=== PATIENT | female | born 1960 | race Caucasian/White ===

== ENCOUNTER → 2018-01-12 09:54 | Outpatient (CLI) | payer OTHER, SELFPAY | DX: Z23 Encounter for immunization (principal) | CPT/HCPCS: 90471; 90686 ==

== ENCOUNTER 2018-05-21 07:30 | Outpatient (RCR) | payer OTHER, SELFPAY ==
--- NOTE | 2017-08-27 17:09 | PT.OIE ---
Current Diagnoses Pain in left shoulder (08/27/17) Strain of unspecified muscle, fascia and tendon at shoulder and upper arm level, left arm, initial encounter (08/27/17) Past Surgical History Status post LASIK surgery Status post colonoscopy Status post tubal ligation Provider Visit Care Team Role Provider Type Kirt Feliz MD Family Provider Physician Primary Care Provider Specialty: Family Practice Address: [address] [place] [address] [address], [place], [address] Email: [email or web address] Pawel Shannon MD Attending Provider Non-Staff Specialty: Orthopedic Surgery Address: [address] [place] [address] [address], [address] Email: Physical Therapy Initial Evaluation PT-OP-A Visit Information Start: 08/27/17 08:09 Freq: Status: Active Protocol: Document 08/27/17 16:56 [facility] (Rec: 08/27/17 17:07 [facility] [id number]) Out-Patient Physical Therapy Visit Information Visit Information Visit Type Initial Evaluation Visit Start Time 14:30 Visit Stop Time 15:15 Total Visit Minutes 45 Visit Number 1 Number of COMMERCIAL CENSUS TAKER Visits 0 PT-OP-B Current Condition Start: 08/27/17 08:09 Freq: Status: Active Protocol: Document 08/27/17 16:56 [facility] (Rec: 08/27/17 17:07 [facility] [id number]) Current Condition History of Current Condition Current Complaints L shoulder pain History of Current Condition Pt had insideous onset of L shoulder pain in Apr and has done PT, chiro, massage & injections with relief only with injections, but started to go downhill 2 months after 3rd injection so was scheduled for RAJENDRA which was done 08/26/17. Pt has chronic neck & back pain. Pt reports allergic reaction to one of her pain meds so is getting new prescription tonight. Prior Treatments and Tests Has done PT, chiro & massage in past & had 2 neck injections & 3 shoulder injections & recent RAJENDRA Treatment Goals Patient/Caregiver Goals Dec pain & return to activity Prior Functional Status Baseline Function- ADL's Independent Current Functional Impairments (Reported) Functional Limitations- ADL's Difficulty with UE tasks d/t pain PT-OP-C Subjective Start: 08/27/17 08:09 Freq: Status: Active Protocol: Document 08/27/17 16:56 [facility] (Rec: 08/27/17 17:07 [facility] [id number]) Patient Questionnaires Quick Dash- Upper Extremity Quick Dash UE Score 59.1 Quick Dash UE Impairment 40 to 59% Impaired (Score 40- 59) OP-PT Pain Assessment Location Left Shoulder Intensity 2 Scale Used Numeric (1 - 10) Pain Duration currently taking narcotics Home Pain Medication Use Pain Medications Used Yes Pain Behaviors Pain Behaviors Facial Grimacing Guarding Wincing PT-OP-J Posture/Palpation/Skin Start: 08/27/17 08:09 Freq: Status: Active Protocol: Document 08/27/17 14:31 [facility] (Rec: 08/27/17 15:24 [facility] [id number]) Posture Evaluation Comments Posture Comments moderate fwd head & shoulders Palpation Assessment Location One Palpation Location L shoulder Palpation Findings Soft Tissue Tightness Tenderness Palpation Details UT, Pec, LS, scalenes PT-OP-K Range of Motion Start: 08/27/17 08:09 Freq: Status: Active Protocol: Document 08/27/17 14:31 [facility] (Rec: 08/27/17 15:24 [facility] [id number]) Cervical Spine Range of Motion Cervical Spine Active Degrees Testing Position Sitting Flexion 30 Extension 30 Rotation Left 50 Rotation Right 26 Lateral Flexion Left 18 Lateral Flexion Right 25 Comments nauseas w/flex & dizzy with ext Shoulder Goniometric Range of Motion Shoulder Measured in Degrees Right Active Shoulder ROM WFL Yes Left Active Testing Position Sitting Flexion 132 Extension 54 Abduction 86 Internal Rotation Behind Back (text) base of sacrum Left Passive Flexion 132 Abduction 105 External Rotation at 90 degrees 52 Abduction Internal Rotation 31 PT-OP-Q Treatments Start: 08/27/17 08:09 Freq: Status: Active Protocol: Document 08/27/17 14:31 [facility] (Rec: 08/27/17 15:24 [facility] [id number]) Therapeutic Exercises Supine Exercises 5 Supine Exercise Name tbar IR behind back Side left Reps/Minutes 10 4 Supine Exercise Name AAROM abd tbar Side left 3 Supine Exercise Name AAROM tbar Habd/add Side left Reps/Minutes 15 2 Supine Exercise Name AAROM tbar 90/90 ER Side left Reps/Minutes 10 1 Supine Exercise Name AAROM tbar flex Side left Reps/Minutes 10 Manual Therapy Treatment Soft Tissue Mobilization 1 Body Location UT Mobilization Type Rolling Intensity/Depth Moderate Body Position Supine Manual Techniques 1 Type PROM flex, abd, ER, IR Body Location L shoulder Body Position Supine PT-OP-T Assessment and Plan Start: 08/27/17 08:09 Freq: Status: Active Protocol: Document 08/27/17 16:50 [facility] (Rec: 08/27/17 16:56 [facility] [id number]) Physical Therapy Assessment Rehab Potential Rehabilitation Potential Good Evaluation Complexity Number of Personal Factors/Comorbidities 3 or More Number of Body Systems Impaired 4 or More Clinical Presentation at Evaluation Evolving Impairments Impairments Activity Tolerance Functional Activities Pain Posture ROM Soft Tissue Mobility Strength Goals Four Impairment pain Jail Goal (LTG) Pt will rate L shoulder pain as no greater than 2/10 without narcotics. LTG Duration 2 months Three Impairment DASH quick Jail Goal (LTG) 20 quick DASH LTG Duration 2 months Two Impairment strength Jail Goal (LTG) 5/5 UE strength (B) to allow return to rec activities LTG Duration 2 months One Impairment ROM Short Term Goal (STG) Full PROM STG Duration 4 weeks Communications Analyst Goal (LTG) Full AROM to allow ability to normal activity LTG Duration 2 months Physical Therapy Plan Frequency and Duration Frequency of Treatment 5x/Week Duration of Treatment 2 months Plan of Care Start Date 08/27/17 Plan of Care End Date 10/27/17 Therapeutic Interventions Therapeutic Interventions Aquatic Therapy Home Exercise Program Joint Mobilizations Manual Therapy Patient/Caregiver Education Self-Care/Home Management Soft Tissue Mobilization Therapeutic Exercises Modalities Cold Pack/Ice Massage Electric Stimulation Ultrasound Next Visit Focus/Plan Next Visit Plan pulleys & joint mobs Provider Signature Date
--- NOTE | 2017-08-27 17:09 | PT.OPPOC ---
Current Diagnoses Pain in left shoulder (08/27/17) Strain of unspecified muscle, fascia and tendon at shoulder and upper arm level, left arm, initial encounter (08/27/17) Provider Visit Care Team Role Provider Type Kirt Feliz MD Family Provider Physician Primary Care Provider Specialty: Family Practice Address: [address] [place] [address] [address], [address] Email: [email or web address] Pawel Shannon MD Attending Provider Non-Staff Specialty: Orthopedic Surgery Address: [address] [place] [address] [address], [place], [address] Email: Plan Of Care PT-OP-T Assessment and Plan Start: 08/27/17 08:09 Freq: Status: Active Protocol: Document 08/27/17 16:50 [facility] (Rec: 08/27/17 16:56 [facility] [id number]) Physical Therapy Assessment Rehab Potential Rehabilitation Potential Good Evaluation Complexity Number of Personal Factors/Comorbidities 3 or More Number of Body Systems Impaired 4 or More Clinical Presentation at Evaluation Evolving Impairments Impairments Activity Tolerance Functional Activities Pain Posture ROM Soft Tissue Mobility Strength Goals Four Impairment pain Dermatologist Goal (LTG) Pt will rate L shoulder pain as no greater than 2/10 without narcotics. LTG Duration 2 months Three Impairment DASH quick [facility] Goal (LTG) 20 quick DASH LTG Duration 2 months Two Impairment strength Dermatologist Goal (LTG) 5/5 UE strength (B) to allow return to rec activities LTG Duration 2 months One Impairment ROM Short Term Goal (STG) Full PROM STG Duration 4 weeks [facility] Goal (LTG) Full AROM to allow ability to normal activity LTG Duration 2 months Physical Therapy Plan Frequency and Duration Frequency of Treatment 5x/Week Duration of Treatment 2 months Plan of Care Start Date 08/27/17 Plan of Care End Date 10/27/17 Therapeutic Interventions Therapeutic Interventions Aquatic Therapy Home Exercise Program Joint Mobilizations Manual Therapy Patient/Caregiver Education Self-Care/Home Management Soft Tissue Mobilization Therapeutic Exercises Modalities Cold Pack/Ice Massage Electric Stimulation Ultrasound Next Visit Focus/Plan Next Visit Plan pulleys & joint mobs Plan of Care Dates Plan of Care Start Date 08/27/17 Plan of Care End Date 10/27/17 Please Sign and Return: I have reviewed this Plan of Care and certify that the skilled therapy services above are required to meet the patient???s needs. Physician Signature Date Printed Name and Credentials
--- NOTE | 2017-08-28 13:46 | PT.OTN ---
Current Diagnoses Pain in left shoulder (08/28/17) Strain of unspecified muscle, fascia and tendon at shoulder and upper arm level, left arm, initial encounter (08/28/17) Physical Therapy Treatment Note PT-OP-A Visit Information Start: 08/27/17 08:09 Freq: Status: Active Protocol: Document 08/28/17 13:05 [facility] (Rec: 08/28/17 13:46 [facility] [id number]) Out-Patient Physical Therapy Visit Information Visit Information Visit Type Treatment Note Visit Start Time 13:00 Visit Stop Time 13:45 Total Visit Minutes 45 Visit Number 2 Number of ENTRY LEVEL DRAFTER Visits 0 PT-OP-B Current Condition Start: 08/27/17 08:09 Freq: Status: Active Protocol: Document 08/27/17 16:56 [facility] (Rec: 08/27/17 17:07 [facility] [id number]) Current Condition History of Current Condition Current Complaints L shoulder pain History of Current Condition Pt had insideous onset of L shoulder pain in Apr and has done PT, chiro, massage & injections with relief only with injections, but started to go downhill 2 months after 3rd injection so was scheduled for RAJENDRA which was done 08/26/17. Pt has chronic neck & back pain. Pt reports allergic reaction to one of her pain meds so is getting new prescription tonight. Prior Treatments and Tests Has done PT, chiro & massage in past & had 2 neck injections & 3 shoulder injections & recent RAJENDRA Treatment Goals Patient/Caregiver Goals Dec pain & return to activity Prior Functional Status Baseline Function- ADL's Independent Current Functional Impairments (Reported) Functional Limitations- ADL's Difficulty with UE tasks d/t pain PT-OP-C Subjective Start: 08/27/17 08:09 Freq: Status: Active Protocol: Document 08/28/17 13:05 [facility] (Rec: 08/28/17 13:46 [facility] [id number]) OP-PT Subjective Patient Comments Patient Comments Reports no pain meds since 830 PM. PT-OP-J Posture/Palpation/Skin Start: 08/27/17 08:09 Freq: Status: Active Protocol: Document 08/27/17 14:31 [facility] (Rec: 08/27/17 15:24 [facility] [id number]) Posture Evaluation Comments Posture Comments moderate fwd head & shoulders Palpation Assessment Location One Palpation Location L shoulder Palpation Findings Soft Tissue Tightness Tenderness Palpation Details UT, Pec, LS, scalenes PT-OP-K Range of Motion Start: 08/27/17 08:09 Freq: Status: Active Protocol: Document 08/27/17 14:31 [facility] (Rec: 08/27/17 15:24 [facility] [id number]) Cervical Spine Range of Motion Cervical Spine Active Degrees Testing Position Sitting Flexion 30 Extension 30 Rotation Left 50 Rotation Right 26 Lateral Flexion Left 18 Lateral Flexion Right 25 Comments nauseas w/flex & dizzy with ext Shoulder Goniometric Range of Motion Shoulder Measured in Degrees Right Active Shoulder ROM WFL Yes Left Active Testing Position Sitting Flexion 132 Extension 54 Abduction 86 Internal Rotation Behind Back (text) base of sacrum Left Passive Flexion 132 Abduction 105 External Rotation at 90 degrees 52 Abduction Internal Rotation 31 PT-OP-Q Treatments Start: 08/27/17 08:09 Freq: Status: Active Protocol: Document 08/28/17 13:05 [facility] (Rec: 08/28/17 13:46 [facility] [id number]) Therapeutic Exercises Supine Exercises 4 Supine Exercise Name AAROM abd tbar Side left Reps/Minutes 10 3 Supine Exercise Name AAROM tbar Habd/add Side left Reps/Minutes 15 2 Supine Exercise Name AAROM tbar 90/90 ER Side left Reps/Minutes 10 1 Supine Exercise Name AAROM tbar flex Side left Reps/Minutes 10 Sitting Exercises 1 Sitting Exercise Name pully flex abd Side left Reps/Minutes 10 Standing Exercises 2 Standing Exercise Name IR behind back Reps/Minutes 10 1 Standing Exercise Name tbar ext Equipment Used tbar Reps/Minutes 10 Manual Therapy Treatment Soft Tissue Mobilization 2 Body Location teres major Mobilization Type Rolling Body Position Supine 1 Body Location UT Mobilization Type Rolling Intensity/Depth Moderate Body Position Supine Joint Mobilizations 1 Joint GH Direction inf & distraction Grade III Body Position Standing Manual Techniques 1 Type PROM flex, abd, ER, IR Body Location L shoulder Body Position Supine PT-OP-T Assessment and Plan Start: 08/27/17 08:09 Freq: Status: Active Protocol: Document 08/28/17 13:05 [facility] (Rec: 08/28/17 13:46 [facility] [id number]) Physical Therapy Assessment Assessment Summary Assessment Cont improvement with range. Pt able to do tbar exercises with min cuieng. Physical Therapy Plan Frequency and Duration Frequency of Treatment 5x/Week Duration of Treatment 2 months Plan of Care Start Date 08/27/17 Plan of Care End Date 10/27/17 Next Visit Focus/Plan Next Visit Plan stretches for work
--- NOTE | 2017-08-31 09:47 | PT.OTN ---
Current Diagnoses Pain in left shoulder (08/31/17) Strain of unspecified muscle, fascia and tendon at shoulder and upper arm level, left arm, initial encounter (08/31/17) Physical Therapy Treatment Note PT-OP-A Visit Information Start: 08/27/17 08:09 Freq: Status: Active Protocol: Document 08/31/17 09:03 [facility] (Rec: 08/31/17 09:47 [facility] [id number]) Out-Patient Physical Therapy Visit Information Visit Information Visit Type Treatment Note Visit Start Time 09:00 Visit Stop Time 09:45 Total Visit Minutes 45 Visit Number 3 PT-OP-B Current Condition Start: 08/27/17 08:09 Freq: Status: Active Protocol: Document 08/27/17 16:56 [facility] (Rec: 08/27/17 17:07 [facility] [id number]) Current Condition History of Current Condition Current Complaints L shoulder pain History of Current Condition Pt had insideous onset of L shoulder pain in Apr and has done PT, chiro, massage & injections with relief only with injections, but started to go downhill 2 months after 3rd injection so was scheduled for RAJENDRA which was done 08/26/17. Pt has chronic neck & back pain. Pt reports allergic reaction to one of her pain meds so is getting new prescription tonight. Prior Treatments and Tests Has done PT, chiro & massage in past & had 2 neck injections & 3 shoulder injections & recent RAJENDRA Treatment Goals Patient/Caregiver Goals Dec pain & return to activity Prior Functional Status Baseline Function- ADL's Independent Current Functional Impairments (Reported) Functional Limitations- ADL's Difficulty with UE tasks d/t pain PT-OP-C Subjective Start: 08/27/17 08:09 Freq: Status: Active Protocol: Document 08/31/17 09:03 [facility] (Rec: 08/31/17 09:47 [facility] [id number]) OP-PT Subjective Patient Comments Patient Comments Pt reports she has gone down to 1/2 pain pill every 6 hours . PT-OP-J Posture/Palpation/Skin Start: 08/27/17 08:09 Freq: Status: Active Protocol: Document 08/27/17 14:31 [facility] (Rec: 08/27/17 15:24 [facility] [id number]) Posture Evaluation Comments Posture Comments moderate fwd head & shoulders Palpation Assessment Location One Palpation Location L shoulder Palpation Findings Soft Tissue Tightness Tenderness Palpation Details UT, Pec, LS, scalenes PT-OP-K Range of Motion Start: 08/27/17 08:09 Freq: Status: Active Protocol: Document 08/27/17 14:31 [facility] (Rec: 08/27/17 15:24 [facility] [id number]) Cervical Spine Range of Motion Cervical Spine Active Degrees Testing Position Sitting Flexion 30 Extension 30 Rotation Left 50 Rotation Right 26 Lateral Flexion Left 18 Lateral Flexion Right 25 Comments nauseas w/flex & dizzy with ext Shoulder Goniometric Range of Motion Shoulder Measured in Degrees Right Active Shoulder ROM WFL Yes Left Active Testing Position Sitting Flexion 132 Extension 54 Abduction 86 Internal Rotation Behind Back (text) base of sacrum Left Passive Flexion 132 Abduction 105 External Rotation at 90 degrees 52 Abduction Internal Rotation 31 PT-OP-Q Treatments Start: 08/27/17 08:09 Freq: Status: Active Protocol: Document 08/31/17 09:03 [facility] (Rec: 08/31/17 09:47 [facility] [id number]) Therapeutic Exercises Sitting Exercises 1 Sitting Exercise Name pully flex abd Side left Reps/Minutes 15 Standing Exercises 6 Standing Exercise Name pendulms 5 Standing Exercise Name flex doorway stretch Reps/Minutes 30 sec holds 4 Standing Exercise Name doorway ext stretch Reps/Minutes 30 sec 3 Standing Exercise Name pec corner stretch Reps/Minutes 30 sec hold Manual Therapy Treatment Soft Tissue Mobilization 2 Body Location teres major & infraspinatus Mobilization Type Rolling Body Position Sidelying 1 Body Location UT Mobilization Type Rolling Intensity/Depth Moderate Body Position Supine Joint Mobilizations 1 Joint GH Direction inf & distraction & post Grade III Body Position Supine Manual Techniques 1 Type PROM flex, abd, ER, IR Body Location L shoulder Body Position Supine PT-OP-T Assessment and Plan Start: 08/27/17 08:09 Freq: Status: Active Protocol: Document 08/31/17 09:03 [facility] (Rec: 08/31/17 09:47 [facility] [id number]) Physical Therapy Assessment Goals Four Impairment pain [facility] Goal (LTG) Pt will rate L shoulder pain as no greater than 2/10 without narcotics. LTG Duration 2 months Three Impairment DASH quick [facility] Goal (LTG) 20 quick DASH LTG Duration 2 months Two Impairment strength [facility] Goal (LTG) 5/5 UE strength (B) to allow return to rec activities LTG Duration 2 months One Impairment ROM Short Term Goal (STG) Full PROM STG Duration 4 weeks [facility] Goal (LTG) Full AROM to allow ability to normal activity LTG Duration 2 months Assessment Summary Assessment Pt is improving with UT mobility & overall PROM. Pt encouraged to use LUE for AROM . Physical Therapy Plan Frequency and Duration Frequency of Treatment 5x/Week Duration of Treatment 2 months Plan of Care Start Date 08/27/17 Plan of Care End Date 10/27/17 Next Visit Focus/Plan Next Visit Plan cont to advance ROM
--- NOTE | 2017-09-01 08:59 | PT.OTN ---
Current Diagnoses Pain in left shoulder (09/01/17) Strain of unspecified muscle, fascia and tendon at shoulder and upper arm level, left arm, initial encounter (09/01/17) Physical Therapy Treatment Note PT-OP-A Visit Information Start: 08/27/17 08:09 Freq: Status: Active Protocol: Document 09/01/17 08:15 [facility] (Rec: 09/01/17 08:59 [facility] [id number]) Out-Patient Physical Therapy Visit Information Visit Information Visit Type Treatment Note Visit Start Time 09:00 Visit Stop Time 09:45 Total Visit Minutes 45 Visit Number 3 PT-OP-B Current Condition Start: 08/27/17 08:09 Freq: Status: Active Protocol: Document 08/27/17 16:56 [facility] (Rec: 08/27/17 17:07 [facility] [id number]) Current Condition History of Current Condition Current Complaints L shoulder pain History of Current Condition Pt had insideous onset of L shoulder pain in Apr and has done PT, chiro, massage & injections with relief only with injections, but started to go downhill 2 months after 3rd injection so was scheduled for RAJENDRA which was done 08/26/17. Pt has chronic neck & back pain. Pt reports allergic reaction to one of her pain meds so is getting new prescription tonight. Prior Treatments and Tests Has done PT, chiro & massage in past & had 2 neck injections & 3 shoulder injections & recent RAJENDRA Treatment Goals Patient/Caregiver Goals Dec pain & return to activity Prior Functional Status Baseline Function- ADL's Independent Current Functional Impairments (Reported) Functional Limitations- ADL's Difficulty with UE tasks d/t pain PT-OP-C Subjective Start: 08/27/17 08:09 Freq: Status: Active Protocol: Document 09/01/17 08:15 [facility] (Rec: 09/01/17 08:59 [facility] [id number]) OP-PT Subjective Patient Comments Patient Comments Pt thought she was going to have to drive today so did not take her pain meds yet. PT-OP-J Posture/Palpation/Skin Start: 08/27/17 08:09 Freq: Status: Active Protocol: Document 08/27/17 14:31 [facility] (Rec: 08/27/17 15:24 [facility] [id number]) Posture Evaluation Comments Posture Comments moderate fwd head & shoulders Palpation Assessment Location One Palpation Location L shoulder Palpation Findings Soft Tissue Tightness Tenderness Palpation Details UT, Pec, LS, scalenes PT-OP-K Range of Motion Start: 08/27/17 08:09 Freq: Status: Active Protocol: Document 08/27/17 14:31 [facility] (Rec: 08/27/17 15:24 [facility] [id number]) Cervical Spine Range of Motion Cervical Spine Active Degrees Testing Position Sitting Flexion 30 Extension 30 Rotation Left 50 Rotation Right 26 Lateral Flexion Left 18 Lateral Flexion Right 25 Comments nauseas w/flex & dizzy with ext Shoulder Goniometric Range of Motion Shoulder Measured in Degrees Right Active Shoulder ROM WFL Yes Left Active Testing Position Sitting Flexion 132 Extension 54 Abduction 86 Internal Rotation Behind Back (text) base of sacrum Left Passive Flexion 132 Abduction 105 External Rotation at 90 degrees 52 Abduction Internal Rotation 31 PT-OP-Q Treatments Start: 08/27/17 08:09 Freq: Status: Active Protocol: Document 09/01/17 08:15 [facility] (Rec: 09/01/17 08:59 [facility] [id number]) Therapeutic Exercises Supine Exercises 6 Supine Exercise Name foam roll:Habd, flex, abd, ER Reps/Minutes x10 Sitting Exercises 1 Sitting Exercise Name pully flex abd Side left Reps/Minutes 15 Standing Exercises 5 Standing Exercise Name flex doorway stretch Reps/Minutes 30 sec holds 4 Standing Exercise Name doorway ext stretch Reps/Minutes 30 sec 3 Standing Exercise Name pec corner stretch Reps/Minutes 30 sec hold Manual Therapy Treatment Soft Tissue Mobilization 2 Body Location teres major & infraspinatus Mobilization Type Rolling Body Position Sidelying 1 Body Location UT Mobilization Type Rolling Intensity/Depth Moderate Body Position Supine Joint Mobilizations 1 Joint GH Direction inf & distraction & post Grade III Body Position Supine Manual Techniques 1 Type PROM flex, abd, ER, IR Body Location L shoulder Body Position Supine PT-OP-T Assessment and Plan Start: 08/27/17 08:09 Freq: Status: Active Protocol: Document 09/01/17 08:15 [facility] (Rec: 09/01/17 08:59 [facility] [id number]) Physical Therapy Assessment Assessment Summary Assessment Pt doing well with ROM exercises and was able to tolerate AROM on foam roll. Physical Therapy Plan Next Visit Focus/Plan Next Visit Plan cont to advance ROM & PN thurs
--- NOTE | 2017-09-02 09:45 | PT.OTN ---
Current Diagnoses Pain in left shoulder (09/02/17) Strain of unspecified muscle, fascia and tendon at shoulder and upper arm level, left arm, initial encounter (09/02/17) Physical Therapy Treatment Note PT-OP-A Visit Information Start: 08/27/17 08:09 Freq: Status: Active Protocol: Document 09/02/17 08:59 [facility] (Rec: 09/02/17 09:45 [facility] [id number]) Out-Patient Physical Therapy Visit Information Visit Information Visit Type Treatment Note Visit Start Time 09:05 Visit Stop Time 09:45 Total Visit Minutes 40 Visit Number 5 Number of POINTER HELPER Visits 0 PT-OP-B Current Condition Start: 08/27/17 08:09 Freq: Status: Active Protocol: Document 08/27/17 16:56 [facility] (Rec: 08/27/17 17:07 [facility] [id number]) Current Condition History of Current Condition Current Complaints L shoulder pain History of Current Condition Pt had insideous onset of L shoulder pain in Apr and has done PT, chiro, massage & injections with relief only with injections, but started to go downhill 2 months after 3rd injection so was scheduled for RAJENDRA which was done 08/26/17. Pt has chronic neck & back pain. Pt reports allergic reaction to one of her pain meds so is getting new prescription tonight. Prior Treatments and Tests Has done PT, chiro & massage in past & had 2 neck injections & 3 shoulder injections & recent RAJENDRA Treatment Goals Patient/Caregiver Goals Dec pain & return to activity Prior Functional Status Baseline Function- ADL's Independent Current Functional Impairments (Reported) Functional Limitations- ADL's Difficulty with UE tasks d/t pain PT-OP-C Subjective Start: 08/27/17 08:09 Freq: Status: Active Protocol: Document 09/02/17 08:59 [facility] (Rec: 09/02/17 09:45 [facility] [id number]) OP-PT Subjective Patient Comments Patient Comments Did her stretches already this AM. PT-OP-J Posture/Palpation/Skin Start: 08/27/17 08:09 Freq: Status: Active Protocol: Document 08/27/17 14:31 [facility] (Rec: 08/27/17 15:24 [facility] [id number]) Posture Evaluation Comments Posture Comments moderate fwd head & shoulders Palpation Assessment Location One Palpation Location L shoulder Palpation Findings Soft Tissue Tightness Tenderness Palpation Details UT, Pec, LS, scalenes PT-OP-K Range of Motion Start: 08/27/17 08:09 Freq: Status: Active Protocol: Document 08/27/17 14:31 [facility] (Rec: 08/27/17 15:24 [facility] [id number]) Cervical Spine Range of Motion Cervical Spine Active Degrees Testing Position Sitting Flexion 30 Extension 30 Rotation Left 50 Rotation Right 26 Lateral Flexion Left 18 Lateral Flexion Right 25 Comments nauseas w/flex & dizzy with ext Shoulder Goniometric Range of Motion Shoulder Measured in Degrees Right Active Shoulder ROM WFL Yes Left Active Testing Position Sitting Flexion 132 Extension 54 Abduction 86 Internal Rotation Behind Back (text) base of sacrum Left Passive Flexion 132 Abduction 105 External Rotation at 90 degrees 52 Abduction Internal Rotation 31 PT-OP-Q Treatments Start: 08/27/17 08:09 Freq: Status: Active Protocol: Document 09/02/17 08:59 [facility] (Rec: 09/02/17 09:45 [facility] [id number]) Therapeutic Exercises Supine Exercises 6 Supine Exercise Name foam roll:Habd, flex, abd, ER Reps/Minutes x10 Sitting Exercises 1 Sitting Exercise Name pully flex abd Side left Reps/Minutes 15 Manual Therapy Treatment Soft Tissue Mobilization 2 Body Location teres major & infraspinatus Mobilization Type Rolling Body Position Sidelying 1 Body Location UT Mobilization Type Rolling Intensity/Depth Moderate Body Position Supine Joint Mobilizations 1 Joint GH Direction inf & distraction & post Grade III Body Position Supine Manual Techniques 1 Type PROM flex, abd, ER, IR Body Location L shoulder Body Position Supine PT-OP-T Assessment and Plan Start: 08/27/17 08:09 Freq: Status: Active Protocol: Document 09/02/17 08:59 [facility] (Rec: 09/02/17 09:45 [facility] [id number]) Physical Therapy Assessment Assessment Summary Assessment Pt is doing very well with overhead flex exercises, but cont to have difficulty with overhead w/Abd and remaining in plane. Physical Therapy Plan Frequency and Duration Frequency of Treatment 5x/Week Duration of Treatment 2 months Plan of Care Start Date 08/27/17 Plan of Care End Date 10/27/17 Next Visit Focus/Plan Next Visit Plan cont to advance ROM & PN thurs
--- NOTE | 2017-09-03 09:43 | PT.OTN ---
Current Diagnoses Pain in left shoulder (09/03/17) Strain of unspecified muscle, fascia and tendon at shoulder and upper arm level, left arm, initial encounter (09/03/17) Physical Therapy Treatment Note PT-OP-A Visit Information Start: 08/27/17 08:09 Freq: Status: Active Protocol: Document 09/03/17 09:01 [facility] (Rec: 09/03/17 09:43 [facility] [id number]) Out-Patient Physical Therapy Visit Information Visit Information Visit Type Treatment Note Visit Start Time 09:00 Visit Stop Time 09:45 Total Visit Minutes 45 Visit Number 6 PT-OP-B Current Condition Start: 08/27/17 08:09 Freq: Status: Active Protocol: Document 08/27/17 16:56 [facility] (Rec: 08/27/17 17:07 [facility] [id number]) Current Condition History of Current Condition Current Complaints L shoulder pain History of Current Condition Pt had insideous onset of L shoulder pain in Apr and has done PT, chiro, massage & injections with relief only with injections, but started to go downhill 2 months after 3rd injection so was scheduled for RAJENDRA which was done 08/26/17. Pt has chronic neck & back pain. Pt reports allergic reaction to one of her pain meds so is getting new prescription tonight. Prior Treatments and Tests Has done PT, chiro & massage in past & had 2 neck injections & 3 shoulder injections & recent RAJENDRA Treatment Goals Patient/Caregiver Goals Dec pain & return to activity Prior Functional Status Baseline Function- ADL's Independent Current Functional Impairments (Reported) Functional Limitations- ADL's Difficulty with UE tasks d/t pain PT-OP-C Subjective Start: 08/27/17 08:09 Freq: Status: Active Protocol: Document 09/03/17 09:01 [facility] (Rec: 09/03/17 09:43 [facility] [id number]) OP-PT Subjective Patient Comments Patient Comments Pt reports soreness but she has not taken any pain meds since . PT-OP-J Posture/Palpation/Skin Start: 08/27/17 08:09 Freq: Status: Active Protocol: Document 08/27/17 14:31 [facility] (Rec: 08/27/17 15:24 [facility] [id number]) Posture Evaluation Comments Posture Comments moderate fwd head & shoulders Palpation Assessment Location One Palpation Location L shoulder Palpation Findings Soft Tissue Tightness Tenderness Palpation Details UT, Pec, LS, scalenes PT-OP-K Range of Motion Start: 08/27/17 08:09 Freq: Status: Active Protocol: Document 09/03/17 09:01 [facility] (Rec: 09/03/17 09:43 [facility] [id number]) Shoulder Goniometric Range of Motion Shoulder Measured in Degrees Left Active Flexion 149 Extension 49 Abduction 120 External Rotation at 90 degrees 75 Abduction Internal Rotation 44 Internal Rotation Behind Back (text) L2 Left Passive Flexion 155 Abduction 120 External Rotation at 90 degrees 70 Abduction Internal Rotation 59 PT-OP-Q Treatments Start: 08/27/17 08:09 Freq: Status: Active Protocol: Document 09/03/17 09:01 [facility] (Rec: 09/03/17 09:43 [facility] [id number]) Therapeutic Exercises Supine Exercises 6 Supine Exercise Name foam roll:Habd, flex, abd, ER Reps/Minutes x10 Sitting Exercises 1 Sitting Exercise Name pully flex abd Side left Reps/Minutes 15 Manual Therapy Treatment Soft Tissue Mobilization 3 Body Location pec Mobilization Type Rolling Intensity/Depth Moderate Body Position Supine 1 Body Location UT, LS Mobilization Type Rolling Intensity/Depth Moderate Body Position Supine Joint Mobilizations 1 Joint GH Direction inf & distraction & post Grade III Body Position Supine Manual Techniques 1 Type PROM flex, abd, ER, IR Body Location L shoulder Body Position Supine PT-OP-T Assessment and Plan Start: 08/27/17 08:09 Freq: Status: Active Protocol: Document 09/03/17 09:01 [facility] (Rec: 09/03/17 09:43 [facility] [id number]) Physical Therapy Assessment Assessment Summary Assessment Pt has been compliant with sessions & HEP 3-4 x/day at home. Pt is making good progress with her AROM & PROM at this time. Physical Therapy Plan Frequency and Duration Frequency of Treatment 5x/Week Plan of Care Start Date 08/27/17 Plan of Care End Date 10/27/17 Therapeutic Interventions Therapeutic Interventions Aquatic Therapy Home Exercise Program Joint Mobilizations Manual Therapy Taping Therapeutic Activities Therapeutic Exercises Next Visit Focus/Plan Next Visit Plan cont to advance ROM
--- NOTE | 2017-09-04 11:34 | PT.OTN ---
Current Diagnoses Pain in left shoulder (09/04/17) Strain of unspecified muscle, fascia and tendon at shoulder and upper arm level, left arm, initial encounter (09/04/17) Physical Therapy Treatment Note PT-OP-A Visit Information Start: 08/27/17 08:09 Freq: Status: Active Protocol: Document 09/04/17 10:36 [facility] (Rec: 09/04/17 11:34 [facility] [id number]) Out-Patient Physical Therapy Visit Information Visit Information Visit Type Treatment Note Visit Start Time 10:30 Visit Stop Time 11:15 Total Visit Minutes 45 Visit Number 7 Number of CONCRETE BUILDING ASSEMBLER Visits 0 PT-OP-B Current Condition Start: 08/27/17 08:09 Freq: Status: Active Protocol: Document 08/27/17 16:56 [facility] (Rec: 08/27/17 17:07 [facility] [id number]) Current Condition History of Current Condition Current Complaints L shoulder pain History of Current Condition Pt had insideous onset of L shoulder pain in Apr and has done PT, chiro, massage & injections with relief only with injections, but started to go downhill 2 months after 3rd injection so was scheduled for RAJENDRA which was done 08/26/17. Pt has chronic neck & back pain. Pt reports allergic reaction to one of her pain meds so is getting new prescription tonight. Prior Treatments and Tests Has done PT, chiro & massage in past & had 2 neck injections & 3 shoulder injections & recent RAJENDRA Treatment Goals Patient/Caregiver Goals Dec pain & return to activity Prior Functional Status Baseline Function- ADL's Independent Current Functional Impairments (Reported) Functional Limitations- ADL's Difficulty with UE tasks d/t pain PT-OP-C Subjective Start: 08/27/17 08:09 Freq: Status: Active Protocol: Document 09/04/17 10:36 [facility] (Rec: 09/04/17 11:34 [facility] [id number]) OP-PT Subjective Patient Comments Patient Comments MD gomezt went well. She is approved to work 4 hours. PT-OP-J Posture/Palpation/Skin Start: 08/27/17 08:09 Freq: Status: Active Protocol: Document 08/27/17 14:31 [facility] (Rec: 08/27/17 15:24 [facility] [id number]) Posture Evaluation Comments Posture Comments moderate fwd head & shoulders Palpation Assessment Location One Palpation Location L shoulder Palpation Findings Soft Tissue Tightness Tenderness Palpation Details UT, Pec, LS, scalenes PT-OP-K Range of Motion Start: 08/27/17 08:09 Freq: Status: Active Protocol: Document 09/03/17 09:01 [facility] (Rec: 09/03/17 09:43 [facility] [id number]) Shoulder Goniometric Range of Motion Shoulder Measured in Degrees Left Active Flexion 149 Extension 49 Abduction 120 External Rotation at 90 degrees 75 Abduction Internal Rotation 44 Internal Rotation Behind Back (text) L2 Left Passive Flexion 155 Abduction 120 External Rotation at 90 degrees 70 Abduction Internal Rotation 59 PT-OP-Q Treatments Start: 08/27/17 08:09 Freq: Status: Active Protocol: Document 09/04/17 10:36 [facility] (Rec: 09/04/17 11:34 [facility] [id number]) Therapeutic Exercises Sitting Exercises 1 Sitting Exercise Name pully flex abd & IR Side left Reps/Minutes 15 Manual Therapy Treatment Soft Tissue Mobilization 3 Body Location pec Mobilization Type Rolling Intensity/Depth Moderate Body Position Supine 2 Body Location teres major & infraspinatus Mobilization Type Rolling Body Position Sidelying 1 Body Location UT, LS Mobilization Type Rolling Intensity/Depth Moderate Body Position Supine Joint Mobilizations 1 Joint GH Direction inf & distraction & post Grade III Body Position Supine Manual Techniques 1 Type PROM flex, abd, ER, IR Body Location L shoulder Body Position Supine PT-OP-T Assessment and Plan Start: 08/27/17 08:09 Freq: Status: Active Protocol: Document 09/04/17 10:36 [facility] (Rec: 09/04/17 11:34 [facility] [id number]) Physical Therapy Assessment Assessment Summary Assessment Pt is improving with range with cont tightness into abd & ER. Physical Therapy Plan Next Visit Focus/Plan Next Visit Plan cont to advance ROM
--- NOTE | 2017-09-07 10:34 | PT.OTN ---
Current Diagnoses Pain in left shoulder (09/07/17) Strain of unspecified muscle, fascia and tendon at shoulder and upper arm level, left arm, initial encounter (09/07/17) Physical Therapy Treatment Note PT-OP-A Visit Information Start: 08/27/17 08:09 Freq: Status: Active Protocol: Document 09/07/17 09:51 [facility] (Rec: 09/07/17 10:34 [facility] [id number]) Out-Patient Physical Therapy Visit Information Visit Information Visit Type Treatment Note Visit Start Time 09:45 Visit Stop Time 10:30 Total Visit Minutes 45 Visit Number 8 Number of DX BOARD OPERATOR Visits 0 PT-OP-B Current Condition Start: 08/27/17 08:09 Freq: Status: Active Protocol: Document 08/27/17 16:56 [facility] (Rec: 08/27/17 17:07 [facility] [id number]) Current Condition History of Current Condition Current Complaints L shoulder pain History of Current Condition Pt had insideous onset of L shoulder pain in Apr and has done PT, chiro, massage & injections with relief only with injections, but started to go downhill 2 months after 3rd injection so was scheduled for RAJENDRA which was done 08/26/17. Pt has chronic neck & back pain. Pt reports allergic reaction to one of her pain meds so is getting new prescription tonight. Prior Treatments and Tests Has done PT, chiro & massage in past & had 2 neck injections & 3 shoulder injections & recent RAJENDRA Treatment Goals Patient/Caregiver Goals Dec pain & return to activity Prior Functional Status Baseline Function- ADL's Independent Current Functional Impairments (Reported) Functional Limitations- ADL's Difficulty with UE tasks d/t pain PT-OP-C Subjective Start: 08/27/17 08:09 Freq: Status: Active Protocol: Document 09/07/17 09:51 [facility] (Rec: 09/07/17 10:34 [facility] [id number]) OP-PT Subjective Patient Comments Patient Comments Pt reports stretdching is going well and it helps to do it frequently PT-OP-J Posture/Palpation/Skin Start: 08/27/17 08:09 Freq: Status: Active Protocol: Document 08/27/17 14:31 [facility] (Rec: 08/27/17 15:24 [facility] [id number]) Posture Evaluation Comments Posture Comments moderate fwd head & shoulders Palpation Assessment Location One Palpation Location L shoulder Palpation Findings Soft Tissue Tightness Tenderness Palpation Details UT, Pec, LS, scalenes PT-OP-K Range of Motion Start: 08/27/17 08:09 Freq: Status: Active Protocol: Document 09/03/17 09:01 [facility] (Rec: 09/03/17 09:43 [facility] [id number]) Shoulder Goniometric Range of Motion Shoulder Measured in Degrees Left Active Flexion 149 Extension 49 Abduction 120 External Rotation at 90 degrees 75 Abduction Internal Rotation 44 Internal Rotation Behind Back (text) L2 Left Passive Flexion 155 Abduction 120 External Rotation at 90 degrees 70 Abduction Internal Rotation 59 PT-OP-Q Treatments Start: 08/27/17 08:09 Freq: Status: Active Protocol: Document 09/07/17 09:51 [facility] (Rec: 09/07/17 10:34 [facility] [id number]) Therapeutic Exercises Supine Exercises 6 Supine Exercise Name foam roll:Habd, flex, abd, ER Reps/Minutes x10 Sitting Exercises 1 Sitting Exercise Name pully flex abd & IR Side left Reps/Minutes 15 Manual Therapy Treatment Soft Tissue Mobilization 3 Body Location pec Mobilization Type Rolling Intensity/Depth Moderate Body Position Supine 2 Body Location teres major & infraspinatus Mobilization Type Rolling Body Position Sidelying 1 Body Location UT, LS Mobilization Type Rolling Intensity/Depth Moderate Body Position Supine Joint Mobilizations 2 Joint Thoracic Direction L UPA Grade III Body Position Prone 1 Joint GH Direction inf & distraction & post Grade III Body Position Supine Manual Techniques 1 Type PROM flex, abd, ER, IR Body Location L shoulder Body Position Supine PT-OP-T Assessment and Plan Start: 08/27/17 08:09 Freq: Status: Active Protocol: Document 09/07/17 09:51 [facility] (Rec: 09/07/17 10:34 [facility] [id number]) Physical Therapy Assessment Assessment Summary Assessment Pt is improving well with abd & flex ROM, but is limited in ER & IR today. Improved range with stretching and tspine mobility Physical Therapy Plan Frequency and Duration Frequency of Treatment 5x/Week Plan of Care Start Date 08/27/17 Plan of Care End Date 10/27/17 Next Visit Focus/Plan Next Visit Plan cont to advance ROM Please Sign and Return: I have reviewed this Plan of Care and certify that the skilled therapy services above are required to meet the patient???s needs. Physician Signature Date Printed Name and Credentials Clinical Instructor Signature Printed Name and Credentials
--- NOTE | 2017-09-08 11:15 | PT.OTN ---
Current Diagnoses Pain in left shoulder (09/08/17) Strain of unspecified muscle, fascia and tendon at shoulder and upper arm level, left arm, initial encounter (09/08/17) Physical Therapy Treatment Note PT-OP-A Visit Information Start: 08/27/17 08:09 Freq: Status: Active Protocol: Document 09/08/17 10:33 [facility] (Rec: 09/08/17 11:15 [facility] [id number]) Out-Patient Physical Therapy Visit Information Visit Information Visit Type Treatment Note Visit Start Time 10:30 Visit Stop Time 11:15 Total Visit Minutes 45 Visit Number 9 Number of CARTOONIST SPECIAL EFFECTS Visits 0 PT-OP-B Current Condition Start: 08/27/17 08:09 Freq: Status: Active Protocol: Document 08/27/17 16:56 [facility] (Rec: 08/27/17 17:07 [facility] [id number]) Current Condition History of Current Condition Current Complaints L shoulder pain History of Current Condition Pt had insideous onset of L shoulder pain in Apr and has done PT, chiro, massage & injections with relief only with injections, but started to go downhill 2 months after 3rd injection so was scheduled for RAJENDRA which was done 08/26/17. Pt has chronic neck & back pain. Pt reports allergic reaction to one of her pain meds so is getting new prescription tonight. Prior Treatments and Tests Has done PT, chiro & massage in past & had 2 neck injections & 3 shoulder injections & recent RAJENDRA Treatment Goals Patient/Caregiver Goals Dec pain & return to activity Prior Functional Status Baseline Function- ADL's Independent Current Functional Impairments (Reported) Functional Limitations- ADL's Difficulty with UE tasks d/t pain PT-OP-C Subjective Start: 08/27/17 08:09 Freq: Status: Active Protocol: Document 09/08/17 10:33 [facility] (Rec: 09/08/17 11:15 [facility] [id number]) OP-PT Subjective Patient Comments Patient Comments Reports she has been working for 2 hours and is feeling tight. PT-OP-J Posture/Palpation/Skin Start: 08/27/17 08:09 Freq: Status: Active Protocol: Document 08/27/17 14:31 [facility] (Rec: 08/27/17 15:24 [facility] [id number]) Posture Evaluation Comments Posture Comments moderate fwd head & shoulders Palpation Assessment Location One Palpation Location L shoulder Palpation Findings Soft Tissue Tightness Tenderness Palpation Details UT, Pec, LS, scalenes PT-OP-K Range of Motion Start: 08/27/17 08:09 Freq: Status: Active Protocol: Document 09/03/17 09:01 [facility] (Rec: 09/03/17 09:43 [facility] [id number]) Shoulder Goniometric Range of Motion Shoulder Measured in Degrees Left Active Flexion 149 Extension 49 Abduction 120 External Rotation at 90 degrees 75 Abduction Internal Rotation 44 Internal Rotation Behind Back (text) L2 Left Passive Flexion 155 Abduction 120 External Rotation at 90 degrees 70 Abduction Internal Rotation 59 PT-OP-Q Treatments Start: 08/27/17 08:09 Freq: Status: Active Protocol: Document 09/08/17 10:33 [facility] (Rec: 09/08/17 11:15 [facility] [id number]) Therapeutic Exercises Supine Exercises 6 Supine Exercise Name foam roll:Habd, flex, abd, ER Reps/Minutes x10 Sitting Exercises 1 Sitting Exercise Name pully flex abd & IR Side left Reps/Minutes 15 Standing Exercises 8 Standing Exercise Name towel IR stretch 7 Standing Exercise Name 90/90 ER Equipment Used tbar Reps/Minutes 15 Manual Therapy Treatment Soft Tissue Mobilization 2 Body Location teres major & infraspinatus Mobilization Type Rolling Body Position Sidelying 1 Body Location UT, LS Mobilization Type Rolling Intensity/Depth Moderate Body Position Supine Joint Mobilizations 3 Joint AC Direction caudal Grade III Body Position Sitting Comments FM 2 Joint Thoracic Direction L UPA Grade III Body Position Prone 1 Joint GH Direction inf & distraction & post Grade III Body Position Supine Manual Techniques 1 Type PROM flex, abd, ER, IR Body Location L shoulder Body Position Supine PT-OP-T Assessment and Plan Start: 08/27/17 08:09 Freq: Status: Active Protocol: Document 09/08/17 10:33 [facility] (Rec: 09/08/17 11:15 [facility] [id number]) Physical Therapy Plan Frequency and Duration Frequency of Treatment 5x/Week Plan of Care Start Date 08/27/17 Plan of Care End Date 10/27/17 Please Sign and Return: I have reviewed this Plan of Care and certify that the skilled therapy services above are required to meet the patient???s needs. Physician Signature Date Printed Name and Credentials Clinical Instructor Signature Printed Name and Credentials
--- NOTE | 2017-09-09 09:02 | PT.OTN ---
Current Diagnoses Pain in left shoulder (09/09/17) Strain of unspecified muscle, fascia and tendon at shoulder and upper arm level, left arm, initial encounter (09/09/17) Physical Therapy Treatment Note PT-OP-A Visit Information Start: 08/27/17 08:09 Freq: Status: Active Protocol: Document 09/09/17 08:21 [facility] (Rec: 09/09/17 09:02 [facility] [id number]) Out-Patient Physical Therapy Visit Information Visit Information Visit Type Treatment Note Visit Start Time 08:15 Visit Stop Time 09:00 Total Visit Minutes 45 Visit Number 10 Number of RETIREMENT PLAN COUNSELOR Visits 0 PT-OP-B Current Condition Start: 08/27/17 08:09 Freq: Status: Active Protocol: Document 08/27/17 16:56 [facility] (Rec: 08/27/17 17:07 [facility] [id number]) Current Condition History of Current Condition Current Complaints L shoulder pain History of Current Condition Pt had insideous onset of L shoulder pain in Apr and has done PT, chiro, massage & injections with relief only with injections, but started to go downhill 2 months after 3rd injection so was scheduled for RAJENDRA which was done 08/26/17. Pt has chronic neck & back pain. Pt reports allergic reaction to one of her pain meds so is getting new prescription tonight. Prior Treatments and Tests Has done PT, chiro & massage in past & had 2 neck injections & 3 shoulder injections & recent RAJENDRA Treatment Goals Patient/Caregiver Goals Dec pain & return to activity Prior Functional Status Baseline Function- ADL's Independent Current Functional Impairments (Reported) Functional Limitations- ADL's Difficulty with UE tasks d/t pain PT-OP-C Subjective Start: 08/27/17 08:09 Freq: Status: Active Protocol: Document 09/09/17 08:21 [facility] (Rec: 09/09/17 09:02 [facility] [id number]) OP-PT Subjective Patient Comments Patient Comments Woke up on her shoulder and is sore in UT region & down shoulder. PT-OP-J Posture/Palpation/Skin Start: 08/27/17 08:09 Freq: Status: Active Protocol: Document 08/27/17 14:31 [facility] (Rec: 08/27/17 15:24 [facility] [id number]) Posture Evaluation Comments Posture Comments moderate fwd head & shoulders Palpation Assessment Location One Palpation Location L shoulder Palpation Findings Soft Tissue Tightness Tenderness Palpation Details UT, Pec, LS, scalenes PT-OP-K Range of Motion Start: 08/27/17 08:09 Freq: Status: Active Protocol: Document 09/03/17 09:01 [facility] (Rec: 09/03/17 09:43 [facility] [id number]) Shoulder Goniometric Range of Motion Shoulder Measured in Degrees Left Active Flexion 149 Extension 49 Abduction 120 External Rotation at 90 degrees 75 Abduction Internal Rotation 44 Internal Rotation Behind Back (text) L2 Left Passive Flexion 155 Abduction 120 External Rotation at 90 degrees 70 Abduction Internal Rotation 59 PT-OP-Q Treatments Start: 08/27/17 08:09 Freq: Status: Active Protocol: Document 09/09/17 08:21 [facility] (Rec: 09/09/17 09:02 [facility] [id number]) Therapeutic Exercises Supine Exercises 6 Supine Exercise Name foam roll:Habd, flex, abd, ER Reps/Minutes x10 Sitting Exercises 1 Sitting Exercise Name pully flex abd & IR Side left Reps/Minutes 15 Standing Exercises 9 Standing Exercise Name wall posture 90/90 ER Reps/Minutes 10 Manual Therapy Treatment Soft Tissue Mobilization 3 Body Location pec Mobilization Type Rolling Intensity/Depth Moderate Body Position Supine 2 Body Location teres major & infraspinatus Mobilization Type Rolling Body Position Sidelying 1 Body Location UT, LS& scalenes Mobilization Type Rolling Intensity/Depth Moderate Body Position Supine Joint Mobilizations 4 Joint 1st rib Direction caudal FM 1 Joint GH Direction inf & distraction & post Grade III Body Position Supine Manual Techniques 1 Type PROM flex, abd, ER, IR Body Location L shoulder Body Position Supine PT-OP-T Assessment and Plan Start: 08/27/17 08:09 Freq: Status: Active Protocol: Document 09/09/17 08:21 [facility] (Rec: 09/09/17 09:02 [facility] [id number]) Physical Therapy Assessment Assessment Summary Assessment Cont limits with ER , but improves with STM. Physical Therapy Plan Frequency and Duration Frequency of Treatment 5x/Week Plan of Care Start Date 08/27/17 Plan of Care End Date 10/27/17 Next Visit Focus/Plan Next Visit Plan cont to advance ROM Please Sign and Return: I have reviewed this Plan of Care and certify that the skilled therapy services above are required to meet the patient???s needs. Physician Signature Date Printed Name and Credentials Clinical Instructor Signature Printed Name and Credentials
--- NOTE | 2017-09-10 09:06 | PT.OTN ---
Current Diagnoses Pain in left shoulder (09/10/17) Strain of unspecified muscle, fascia and tendon at shoulder and upper arm level, left arm, initial encounter (09/10/17) Physical Therapy Treatment Note PT-OP-A Visit Information Start: 08/27/17 08:09 Freq: Status: Active Protocol: Document 09/10/17 08:10 [facility] (Rec: 09/10/17 09:06 [facility] [id number]) Out-Patient Physical Therapy Visit Information Visit Information Visit Type Treatment Note Visit Start Time 08:15 Visit Stop Time 09:00 Total Visit Minutes 45 Visit Number 11 Number of SOCIAL WORK PROGRAM COORDINATOR Visits 0 PT-OP-B Current Condition Start: 08/27/17 08:09 Freq: Status: Active Protocol: Document 08/27/17 16:56 [facility] (Rec: 08/27/17 17:07 [facility] [id number]) Current Condition History of Current Condition Current Complaints L shoulder pain History of Current Condition Pt had insideous onset of L shoulder pain in Apr and has done PT, chiro, massage & injections with relief only with injections, but started to go downhill 2 months after 3rd injection so was scheduled for RAJENDRA which was done 08/26/17. Pt has chronic neck & back pain. Pt reports allergic reaction to one of her pain meds so is getting new prescription tonight. Prior Treatments and Tests Has done PT, chiro & massage in past & had 2 neck injections & 3 shoulder injections & recent RAJENDRA Treatment Goals Patient/Caregiver Goals Dec pain & return to activity Prior Functional Status Baseline Function- ADL's Independent Current Functional Impairments (Reported) Functional Limitations- ADL's Difficulty with UE tasks d/t pain PT-OP-C Subjective Start: 08/27/17 08:09 Freq: Status: Active Protocol: Document 09/10/17 08:10 [facility] (Rec: 09/10/17 09:06 [facility] [id number]) OP-PT Subjective Patient Comments Patient Comments Pt reports she was more sore today. PT-OP-J Posture/Palpation/Skin Start: 08/27/17 08:09 Freq: Status: Active Protocol: Document 08/27/17 14:31 [facility] (Rec: 08/27/17 15:24 [facility] [id number]) Posture Evaluation Comments Posture Comments moderate fwd head & shoulders Palpation Assessment Location One Palpation Location L shoulder Palpation Findings Soft Tissue Tightness Tenderness Palpation Details UT, Pec, LS, scalenes PT-OP-K Range of Motion Start: 08/27/17 08:09 Freq: Status: Active Protocol: Document 09/03/17 09:01 [facility] (Rec: 09/03/17 09:43 [facility] [id number]) Shoulder Goniometric Range of Motion Shoulder Measured in Degrees Left Active Flexion 149 Extension 49 Abduction 120 External Rotation at 90 degrees 75 Abduction Internal Rotation 44 Internal Rotation Behind Back (text) L2 Left Passive Flexion 155 Abduction 120 External Rotation at 90 degrees 70 Abduction Internal Rotation 59 PT-OP-Q Treatments Start: 08/27/17 08:09 Freq: Status: Active Protocol: Document 09/10/17 08:10 [facility] (Rec: 09/10/17 09:06 [facility] [id number]) Therapeutic Exercises Supine Exercises 6 Supine Exercise Name foam roll:Habd, flex, abd, ER Reps/Minutes x10 Sitting Exercises 1 Sitting Exercise Name pully flex abd & IR Side left Reps/Minutes 15 Standing Exercises 9 Standing Exercise Name wall posture 90/90 ER Reps/Minutes 10 Manual Therapy Treatment Soft Tissue Mobilization 4 Body Location SCM Mobilization Type Sustained Pressure Joint Mobilizations 5 Joint sternum & SC Direction caudal Grade III Comments FM w/ breathing & bar D2 flex pattern 2 Joint Thoracic Direction L UPA Grade III Body Position Prone Comments General with deep breathing L UPA T4-7; UPA FM seated L T1-- 3; Transverse FM R T1-3 PT-OP-T Assessment and Plan Start: 08/27/17 08:09 Freq: Status: Active Protocol: Document 09/10/17 08:10 [facility] (Rec: 09/10/17 09:06 [facility] [id number]) Physical Therapy Assessment Assessment Summary Assessment Pt initially had feeling of pressure in throat with 90/90 ER at wall. With thoracic, rib & SC mobs, pt had dec sensation of choking. Improved ER ROM after thoracic mobs. Physical Therapy Plan Frequency and Duration Frequency of Treatment 5x/Week Plan of Care Start Date 08/27/17 Plan of Care End Date 10/27/17 Next Visit Focus/Plan Next Visit Plan cont to advance ROM Please Sign and Return: I have reviewed this Plan of Care and certify that the skilled therapy services above are required to meet the patient???s needs. Physician Signature Date Printed Name and Credentials Clinical Instructor Signature Printed Name and Credentials
--- NOTE | 2017-09-11 09:48 | PT.OTN ---
Current Diagnoses Pain in left shoulder (09/11/17) Strain of unspecified muscle, fascia and tendon at shoulder and upper arm level, left arm, initial encounter (09/11/17) Physical Therapy Treatment Note PT-OP-A Visit Information Start: 08/27/17 08:09 Freq: Status: Active Protocol: Document 09/11/17 09:02 [facility] (Rec: 09/11/17 09:48 [facility] [id number]) Out-Patient Physical Therapy Visit Information Visit Information Visit Type Treatment Note Visit Start Time 09:00 Visit Stop Time 09:45 Total Visit Minutes 45 Visit Number 12 Number of MILK DRYING MACHINE OPERATOR Visits 0 PT-OP-B Current Condition Start: 08/27/17 08:09 Freq: Status: Active Protocol: Document 08/27/17 16:56 [facility] (Rec: 08/27/17 17:07 [facility] [id number]) Current Condition History of Current Condition Current Complaints L shoulder pain History of Current Condition Pt had insideous onset of L shoulder pain in Apr and has done PT, chiro, massage & injections with relief only with injections, but started to go downhill 2 months after 3rd injection so was scheduled for RAJENDRA which was done 08/26/17. Pt has chronic neck & back pain. Pt reports allergic reaction to one of her pain meds so is getting new prescription tonight. Prior Treatments and Tests Has done PT, chiro & massage in past & had 2 neck injections & 3 shoulder injections & recent RAJENDRA Treatment Goals Patient/Caregiver Goals Dec pain & return to activity Prior Functional Status Baseline Function- ADL's Independent Current Functional Impairments (Reported) Functional Limitations- ADL's Difficulty with UE tasks d/t pain PT-OP-C Subjective Start: 08/27/17 08:09 Freq: Status: Active Protocol: Document 09/11/17 09:02 [facility] (Rec: 09/11/17 09:48 [facility] [id number]) OP-PT Subjective Patient Comments Patient Comments Pt reports a lot of soreness last night. PT-OP-J Posture/Palpation/Skin Start: 08/27/17 08:09 Freq: Status: Active Protocol: Document 08/27/17 14:31 [facility] (Rec: 08/27/17 15:24 [facility] [id number]) Posture Evaluation Comments Posture Comments moderate fwd head & shoulders Palpation Assessment Location One Palpation Location L shoulder Palpation Findings Soft Tissue Tightness Tenderness Palpation Details UT, Pec, LS, scalenes PT-OP-K Range of Motion Start: 08/27/17 08:09 Freq: Status: Active Protocol: Document 09/03/17 09:01 [facility] (Rec: 09/03/17 09:43 [facility] [id number]) Shoulder Goniometric Range of Motion Shoulder Measured in Degrees Left Active Flexion 149 Extension 49 Abduction 120 External Rotation at 90 degrees 75 Abduction Internal Rotation 44 Internal Rotation Behind Back (text) L2 Left Passive Flexion 155 Abduction 120 External Rotation at 90 degrees 70 Abduction Internal Rotation 59 PT-OP-Q Treatments Start: 08/27/17 08:09 Freq: Status: Active Protocol: Document 09/11/17 09:02 [facility] (Rec: 09/11/17 09:48 [facility] [id number]) Therapeutic Exercises Supine Exercises 6 Supine Exercise Name foam roll:Habd, flex, abd, ER Reps/Minutes x10 Sitting Exercises 1 Sitting Exercise Name pully flex abd & IR Side left Reps/Minutes 15 Standing Exercises 7 Standing Exercise Name 90/90 ER Equipment Used tbar Reps/Minutes 15 Manual Therapy Treatment Soft Tissue Mobilization 4 Body Location SCM Mobilization Type Sustained Pressure 1 Body Location UT, LS& scalenes Mobilization Type Rolling Intensity/Depth Moderate Body Position Supine Joint Mobilizations 3 Joint AC Direction caudal Grade III Body Position Sitting Comments FM 1 Joint GH Direction inf & distraction & post Grade III Body Position Supine Manual Techniques 1 Type PROM flex, abd, ER, IR Body Location L shoulder Body Position Supine PT-OP-T Assessment and Plan Start: 08/27/17 08:09 Freq: Status: Active Protocol: Document 09/11/17 09:02 [facility] (Rec: 09/11/17 09:48 [facility] [id number]) Physical Therapy Assessment Assessment Summary Assessment PROM is close to full range at this time. Cont feeling of pressure at throat with motions that improves with manual work. Physical Therapy Plan Frequency and Duration Frequency of Treatment 5x/Week Plan of Care Start Date 08/27/17 Plan of Care End Date 10/27/17 Next Visit Focus/Plan Next Visit Plan cont to advance ROM Please Sign and Return: I have reviewed this Plan of Care and certify that the skilled therapy services above are required to meet the patient???s needs. Physician Signature Date Printed Name and Credentials Clinical Instructor Signature Printed Name and Credentials
--- NOTE | 2017-09-15 09:11 | PT.OTN ---
Current Diagnoses Pain in left shoulder (09/15/17) Strain of unspecified muscle, fascia and tendon at shoulder and upper arm level, left arm, initial encounter (09/15/17) Physical Therapy Treatment Note PT-OP-A Visit Information Start: 08/27/17 08:09 Freq: Status: Active Protocol: Document 09/15/17 08:21 [facility] (Rec: 09/15/17 08:22 [facility] [id number]) Out-Patient Physical Therapy Visit Information Visit Information Visit Type Treatment Note Visit Start Time 08:15 Visit Stop Time 09:00 Visit Number 13 Number of DITCH INSPECTOR Visits 0 PT-OP-B Current Condition Start: 08/27/17 08:09 Freq: Status: Active Protocol: Document 08/27/17 16:56 [facility] (Rec: 08/27/17 17:07 [facility] [id number]) Current Condition History of Current Condition Current Complaints L shoulder pain History of Current Condition Pt had insideous onset of L shoulder pain in Apr and has done PT, chiro, massage & injections with relief only with injections, but started to go downhill 2 months after 3rd injection so was scheduled for RAJENDRA which was done 08/26/17. Pt has chronic neck & back pain. Pt reports allergic reaction to one of her pain meds so is getting new prescription tonight. Prior Treatments and Tests Has done PT, chiro & massage in past & had 2 neck injections & 3 shoulder injections & recent RAJENDRA Treatment Goals Patient/Caregiver Goals Dec pain & return to activity Prior Functional Status Baseline Function- ADL's Independent Current Functional Impairments (Reported) Functional Limitations- ADL's Difficulty with UE tasks d/t pain PT-OP-C Subjective Start: 08/27/17 08:09 Freq: Status: Active Protocol: Document 09/15/17 08:15 [facility] (Rec: 09/15/17 09:02 AMB [id number]) OP-PT Subjective Patient Comments Patient Comments Pt states she had a good weekend. She is doing her HEP 4x/day. PT-OP-J Posture/Palpation/Skin Start: 08/27/17 08:09 Freq: Status: Active Protocol: Document 08/27/17 14:31 [facility] (Rec: 08/27/17 15:24 [facility] [id number]) Posture Evaluation Comments Posture Comments moderate fwd head & shoulders Palpation Assessment Location One Palpation Location L shoulder Palpation Findings Soft Tissue Tightness Tenderness Palpation Details UT, Pec, LS, scalenes PT-OP-K Range of Motion Start: 08/27/17 08:09 Freq: Status: Active Protocol: Document 09/03/17 09:01 [facility] (Rec: 09/03/17 09:43 [facility] [id number]) Shoulder Goniometric Range of Motion Shoulder Measured in Degrees Left Active Flexion 149 Extension 49 Abduction 120 External Rotation at 90 degrees 75 Abduction Internal Rotation 44 Internal Rotation Behind Back (text) L2 Left Passive Flexion 155 Abduction 120 External Rotation at 90 degrees 70 Abduction Internal Rotation 59 PT-OP-Q Treatments Start: 08/27/17 08:09 Freq: Status: Active Protocol: Document 09/15/17 08:15 [facility] (Rec: 09/15/17 09:02 AMB [id number]) Therapeutic Exercises Sitting Exercises 1 Sitting Exercise Name lissette flex abd & IR Side left Reps/Minutes 15 Manual Therapy Treatment Soft Tissue Mobilization 4 Body Location SCM Mobilization Type Sustained Pressure 1 Body Location UT, LS& scalenes Mobilization Type Rolling Intensity/Depth Moderate Body Position Supine Joint Mobilizations 4 Joint 1st rib Direction caudal FM 1 Joint GH Direction inf & distraction & post Grade III Body Position Supine PT-OP-T Assessment and Plan Start: 08/27/17 08:09 Freq: Status: Active Protocol: Document 09/15/17 08:15 [facility] (Rec: 09/15/17 09:07 [facility] [id number]) Physical Therapy Assessment Assessment Summary Assessment Pressure at throat is better, but can still feel it at end range abduction, better with 1st rib/ SCM work. Physical Therapy Plan Frequency and Duration Frequency of Treatment 5x/Week Plan of Care Start Date 08/27/17 Plan of Care End Date 10/27/17 Next Visit Focus/Plan Next Visit Plan Advance ROM, progress myofascial tx Please Sign and Return: I have reviewed this Plan of Care and certify that the skilled therapy services above are required to meet the patient???s needs. Physician Signature Date Printed Name and Credentials Clinical Instructor Signature Printed Name and Credentials
--- NOTE | 2017-09-16 09:57 | PT.OTN ---
Current Diagnoses Pain in left shoulder (09/16/17) Strain of unspecified muscle, fascia and tendon at shoulder and upper arm level, left arm, initial encounter (09/16/17) Physical Therapy Treatment Note PT-OP-A Visit Information Start: 08/27/17 08:09 Freq: Status: Active Protocol: Document 09/16/17 09:08 [facility] (Rec: 09/16/17 09:57 [facility] [id number]) Out-Patient Physical Therapy Visit Information Visit Information Visit Type Treatment Note Visit Start Time 09:00 Visit Stop Time 09:45 Visit Number 14 Number of DIGITAL CAMPAIGN MANAGER Visits 0 PT-OP-B Current Condition Start: 08/27/17 08:09 Freq: Status: Active Protocol: Document 08/27/17 16:56 [facility] (Rec: 08/27/17 17:07 [facility] [id number]) Current Condition History of Current Condition Current Complaints L shoulder pain History of Current Condition Pt had insideous onset of L shoulder pain in Apr and has done PT, chiro, massage & injections with relief only with injections, but started to go downhill 2 months after 3rd injection so was scheduled for RAJENDRA which was done 08/26/17. Pt has chronic neck & back pain. Pt reports allergic reaction to one of her pain meds so is getting new prescription tonight. Prior Treatments and Tests Has done PT, chiro & massage in past & had 2 neck injections & 3 shoulder injections & recent RAJENDRA Treatment Goals Patient/Caregiver Goals Dec pain & return to activity Prior Functional Status Baseline Function- ADL's Independent Current Functional Impairments (Reported) Functional Limitations- ADL's Difficulty with UE tasks d/t pain PT-OP-C Subjective Start: 08/27/17 08:09 Freq: Status: Active Protocol: Document 09/16/17 09:08 [facility] (Rec: 09/16/17 09:57 [facility] [id number]) OP-PT Subjective Patient Comments Patient Comments Reports she did not sleep well last night & woke up at 2 AM PT-OP-J Posture/Palpation/Skin Start: 08/27/17 08:09 Freq: Status: Active Protocol: Document 08/27/17 14:31 [facility] (Rec: 08/27/17 15:24 [facility] [id number]) Posture Evaluation Comments Posture Comments moderate fwd head & shoulders Palpation Assessment Location One Palpation Location L shoulder Palpation Findings Soft Tissue Tightness Tenderness Palpation Details UT, Pec, LS, scalenes PT-OP-K Range of Motion Start: 08/27/17 08:09 Freq: Status: Active Protocol: Document 09/03/17 09:01 [facility] (Rec: 09/03/17 09:43 [facility] [id number]) Shoulder Goniometric Range of Motion Shoulder Measured in Degrees Left Active Flexion 149 Extension 49 Abduction 120 External Rotation at 90 degrees 75 Abduction Internal Rotation 44 Internal Rotation Behind Back (text) L2 Left Passive Flexion 155 Abduction 120 External Rotation at 90 degrees 70 Abduction Internal Rotation 59 PT-OP-Q Treatments Start: 08/27/17 08:09 Freq: Status: Active Protocol: Document 09/16/17 09:08 [facility] (Rec: 09/16/17 09:57 [facility] [id number]) Therapeutic Exercises Supine Exercises 6 Supine Exercise Name foam roll:Habd, flex, abd, ER Reps/Minutes x10 Sitting Exercises 1 Sitting Exercise Name lissette flex abd & IR Side left Reps/Minutes 15 Other Exercises 5 Other Exercise Name Standing torso & UE stretch 4 Other Exercise Name thread the needle 3 Other Exercise Name roll & reach Reps/Minutes 10 2 Other Exercise Name cat/camel Reps/Minutes 20 1 Other Exercise Name irvin pose & to side Manual Therapy Treatment Joint Mobilizations 2 Joint Thoracic Direction L UPA Grade III Body Position Prone Comments General with deep breathing L UPA T4-7; UPA FM seated L T1-- 3; Transverse FM R T1-3 1 Joint GH Direction inf & distraction & post Grade III Body Position Supine Manual Techniques 1 Type PROM flex, abd, ER, IR Body Location L shoulder Body Position Supine PT-OP-T Assessment and Plan Start: 08/27/17 08:09 Freq: Status: Active Protocol: Document 09/16/17 09:08 [facility] (Rec: 09/16/17 09:57 [facility] [id number]) Physical Therapy Assessment Assessment Summary Assessment Pt is improving with ROM and improves with UE mobility. Physical Therapy Plan Frequency and Duration Frequency of Treatment 5x/Week Plan of Care Start Date 08/27/17 Plan of Care End Date 10/27/17 Next Visit Focus/Plan Next Visit Plan Advance ROM, progress myofascial tx Please Sign and Return: I have reviewed this Plan of Care and certify that the skilled therapy services above are required to meet the patient???s needs. Physician Signature Date Printed Name and Credentials Clinical Instructor Signature Printed Name and Credentials
--- NOTE | 2017-09-17 10:43 | PT.OTN ---
Current Diagnoses Pain in left shoulder (09/17/17) Strain of unspecified muscle, fascia and tendon at shoulder and upper arm level, left arm, initial encounter (09/17/17) Physical Therapy Treatment Note PT-OP-A Visit Information Start: 08/27/17 08:09 Freq: Status: Active Protocol: Document 09/17/17 09:51 [facility] (Rec: 09/17/17 10:43 [facility] [id number]) Out-Patient Physical Therapy Visit Information Visit Information Visit Type Treatment Note Visit Start Time 09:45 Visit Stop Time 10:30 Total Visit Minutes 45 Visit Number 15 Number of LOCATION DIRECTOR Visits 0 PT-OP-B Current Condition Start: 08/27/17 08:09 Freq: Status: Active Protocol: Document 08/27/17 16:56 [facility] (Rec: 08/27/17 17:07 [facility] [id number]) Current Condition History of Current Condition Current Complaints L shoulder pain History of Current Condition Pt had insideous onset of L shoulder pain in Apr and has done PT, chiro, massage & injections with relief only with injections, but started to go downhill 2 months after 3rd injection so was scheduled for RAJENDRA which was done 08/26/17. Pt has chronic neck & back pain. Pt reports allergic reaction to one of her pain meds so is getting new prescription tonight. Prior Treatments and Tests Has done PT, chiro & massage in past & had 2 neck injections & 3 shoulder injections & recent RAJENDRA Treatment Goals Patient/Caregiver Goals Dec pain & return to activity Prior Functional Status Baseline Function- ADL's Independent Current Functional Impairments (Reported) Functional Limitations- ADL's Difficulty with UE tasks d/t pain PT-OP-C Subjective Start: 08/27/17 08:09 Freq: Status: Active Protocol: Document 09/17/17 09:51 [facility] (Rec: 09/17/17 10:43 [facility] [id number]) OP-PT Subjective Patient Comments Patient Comments Today is a better day as she slept better. PT-OP-J Posture/Palpation/Skin Start: 08/27/17 08:09 Freq: Status: Active Protocol: Document 08/27/17 14:31 [facility] (Rec: 08/27/17 15:24 [facility] [id number]) Posture Evaluation Comments Posture Comments moderate fwd head & shoulders Palpation Assessment Location One Palpation Location L shoulder Palpation Findings Soft Tissue Tightness Tenderness Palpation Details UT, Pec, LS, scalenes PT-OP-K Range of Motion Start: 08/27/17 08:09 Freq: Status: Active Protocol: Document 09/03/17 09:01 [facility] (Rec: 09/03/17 09:43 [facility] [id number]) Shoulder Goniometric Range of Motion Shoulder Measured in Degrees Left Active Flexion 149 Extension 49 Abduction 120 External Rotation at 90 degrees 75 Abduction Internal Rotation 44 Internal Rotation Behind Back (text) L2 Left Passive Flexion 155 Abduction 120 External Rotation at 90 degrees 70 Abduction Internal Rotation 59 PT-OP-Q Treatments Start: 08/27/17 08:09 Freq: Status: Active Protocol: Document 09/17/17 09:51 [facility] (Rec: 09/17/17 10:43 [facility] [id number]) Therapeutic Exercises Supine Exercises 6 Supine Exercise Name foam roll:Habd, flex, abd, ER Reps/Minutes x10 Prone Exercises 3 Prone Exercise Name 90/90 ER over tball Reps/Minutes 10 2 Prone Exercise Name scaption over tball Reps/Minutes 10 1 Prone Exercise Name Habd over Tball Reps/Minutes 10 Manual Therapy Treatment Soft Tissue Mobilization 3 Body Location Infraspinatus, serratus, teres Mobilization Type Rolling Intensity/Depth Moderate Body Position Sidelying Joint Mobilizations 5 Joint rib cage L Direction caudal Comments FM w/deep breathing and abd c/ r & pt self mob in supine with deep breathing 3 Joint AC Direction caudal Grade III Body Position Supine Comments FM 2 Joint Thoracic Direction L UPA Grade III Body Position Prone Comments General with deep breathing L UPA T4-7; UPA FM PT-OP-T Assessment and Plan Start: 08/27/17 08:09 Freq: Status: Active Protocol: Document 09/17/17 09:51 [facility] (Rec: 09/17/17 10:43 [facility] [id number]) Physical Therapy Assessment Assessment Summary Assessment Pt did well prone exercises w. difficulty with ER exercise. Improving ER with thoracic mobility Physical Therapy Plan Frequency and Duration Frequency of Treatment 5x/Week Plan of Care Start Date 08/27/17 Plan of Care End Date 10/27/17 Next Visit Focus/Plan Next Note Type Treatment Note Next Visit Plan Cont to work on soft tissue mobility of L shoulder & ribcage region Please Sign and Return: I have reviewed this Plan of Care and certify that the skilled therapy services above are required to meet the patient???s needs. Physician Signature Date Printed Name and Credentials Clinical Instructor Signature Printed Name and Credentials
--- NOTE | 2017-09-18 09:29 | PT.OTN ---
Current Diagnoses Pain in left shoulder (09/18/17) Strain of unspecified muscle, fascia and tendon at shoulder and upper arm level, left arm, initial encounter (09/18/17) Physical Therapy Treatment Note PT-OP-A Visit Information Start: 08/27/17 08:09 Freq: Status: Active Protocol: Document 09/18/17 07:30 [facility] (Rec: 09/18/17 07:30 [facility] [id number]) Out-Patient Physical Therapy Visit Information Visit Information Visit Type Treatment Note Visit Start Time 07:30 Visit Stop Time 08:15 Total Visit Minutes 45 Visit Number 16 Number of RETAIL WARE[employer] SUPERVISOR Visits 0 PT-OP-B Current Condition Start: 08/27/17 08:09 Freq: Status: Active Protocol: Document 08/27/17 16:56 [facility] (Rec: 08/27/17 17:07 [facility] [id number]) Current Condition History of Current Condition Current Complaints L shoulder pain History of Current Condition Pt had insideous onset of L shoulder pain in Apr and has done PT, chiro, massage & injections with relief only with injections, but started to go downhill 2 months after 3rd injection so was scheduled for RAJENDRA which was done 08/26/17. Pt has chronic neck & back pain. Pt reports allergic reaction to one of her pain meds so is getting new prescription tonight. Prior Treatments and Tests Has done PT, chiro & massage in past & had 2 neck injections & 3 shoulder injections & recent RAJENDRA Treatment Goals Patient/Caregiver Goals Dec pain & return to activity Prior Functional Status Baseline Function- ADL's Independent Current Functional Impairments (Reported) Functional Limitations- ADL's Difficulty with UE tasks d/t pain PT-OP-C Subjective Start: 08/27/17 08:09 Freq: Status: Active Protocol: Document 09/18/17 07:30 [facility] (Rec: 09/18/17 09:28 [facility] [id number]) OP-PT Subjective Patient Comments Patient Comments Pt states she is sore from exercises yesterday, but overall is doing well. PT-OP-J Posture/Palpation/Skin Start: 08/27/17 08:09 Freq: Status: Active Protocol: Document 08/27/17 14:31 [facility] (Rec: 08/27/17 15:24 [facility] [id number]) Posture Evaluation Comments Posture Comments moderate fwd head & shoulders Palpation Assessment Location One Palpation Location L shoulder Palpation Findings Soft Tissue Tightness Tenderness Palpation Details UT, Pec, LS, scalenes PT-OP-K Range of Motion Start: 08/27/17 08:09 Freq: Status: Active Protocol: Document 09/03/17 09:01 [facility] (Rec: 09/03/17 09:43 [facility] [id number]) Shoulder Goniometric Range of Motion Shoulder Measured in Degrees Left Active Flexion 149 Extension 49 Abduction 120 External Rotation at 90 degrees 75 Abduction Internal Rotation 44 Internal Rotation Behind Back (text) L2 Left Passive Flexion 155 Abduction 120 External Rotation at 90 degrees 70 Abduction Internal Rotation 59 PT-OP-Q Treatments Start: 08/27/17 08:09 Freq: Status: Active Protocol: Document 09/18/17 07:30 [facility] (Rec: 09/18/17 09:28 AMB [email or web address]) Therapeutic Exercises Prone Exercises 2 Prone Exercise Name scaption over tball Reps/Minutes 10 1 Prone Exercise Name Habd over Tball Reps/Minutes 10 Sitting Exercises 1 Sitting Exercise Name lissette flex abd & IR Side left Reps/Minutes 15 Standing Exercises 10 Standing Exercise Name shoulder flexion Reps/Minutes 10 Comments rolling foam roll up wall Manual Therapy Treatment Soft Tissue Mobilization 1 Body Location UT, LS& scalenes Mobilization Type Rolling Intensity/Depth Moderate Body Position Supine Joint Mobilizations 3 Joint AC Direction caudal Grade III Body Position Supine Comments FM 1 Joint GH Direction inf & distraction & post Grade III Body Position Supine Manual Techniques 1 Type PROM flex, abd, ER, IR Body Location L shoulder Body Position Supine PT-OP-R Modalities Start: 08/27/17 08:09 Freq: Status: Active Protocol: Document 09/18/17 07:30 [facility] (Rec: 09/18/17 09:28 AMB [email or web address]) Hot Pack/Cold Pack Treatment cryocuff Location L shoulder Patient Position Hooklying Treatment Duration (minutes) 10 Patient Tolerance Good PT-OP-T Assessment and Plan Start: 08/27/17 08:09 Freq: Status: Active Protocol: Document 09/18/17 07:30 [facility] (Rec: 09/18/17 09:28 AMB [email or web address]) Physical Therapy Assessment Assessment Summary Assessment Pt tolerated exercises well, needed cues not to substitute with UT. Physical Therapy Plan Frequency and Duration Frequency of Treatment 5x/Week Plan of Care Start Date 08/27/17 Plan of Care End Date 10/27/17 Next Visit Focus/Plan Next Note Type Treatment Note Next Visit Plan Progress rib mobility, scapular stabilization Please Sign and Return: I have reviewed this Plan of Care and certify that the skilled therapy services above are required to meet the patient?s needs. Physician Signature Date Printed Name and Credentials Clinical Instructor Signature Printed Name and Credentials
--- NOTE | 2017-09-23 09:49 | PT.OTN ---
Current Diagnoses Pain in left shoulder (09/23/17) Strain of unspecified muscle, fascia and tendon at shoulder and upper arm level, left arm, initial encounter (09/23/17) Physical Therapy Treatment Note PT-OP-A Visit Information Start: 08/27/17 08:09 Freq: Status: Active Protocol: Document 09/23/17 08:02 [facility] (Rec: 09/23/17 09:48 [facility] [id number]) Out-Patient Physical Therapy Visit Information Visit Information Visit Type Treatment Note Visit Start Time 08:15 Visit Stop Time 09:00 Total Visit Minutes 45 Visit Number 17 Number of [employer] EQUIPMENT Visits 0 PT-OP-B Current Condition Start: 08/27/17 08:09 Freq: Status: Active Protocol: Document 08/27/17 16:56 [facility] (Rec: 08/27/17 17:07 [facility] [id number]) Current Condition History of Current Condition Current Complaints L shoulder pain History of Current Condition Pt had insideous onset of L shoulder pain in Apr and has done PT, chiro, massage & injections with relief only with injections, but started to go downhill 2 months after 3rd injection so was scheduled for RAJENDRA which was done 08/26/17. Pt has chronic neck & back pain. Pt reports allergic reaction to one of her pain meds so is getting new prescription tonight. Prior Treatments and Tests Has done PT, chiro & massage in past & had 2 neck injections & 3 shoulder injections & recent RAJENDRA Treatment Goals Patient/Caregiver Goals Dec pain & return to activity Prior Functional Status Baseline Function- ADL's Independent Current Functional Impairments (Reported) Functional Limitations- ADL's Difficulty with UE tasks d/t pain PT-OP-C Subjective Start: 08/27/17 08:09 Freq: Status: Active Protocol: Document 09/23/17 08:02 [facility] (Rec: 09/23/17 09:48 [facility] [id number]) OP-PT Subjective Patient Comments Patient Comments Reports she had only done a few stretches this AM. PT-OP-J Posture/Palpation/Skin Start: 08/27/17 08:09 Freq: Status: Active Protocol: Document 08/27/17 14:31 [facility] (Rec: 08/27/17 15:24 [facility] [id number]) Posture Evaluation Comments Posture Comments moderate fwd head & shoulders Palpation Assessment Location One Palpation Location L shoulder Palpation Findings Soft Tissue Tightness Tenderness Palpation Details UT, Pec, LS, scalenes PT-OP-K Range of Motion Start: 08/27/17 08:09 Freq: Status: Active Protocol: Document 09/03/17 09:01 [facility] (Rec: 09/03/17 09:43 [facility] [id number]) Shoulder Goniometric Range of Motion Shoulder Measured in Degrees Left Active Flexion 149 Extension 49 Abduction 120 External Rotation at 90 degrees 75 Abduction Internal Rotation 44 Internal Rotation Behind Back (text) L2 Left Passive Flexion 155 Abduction 120 External Rotation at 90 degrees 70 Abduction Internal Rotation 59 PT-OP-Q Treatments Start: 08/27/17 08:09 Freq: Status: Active Protocol: Document 09/23/17 08:02 [facility] (Rec: 09/23/17 09:48 [facility] [id number]) Therapeutic Exercises Prone Exercises 3 Prone Exercise Name 90/90 ER over tball Reps/Minutes 10 2 Prone Exercise Name scaption over tball Reps/Minutes 15 1 Prone Exercise Name Habd over Tball Reps/Minutes 15 Sidelying Exercises 2 Sidelying Exercise Name ER Reps/Minutes 15 1 Sidelying Exercise Name abd Reps/Minutes 15 Sitting Exercises 1 Sitting Exercise Name lissette flex abd & IR Side left Reps/Minutes 15 Manual Therapy Treatment Soft Tissue Mobilization 5 Body Location deltoid Mobilization Type Rolling 1 Body Location UT, LS& scalenes Mobilization Type Rolling Intensity/Depth Moderate Body Position Supine Joint Mobilizations 5 Joint rib cage L Direction caudal Comments FM w/deep breathing and abd c/ r & pt self mob in supine with deep breathing 3 Joint AC Direction caudal Grade III Body Position Supine Comments FM 1 Joint GH Direction ant & distraction Grade III Body Position Supine Manual Techniques 1 Type PROM flex, abd, ER, IR Body Location L shoulder Body Position Supine PT-OP-R Modalities Start: 08/27/17 08:09 Freq: Status: Active Protocol: Document 09/23/17 08:02 [facility] (Rec: 09/23/17 09:48 [facility] [id number]) Hot Pack/Cold Pack Treatment cryocuff Location L shoulder Patient Position Hooklying Treatment Duration (minutes) 10 Patient Tolerance Good PT-OP-T Assessment and Plan Start: 08/27/17 08:09 Freq: Status: Active Protocol: Document 09/23/17 08:02 [facility] (Rec: 09/23/17 09:48 [facility] [id number]) Physical Therapy Assessment Assessment Summary Assessment Pt is improving with her PROM and is limited only in end range rotations. Physical Therapy Plan Frequency and Duration Frequency of Treatment 2x/Week Plan of Care Start Date 08/27/17 Plan of Care End Date 10/27/17 Next Visit Focus/Plan Next Note Type Treatment Note Next Visit Plan Progress rib mobility, scapular stabilization Please Sign and Return: I have reviewed this Plan of Care and certify that the skilled therapy services above are required to meet the patient?s needs. Physician Signature Date Printed Name and Credentials Clinical Instructor Signature Printed Name and Credentials
--- NOTE | 2017-09-25 14:38 | PT.OTN ---
Current Diagnoses Pain in left shoulder (09/25/17) Strain of unspecified muscle, fascia and tendon at shoulder and upper arm level, left arm, initial encounter (09/25/17) Physical Therapy Treatment Note PT-OP-A Visit Information Start: 08/27/17 08:09 Freq: Status: Active Protocol: Document 09/25/17 10:36 [facility] (Rec: 09/25/17 14:38 [facility] [id number]) Out-Patient Physical Therapy Visit Information Visit Information Visit Type Treatment Note Visit Start Time 10:30 Visit Stop Time 11:15 Total Visit Minutes 45 Visit Number 18 Number of PROJECT INTERNSHIP Visits 0 PT-OP-B Current Condition Start: 08/27/17 08:09 Freq: Status: Active Protocol: Document 08/27/17 16:56 [facility] (Rec: 08/27/17 17:07 [facility] [id number]) Current Condition History of Current Condition Current Complaints L shoulder pain History of Current Condition Pt had insideous onset of L shoulder pain in Apr and has done PT, chiro, massage & injections with relief only with injections, but started to go downhill 2 months after 3rd injection so was scheduled for RAJENDRA which was done 08/26/17. Pt has chronic neck & back pain. Pt reports allergic reaction to one of her pain meds so is getting new prescription tonight. Prior Treatments and Tests Has done PT, chiro & massage in past & had 2 neck injections & 3 shoulder injections & recent RAJENDRA Treatment Goals Patient/Caregiver Goals Dec pain & return to activity Prior Functional Status Baseline Function- ADL's Independent Current Functional Impairments (Reported) Functional Limitations- ADL's Difficulty with UE tasks d/t pain PT-OP-C Subjective Start: 08/27/17 08:09 Freq: Status: Active Protocol: Document 09/25/17 10:36 [facility] (Rec: 09/25/17 14:38 [facility] [id number]) OP-PT Subjective Patient Comments Patient Comments Notes still pain 90/90 ER PT-OP-J Posture/Palpation/Skin Start: 08/27/17 08:09 Freq: Status: Active Protocol: Document 08/27/17 14:31 [facility] (Rec: 08/27/17 15:24 [facility] [id number]) Posture Evaluation Comments Posture Comments moderate fwd head & shoulders Palpation Assessment Location One Palpation Location L shoulder Palpation Findings Soft Tissue Tightness Tenderness Palpation Details UT, Pec, LS, scalenes PT-OP-K Range of Motion Start: 08/27/17 08:09 Freq: Status: Active Protocol: Document 09/03/17 09:01 [facility] (Rec: 09/03/17 09:43 [facility] [id number]) Shoulder Goniometric Range of Motion Shoulder Measured in Degrees Left Active Flexion 149 Extension 49 Abduction 120 External Rotation at 90 degrees 75 Abduction Internal Rotation 44 Internal Rotation Behind Back (text) L2 Left Passive Flexion 155 Abduction 120 External Rotation at 90 degrees 70 Abduction Internal Rotation 59 PT-OP-Q Treatments Start: 08/27/17 08:09 Freq: Status: Active Protocol: Document 09/25/17 10:36 [facility] (Rec: 09/25/17 14:38 [facility] [id number]) Therapeutic Exercises Standing Exercises 12 Standing Exercise Name B ER Comments stopped d/t pain 11 Standing Exercise Name ext Resistance L1 Reps/Minutes 10 7 Standing Exercise Name wall roll up posture Manual Therapy Treatment Soft Tissue Mobilization 5 Body Location deltoid Mobilization Type Rolling 2 Body Location Pec Mobilization Type Rolling Intensity/Depth Moderate 1 Body Location UT, LS& scalenes Mobilization Type Rolling Intensity/Depth Moderate Body Position Supine Joint Mobilizations 1 Joint GH Direction ant & distraction Grade III Body Position Supine Manual Techniques 1 Type PROM flex, abd, ER, IR Body Location L shoulder Body Position Supine PT-OP-R Modalities Start: 08/27/17 08:09 Freq: Status: Active Protocol: Document 09/23/17 08:02 [facility] (Rec: 09/23/17 09:48 [facility] [id number]) Hot Pack/Cold Pack Treatment cryocuff Location L shoulder Patient Position Hooklying Treatment Duration (minutes) 10 Patient Tolerance Good PT-OP-T Assessment and Plan Start: 08/27/17 08:09 Freq: Status: Active Protocol: Document 09/25/17 10:36 [facility] (Rec: 09/25/17 14:38 [facility] [id number]) Physical Therapy Assessment Assessment Summary Assessment Pt had improved ER with improved scapular positioning in supine. Physical Therapy Plan Frequency and Duration Frequency of Treatment 2x/Week Plan of Care Start Date 08/27/17 Plan of Care End Date 10/27/17 Next Visit Focus/Plan Next Note Type Treatment Note Next Visit Plan Progress rib mobility, scapular stabilization Please Sign and Return: I have reviewed this Plan of Care and certify that the skilled therapy services above are required to meet the patient?s needs. Physician Signature Date Printed Name and Credentials Clinical Instructor Signature Printed Name and Credentials
--- NOTE | 2017-09-28 09:00 | PT.OTN ---
Current Diagnoses Pain in left shoulder (09/28/17) Strain of unspecified muscle, fascia and tendon at shoulder and upper arm level, left arm, initial encounter (09/28/17) Physical Therapy Treatment Note PT-OP-A Visit Information Start: 08/27/17 08:09 Freq: Status: Active Protocol: Document 09/28/17 08:16 [facility] (Rec: 09/28/17 09:00 [facility] [id number]) Out-Patient Physical Therapy Visit Information Visit Information Visit Type Treatment Note Visit Start Time 08:15 Visit Stop Time 09:05 Total Visit Minutes 50 Visit Number 19 Number of MANAGER LSW Visits 0 PT-OP-B Current Condition Start: 08/27/17 08:09 Freq: Status: Active Protocol: Document 08/27/17 16:56 [facility] (Rec: 08/27/17 17:07 [facility] [id number]) Current Condition History of Current Condition Current Complaints L shoulder pain History of Current Condition Pt had insideous onset of L shoulder pain in Apr and has done PT, chiro, massage & injections with relief only with injections, but started to go downhill 2 months after 3rd injection so was scheduled for RAJENDRA which was done 08/26/17. Pt has chronic neck & back pain. Pt reports allergic reaction to one of her pain meds so is getting new prescription tonight. Prior Treatments and Tests Has done PT, chiro & massage in past & had 2 neck injections & 3 shoulder injections & recent RAJENDRA Treatment Goals Patient/Caregiver Goals Dec pain & return to activity Prior Functional Status Baseline Function- ADL's Independent Current Functional Impairments (Reported) Functional Limitations- ADL's Difficulty with UE tasks d/t pain PT-OP-C Subjective Start: 08/27/17 08:09 Freq: Status: Active Protocol: Document 09/28/17 08:16 [facility] (Rec: 09/28/17 09:00 [facility] [id number]) OP-PT Subjective Patient Comments Patient Comments Was a little sore last week and thinks it may be due to holding baby. PT-OP-J Posture/Palpation/Skin Start: 08/27/17 08:09 Freq: Status: Active Protocol: Document 08/27/17 14:31 [facility] (Rec: 08/27/17 15:24 [facility] [id number]) Posture Evaluation Comments Posture Comments moderate fwd head & shoulders Palpation Assessment Location One Palpation Location L shoulder Palpation Findings Soft Tissue Tightness Tenderness Palpation Details UT, Pec, LS, scalenes PT-OP-K Range of Motion Start: 08/27/17 08:09 Freq: Status: Active Protocol: Document 09/03/17 09:01 [facility] (Rec: 09/03/17 09:43 [facility] [id number]) Shoulder Goniometric Range of Motion Shoulder Measured in Degrees Left Active Flexion 149 Extension 49 Abduction 120 External Rotation at 90 degrees 75 Abduction Internal Rotation 44 Internal Rotation Behind Back (text) L2 Left Passive Flexion 155 Abduction 120 External Rotation at 90 degrees 70 Abduction Internal Rotation 59 PT-OP-Q Treatments Start: 08/27/17 08:09 Freq: Status: Active Protocol: Document 09/28/17 08:16 [facility] (Rec: 09/28/17 09:00 [facility] [id number]) Therapeutic Exercises Standing Exercises 13 Standing Exercise Name IR Equipment Used Lvl 1 Reps/Minutes 10 11 Standing Exercise Name ext Resistance L1 Reps/Minutes 10 Manual Therapy Treatment Soft Tissue Mobilization 2 Body Location Pec Mobilization Type Rolling Intensity/Depth Moderate 1 Body Location UT, LS& scalenes Mobilization Type Rolling Intensity/Depth Moderate Body Position Supine Joint Mobilizations 5 Joint rib cage L Direction caudal Comments FM w/deep breathing and abd c/ r & pt self mob in supine with deep breathing 2 Joint Thoracic Direction L UPA & transverse FM Grade III Body Position Prone Comments transverse &UPA FM T1-3 1 Joint GH Direction ant & distraction Grade III Body Position Supine Manual Techniques 1 Type PROM flex, abd, ER, IR Body Location L shoulder Body Position Supine PT-OP-R Modalities Start: 08/27/17 08:09 Freq: Status: Active Protocol: Document 09/28/17 08:16 [facility] (Rec: 09/28/17 09:00 [facility] [id number]) Hot Pack/Cold Pack Treatment cryocuff Location L shoulder Patient Position Hooklying Treatment Duration (minutes) 10 Patient Tolerance Good PT-OP-T Assessment and Plan Start: 08/27/17 08:09 Freq: Status: Active Protocol: Document 09/28/17 08:16 [facility] (Rec: 09/28/17 09:00 [facility] [id number]) Physical Therapy Assessment Assessment Summary Assessment Dec feeling of choking in supine with mobs. Pt is improving with ROM, but cont to have pain at end range. Physical Therapy Plan Frequency and Duration Frequency of Treatment 2x/Week Plan of Care Start Date 08/27/17 Plan of Care End Date 10/27/17 Next Visit Focus/Plan Next Note Type Progress Note Next Visit Plan Progress rib mobility, scapular stabilization Please Sign and Return: I have reviewed this Plan of Care and certify that the skilled therapy services above are required to meet the patient?s needs. Physician Signature Date Printed Name and Credentials Clinical Instructor Signature Printed Name and Credentials
--- NOTE | 2017-09-30 09:01 | PT.OTN ---
Current Diagnoses Pain in left shoulder (09/30/17) Strain of unspecified muscle, fascia and tendon at shoulder and upper arm level, left arm, initial encounter (09/30/17) Physical Therapy Treatment Note PT-OP-A Visit Information Start: 08/27/17 08:09 Freq: Status: Active Protocol: Document 09/30/17 08:20 [facility] (Rec: 09/30/17 09:01 [facility] [id number]) Out-Patient Physical Therapy Visit Information Visit Information Visit Type Progress Note Visit Start Time 08:15 Visit Stop Time 09:05 Total Visit Minutes 50 Visit Number 20 Number of SENSITIZER Visits 0 PT-OP-B Current Condition Start: 08/27/17 08:09 Freq: Status: Active Protocol: Document 08/27/17 16:56 [facility] (Rec: 08/27/17 17:07 [facility] [id number]) Current Condition History of Current Condition Current Complaints L shoulder pain History of Current Condition Pt had insideous onset of L shoulder pain in Apr and has done PT, chiro, massage & injections with relief only with injections, but started to go downhill 2 months after 3rd injection so was scheduled for RAJENDRA which was done 08/26/17. Pt has chronic neck & back pain. Pt reports allergic reaction to one of her pain meds so is getting new prescription tonight. Prior Treatments and Tests Has done PT, chiro & massage in past & had 2 neck injections & 3 shoulder injections & recent RAJENDRA Treatment Goals Patient/Caregiver Goals Dec pain & return to activity Prior Functional Status Baseline Function- ADL's Independent Current Functional Impairments (Reported) Functional Limitations- ADL's Difficulty with UE tasks d/t pain PT-OP-C Subjective Start: 08/27/17 08:09 Freq: Status: Active Protocol: Document 09/30/17 08:20 [facility] (Rec: 09/30/17 09:01 [facility] [id number]) OP-PT Subjective Patient Comments Patient Comments Tape was very helpful PT-OP-J Posture/Palpation/Skin Start: 08/27/17 08:09 Freq: Status: Active Protocol: Document 08/27/17 14:31 [facility] (Rec: 08/27/17 15:24 [facility] [id number]) Posture Evaluation Comments Posture Comments moderate fwd head & shoulders Palpation Assessment Location One Palpation Location L shoulder Palpation Findings Soft Tissue Tightness Tenderness Palpation Details UT, Pec, LS, scalenes PT-OP-K Range of Motion Start: 08/27/17 08:09 Freq: Status: Active Protocol: Document 09/30/17 08:20 [facility] (Rec: 09/30/17 09:01 [facility] [id number]) Shoulder Goniometric Range of Motion Shoulder Measured in Degrees Left Active Flexion 161 Extension 50 Abduction 165 External Rotation at 90 degrees 80 Abduction Internal Rotation 19 Internal Rotation Behind Back (text) T11 Left Passive Flexion 170 Abduction 136 External Rotation at 90 degrees 84 Abduction Internal Rotation 50 PT-OP-Q Treatments Start: 08/27/17 08:09 Freq: Status: Active Protocol: Document 09/30/17 08:20 [facility] (Rec: 09/30/17 09:01 [facility] [id number]) Therapeutic Exercises Standing Exercises 13 Standing Exercise Name IR Equipment Used Lvl 1 Reps/Minutes 10 12 Standing Exercise Name ER Resistance lvl 1 Reps/Minutes 10 11 Standing Exercise Name ext Resistance L1 Reps/Minutes 10 Manual Therapy Treatment Soft Tissue Mobilization 5 Body Location deltoid Mobilization Type Rolling 2 Body Location Pec Mobilization Type Rolling Intensity/Depth Moderate 1 Body Location UT, LS& scalenes Mobilization Type Rolling Intensity/Depth Moderate Body Position Supine Joint Mobilizations 3 Joint AC Direction caudal Grade III Body Position Supine Comments FM 1 Joint GH Direction ant & distraction Grade III Body Position Supine Manual Techniques 1 Type PROM flex, abd, ER, IR Body Location L shoulder Body Position Supine PT-OP-R Modalities Start: 08/27/17 08:09 Freq: Status: Active Protocol: Document 09/28/17 08:16 [facility] (Rec: 09/28/17 09:00 [facility] [id number]) Hot Pack/Cold Pack Treatment cryocuff Location L shoulder Patient Position Hooklying Treatment Duration (minutes) 10 Patient Tolerance Good PT-OP-T Assessment and Plan Start: 08/27/17 08:09 Freq: Status: Active Protocol: Document 09/30/17 08:20 [facility] (Rec: 09/30/17 09:01 [facility] [id number]) Physical Therapy Assessment Assessment Summary Assessment Pt is improving with ROM, but d/t today being a sore day, she was very limited in abd & IR today as compared to last session. IR improved to 65 deg passively after manual. Pt has clunking with transtion between ER to IR in 90/90 position. Physical Therapy Plan Frequency and Duration Frequency of Treatment 2x/Week Plan of Care Start Date 08/27/17 Plan of Care End Date 10/27/17 Next Visit Focus/Plan Next Note Type Treatment Note Next Visit Plan Progress rib mobility, scapular stabilization Please Sign and Return: I have reviewed this Plan of Care and certify that the skilled therapy services above are required to meet the patient?s needs. Physician Signature Date Printed Name and Credentials Clinical Instructor Signature Printed Name and Credentials
--- NOTE | 2017-09-30 09:01 | PT.OPPN ---
Current Diagnoses Pain in left shoulder (09/30/17) Strain of unspecified muscle, fascia and tendon at shoulder and upper arm level, left arm, initial encounter (09/30/17) Physical Therapy Progress Note PT-OP-A Visit Information Start: 08/27/17 08:09 Freq: Status: Active Protocol: Document 09/30/17 08:20 [facility] (Rec: 09/30/17 09:01 [facility] [id number]) Out-Patient Physical Therapy Visit Information Visit Information Visit Type Progress Note Visit Start Time 08:15 Visit Stop Time 09:05 Total Visit Minutes 50 Visit Number 20 Number of COMPUTER SCIENCES PROFESSOR Visits 0 PT-OP-B Current Condition Start: 08/27/17 08:09 Freq: Status: Active Protocol: Document 08/27/17 16:56 [facility] (Rec: 08/27/17 17:07 [facility] [id number]) Current Condition History of Current Condition Current Complaints L shoulder pain History of Current Condition Pt had insideous onset of L shoulder pain in Apr and has done PT, chiro, massage & injections with relief only with injections, but started to go downhill 2 months after 3rd injection so was scheduled for RAJENDRA which was done 08/26/17. Pt has chronic neck & back pain. Pt reports allergic reaction to one of her pain meds so is getting new prescription tonight. Prior Treatments and Tests Has done PT, chiro & massage in past & had 2 neck injections & 3 shoulder injections & recent RAJENDRA Treatment Goals Patient/Caregiver Goals Dec pain & return to activity Prior Functional Status Baseline Function- ADL's Independent Current Functional Impairments (Reported) Functional Limitations- ADL's Difficulty with UE tasks d/t pain PT-OP-C Subjective Start: 08/27/17 08:09 Freq: Status: Active Protocol: Document 09/30/17 08:20 [facility] (Rec: 09/30/17 09:01 [facility] [id number]) OP-PT Subjective Patient Comments Patient Comments Tape was very helpful PT-OP-J Posture/Palpation/Skin Start: 08/27/17 08:09 Freq: Status: Active Protocol: Document 08/27/17 14:31 [facility] (Rec: 08/27/17 15:24 [facility] [id number]) Posture Evaluation Comments Posture Comments moderate fwd head & shoulders Palpation Assessment Location One Palpation Location L shoulder Palpation Findings Soft Tissue Tightness Tenderness Palpation Details UT, Pec, LS, scalenes PT-OP-K Range of Motion Start: 08/27/17 08:09 Freq: Status: Active Protocol: Document 09/30/17 08:20 [facility] (Rec: 09/30/17 09:01 [facility] [id number]) Shoulder Goniometric Range of Motion Shoulder Measured in Degrees Left Active Flexion 161 Extension 50 Abduction 165 External Rotation at 90 degrees 80 Abduction Internal Rotation 19 Internal Rotation Behind Back (text) T11 Left Passive Flexion 170 Abduction 136 External Rotation at 90 degrees 84 Abduction Internal Rotation 50 PT-OP-T Assessment and Plan Start: 08/27/17 08:09 Freq: Status: Active Protocol: Document 09/30/17 08:20 [facility] (Rec: 09/30/17 09:01 [facility] [id number]) Physical Therapy Assessment Assessment Summary Assessment Pt is improving with ROM, but d/t today being a sore day, she was very limited in abd & IR today as compared to last session. IR improved to 65 deg passively after manual. Pt has clunking with transtion between ER to IR in 90/90 position. Physical Therapy Plan Frequency and Duration Frequency of Treatment 2x/Week Plan of Care Start Date 08/27/17 Plan of Care End Date 10/27/17 Next Visit Focus/Plan Next Note Type Treatment Note Next Visit Plan Progress rib mobility, scapular stabilization
--- NOTE | 2017-10-05 08:21 | PT.OTN ---
Current Diagnoses Pain in left shoulder (10/05/17) Strain of unspecified muscle, fascia and tendon at shoulder and upper arm level, left arm, initial encounter (10/05/17) Physical Therapy Treatment Note PT-OP-A Visit Information Start: 08/27/17 08:09 Freq: Status: Active Protocol: Document 10/05/17 07:29 [facility] (Rec: 10/05/17 08:17 [facility] [id number]) Out-Patient Physical Therapy Visit Information Visit Information Visit Type Treatment Note Visit Start Time 07:30 Visit Stop Time 08:15 Total Visit Minutes 45 Visit Number 21 PT-OP-B Current Condition Start: 08/27/17 08:09 Freq: Status: Active Protocol: Document 08/27/17 16:56 [facility] (Rec: 08/27/17 17:07 [facility] [id number]) Current Condition History of Current Condition Current Complaints L shoulder pain History of Current Condition Pt had insideous onset of L shoulder pain in Apr and has done PT, chiro, massage & injections with relief only with injections, but started to go downhill 2 months after 3rd injection so was scheduled for RAJENDRA which was done 08/26/17. Pt has chronic neck & back pain. Pt reports allergic reaction to one of her pain meds so is getting new prescription tonight. Prior Treatments and Tests Has done PT, chiro & massage in past & had 2 neck injections & 3 shoulder injections & recent RAJENDRA Treatment Goals Patient/Caregiver Goals Dec pain & return to activity Prior Functional Status Baseline Function- ADL's Independent Current Functional Impairments (Reported) Functional Limitations- ADL's Difficulty with UE tasks d/t pain PT-OP-C Subjective Start: 08/27/17 08:09 Freq: Status: Active Protocol: Document 10/05/17 07:29 [facility] (Rec: 10/05/17 08:21 [facility] [id number]) OP-PT Subjective Patient Comments Patient Comments Pt reports seeing L & I MD and he is pleased with plan to do 2x/ week and slowly progress strengthening. Patient Reported Progress Improving PT-OP-J Posture/Palpation/Skin Start: 08/27/17 08:09 Freq: Status: Active Protocol: Document 08/27/17 14:31 [facility] (Rec: 08/27/17 15:24 [facility] [id number]) Posture Evaluation Comments Posture Comments moderate fwd head & shoulders Palpation Assessment Location One Palpation Location L shoulder Palpation Findings Soft Tissue Tightness Tenderness Palpation Details UT, Pec, LS, scalenes PT-OP-K Range of Motion Start: 08/27/17 08:09 Freq: Status: Active Protocol: Document 09/30/17 08:20 [facility] (Rec: 09/30/17 09:01 [facility] [id number]) Shoulder Goniometric Range of Motion Shoulder Measured in Degrees Left Active Flexion 161 Extension 50 Abduction 165 External Rotation at 90 degrees 80 Abduction Internal Rotation 19 Internal Rotation Behind Back (text) T11 Left Passive Flexion 170 Abduction 136 External Rotation at 90 degrees 84 Abduction Internal Rotation 50 PT-OP-Q Treatments Start: 08/27/17 08:09 Freq: Status: Active Protocol: Document 10/05/17 07:29 [facility] (Rec: 10/05/17 08:17 [facility] [id number]) Therapeutic Exercises Supine Exercises 7 Supine Exercise Name abdominal series flex & diagonal Sitting Exercises 1 Sitting Exercise Name lissette flex abd & IR Side left Reps/Minutes 15 Standing Exercises 13 Standing Exercise Name IR Equipment Used Lvl 1 Reps/Minutes 10 12 Standing Exercise Name ER Resistance lvl 1 Reps/Minutes 10 11 Standing Exercise Name ext Resistance L1 Reps/Minutes 10 Manual Therapy Treatment Soft Tissue Mobilization 5 Body Location deltoid Mobilization Type Rolling 2 Body Location Pec Mobilization Type Rolling Intensity/Depth Moderate 1 Body Location UT, LS& scalenes Mobilization Type Rolling Intensity/Depth Moderate Body Position Supine Joint Mobilizations 1 Joint GH Direction ant & distraction Grade III Body Position Supine Manual Techniques 1 Type PROM flex, abd, ER, IR Body Location L shoulder Body Position Supine PT-OP-R Modalities Start: 08/27/17 08:09 Freq: Status: Active Protocol: Document 09/28/17 08:16 [facility] (Rec: 09/28/17 09:00 [facility] [id number]) Hot Pack/Cold Pack Treatment cryocuff Location L shoulder Patient Position Hooklying Treatment Duration (minutes) 10 Patient Tolerance Good PT-OP-T Assessment and Plan Start: 08/27/17 08:09 Freq: Status: Active Protocol: Document 10/05/17 07:29 [facility] (Rec: 10/05/17 08:17 [facility] [id number]) Physical Therapy Assessment Assessment Summary Assessment Pt has less pain with end range positions today during PROM. Pt is tight and limited into IR. Imrpoved strength but requires cueing with ER & ext . Physical Therapy Plan Frequency and Duration Frequency of Treatment 2x/Week Plan of Care Start Date 08/27/17 Plan of Care End Date 10/27/17 Next Visit Focus/Plan Next Note Type Treatment Note Next Visit Plan Progress rib mobility, scapular stabilization & gradually progress strength Please Sign and Return: I have reviewed this Plan of Care and certify that the skilled therapy services above are required to meet the patient?s needs. Physician Signature Date Printed Name and Credentials Clinical Instructor Signature Printed Name and Credentials
--- NOTE | 2017-10-07 08:58 | PT.OTN ---
Current Diagnoses Pain in left shoulder (10/07/17) Strain of unspecified muscle, fascia and tendon at shoulder and upper arm level, left arm, initial encounter (10/07/17) Physical Therapy Treatment Note PT-OP-A Visit Information Start: 08/27/17 08:09 Freq: Status: Active Protocol: Document 10/07/17 07:25 [facility] (Rec: 10/07/17 08:58 [facility] [id number]) Out-Patient Physical Therapy Visit Information Visit Information Visit Type Treatment Note Visit Start Time 07:37 Visit Stop Time 08:15 Total Visit Minutes 28 Visit Number 22 PT-OP-B Current Condition Start: 08/27/17 08:09 Freq: Status: Active Protocol: Document 08/27/17 16:56 [facility] (Rec: 08/27/17 17:07 [facility] [id number]) Current Condition History of Current Condition Current Complaints L shoulder pain History of Current Condition Pt had insideous onset of L shoulder pain in Apr and has done PT, chiro, massage & injections with relief only with injections, but started to go downhill 2 months after 3rd injection so was scheduled for RAJENDRA which was done 08/26/17. Pt has chronic neck & back pain. Pt reports allergic reaction to one of her pain meds so is getting new prescription tonight. Prior Treatments and Tests Has done PT, chiro & massage in past & had 2 neck injections & 3 shoulder injections & recent RAJENDRA Treatment Goals Patient/Caregiver Goals Dec pain & return to activity Prior Functional Status Baseline Function- ADL's Independent Current Functional Impairments (Reported) Functional Limitations- ADL's Difficulty with UE tasks d/t pain PT-OP-C Subjective Start: 08/27/17 08:09 Freq: Status: Active Protocol: Document 10/07/17 07:25 [facility] (Rec: 10/07/17 08:58 [facility] [id number]) OP-PT Subjective Patient Comments Patient Comments Reports has some flare ups when uses UEs too much. PT-OP-J Posture/Palpation/Skin Start: 08/27/17 08:09 Freq: Status: Active Protocol: Document 08/27/17 14:31 [facility] (Rec: 08/27/17 15:24 [facility] [id number]) Posture Evaluation Comments Posture Comments moderate fwd head & shoulders Palpation Assessment Location One Palpation Location L shoulder Palpation Findings Soft Tissue Tightness Tenderness Palpation Details UT, Pec, LS, scalenes PT-OP-K Range of Motion Start: 08/27/17 08:09 Freq: Status: Active Protocol: Document 09/30/17 08:20 [facility] (Rec: 09/30/17 09:01 [facility] [id number]) Shoulder Goniometric Range of Motion Shoulder Measured in Degrees Left Active Flexion 161 Extension 50 Abduction 165 External Rotation at 90 degrees 80 Abduction Internal Rotation 19 Internal Rotation Behind Back (text) T11 Left Passive Flexion 170 Abduction 136 External Rotation at 90 degrees 84 Abduction Internal Rotation 50 PT-OP-Q Treatments Start: 08/27/17 08:09 Freq: Status: Active Protocol: Document 10/07/17 07:25 [facility] (Rec: 10/07/17 08:58 [facility] [id number]) Therapeutic Exercises Prone Exercises 3 Prone Exercise Name HAbd Resistance 1# Reps/Minutes 12 2 Prone Exercise Name scaption Resistance 1# Comments overtball 1 Prone Exercise Name 90/90 ER Resistance 1# Comments 10 Sitting Exercises 1 Sitting Exercise Name lissette flex abd & IR Side left Reps/Minutes 15 Standing Exercises 13 Standing Exercise Name IR Equipment Used Lvl 1 Reps/Minutes 10 12 Standing Exercise Name ER Resistance lvl 1 Reps/Minutes 15 11 Standing Exercise Name ext Resistance L1 Reps/Minutes 15 Manual Therapy Treatment Soft Tissue Mobilization 5 Body Location deltoid Mobilization Type Rolling 2 Body Location Pec Mobilization Type Rolling Intensity/Depth Moderate 1 Body Location UT, LS& scalenes Mobilization Type Rolling Intensity/Depth Moderate Body Position Supine Joint Mobilizations 4 Joint SC Direction inf FM 3 Joint AC Direction caudal Grade III Body Position Supine Comments FM 1 Joint GH Direction ant & distraction Grade III Body Position Supine Manual Techniques 1 Type PROM flex, abd, ER, IR Body Location L shoulder Body Position Supine PT-OP-R Modalities Start: 08/27/17 08:09 Freq: Status: Active Protocol: Document 09/28/17 08:16 [facility] (Rec: 09/28/17 09:00 [facility] [id number]) Hot Pack/Cold Pack Treatment cryocuff Location L shoulder Patient Position Hooklying Treatment Duration (minutes) 10 Patient Tolerance Good PT-OP-T Assessment and Plan Start: 08/27/17 08:09 Freq: Status: Active Protocol: Document 10/07/17 07:25 [facility] (Rec: 10/07/17 08:58 [facility] [id number]) Physical Therapy Assessment Assessment Summary Assessment Improved IR today with minor limits into end range ER. Able to tolerate inc to resistance in prone. Physical Therapy Plan Frequency and Duration Frequency of Treatment 2x/Week Plan of Care Start Date 08/27/17 Plan of Care End Date 10/27/17 Next Visit Focus/Plan Next Note Type Treatment Note Next Visit Plan gradually progress strength & work on IR ROM
--- NOTE | 2017-10-12 09:50 | PT.OTN ---
Current Diagnoses Pain in left shoulder (10/12/17) Strain of unspecified muscle, fascia and tendon at shoulder and upper arm level, left arm, initial encounter (10/12/17) Physical Therapy Treatment Note PT-OP-A Visit Information Start: 08/27/17 08:09 Freq: Status: Active Protocol: Document 10/12/17 07:34 [facility] (Rec: 10/12/17 09:49 [facility] [id number]) Out-Patient Physical Therapy Visit Information Visit Information Visit Type Treatment Note Visit Start Time 07:30 Visit Stop Time 08:15 Total Visit Minutes 45 Visit Number 23 PT-OP-B Current Condition Start: 08/27/17 08:09 Freq: Status: Active Protocol: Document 08/27/17 16:56 [facility] (Rec: 08/27/17 17:07 [facility] [id number]) Current Condition History of Current Condition Current Complaints L shoulder pain History of Current Condition Pt had insideous onset of L shoulder pain in Apr and has done PT, chiro, massage & injections with relief only with injections, but started to go downhill 2 months after 3rd injection so was scheduled for RAJENDRA which was done 08/26/17. Pt has chronic neck & back pain. Pt reports allergic reaction to one of her pain meds so is getting new prescription tonight. Prior Treatments and Tests Has done PT, chiro & massage in past & had 2 neck injections & 3 shoulder injections & recent RAJENDRA Treatment Goals Patient/Caregiver Goals Dec pain & return to activity Prior Functional Status Baseline Function- ADL's Independent Current Functional Impairments (Reported) Functional Limitations- ADL's Difficulty with UE tasks d/t pain PT-OP-C Subjective Start: 08/27/17 08:09 Freq: Status: Active Protocol: Document 10/12/17 07:34 [facility] (Rec: 10/12/17 09:49 [facility] [id number]) OP-PT Subjective Patient Comments Patient Comments Pt reports she overdid this weekend d/t going to the gym then doing a lot of yard work. PT-OP-J Posture/Palpation/Skin Start: 08/27/17 08:09 Freq: Status: Active Protocol: Document 08/27/17 14:31 [facility] (Rec: 08/27/17 15:24 [facility] [id number]) Posture Evaluation Comments Posture Comments moderate fwd head & shoulders Palpation Assessment Location One Palpation Location L shoulder Palpation Findings Soft Tissue Tightness Tenderness Palpation Details UT, Pec, LS, scalenes PT-OP-K Range of Motion Start: 08/27/17 08:09 Freq: Status: Active Protocol: Document 09/30/17 08:20 [facility] (Rec: 09/30/17 09:01 [facility] [id number]) Shoulder Goniometric Range of Motion Shoulder Measured in Degrees Left Active Flexion 161 Extension 50 Abduction 165 External Rotation at 90 degrees 80 Abduction Internal Rotation 19 Internal Rotation Behind Back (text) T11 Left Passive Flexion 170 Abduction 136 External Rotation at 90 degrees 84 Abduction Internal Rotation 50 PT-OP-Q Treatments Start: 08/27/17 08:09 Freq: Status: Active Protocol: Document 10/12/17 07:34 [facility] (Rec: 10/12/17 09:49 [facility] [id number]) Therapeutic Exercises Standing Exercises 14 Standing Exercise Name Hab along bar Equipment Used yellow tband Reps/Minutes 10ft 13 Standing Exercise Name IR Equipment Used Lvl 1 Reps/Minutes 20 12 Standing Exercise Name ER Resistance lvl 1 Reps/Minutes 20 11 Standing Exercise Name ext Resistance L1 Reps/Minutes 20 Manual Therapy Treatment Soft Tissue Mobilization 5 Body Location deltoid Mobilization Type Rolling 4 Body Location teres minor/major Mobilization Type Sustained Pressure Intensity/Depth Moderate 2 Body Location Pec Mobilization Type Rolling Intensity/Depth Moderate 1 Body Location UT, LS& scalenes Mobilization Type Rolling Intensity/Depth Moderate Body Position Supine Joint Mobilizations 1 Joint GH Direction ant & distraction, inf Grade III Body Position Supine Manual Techniques 1 Type PROM flex, abd, ER, IR Body Location L shoulder Body Position Supine PT-OP-R Modalities Start: 08/27/17 08:09 Freq: Status: Active Protocol: Document 09/28/17 08:16 [facility] (Rec: 09/28/17 09:00 [facility] [id number]) Hot Pack/Cold Pack Treatment cryocuff Location L shoulder Patient Position Hooklying Treatment Duration (minutes) 10 Patient Tolerance Good PT-OP-T Assessment and Plan Start: 08/27/17 08:09 Freq: Status: Active Protocol: Document 10/12/17 07:34 [facility] (Rec: 10/12/17 09:49 [facility] [id number]) Physical Therapy Assessment Assessment Summary Assessment Pt is improving with ROM and had some minor limits to end range flex & abd. Improved soft tissue mobility today. Physical Therapy Plan Frequency and Duration Frequency of Treatment 2x/Week Plan of Care Start Date 08/27/17 Plan of Care End Date 10/27/17 Next Visit Focus/Plan Next Note Type Treatment Note Next Visit Plan gradually progress strength & work on end range abd & flex
--- NOTE | 2017-10-14 14:33 | PT.OTN ---
Current Diagnoses Pain in left shoulder (10/14/17) Strain of unspecified muscle, fascia and tendon at shoulder and upper arm level, left arm, initial encounter (10/14/17) Physical Therapy Treatment Note PT-OP-A Visit Information Start: 08/27/17 08:09 Freq: Status: Active Protocol: Document 10/14/17 10:34 [facility] (Rec: 10/14/17 14:33 [facility] [id number]) Out-Patient Physical Therapy Visit Information Visit Information Visit Type Treatment Note Visit Start Time 07:30 Visit Stop Time 08:15 Total Visit Minutes 45 Visit Number 24 PT-OP-B Current Condition Start: 08/27/17 08:09 Freq: Status: Active Protocol: Document 08/27/17 16:56 [facility] (Rec: 08/27/17 17:07 [facility] [id number]) Current Condition History of Current Condition Current Complaints L shoulder pain History of Current Condition Pt had insideous onset of L shoulder pain in Apr and has done PT, chiro, massage & injections with relief only with injections, but started to go downhill 2 months after 3rd injection so was scheduled for RAJENDRA which was done 08/26/17. Pt has chronic neck & back pain. Pt reports allergic reaction to one of her pain meds so is getting new prescription tonight. Prior Treatments and Tests Has done PT, chiro & massage in past & had 2 neck injections & 3 shoulder injections & recent RAJENDRA Treatment Goals Patient/Caregiver Goals Dec pain & return to activity Prior Functional Status Baseline Function- ADL's Independent Current Functional Impairments (Reported) Functional Limitations- ADL's Difficulty with UE tasks d/t pain PT-OP-C Subjective Start: 08/27/17 08:09 Freq: Status: Active Protocol: Document 10/14/17 10:34 [facility] (Rec: 10/14/17 14:33 [facility] [id number]) OP-PT Subjective Patient Comments Patient Comments Reports yesterday was a bad day. Reports she had to move a box of medical records that was above her head PT-OP-J Posture/Palpation/Skin Start: 08/27/17 08:09 Freq: Status: Active Protocol: Document 08/27/17 14:31 [facility] (Rec: 08/27/17 15:24 [facility] [id number]) Posture Evaluation Comments Posture Comments moderate fwd head & shoulders Palpation Assessment Location One Palpation Location L shoulder Palpation Findings Soft Tissue Tightness Tenderness Palpation Details UT, Pec, LS, scalenes PT-OP-K Range of Motion Start: 08/27/17 08:09 Freq: Status: Active Protocol: Document 09/30/17 08:20 [facility] (Rec: 09/30/17 09:01 [facility] [id number]) Shoulder Goniometric Range of Motion Shoulder Measured in Degrees Left Active Flexion 161 Extension 50 Abduction 165 External Rotation at 90 degrees 80 Abduction Internal Rotation 19 Internal Rotation Behind Back (text) T11 Left Passive Flexion 170 Abduction 136 External Rotation at 90 degrees 84 Abduction Internal Rotation 50 PT-OP-Q Treatments Start: 08/27/17 08:09 Freq: Status: Active Protocol: Document 10/14/17 10:34 [facility] (Rec: 10/14/17 14:33 [facility] [id number]) Therapeutic Exercises Standing Exercises 16 Standing Exercise Name arm swing with scap focus Reps/Minutes 10 15 Standing Exercise Name biceps curl Side bilateral Resistance 3# Reps/Minutes 15 11 Standing Exercise Name ext Resistance L1 Reps/Minutes 30 Comments alt Manual Therapy Treatment Soft Tissue Mobilization 5 Body Location deltoid Mobilization Type Rolling 4 Body Location teres minor/major Mobilization Type Sustained Pressure Intensity/Depth Moderate 2 Body Location Pec Mobilization Type Rolling Intensity/Depth Moderate 1 Body Location UT, LS& scalenes Mobilization Type Rolling Intensity/Depth Moderate Body Position Supine Joint Mobilizations 3 Joint AC Direction ventral Grade III Body Position Supine Comments FM 1 Joint GH Direction ant & distraction, inf Grade III Body Position Supine PT-OP-R Modalities Start: 08/27/17 08:09 Freq: Status: Active Protocol: Document 09/28/17 08:16 [facility] (Rec: 09/28/17 09:00 [facility] [id number]) Hot Pack/Cold Pack Treatment cryocuff Location L shoulder Patient Position Hooklying Treatment Duration (minutes) 10 Patient Tolerance Good PT-OP-T Assessment and Plan Start: 08/27/17 08:09 Freq: Status: Active Protocol: Document 10/14/17 10:34 [facility] (Rec: 10/14/17 14:33 [facility] [id number]) Physical Therapy Assessment Assessment Summary Assessment Pt is improving with with range but does have difficulty with mantaining neutral scapular position in standing. Physical Therapy Plan Frequency and Duration Frequency of Treatment 2x/Week Plan of Care Start Date 08/27/17 Plan of Care End Date 10/27/17 Next Visit Focus/Plan Next Note Type Treatment Note Next Visit Plan gradually progress strength & work on end range abd & flex
--- NOTE | 2017-10-19 16:30 | PT.OTN ---
Current Diagnoses Pain in left shoulder (10/19/17) Strain of unspecified muscle, fascia and tendon at shoulder and upper arm level, left arm, initial encounter (10/19/17) Physical Therapy Treatment Note PT-OP-A Visit Information Start: 08/27/17 08:09 Freq: Status: Active Protocol: Document 10/19/17 08:15 [facility] (Rec: 10/19/17 16:30 [facility] [id number]) Out-Patient Physical Therapy Visit Information Visit Information Visit Type Treatment Note Visit Start Time 07:30 Visit Stop Time 08:15 Total Visit Minutes 45 Visit Number 25 PT-OP-B Current Condition Start: 08/27/17 08:09 Freq: Status: Active Protocol: Document 08/27/17 16:56 [facility] (Rec: 08/27/17 17:07 [facility] [id number]) Current Condition History of Current Condition Current Complaints L shoulder pain History of Current Condition Pt had insideous onset of L shoulder pain in Apr and has done PT, chiro, massage & injections with relief only with injections, but started to go downhill 2 months after 3rd injection so was scheduled for RAJENDRA which was done 08/26/17. Pt has chronic neck & back pain. Pt reports allergic reaction to one of her pain meds so is getting new prescription tonight. Prior Treatments and Tests Has done PT, chiro & massage in past & had 2 neck injections & 3 shoulder injections & recent RAJENDRA Treatment Goals Patient/Caregiver Goals Dec pain & return to activity Prior Functional Status Baseline Function- ADL's Independent Current Functional Impairments (Reported) Functional Limitations- ADL's Difficulty with UE tasks d/t pain PT-OP-C Subjective Start: 08/27/17 08:09 Freq: Status: Active Protocol: Document 10/19/17 08:15 [facility] (Rec: 10/19/17 16:30 [facility] [id number]) OP-PT Subjective Patient Comments Patient Comments Reports she played some golf this weekend and was sore after. She had difficulty lifting the clubs up. Reports she had not stretched yet htis AM. cont home stretches PT-OP-J Posture/Palpation/Skin Start: 08/27/17 08:09 Freq: Status: Active Protocol: Document 08/27/17 14:31 [facility] (Rec: 08/27/17 15:24 [facility] [id number]) Posture Evaluation Comments Posture Comments moderate fwd head & shoulders Palpation Assessment Location One Palpation Location L shoulder Palpation Findings Soft Tissue Tightness Tenderness Palpation Details UT, Pec, LS, scalenes PT-OP-K Range of Motion Start: 08/27/17 08:09 Freq: Status: Active Protocol: Document 09/30/17 08:20 [facility] (Rec: 09/30/17 09:01 [facility] [id number]) Shoulder Goniometric Range of Motion Shoulder Measured in Degrees Left Active Flexion 161 Extension 50 Abduction 165 External Rotation at 90 degrees 80 Abduction Internal Rotation 19 Internal Rotation Behind Back (text) T11 Left Passive Flexion 170 Abduction 136 External Rotation at 90 degrees 84 Abduction Internal Rotation 50 PT-OP-Q Treatments Start: 08/27/17 08:09 Freq: Status: Active Protocol: Document 10/19/17 08:15 [facility] (Rec: 10/19/17 16:30 [facility] [id number]) Therapeutic Exercises Sitting Exercises 1 Sitting Exercise Name lissette flex abd & IR Side left Reps/Minutes 15 Standing Exercises 16 Standing Exercise Name arm swing with scap focus Reps/Minutes 15 15 Standing Exercise Name biceps curl Side bilateral Resistance 4# Reps/Minutes 15 13 Standing Exercise Name IR Equipment Used Lvl 1 Reps/Minutes 20 12 Standing Exercise Name ER Resistance lvl 1 Reps/Minutes 20 11 Standing Exercise Name ext Resistance L1 Reps/Minutes 30 Comments alt Manual Therapy Treatment Soft Tissue Mobilization 5 Body Location L brachium Mobilization Type Myofascial Release Comments FM with circumfrential & FM with overhead lift 4 Body Location teres minor/major Mobilization Type Sustained Pressure Intensity/Depth Moderate Joint Mobilizations 1 Joint GH Direction distraction Grade III Body Position Supine Manual Techniques 1 Type PROM flex, abd, ER, IR Body Location L shoulder Body Position Supine PT-OP-R Modalities Start: 08/27/17 08:09 Freq: Status: Active Protocol: Document 09/28/17 08:16 [facility] (Rec: 09/28/17 09:00 [facility] [id number]) Hot Pack/Cold Pack Treatment cryocuff Location L shoulder Patient Position Hooklying Treatment Duration (minutes) 10 Patient Tolerance Good PT-OP-T Assessment and Plan Start: 08/27/17 08:09 Freq: Status: Active Protocol: Document 10/19/17 08:15 [facility] (Rec: 10/19/17 16:30 [facility] [id number]) Physical Therapy Assessment Assessment Summary Assessment Pt had improved form with UE tband exercises today with min cueing stillr equired. Physical Therapy Plan Next Visit Focus/Plan Next Note Type Treatment Note Next Visit Plan plunger on lats, cont w/MFR around L shoulder
--- NOTE | 2017-10-23 09:28 | PT.OTN ---
Current Diagnoses Pain in left shoulder (10/23/17) Strain of unspecified muscle, fascia and tendon at shoulder and upper arm level, left arm, initial encounter (10/23/17) Physical Therapy Treatment Note PT-OP-A Visit Information Start: 08/27/17 08:09 Freq: Status: Active Protocol: Document 10/23/17 07:26 [facility] (Rec: 10/23/17 09:27 [facility] [id number]) Out-Patient Physical Therapy Visit Information Visit Information Visit Type Treatment Note Visit Start Time 07:30 Visit Stop Time 08:15 Total Visit Minutes 45 Visit Number 26 PT-OP-B Current Condition Start: 08/27/17 08:09 Freq: Status: Active Protocol: Document 08/27/17 16:56 [facility] (Rec: 08/27/17 17:07 [facility] [id number]) Current Condition History of Current Condition Current Complaints L shoulder pain History of Current Condition Pt had insideous onset of L shoulder pain in Apr and has done PT, chiro, massage & injections with relief only with injections, but started to go downhill 2 months after 3rd injection so was scheduled for RAJENDRA which was done 08/26/17. Pt has chronic neck & back pain. Pt reports allergic reaction to one of her pain meds so is getting new prescription tonight. Prior Treatments and Tests Has done PT, chiro & massage in past & had 2 neck injections & 3 shoulder injections & recent RAJENDRA Treatment Goals Patient/Caregiver Goals Dec pain & return to activity Prior Functional Status Baseline Function- ADL's Independent Current Functional Impairments (Reported) Functional Limitations- ADL's Difficulty with UE tasks d/t pain PT-OP-C Subjective Start: 08/27/17 08:09 Freq: Status: Active Protocol: Document 10/23/17 07:26 [facility] (Rec: 10/23/17 09:27 [facility] [id number]) OP-PT Subjective Patient Comments Patient Comments Reports PARRY today. Patient Questionnaires Quick Dash- Upper Extremity Quick Dash UE Score 40.9 Quick Dash UE Impairment 40 to 59% Impaired (Score 40- 59) PT-OP-J Posture/Palpation/Skin Start: 08/27/17 08:09 Freq: Status: Active Protocol: Document 08/27/17 14:31 [facility] (Rec: 08/27/17 15:24 [facility] [id number]) Posture Evaluation Comments Posture Comments moderate fwd head & shoulders Palpation Assessment Location One Palpation Location L shoulder Palpation Findings Soft Tissue Tightness Tenderness Palpation Details UT, Pec, LS, scalenes PT-OP-K Range of Motion Start: 08/27/17 08:09 Freq: Status: Active Protocol: Document 10/23/17 07:26 [facility] (Rec: 10/23/17 09:27 [facility] [id number]) Shoulder Goniometric Range of Motion Shoulder Measured in Degrees Left Active Flexion 159 Extension 50 Abduction 123 External Rotation at 90 degrees 79 Abduction Internal Rotation 12 Internal Rotation Behind Back (text) T10 Left Passive Flexion 172 Abduction 135 External Rotation at 90 degrees 88 Abduction Internal Rotation 69 PT-OP-M Strength Start: 08/27/17 08:09 Freq: Status: Active Protocol: Document 10/23/17 07:26 [facility] (Rec: 10/23/17 09:27 [facility] [id number]) Shoulder Strength Shoulder Manual Muscle Testing Right Flexion 5 Normal Extension 5 Normal Abduction (C5) 5 Normal Adduction 5 Normal External Rotation 5 Normal Internal Rotation 5 Normal Horizontal Abduction 5 Normal Horizontal Adduction 5 Normal Left Flexion 4 Good Extension 4 Good Abduction (C5) 4 Good Adduction 4+ Good+ External Rotation 4- Good- Internal Rotation 4+ Good+ Horizontal Abduction 4- Good- Horizontal Adduction 4+ Good+ PT-OP-Q Treatments Start: 08/27/17 08:09 Freq: Status: Active Protocol: Document 10/23/17 07:26 [facility] (Rec: 10/23/17 09:27 [facility] [id number]) Therapeutic Exercises Prone Exercises 4 Prone Exercise Name rowing Equipment Used 3# Reps/Minutes 20 Sitting Exercises 1 Sitting Exercise Name lissette flex abd & IR Side left Reps/Minutes 15 Manual Therapy Treatment Soft Tissue Mobilization 4 Body Location teres minor/major/lat Mobilization Type Myofascial Release Intensity/Depth Moderate Comments Plunger with abd s/l 3 Body Location ant clavicle/sternal region Mobilization Type Myofascial Release PT-OP-R Modalities Start: 08/27/17 08:09 Freq: Status: Active Protocol: Document 09/28/17 08:16 [facility] (Rec: 09/28/17 09:00 [facility] [id number]) Hot Pack/Cold Pack Treatment cryocuff Location L shoulder Patient Position Hooklying Treatment Duration (minutes) 10 Patient Tolerance Good PT-OP-T Assessment and Plan Start: 08/27/17 08:09 Freq: Status: Active Protocol: Document 10/23/17 07:26 [facility] (Rec: 10/23/17 09:27 [facility] [id number]) Physical Therapy Assessment Goals Four Impairment pain Dean Of [employer] Goal (LTG) Pt will rate L shoulder pain as no greater than 2/10 without narcotics. LTG Duration 12/24/17-improving worst 4/10 Three Impairment DASH quick Nursing Home Goal (LTG) 20 quick DASH LTG Duration 12/24/17 Two Impairment strength Dean [employer] Goal (LTG) 5/5 UE strength (B) to allow return to rec activities LTG Duration 12/24/17- excellent progress One Impairment ROM Short Term Goal (STG) Full PROM STG Duration 11/22/17-improving Nursing Home Goal (LTG) Full AROM to allow ability to normal activity LTG Duration 12/23/17-improving Progress Towards Goals Progress Towards Goals Slow Progress - Other Progress Comments Pt is progressing slowly d/t chronicity of issue and other factors affecting her recovery of her shoulder. Assessment Summary Assessment Pt had improved ROM to passive abd to 180 and IR to 72 after MFR with plunger. Physical Therapy Plan Frequency and Duration Frequency of Treatment 2x/Week Plan of Care Start Date 10/23/17 Plan of Care End Date 12/24/17 Therapeutic Interventions Therapeutic Interventions Home Exercise Program Joint Mobilizations Manual Therapy Neuromuscular Re-education Soft Tissue Mobilization Taping Therapeutic Exercises Modalities Cold Pack/Ice Massage Electric Stimulation Hot Packs Ultrasound Next Visit Focus/Plan Next Note Type Treatment Note Next Visit Plan cont MFR around L shoulder FM
--- NOTE | 2017-10-23 09:28 | PT.OPPOC ---
Current Diagnoses Pain in left shoulder (10/23/17) Strain of unspecified muscle, fascia and tendon at shoulder and upper arm level, left arm, initial encounter (10/23/17) Provider Visit Care Team Role Provider Type Kirt Feliz MD Family Provider Physician Primary Care Provider Specialty: Family Practice Address: [address] [place] [address], [phone] Email: Pawel Shannon MD Attending Provider Non-Staff Specialty: Orthopedic Surgery Address: [address] [place] [address], [id number] Email: Plan Of Care PT-OP-T Assessment and Plan Start: 08/27/17 08:09 Freq: Status: Active Protocol: Document 10/23/17 07:26 [facility] (Rec: 10/23/17 09:27 [facility] [id number]) Physical Therapy Assessment Goals Four Impairment pain Pediatric Dental Hygienist Goal (LTG) Pt will rate L shoulder pain as no greater than 2/10 without narcotics. LTG Duration 12/24/17-improving worst 4/10 Three Impairment DASH quick Pediatric Dental Hygienist Goal (LTG) 20 quick DASH LTG Duration 12/24/17 Two Impairment strength Care Home Goal (LTG) 5/5 UE strength (B) to allow return to rec activities LTG Duration 12/24/17- excellent progress One Impairment ROM Short Term Goal (STG) Full PROM STG Duration 11/22/17-improving Pediatric Dental Hygienist Goal (LTG) Full AROM to allow ability to normal activity LTG Duration 12/23/17-improving Progress Towards Goals Progress Towards Goals Slow Progress - Other Progress Comments Pt is progressing slowly d/t chronicity of issue and other factors affecting her recovery of her shoulder. Assessment Summary Assessment Pt had improved ROM to passive abd to 180 and IR to 72 after MFR with plunger. Physical Therapy Plan Frequency and Duration Frequency of Treatment 2x/Week Plan of Care Start Date 10/23/17 Plan of Care End Date 12/24/17 Therapeutic Interventions Therapeutic Interventions Home Exercise Program Joint Mobilizations Manual Therapy Neuromuscular Re-education Soft Tissue Mobilization Taping Therapeutic Exercises Modalities Cold Pack/Ice Massage Electric Stimulation Hot Packs Ultrasound Next Visit Focus/Plan Next Note Type Treatment Note Next Visit Plan cont MFR around L shoulder FM Plan of Care Dates Plan of Care Start Date 10/23/17 Plan of Care End Date 12/24/17 Please Sign and Return: I have reviewed this Plan of Care and certify that the skilled therapy services above are required to meet the patient?s needs. Physician Signature Date Printed Name and Credentials Clinical Instructor Signature Printed Name and Credentials
--- NOTE | 2017-10-28 14:10 | PT.OTN ---
Current Diagnoses Pain in left shoulder (10/28/17) Strain of unspecified muscle, fascia and tendon at shoulder and upper arm level, left arm, initial encounter (10/28/17) Physical Therapy Treatment Note PT-OP-A Visit Information Start: 08/27/17 08:09 Freq: Status: Active Protocol: Document 10/28/17 14:01 [facility] OF [facility] (Rec: 10/28/17 14:10 [facility] [id number]) Out-Patient Physical Therapy Visit Information Visit Information Visit Type Treatment Note Visit Start Time 12:15 Visit Stop Time 01:00 Total Visit Minutes 45 Visit Number 27 PT-OP-B Current Condition Start: 08/27/17 08:09 Freq: Status: Active Protocol: Document 08/27/17 16:56 [facility] (Rec: 08/27/17 17:07 [facility] [id number]) Current Condition History of Current Condition Current Complaints L shoulder pain History of Current Condition Pt had insideous onset of L shoulder pain in Apr and has done PT, chiro, massage & injections with relief only with injections, but started to go downhill 2 months after 3rd injection so was scheduled for RAJENDRA which was done 08/26/17. Pt has chronic neck & back pain. Pt reports allergic reaction to one of her pain meds so is getting new prescription tonight. Prior Treatments and Tests Has done PT, chiro & massage in past & had 2 neck injections & 3 shoulder injections & recent RAJENDRA Treatment Goals Patient/Caregiver Goals Dec pain & return to activity Prior Functional Status Baseline Function- ADL's Independent Current Functional Impairments (Reported) Functional Limitations- ADL's Difficulty with UE tasks d/t pain PT-OP-C Subjective Start: 08/27/17 08:09 Freq: Status: Active Protocol: Document 10/28/17 14:01 [facility] (Rec: 10/28/17 14:10 [facility] [id number]) OP-PT Subjective Patient Comments Patient Comments Reports overall symptoms continue to improve Patient Reported Progress Improving PT-OP-J Posture/Palpation/Skin Start: 08/27/17 08:09 Freq: Status: Active Protocol: Document 08/27/17 14:31 [facility] (Rec: 08/27/17 15:24 [facility] [id number]) Posture Evaluation Comments Posture Comments moderate fwd head & shoulders Palpation Assessment Location One Palpation Location L shoulder Palpation Findings Soft Tissue Tightness Tenderness Palpation Details UT, Pec, LS, scalenes PT-OP-K Range of Motion Start: 08/27/17 08:09 Freq: Status: Active Protocol: Document 10/23/17 07:26 [facility] (Rec: 10/23/17 09:27 [facility] [id number]) Shoulder Goniometric Range of Motion Shoulder Measured in Degrees Left Active Flexion 159 Extension 50 Abduction 123 External Rotation at 90 degrees 79 Abduction Internal Rotation 12 Internal Rotation Behind Back (text) T10 Left Passive Flexion 172 Abduction 135 External Rotation at 90 degrees 88 Abduction Internal Rotation 69 PT-OP-M Strength Start: 08/27/17 08:09 Freq: Status: Active Protocol: Document 10/23/17 07:26 [facility] (Rec: 10/23/17 09:27 [facility] [id number]) Shoulder Strength Shoulder Manual Muscle Testing Right Flexion 5 Normal Extension 5 Normal Abduction (C5) 5 Normal Adduction 5 Normal External Rotation 5 Normal Internal Rotation 5 Normal Horizontal Abduction 5 Normal Horizontal Adduction 5 Normal Left Flexion 4 Good Extension 4 Good Abduction (C5) 4 Good Adduction 4+ Good+ External Rotation 4- Good- Internal Rotation 4+ Good+ Horizontal Abduction 4- Good- Horizontal Adduction 4+ Good+ PT-OP-Q Treatments Start: 08/27/17 08:09 Freq: Status: Active Protocol: Document 10/28/17 14:01 [facility] (Rec: 10/28/17 14:10 [facility] [id number]) Therapeutic Exercises Sitting Exercises 1 Sitting Exercise Name lissette flex abd & IR Side left Reps/Minutes 15 Standing Exercises 12 Standing Exercise Name ER Resistance lvl 1 Reps/Minutes 20 11 Standing Exercise Name ext Resistance L1 Reps/Minutes 30 Comments alt 10 Standing Exercise Name rows Equipment Used lev 1 Reps/Minutes 3 x 10 Manual Therapy Treatment Soft Tissue Mobilization 5 Body Location L brachium Mobilization Type Myofascial Release Comments FM with circumfrential & FM with overhead lift 3 Body Location ant clavicle/sternal region Mobilization Type Myofascial Release 2 Body Location Pec Mobilization Type Rolling Intensity/Depth Moderate Joint Mobilizations 5 Joint post cap glides 2 Joint sidelying scapular mobilizations Comments with stretch for scapula downward rotation and depression 1 Joint GH Direction distraction Grade III Body Position Supine PT-OP-R Modalities Start: 08/27/17 08:09 Freq: Status: Active Protocol: Document 09/28/17 08:16 [facility] (Rec: 09/28/17 09:00 [facility] [id number]) Hot Pack/Cold Pack Treatment cryocuff Location L shoulder Patient Position Hooklying Treatment Duration (minutes) 10 Patient Tolerance Good PT-OP-T Assessment and Plan Start: 08/27/17 08:09 Freq: Status: Active Protocol: Document 10/28/17 14:01 ON LICENSE OF [facility] (Rec: 10/28/17 14:10 ON LICENSE OF [facility] [id number]) Physical Therapy Assessment Assessment Summary Assessment it appears the patient is progressing well. She had low pain levels today and tolerated treatment well Physical Therapy Plan Frequency and Duration Frequency of Treatment 2x/Week Plan of Care Start Date 10/23/17 Plan of Care End Date 12/24/17 Therapeutic Interventions Therapeutic Interventions Home Exercise Program Joint Mobilizations Manual Therapy Neuromuscular Re-education Soft Tissue Mobilization Taping Therapeutic Exercises Modalities Cold Pack/Ice Massage Electric Stimulation Hot Packs Ultrasound Next Visit Focus/Plan Next Note Type Treatment Note Next Visit Plan cont MFR around L shoulder FM
--- NOTE | 2017-11-04 09:48 | PT.OTN ---
Current Diagnoses Pain in left shoulder (11/04/17) Strain of unspecified muscle, fascia and tendon at shoulder and upper arm level, left arm, initial encounter (11/04/17) Physical Therapy Treatment Note PT-OP-A Visit Information Start: 08/27/17 08:09 Freq: Status: Active Protocol: Document 11/04/17 08:15 [facility] (Rec: 11/04/17 09:04 [facility] [id number]) Out-Patient Physical Therapy Visit Information Visit Information Visit Type Treatment Note Visit Start Time 08:15 Visit Stop Time 09:00 Total Visit Minutes 45 Visit Number 28 PT-OP-B Current Condition Start: 08/27/17 08:09 Freq: Status: Active Protocol: Document 08/27/17 16:56 [facility] (Rec: 08/27/17 17:07 [facility] [id number]) Current Condition History of Current Condition Current Complaints L shoulder pain History of Current Condition Pt had insideous onset of L shoulder pain in Apr and has done PT, chiro, massage & injections with relief only with injections, but started to go downhill 2 months after 3rd injection so was scheduled for RAJENDRA which was done 08/26/17. Pt has chronic neck & back pain. Pt reports allergic reaction to one of her pain meds so is getting new prescription tonight. Prior Treatments and Tests Has done PT, chiro & massage in past & had 2 neck injections & 3 shoulder injections & recent RAJENDRA Treatment Goals Patient/Caregiver Goals Dec pain & return to activity Prior Functional Status Baseline Function- ADL's Independent Current Functional Impairments (Reported) Functional Limitations- ADL's Difficulty with UE tasks d/t pain PT-OP-C Subjective Start: 08/27/17 08:09 Freq: Status: Active Protocol: Document 11/04/17 08:15 [facility] (Rec: 11/04/17 09:04 [facility] [id number]) OP-PT Subjective Patient Comments Patient Comments Pt reports feeling pain in post shoulder and into ant brachium. Reports she has not been taking her gabapentin d/t feeling sleeping. PT-OP-J Posture/Palpation/Skin Start: 08/27/17 08:09 Freq: Status: Active Protocol: Document 08/27/17 14:31 [facility] (Rec: 08/27/17 15:24 [facility] [id number]) Posture Evaluation Comments Posture Comments moderate fwd head & shoulders Palpation Assessment Location One Palpation Location L shoulder Palpation Findings Soft Tissue Tightness Tenderness Palpation Details UT, Pec, LS, scalenes PT-OP-K Range of Motion Start: 08/27/17 08:09 Freq: Status: Active Protocol: Document 10/23/17 07:26 [facility] (Rec: 10/23/17 09:27 [facility] [id number]) Shoulder Goniometric Range of Motion Shoulder Measured in Degrees Left Active Flexion 159 Extension 50 Abduction 123 External Rotation at 90 degrees 79 Abduction Internal Rotation 12 Internal Rotation Behind Back (text) T10 Left Passive Flexion 172 Abduction 135 External Rotation at 90 degrees 88 Abduction Internal Rotation 69 PT-OP-M Strength Start: 08/27/17 08:09 Freq: Status: Active Protocol: Document 10/23/17 07:26 [facility] (Rec: 10/23/17 09:27 [facility] [id number]) Shoulder Strength Shoulder Manual Muscle Testing Right Flexion 5 Normal Extension 5 Normal Abduction (C5) 5 Normal Adduction 5 Normal External Rotation 5 Normal Internal Rotation 5 Normal Horizontal Abduction 5 Normal Horizontal Adduction 5 Normal Left Flexion 4 Good Extension 4 Good Abduction (C5) 4 Good Adduction 4+ Good+ External Rotation 4- Good- Internal Rotation 4+ Good+ Horizontal Abduction 4- Good- Horizontal Adduction 4+ Good+ PT-OP-Q Treatments Start: 08/27/17 08:09 Freq: Status: Active Protocol: Document 11/04/17 08:15 [facility] (Rec: 11/04/17 09:04 [facility] [id number]) Therapeutic Exercises Supine Exercises 7 Supine Exercise Name axial elongation Prone Exercises 3 Prone Exercise Name scaption Comments tried over ball but painful & improper mechanics so done over plinth 2 Prone Exercise Name 90/90 ER 1 Prone Exercise Name Habd over edge of plinth Comments tried over ball but painful & improper mechanics so done over plinth Sitting Exercises 1 Sitting Exercise Name lissette flex abd & IR Side left Reps/Minutes 15 Standing Exercises 15 Standing Exercise Name biceps curl Side bilateral Resistance 3# Reps/Minutes 15 Manual Therapy Treatment Soft Tissue Mobilization 5 Body Location L brachium Mobilization Type Myofascial Release Comments FM with circumfrential & FM with overhead lift 3 Body Location ant clavicle/sternal region Mobilization Type Myofascial Release 1 Body Location UT, LS& scalenes, SOR Mobilization Type Rolling Intensity/Depth Moderate Body Position Supine Joint Mobilizations 5 Joint post cap glides 4 Joint 1st rib FM caudal PT-OP-R Modalities Start: 08/27/17 08:09 Freq: Status: Active Protocol: Document 09/28/17 08:16 [facility] (Rec: 09/28/17 09:00 [facility] [id number]) Hot Pack/Cold Pack Treatment cryocuff Location L shoulder Patient Position Hooklying Treatment Duration (minutes) 10 Patient Tolerance Good PT-OP-T Assessment and Plan Start: 08/27/17 08:09 Freq: Status: Active Protocol: Document 11/04/17 08:15 [facility] (Rec: 11/04/17 09:04 [facility] [id number]) Physical Therapy Assessment Goals Four Impairment pain Press Tender Smoke Signal Goal (LTG) Pt will rate L shoulder pain as no greater than 2/10 without narcotics. LTG Duration 12/24/17-improving worst 4/10 Three Impairment DASH quick Shelter Goal (LTG) 20 quick DASH LTG Duration 12/24/17 Two Impairment strength Shelter Goal (LTG) 5/5 UE strength (B) to allow return to rec activities LTG Duration 12/24/17- excellent progress One Impairment ROM Short Term Goal (STG) Full PROM STG Duration 11/22/17-improving Press Tender Smoke Signal Goal (LTG) Full AROM to allow ability to normal activity LTG Duration 12/23/17-improving Assessment Summary Assessment Pt improved IR with facial release. She is unable to stabilize her neck well and overuses scalenes and UT creating elevation of her acromion & creating shoulder impingement with activities. Physical Therapy Plan Frequency and Duration Frequency of Treatment 2x/Week Plan of Care Start Date 10/23/17 Plan of Care End Date 12/24/17 Next Visit Focus/Plan Next Note Type Treatment Note Next Visit Plan Cont to work on soft tissue and joint mobility of shoulder complex
--- NOTE | 2017-11-06 08:23 | PT.OTN ---
Current Diagnoses Pain in left shoulder (11/06/17) Strain of unspecified muscle, fascia and tendon at shoulder and upper arm level, left arm, initial encounter (11/06/17) Physical Therapy Treatment Note PT-OP-A Visit Information Start: 08/27/17 08:09 Freq: Status: Active Protocol: Document 11/06/17 07:26 [facility] (Rec: 11/06/17 08:22 [facility] [id number]) Out-Patient Physical Therapy Visit Information Visit Information Visit Type Treatment Note Visit Start Time 07:30 Visit Stop Time 08:15 Total Visit Minutes 45 Visit Number 29 Number of BRANCH EXAMINER Visits 0 PT-OP-B Current Condition Start: 08/27/17 08:09 Freq: Status: Active Protocol: Document 08/27/17 16:56 [facility] (Rec: 08/27/17 17:07 [facility] [id number]) Current Condition History of Current Condition Current Complaints L shoulder pain History of Current Condition Pt had insideous onset of L shoulder pain in Apr and has done PT, chiro, massage & injections with relief only with injections, but started to go downhill 2 months after 3rd injection so was scheduled for RAJENDRA which was done 08/26/17. Pt has chronic neck & back pain. Pt reports allergic reaction to one of her pain meds so is getting new prescription tonight. Prior Treatments and Tests Has done PT, chiro & massage in past & had 2 neck injections & 3 shoulder injections & recent RAJENDRA Treatment Goals Patient/Caregiver Goals Dec pain & return to activity Prior Functional Status Baseline Function- ADL's Independent Current Functional Impairments (Reported) Functional Limitations- ADL's Difficulty with UE tasks d/t pain PT-OP-C Subjective Start: 08/27/17 08:09 Freq: Status: Active Protocol: Document 11/06/17 07:26 [facility] (Rec: 11/06/17 08:22 [facility] [id number]) OP-PT Subjective Patient Comments Patient Comments Reports PARRY have been bad recently. Asked for handout for recent HEP PT-OP-J Posture/Palpation/Skin Start: 08/27/17 08:09 Freq: Status: Active Protocol: Document 08/27/17 14:31 [facility] (Rec: 08/27/17 15:24 [facility] [id number]) Posture Evaluation Comments Posture Comments moderate fwd head & shoulders Palpation Assessment Location One Palpation Location L shoulder Palpation Findings Soft Tissue Tightness Tenderness Palpation Details UT, Pec, LS, scalenes PT-OP-K Range of Motion Start: 08/27/17 08:09 Freq: Status: Active Protocol: Document 10/23/17 07:26 [facility] (Rec: 10/23/17 09:27 [facility] [id number]) Shoulder Goniometric Range of Motion Shoulder Measured in Degrees Left Active Flexion 159 Extension 50 Abduction 123 External Rotation at 90 degrees 79 Abduction Internal Rotation 12 Internal Rotation Behind Back (text) T10 Left Passive Flexion 172 Abduction 135 External Rotation at 90 degrees 88 Abduction Internal Rotation 69 PT-OP-M Strength Start: 08/27/17 08:09 Freq: Status: Active Protocol: Document 10/23/17 07:26 [facility] (Rec: 10/23/17 09:27 [facility] [id number]) Shoulder Strength Shoulder Manual Muscle Testing Right Flexion 5 Normal Extension 5 Normal Abduction (C5) 5 Normal Adduction 5 Normal External Rotation 5 Normal Internal Rotation 5 Normal Horizontal Abduction 5 Normal Horizontal Adduction 5 Normal Left Flexion 4 Good Extension 4 Good Abduction (C5) 4 Good Adduction 4+ Good+ External Rotation 4- Good- Internal Rotation 4+ Good+ Horizontal Abduction 4- Good- Horizontal Adduction 4+ Good+ PT-OP-Q Treatments Start: 08/27/17 08:09 Freq: Status: Active Protocol: Document 11/06/17 07:26 [facility] (Rec: 11/06/17 08:22 [facility] [id number]) Therapeutic Exercises Prone Exercises 3 Prone Exercise Name scaption 2 Prone Exercise Name 90/90 ER 1 Prone Exercise Name Habd over edge of plint Sitting Exercises 1 Sitting Exercise Name lissette flex abd & IR Side left Reps/Minutes 15 Other Exercises 5 Other Exercise Name plank Reps/Minutes 2x20 sec hold 4 Other Exercise Name quadruped hip ext Comments focus on shoulder stability in quadruped Manual Therapy Treatment Soft Tissue Mobilization 5 Body Location L brachium Mobilization Type Myofascial Release Comments FM with circumfrential & FM with overhead lift & IR 3 Body Location ant clavicle/sternal region Mobilization Type Myofascial Release 2 Body Location Pec Mobilization Type Myofascial Release Rolling Intensity/Depth Moderate 1 Body Location UT, LS& scalenes, SOR Mobilization Type Rolling Intensity/Depth Moderate Body Position Supine Joint Mobilizations 5 Joint post cap glides PT-OP-R Modalities Start: 08/27/17 08:09 Freq: Status: Active Protocol: Document 09/28/17 08:16 [facility] (Rec: 09/28/17 09:00 [facility] [id number]) Hot Pack/Cold Pack Treatment cryocuff Location L shoulder Patient Position Hooklying Treatment Duration (minutes) 10 Patient Tolerance Good PT-OP-T Assessment and Plan Start: 08/27/17 08:09 Freq: Status: Active Protocol: Document 11/06/17 07:26 [facility] (Rec: 11/06/17 08:22 [facility] [id number]) Physical Therapy Assessment Goals Four Impairment pain Longterm Goal (LTG) Pt will rate L shoulder pain as no greater than 2/10 without narcotics. LTG Duration 12/24/17-improving worst 4/10 Three Impairment DASH quick Longterm Goal (LTG) 20 quick DASH LTG Duration 12/24/17 Two Impairment strength Longterm Goal (LTG) 5/5 UE strength (B) to allow return to rec activities LTG Duration 12/24/17- excellent progress One Impairment ROM Short Term Goal (STG) Full PROM STG Duration 11/22/17-improving Recycling Technician Goal (LTG) Full AROM to allow ability to normal activity LTG Duration 12/23/17-improving Assessment Summary Assessment Pt able to tolerate short duration in quadruped & in plank position. Requires cueing for neutral spine & scapular protraction. Pt improving with IR with soft tissue mobility. Physical Therapy Plan Frequency and Duration Frequency of Treatment 2x/Week Plan of Care Start Date 10/23/17 Plan of Care End Date 12/24/17 Therapeutic Interventions Therapeutic Interventions Home Exercise Program Joint Mobilizations Manual Therapy Neuromuscular Re-education Soft Tissue Mobilization Taping Therapeutic Exercises Modalities Cold Pack/Ice Massage Electric Stimulation Hot Packs Ultrasound Next Visit Focus/Plan Next Note Type Treatment Note Next Visit Plan Cont to work on soft tissue and joint mobility of shoulder complex & overall scapular stability
--- NOTE | 2017-11-13 09:00 | PT.OTN ---
Current Diagnoses Pain in left shoulder (11/13/17) Strain of unspecified muscle, fascia and tendon at shoulder and upper arm level, left arm, initial encounter (11/13/17) Physical Therapy Treatment Note PT-OP-A Visit Information Start: 08/27/17 08:09 Freq: Status: Active Protocol: Document 11/13/17 08:18 [facility] (Rec: 11/13/17 08:59 [facility] [id number]) Out-Patient Physical Therapy Visit Information Visit Information Visit Type Treatment Note Visit Start Time 08:15 Visit Stop Time 09:00 Total Visit Minutes 45 Visit Number 30 PT-OP-B Current Condition Start: 08/27/17 08:09 Freq: Status: Active Protocol: Document 08/27/17 16:56 [facility] (Rec: 08/27/17 17:07 [facility] [id number]) Current Condition History of Current Condition Current Complaints L shoulder pain History of Current Condition Pt had insideous onset of L shoulder pain in Apr and has done PT, chiro, massage & injections with relief only with injections, but started to go downhill 2 months after 3rd injection so was scheduled for RAJENDRA which was done 08/26/17. Pt has chronic neck & back pain. Pt reports allergic reaction to one of her pain meds so is getting new prescription tonight. Prior Treatments and Tests Has done PT, chiro & massage in past & had 2 neck injections & 3 shoulder injections & recent RAJENDRA Treatment Goals Patient/Caregiver Goals Dec pain & return to activity Prior Functional Status Baseline Function- ADL's Independent Current Functional Impairments (Reported) Functional Limitations- ADL's Difficulty with UE tasks d/t pain PT-OP-C Subjective Start: 08/27/17 08:09 Freq: Status: Active Protocol: Document 11/13/17 08:18 [facility] (Rec: 11/13/17 08:59 [facility] [id number]) OP-PT Subjective Patient Comments Patient Comments Pt reports she has only been able to exercises once s/t very shapr pain in lower L ribs. PT-OP-J Posture/Palpation/Skin Start: 08/27/17 08:09 Freq: Status: Active Protocol: Document 08/27/17 14:31 [facility] (Rec: 08/27/17 15:24 [facility] [id number]) Posture Evaluation Comments Posture Comments moderate fwd head & shoulders Palpation Assessment Location One Palpation Location L shoulder Palpation Findings Soft Tissue Tightness Tenderness Palpation Details UT, Pec, LS, scalenes PT-OP-K Range of Motion Start: 08/27/17 08:09 Freq: Status: Active Protocol: Document 10/23/17 07:26 [facility] (Rec: 10/23/17 09:27 [facility] [id number]) Shoulder Goniometric Range of Motion Shoulder Measured in Degrees Left Active Flexion 159 Extension 50 Abduction 123 External Rotation at 90 degrees 79 Abduction Internal Rotation 12 Internal Rotation Behind Back (text) T10 Left Passive Flexion 172 Abduction 135 External Rotation at 90 degrees 88 Abduction Internal Rotation 69 PT-OP-M Strength Start: 08/27/17 08:09 Freq: Status: Active Protocol: Document 10/23/17 07:26 [facility] (Rec: 10/23/17 09:27 [facility] [id number]) Shoulder Strength Shoulder Manual Muscle Testing Right Flexion 5 Normal Extension 5 Normal Abduction (C5) 5 Normal Adduction 5 Normal External Rotation 5 Normal Internal Rotation 5 Normal Horizontal Abduction 5 Normal Horizontal Adduction 5 Normal Left Flexion 4 Good Extension 4 Good Abduction (C5) 4 Good Adduction 4+ Good+ External Rotation 4- Good- Internal Rotation 4+ Good+ Horizontal Abduction 4- Good- Horizontal Adduction 4+ Good+ PT-OP-Q Treatments Start: 08/27/17 08:09 Freq: Status: Active Protocol: Document 11/13/17 08:18 [facility] (Rec: 11/13/17 08:59 [facility] [id number]) Therapeutic Exercises Sitting Exercises 1 Sitting Exercise Name lissette flex abd & IR Side left Reps/Minutes 15 Manual Therapy Treatment Soft Tissue Mobilization 5 Body Location L brachium Mobilization Type Myofascial Release Comments FM with circumfrential & FM with ER & IR 4 Body Location teres minor/major/lat Mobilization Type Myofascial Release Intensity/Depth Moderate Comments Plunger with abd s/l 3 Body Location ant clavicle/sternal region Mobilization Type Myofascial Release 2 Body Location Pec Mobilization Type Myofascial Release Rolling Intensity/Depth Moderate 1 Body Location UT, LS& scalenes, SOR Mobilization Type Rolling Intensity/Depth Moderate Body Position Supine Joint Mobilizations 3 Joint AC Direction ventral 2 Joint sidelying scapular mobilizations Comments with stretch for scapula downward rotation and depression 1 Joint GH Direction distraction, inf & post Grade III Body Position Supine PT-OP-R Modalities Start: 08/27/17 08:09 Freq: Status: Active Protocol: Document 09/28/17 08:16 [facility] (Rec: 09/28/17 09:00 [facility] [id number]) Hot Pack/Cold Pack Treatment cryocuff Location L shoulder Patient Position Hooklying Treatment Duration (minutes) 10 Patient Tolerance Good PT-OP-T Assessment and Plan Start: 08/27/17 08:09 Freq: Status: Active Protocol: Document 11/13/17 08:18 [facility] (Rec: 11/13/17 08:59 [facility] [id number]) Physical Therapy Assessment Goals Four Impairment pain [facility] Goal (LTG) Pt will rate L shoulder pain as no greater than 2/10 without narcotics. LTG Duration 12/24/17-improving worst 4/10 Three Impairment DASH quick [employer] Hel[employer] Goal (LTG) 20 quick DASH LTG Duration 12/24/17 Two Impairment strength [facility] Goal (LTG) 5/5 UE strength (B) to allow return to rec activities LTG Duration 12/24/17- excellent progress One Impairment ROM Short Term Goal (STG) Full PROM STG Duration 11/22/17-improving [facility] Goal (LTG) Full AROM to allow ability to normal activity LTG Duration 12/23/17-improving Assessment Summary Assessment Pt did get shift post with mobilizations, which created some soreness after but inc ER & IR. Pt improving with overall ROM with pain still at end ranges. Physical Therapy Plan Frequency and Duration Frequency of Treatment 2x/Week Plan of Care Start Date 10/23/17 Plan of Care End Date 12/24/17 Next Visit Focus/Plan Next Note Type Treatment Note Next Visit Plan Cont to work on soft tissue and joint mobility of shoulder complex & overall scapular stability
--- NOTE | 2017-11-25 10:00 | PT.OTN ---
Current Diagnoses Pain in left shoulder (11/25/17) Strain of unspecified muscle, fascia and tendon at shoulder and upper arm level, left arm, initial encounter (11/25/17) Physical Therapy Treatment Note PT-OP-A Visit Information Start: 08/27/17 08:09 Freq: Status: Active Protocol: Document 11/25/17 09:02 [facility] (Rec: 11/25/17 10:00 [facility] [id number]) Out-Patient Physical Therapy Visit Information Visit Information Visit Type Treatment Note Visit Start Time 09:00 Visit Stop Time 09:45 Visit Number 31 Number of DIRECTOR CHILD ABUSE THERAPY Visits 0 PT-OP-B Current Condition Start: 08/27/17 08:09 Freq: Status: Active Protocol: Document 08/27/17 16:56 [facility] (Rec: 08/27/17 17:07 [facility] [id number]) Current Condition History of Current Condition Current Complaints L shoulder pain History of Current Condition Pt had insideous onset of L shoulder pain in Apr and has done PT, chiro, massage & injections with relief only with injections, but started to go downhill 2 months after 3rd injection so was scheduled for RAJENDRA which was done 08/26/17. Pt has chronic neck & back pain. Pt reports allergic reaction to one of her pain meds so is getting new prescription tonight. Prior Treatments and Tests Has done PT, chiro & massage in past & had 2 neck injections & 3 shoulder injections & recent RAJENDRA Treatment Goals Patient/Caregiver Goals Dec pain & return to activity Prior Functional Status Baseline Function- ADL's Independent Current Functional Impairments (Reported) Functional Limitations- ADL's Difficulty with UE tasks d/t pain PT-OP-C Subjective Start: 08/27/17 08:09 Freq: Status: Active Protocol: Document 11/25/17 09:02 [facility] (Rec: 11/25/17 10:00 [facility] [id number]) OP-PT Subjective Patient Comments Patient Comments Shoulder has been feeling good until last few days when stress was a little inc. PT-OP-J Posture/Palpation/Skin Start: 08/27/17 08:09 Freq: Status: Active Protocol: Document 08/27/17 14:31 [facility] (Rec: 08/27/17 15:24 [facility] [id number]) Posture Evaluation Comments Posture Comments moderate fwd head & shoulders Palpation Assessment Location One Palpation Location L shoulder Palpation Findings Soft Tissue Tightness Tenderness Palpation Details UT, Pec, LS, scalenes PT-OP-K Range of Motion Start: 08/27/17 08:09 Freq: Status: Active Protocol: Document 10/23/17 07:26 [facility] (Rec: 10/23/17 09:27 [facility] [id number]) Shoulder Goniometric Range of Motion Shoulder Measured in Degrees Left Active Flexion 159 Extension 50 Abduction 123 External Rotation at 90 degrees 79 Abduction Internal Rotation 12 Internal Rotation Behind Back (text) T10 Left Passive Flexion 172 Abduction 135 External Rotation at 90 degrees 88 Abduction Internal Rotation 69 PT-OP-M Strength Start: 08/27/17 08:09 Freq: Status: Active Protocol: Document 10/23/17 07:26 [facility] (Rec: 10/23/17 09:27 [facility] [id number]) Shoulder Strength Shoulder Manual Muscle Testing Right Flexion 5 Normal Extension 5 Normal Abduction (C5) 5 Normal Adduction 5 Normal External Rotation 5 Normal Internal Rotation 5 Normal Horizontal Abduction 5 Normal Horizontal Adduction 5 Normal Left Flexion 4 Good Extension 4 Good Abduction (C5) 4 Good Adduction 4+ Good+ External Rotation 4- Good- Internal Rotation 4+ Good+ Horizontal Abduction 4- Good- Horizontal Adduction 4+ Good+ PT-OP-Q Treatments Start: 08/27/17 08:09 Freq: Status: Active Protocol: Document 11/25/17 09:02 [facility] (Rec: 11/25/17 10:00 [facility] [id number]) Therapeutic Exercises Sitting Exercises 1 Sitting Exercise Name lissette flex abd & IR Side left Reps/Minutes 15 Manual Therapy Treatment Soft Tissue Mobilization 5 Body Location L brachium Mobilization Type Myofascial Release Comments FM with circumfrential & FM with ER & IR 3 Body Location ant clavicle/sternal region Mobilization Type Myofascial Release 2 Body Location Pec Mobilization Type Myofascial Release Rolling Intensity/Depth Moderate 1 Body Location UT, LS& scalenes, SOR Mobilization Type Rolling Intensity/Depth Moderate Body Position Supine Joint Mobilizations 4 Joint 1st rib FM caudal 1 Joint GH Direction distraction, inf & post Grade IV Body Position Supine PT-OP-R Modalities Start: 08/27/17 08:09 Freq: Status: Active Protocol: Document 09/28/17 08:16 [facility] (Rec: 09/28/17 09:00 [facility] [id number]) Hot Pack/Cold Pack Treatment cryocuff Location L shoulder Patient Position Hooklying Treatment Duration (minutes) 10 Patient Tolerance Good PT-OP-T Assessment and Plan Start: 08/27/17 08:09 Freq: Status: Active Protocol: Document 11/25/17 09:02 [facility] (Rec: 11/25/17 10:00 [facility] [id number]) Physical Therapy Assessment Goals Four Impairment pain Ceo And Founder Goal (LTG) Pt will rate L shoulder pain as no greater than 2/10 without narcotics. LTG Duration 12/24/17-improving worst 4/10 Three Impairment DASH quick [employer] Founder Goal (LTG) 20 quick DASH LTG Duration 12/24/17 Two Impairment strength Nursing Home Goal (LTG) 5/5 UE strength (B) to allow return to rec activities LTG Duration 12/24/17- excellent progress One Impairment ROM Short Term Goal (STG) Full PROM STG Duration 11/22/17-improving Nursing Home Goal (LTG) Full AROM to allow ability to normal activity LTG Duration 12/23/17-improving Assessment Summary Assessment Pt had improved IR & abd with dec pain after mobilizations of soft tissue & joints. Pt is improving overall with function of shoulder, but cont to be limited d/t neck pain creating pain with radiation into shoulder. Physical Therapy Plan Frequency and Duration Frequency of Treatment 2x/Week Plan of Care Start Date 10/23/17 Plan of Care End Date 12/24/17 Next Visit Focus/Plan Next Note Type Treatment Note Next Visit Plan End range joint mobs into PNF patterns
--- NOTE | 2017-11-27 09:56 | PT.OTN ---
Current Diagnoses Pain in left shoulder (11/27/17) Strain of unspecified muscle, fascia and tendon at shoulder and upper arm level, left arm, initial encounter (11/27/17) Physical Therapy Treatment Note PT-OP-A Visit Information Start: 08/27/17 08:09 Freq: Status: Active Protocol: Document 11/27/17 07:31 [facility] (Rec: 11/27/17 09:55 [facility] [id number]) Out-Patient Physical Therapy Visit Information Visit Information Visit Type Treatment Note Visit Start Time 07:30 Visit Stop Time 08:15 Visit Number 32 Number of APPLIANCE PARTS COUNTER CLERK Visits 0 PT-OP-B Current Condition Start: 08/27/17 08:09 Freq: Status: Active Protocol: Document 08/27/17 16:56 [facility] (Rec: 08/27/17 17:07 [facility] [id number]) Current Condition History of Current Condition Current Complaints L shoulder pain History of Current Condition Pt had insideous onset of L shoulder pain in Apr and has done PT, chiro, massage & injections with relief only with injections, but started to go downhill 2 months after 3rd injection so was scheduled for RAJENDRA which was done 08/26/17. Pt has chronic neck & back pain. Pt reports allergic reaction to one of her pain meds so is getting new prescription tonight. Prior Treatments and Tests Has done PT, chiro & massage in past & had 2 neck injections & 3 shoulder injections & recent RAJENDRA Treatment Goals Patient/Caregiver Goals Dec pain & return to activity Prior Functional Status Baseline Function- ADL's Independent Current Functional Impairments (Reported) Functional Limitations- ADL's Difficulty with UE tasks d/t pain PT-OP-C Subjective Start: 08/27/17 08:09 Freq: Status: Active Protocol: Document 11/27/17 07:31 [facility] (Rec: 11/27/17 09:55 [facility] [id number]) OP-PT Subjective Patient Comments Patient Comments Reports she had her ergo eval and they agreed a sit to stand desk would be beneficial for her. PT-OP-J Posture/Palpation/Skin Start: 08/27/17 08:09 Freq: Status: Active Protocol: Document 08/27/17 14:31 [facility] (Rec: 08/27/17 15:24 [facility] [id number]) Posture Evaluation Comments Posture Comments moderate fwd head & shoulders Palpation Assessment Location One Palpation Location L shoulder Palpation Findings Soft Tissue Tightness Tenderness Palpation Details UT, Pec, LS, scalenes PT-OP-K Range of Motion Start: 08/27/17 08:09 Freq: Status: Active Protocol: Document 10/23/17 07:26 [facility] (Rec: 10/23/17 09:27 [facility] [id number]) Shoulder Goniometric Range of Motion Shoulder Measured in Degrees Left Active Flexion 159 Extension 50 Abduction 123 External Rotation at 90 degrees 79 Abduction Internal Rotation 12 Internal Rotation Behind Back (text) T10 Left Passive Flexion 172 Abduction 135 External Rotation at 90 degrees 88 Abduction Internal Rotation 69 PT-OP-M Strength Start: 08/27/17 08:09 Freq: Status: Active Protocol: Document 10/23/17 07:26 [facility] (Rec: 10/23/17 09:27 [facility] [id number]) Shoulder Strength Shoulder Manual Muscle Testing Right Flexion 5 Normal Extension 5 Normal Abduction (C5) 5 Normal Adduction 5 Normal External Rotation 5 Normal Internal Rotation 5 Normal Horizontal Abduction 5 Normal Horizontal Adduction 5 Normal Left Flexion 4 Good Extension 4 Good Abduction (C5) 4 Good Adduction 4+ Good+ External Rotation 4- Good- Internal Rotation 4+ Good+ Horizontal Abduction 4- Good- Horizontal Adduction 4+ Good+ PT-OP-Q Treatments Start: 08/27/17 08:09 Freq: Status: Active Protocol: Document 11/27/17 07:31 [facility] (Rec: 11/27/17 09:55 [facility] [id number]) Therapeutic Exercises Supine Exercises 8 Supine Exercise Name axial elongation Prone Exercises 3 Prone Exercise Name scaption Reps/Minutes 15 Comments quadruped 2 Prone Exercise Name 90/90 ER Reps/Minutes 15 Comments quadruped 1 Prone Exercise Name Habd over edge of plinth Comments switched to quadruped Sitting Exercises 1 Sitting Exercise Name lissette flex abd & IR Side left Reps/Minutes 15 Manual Therapy Treatment Soft Tissue Mobilization 5 Body Location L brachium Mobilization Type Myofascial Release Comments FM with circumfrential & FM with ER & IR 3 Body Location ant clavicle/sternal region Mobilization Type Myofascial Release 2 Body Location Pec Mobilization Type Myofascial Release Rolling Intensity/Depth Moderate 1 Body Location UT, LS& scalenes, SOR Mobilization Type Rolling Intensity/Depth Moderate Body Position Supine Joint Mobilizations 4 Joint 1st rib FM caudal 3 Joint AC Direction ventral Comments at end range w/PNF 1 Joint GH Direction distraction, inf Grade IV Body Position Supine Comments at end range PT-OP-R Modalities Start: 08/27/17 08:09 Freq: Status: Active Protocol: Document 09/28/17 08:16 [facility] (Rec: 09/28/17 09:00 [facility] [id number]) Hot Pack/Cold Pack Treatment cryocuff Location L shoulder Patient Position Hooklying Treatment Duration (minutes) 10 Patient Tolerance Good PT-OP-T Assessment and Plan Start: 08/27/17 08:09 Freq: Status: Active Protocol: Document 11/27/17 07:31 [facility] (Rec: 11/27/17 09:55 [facility] [id number]) Physical Therapy Assessment Goals Four Impairment pain Doctor Chiropractic Goal (LTG) Pt will rate L shoulder pain as no greater than 2/10 without narcotics. LTG Duration 12/24/17-improving worst 4/10 Three Impairment DASH quick Usp Goal (LTG) 20 quick DASH LTG Duration 12/24/17 Two Impairment strength Usp Goal (LTG) 5/5 UE strength (B) to allow return to rec activities LTG Duration 12/24/17- excellent progress One Impairment ROM Short Term Goal (STG) Full PROM STG Duration achieved Usp Goal (LTG) Full AROM to allow ability to normal activity LTG Duration 12/23/17-improving Assessment Summary Assessment Pt had inc ease through D2 flex pattern after mobilization. Requires cueing for Habd & scaption. Physical Therapy Plan Frequency and Duration Frequency of Treatment 2x/Week Plan of Care Start Date 10/23/17 Plan of Care End Date 12/24/17 Next Visit Focus/Plan Next Note Type Treatment Note Next Visit Plan End range joint mobs into PNF patterns
--- NOTE | 2017-11-30 08:22 | PT.OTN ---
Current Diagnoses Pain in left shoulder (11/30/17) Strain of unspecified muscle, fascia and tendon at shoulder and upper arm level, left arm, initial encounter (11/30/17) Physical Therapy Treatment Note PT-OP-A Visit Information Start: 08/27/17 08:09 Freq: Status: Active Protocol: Document 11/30/17 07:33 [facility] (Rec: 11/30/17 08:22 [facility] [id number]) Out-Patient Physical Therapy Visit Information Visit Information Visit Type Treatment Note Visit Start Time 07:30 Visit Stop Time 08:15 Total Visit Minutes 45 Visit Number 33 Number of NITROGLYCERIN NEUTRALIZER Visits 0 PT-OP-B Current Condition Start: 08/27/17 08:09 Freq: Status: Active Protocol: Document 08/27/17 16:56 [facility] (Rec: 08/27/17 17:07 [facility] [id number]) Current Condition History of Current Condition Current Complaints L shoulder pain History of Current Condition Pt had insideous onset of L shoulder pain in Apr and has done PT, chiro, massage & injections with relief only with injections, but started to go downhill 2 months after 3rd injection so was scheduled for RAJENDRA which was done 08/26/17. Pt has chronic neck & back pain. Pt reports allergic reaction to one of her pain meds so is getting new prescription tonight. Prior Treatments and Tests Has done PT, chiro & massage in past & had 2 neck injections & 3 shoulder injections & recent RAJENDRA Treatment Goals Patient/Caregiver Goals Dec pain & return to activity Prior Functional Status Baseline Function- ADL's Independent Current Functional Impairments (Reported) Functional Limitations- ADL's Difficulty with UE tasks d/t pain PT-OP-C Subjective Start: 08/27/17 08:09 Freq: Status: Active Protocol: Document 11/30/17 07:33 [facility] (Rec: 11/30/17 08:22 [facility] [id number]) OP-PT Subjective Patient Comments Patient Comments Pt reports Sat AM when she got up, she woke up with pain in R rib region that has gotten worse as her cold has gotten worse. Notes today it is sore to raise UEs d/t pain PT-OP-J Posture/Palpation/Skin Start: 08/27/17 08:09 Freq: Status: Active Protocol: Document 08/27/17 14:31 [facility] (Rec: 08/27/17 15:24 [facility] [id number]) Posture Evaluation Comments Posture Comments moderate fwd head & shoulders Palpation Assessment Location One Palpation Location L shoulder Palpation Findings Soft Tissue Tightness Tenderness Palpation Details UT, Pec, LS, scalenes PT-OP-K Range of Motion Start: 08/27/17 08:09 Freq: Status: Active Protocol: Document 10/23/17 07:26 [facility] (Rec: 10/23/17 09:27 [facility] [id number]) Shoulder Goniometric Range of Motion Shoulder Measured in Degrees Left Active Flexion 159 Extension 50 Abduction 123 External Rotation at 90 degrees 79 Abduction Internal Rotation 12 Internal Rotation Behind Back (text) T10 Left Passive Flexion 172 Abduction 135 External Rotation at 90 degrees 88 Abduction Internal Rotation 69 PT-OP-M Strength Start: 08/27/17 08:09 Freq: Status: Active Protocol: Document 10/23/17 07:26 [facility] (Rec: 10/23/17 09:27 [facility] [id number]) Shoulder Strength Shoulder Manual Muscle Testing Right Flexion 5 Normal Extension 5 Normal Abduction (C5) 5 Normal Adduction 5 Normal External Rotation 5 Normal Internal Rotation 5 Normal Horizontal Abduction 5 Normal Horizontal Adduction 5 Normal Left Flexion 4 Good Extension 4 Good Abduction (C5) 4 Good Adduction 4+ Good+ External Rotation 4- Good- Internal Rotation 4+ Good+ Horizontal Abduction 4- Good- Horizontal Adduction 4+ Good+ PT-OP-Q Treatments Start: 08/27/17 08:09 Freq: Status: Active Protocol: Document 11/30/17 07:33 [facility] (Rec: 11/30/17 08:22 [facility] [id number]) Therapeutic Exercises Supine Exercises 7 Supine Exercise Name foam roll: Habd, flex, abd 6 Supine Exercise Name Diaphragmatic breathing Sitting Exercises 1 Sitting Exercise Name lissette flex abd & IR Side left Reps/Minutes 15 Other Exercises 3 Other Exercise Name roll & reach Manual Therapy Treatment Soft Tissue Mobilization 3 Body Location ant clavicle/sternal region Mobilization Type Myofascial Release 1 Body Location UT, LS& scalenes, SOR Mobilization Type Rolling Intensity/Depth Moderate Body Position Supine Manual Techniques 3 Type diaphram STM Comments w/LUE raising & LTR 2 Type PA T 8 w/Habd B 1 Type R ribs cadaul mobs PT-OP-R Modalities Start: 08/27/17 08:09 Freq: Status: Active Protocol: Document 09/28/17 08:16 [facility] (Rec: 09/28/17 09:00 [facility] [id number]) Hot Pack/Cold Pack Treatment cryocuff Location L shoulder Patient Position Hooklying Treatment Duration (minutes) 10 Patient Tolerance Good PT-OP-T Assessment and Plan Start: 08/27/17 08:09 Freq: Status: Active Protocol: Document 11/30/17 07:33 [facility] (Rec: 11/30/17 08:22 [facility] [id number]) Physical Therapy Assessment Goals Four Impairment pain Beauty Advisor Goal (LTG) Pt will rate L shoulder pain as no greater than 2/10 without narcotics. LTG Duration 12/24/17-improving worst 4/10 Three Impairment DASH quick Beauty Advisor Goal (LTG) 20 quick DASH LTG Duration 12/24/17 Two Impairment strength Beauty Advisor Goal (LTG) 5/5 UE strength (B) to allow return to rec activities LTG Duration 12/24/17- excellent progress One Impairment ROM Short Term Goal (STG) Full PROM STG Duration achieved Long-Term Goal (LTG) Full AROM to allow ability to normal activity LTG Duration 12/23/17-improving Assessment Summary Assessment Improved ability to raise arms over head after session. Pt had significant soft tissue restriction in R diaphram and created significant tension on LUE when trying to raise overhead. Physical Therapy Plan Frequency and Duration Frequency of Treatment 2x/Week Plan of Care Start Date 10/23/17 Plan of Care End Date 12/24/17 Next Visit Focus/Plan Next Note Type Treatment Note Next Visit Plan End range joint mobs into PNF patterns
--- NOTE | 2017-12-04 08:43 | PT.OTN ---
Current Diagnoses Pain in left shoulder (12/04/17) Strain of unspecified muscle, fascia and tendon at shoulder and upper arm level, left arm, initial encounter (12/04/17) Physical Therapy Treatment Note PT-OP-A Visit Information Start: 08/27/17 08:09 Freq: Status: Active Protocol: Document 12/04/17 07:35 [facility] (Rec: 12/04/17 08:43 [facility] [id number]) Out-Patient Physical Therapy Visit Information Visit Information Visit Type Treatment Note Visit Start Time 07:30 Visit Stop Time 08:15 Total Visit Minutes 45 Visit Number 34 Number of SEWING DEMONSTRATOR Visits 0 PT-OP-B Current Condition Start: 08/27/17 08:09 Freq: Status: Active Protocol: Document 08/27/17 16:56 [facility] (Rec: 08/27/17 17:07 [facility] [id number]) Current Condition History of Current Condition Current Complaints L shoulder pain History of Current Condition Pt had insideous onset of L shoulder pain in Apr and has done PT, chiro, massage & injections with relief only with injections, but started to go downhill 2 months after 3rd injection so was scheduled for RAJENDRA which was done 08/26/17. Pt has chronic neck & back pain. Pt reports allergic reaction to one of her pain meds so is getting new prescription tonight. Prior Treatments and Tests Has done PT, chiro & massage in past & had 2 neck injections & 3 shoulder injections & recent RAJENDRA Treatment Goals Patient/Caregiver Goals Dec pain & return to activity Prior Functional Status Baseline Function- ADL's Independent Current Functional Impairments (Reported) Functional Limitations- ADL's Difficulty with UE tasks d/t pain PT-OP-C Subjective Start: 08/27/17 08:09 Freq: Status: Active Protocol: Document 12/04/17 07:35 [facility] (Rec: 12/04/17 08:43 [facility] [id number]) OP-PT Subjective Patient Comments Patient Comments Pt reports she is able to raise her arms easier after last session. PT-OP-J Posture/Palpation/Skin Start: 08/27/17 08:09 Freq: Status: Active Protocol: Document 08/27/17 14:31 [facility] (Rec: 08/27/17 15:24 [facility] [id number]) Posture Evaluation Comments Posture Comments moderate fwd head & shoulders Palpation Assessment Location One Palpation Location L shoulder Palpation Findings Soft Tissue Tightness Tenderness Palpation Details UT, Pec, LS, scalenes PT-OP-K Range of Motion Start: 08/27/17 08:09 Freq: Status: Active Protocol: Document 10/23/17 07:26 [facility] (Rec: 10/23/17 09:27 [facility] [id number]) Shoulder Goniometric Range of Motion Shoulder Measured in Degrees Left Active Flexion 159 Extension 50 Abduction 123 External Rotation at 90 degrees 79 Abduction Internal Rotation 12 Internal Rotation Behind Back (text) T10 Left Passive Flexion 172 Abduction 135 External Rotation at 90 degrees 88 Abduction Internal Rotation 69 PT-OP-M Strength Start: 08/27/17 08:09 Freq: Status: Active Protocol: Document 10/23/17 07:26 [facility] (Rec: 10/23/17 09:27 [facility] [id number]) Shoulder Strength Shoulder Manual Muscle Testing Right Flexion 5 Normal Extension 5 Normal Abduction (C5) 5 Normal Adduction 5 Normal External Rotation 5 Normal Internal Rotation 5 Normal Horizontal Abduction 5 Normal Horizontal Adduction 5 Normal Left Flexion 4 Good Extension 4 Good Abduction (C5) 4 Good Adduction 4+ Good+ External Rotation 4- Good- Internal Rotation 4+ Good+ Horizontal Abduction 4- Good- Horizontal Adduction 4+ Good+ PT-OP-Q Treatments Start: 08/27/17 08:09 Freq: Status: Active Protocol: Document 12/04/17 07:35 [facility] (Rec: 12/04/17 08:43 [facility] [id number]) Therapeutic Exercises Prone Exercises 1 Prone Exercise Name Habd over edge of plinth Comments switched to quadruped Sitting Exercises 1 Sitting Exercise Name lissette flex abd & IR Side left Reps/Minutes 15 Manual Therapy Treatment Soft Tissue Mobilization 5 Body Location L brachium Mobilization Type Myofascial Release Comments FM with circumfrential & FM with ER & IR 3 Body Location ant clavicle/sternal region Mobilization Type Myofascial Release Joint Mobilizations 1 Joint GH Direction distraction, inf, post translation & glide Grade IV Body Position Supine PT-OP-R Modalities Start: 08/27/17 08:09 Freq: Status: Active Protocol: Document 09/28/17 08:16 [facility] (Rec: 09/28/17 09:00 [facility] [id number]) Hot Pack/Cold Pack Treatment cryocuff Location L shoulder Patient Position Hooklying Treatment Duration (minutes) 10 Patient Tolerance Good PT-OP-T Assessment and Plan Start: 08/27/17 08:09 Freq: Status: Active Protocol: Document 12/04/17 07:35 [facility] (Rec: 12/04/17 08:43 [facility] [id number]) Physical Therapy Assessment Goals Four Impairment pain Alf Goal (LTG) Pt will rate L shoulder pain as no greater than 2/10 without narcotics. LTG Duration 12/24/17-improving worst 4/10 Three Impairment DASH quick Alf Goal (LTG) 20 quick DASH LTG Duration 12/24/17 Two Impairment strength Alf Goal (LTG) 5/5 UE strength (B) to allow return to rec activities LTG Duration 12/24/17- excellent progress One Impairment ROM Short Term Goal (STG) Full PROM STG Duration achieved Cardiovascular Technologist Goal (LTG) Full AROM to allow ability to normal activity LTG Duration 12/23/17-improving Assessment Summary Assessment Pt cont to have significant restriction of PA mobility of shoulder especially with IR. Improves with glides. Physical Therapy Plan Frequency and Duration Frequency of Treatment 2x/Week Plan of Care Start Date 10/23/17 Plan of Care End Date 12/24/17 Next Visit Focus/Plan Next Note Type Treatment Note Next Visit Plan Cont to work on post humeral mobility
--- NOTE | 2017-12-07 08:15 | PT.OTN ---
Current Diagnoses Pain in left shoulder (12/07/17) Strain of unspecified muscle, fascia and tendon at shoulder and upper arm level, left arm, initial encounter (12/07/17) Physical Therapy Treatment Note PT-OP-A Visit Information Start: 08/27/17 08:09 Freq: Status: Active Protocol: Document 12/07/17 07:30 [facility] (Rec: 12/07/17 08:15 [facility] [id number]) Out-Patient Physical Therapy Visit Information Visit Information Visit Type Treatment Note Visit Start Time 07:30 Visit Stop Time 08:15 Total Visit Minutes 45 Visit Number 35 Number of RIP/MOULD OPERATOR Visits 0 PT-OP-B Current Condition Start: 08/27/17 08:09 Freq: Status: Active Protocol: Document 08/27/17 16:56 [facility] (Rec: 08/27/17 17:07 [facility] [id number]) Current Condition History of Current Condition Current Complaints L shoulder pain History of Current Condition Pt had insideous onset of L shoulder pain in Apr and has done PT, chiro, massage & injections with relief only with injections, but started to go downhill 2 months after 3rd injection so was scheduled for RAJENDRA which was done 08/26/17. Pt has chronic neck & back pain. Pt reports allergic reaction to one of her pain meds so is getting new prescription tonight. Prior Treatments and Tests Has done PT, chiro & massage in past & had 2 neck injections & 3 shoulder injections & recent RAJENDRA Treatment Goals Patient/Caregiver Goals Dec pain & return to activity Prior Functional Status Baseline Function- ADL's Independent Current Functional Impairments (Reported) Functional Limitations- ADL's Difficulty with UE tasks d/t pain PT-OP-C Subjective Start: 08/27/17 08:09 Freq: Status: Active Protocol: Document 12/07/17 07:30 [facility] (Rec: 12/07/17 08:15 [facility] [id number]) OP-PT Subjective Patient Comments Patient Comments Reports UT region and pec region have been sore recently . PT-OP-J Posture/Palpation/Skin Start: 08/27/17 08:09 Freq: Status: Active Protocol: Document 08/27/17 14:31 [facility] (Rec: 08/27/17 15:24 [facility] [id number]) Posture Evaluation Comments Posture Comments moderate fwd head & shoulders Palpation Assessment Location One Palpation Location L shoulder Palpation Findings Soft Tissue Tightness Tenderness Palpation Details UT, Pec, LS, scalenes PT-OP-K Range of Motion Start: 08/27/17 08:09 Freq: Status: Active Protocol: Document 10/23/17 07:26 [facility] (Rec: 10/23/17 09:27 [facility] [id number]) Shoulder Goniometric Range of Motion Shoulder Measured in Degrees Left Active Flexion 159 Extension 50 Abduction 123 External Rotation at 90 degrees 79 Abduction Internal Rotation 12 Internal Rotation Behind Back (text) T10 Left Passive Flexion 172 Abduction 135 External Rotation at 90 degrees 88 Abduction Internal Rotation 69 PT-OP-M Strength Start: 08/27/17 08:09 Freq: Status: Active Protocol: Document 10/23/17 07:26 [facility] (Rec: 10/23/17 09:27 [facility] [id number]) Shoulder Strength Shoulder Manual Muscle Testing Right Flexion 5 Normal Extension 5 Normal Abduction (C5) 5 Normal Adduction 5 Normal External Rotation 5 Normal Internal Rotation 5 Normal Horizontal Abduction 5 Normal Horizontal Adduction 5 Normal Left Flexion 4 Good Extension 4 Good Abduction (C5) 4 Good Adduction 4+ Good+ External Rotation 4- Good- Internal Rotation 4+ Good+ Horizontal Abduction 4- Good- Horizontal Adduction 4+ Good+ PT-OP-Q Treatments Start: 08/27/17 08:09 Freq: Status: Active Protocol: Document 12/07/17 07:30 [facility] (Rec: 12/07/17 08:15 [facility] [id number]) Therapeutic Exercises Sitting Exercises 1 Sitting Exercise Name lissette flex abd & IR Side left Reps/Minutes 15 Manual Therapy Treatment Soft Tissue Mobilization 5 Body Location L brachium Mobilization Type Myofascial Release Comments FM with circumfrential & FM with ER & IR 3 Body Location ant clavicle/sternal region Mobilization Type Myofascial Release 2 Body Location Pec Mobilization Type Myofascial Release Rolling Intensity/Depth Moderate 1 Body Location UT, LS& scalenes, SOR Mobilization Type Rolling Intensity/Depth Moderate Body Position Supine Joint Mobilizations 1 Joint GH Direction distraction, inf, post translation & glide Grade IV Body Position Supine PT-OP-R Modalities Start: 08/27/17 08:09 Freq: Status: Active Protocol: Document 09/28/17 08:16 [facility] (Rec: 09/28/17 09:00 [facility] [id number]) Hot Pack/Cold Pack Treatment cryocuff Location L shoulder Patient Position Hooklying Treatment Duration (minutes) 10 Patient Tolerance Good PT-OP-T Assessment and Plan Start: 08/27/17 08:09 Freq: Status: Active Protocol: Document 12/07/17 07:30 [facility] (Rec: 12/07/17 08:15 [facility] [id number]) Physical Therapy Assessment Goals Four Impairment pain Snf Goal (LTG) Pt will rate L shoulder pain as no greater than 2/10 without narcotics. LTG Duration 12/24/17-improving worst 4/10 Three Impairment DASH quick Platen Builder Up Goal (LTG) 20 quick DASH LTG Duration 12/24/17 Two Impairment strength Platen Builder Up Goal (LTG) 5/5 UE strength (B) to allow return to rec activities LTG Duration 12/24/17- excellent progress One Impairment ROM Short Term Goal (STG) Full PROM STG Duration achieved Snf Goal (LTG) Full AROM to allow ability to normal activity LTG Duration 12/23/17-improving Assessment Summary Assessment Pt cont to progress with shoulder range & strength, but cont to c/o pain at UT region with recent inc PARRY. Pt has recent back pain injuries also . Physical Therapy Plan Frequency and Duration Frequency of Treatment 2x/Week Plan of Care Start Date 10/23/17 Plan of Care End Date 12/24/17 Next Visit Focus/Plan Next Note Type Treatment Note Next Visit Plan Cont to work on post humeral mobility
--- NOTE | 2017-12-11 08:24 | PT.OTN ---
Current Diagnoses Pain in left shoulder (12/11/17) Strain of unspecified muscle, fascia and tendon at shoulder and upper arm level, left arm, initial encounter (12/11/17) Physical Therapy Treatment Note PT-OP-A Visit Information Start: 08/27/17 08:09 Freq: Status: Active Protocol: Document 12/11/17 07:31 [facility] (Rec: 12/11/17 08:24 [facility] [id number]) Out-Patient Physical Therapy Visit Information Visit Information Visit Type Treatment Note Visit Start Time 07:30 Visit Stop Time 08:15 Total Visit Minutes 45 Visit Number 36 Number of SNOW MAKER Visits 0 PT-OP-B Current Condition Start: 08/27/17 08:09 Freq: Status: Active Protocol: Document 08/27/17 16:56 [facility] (Rec: 08/27/17 17:07 [facility] [id number]) Current Condition History of Current Condition Current Complaints L shoulder pain History of Current Condition Pt had insideous onset of L shoulder pain in Apr and has done PT, chiro, massage & injections with relief only with injections, but started to go downhill 2 months after 3rd injection so was scheduled for RAJENDRA which was done 08/26/17. Pt has chronic neck & back pain. Pt reports allergic reaction to one of her pain meds so is getting new prescription tonight. Prior Treatments and Tests Has done PT, chiro & massage in past & had 2 neck injections & 3 shoulder injections & recent RAJENDRA Treatment Goals Patient/Caregiver Goals Dec pain & return to activity Prior Functional Status Baseline Function- ADL's Independent Current Functional Impairments (Reported) Functional Limitations- ADL's Difficulty with UE tasks d/t pain PT-OP-C Subjective Start: 08/27/17 08:09 Freq: Status: Active Protocol: Document 12/11/17 07:31 [facility] (Rec: 12/11/17 08:24 [facility] [id number]) OP-PT Subjective Patient Comments Patient Comments Pt reports she wants to start going to the gym, but is concerned about hurting. Reports neck is bothering her most today. PT-OP-J Posture/Palpation/Skin Start: 08/27/17 08:09 Freq: Status: Active Protocol: Document 08/27/17 14:31 [facility] (Rec: 08/27/17 15:24 [facility] [id number]) Posture Evaluation Comments Posture Comments moderate fwd head & shoulders Palpation Assessment Location One Palpation Location L shoulder Palpation Findings Soft Tissue Tightness Tenderness Palpation Details UT, Pec, LS, scalenes PT-OP-K Range of Motion Start: 08/27/17 08:09 Freq: Status: Active Protocol: Document 10/23/17 07:26 [facility] (Rec: 10/23/17 09:27 [facility] [id number]) Shoulder Goniometric Range of Motion Shoulder Measured in Degrees Left Active Flexion 159 Extension 50 Abduction 123 External Rotation at 90 degrees 79 Abduction Internal Rotation 12 Internal Rotation Behind Back (text) T10 Left Passive Flexion 172 Abduction 135 External Rotation at 90 degrees 88 Abduction Internal Rotation 69 PT-OP-M Strength Start: 08/27/17 08:09 Freq: Status: Active Protocol: Document 10/23/17 07:26 [facility] (Rec: 10/23/17 09:27 [facility] [id number]) Shoulder Strength Shoulder Manual Muscle Testing Right Flexion 5 Normal Extension 5 Normal Abduction (C5) 5 Normal Adduction 5 Normal External Rotation 5 Normal Internal Rotation 5 Normal Horizontal Abduction 5 Normal Horizontal Adduction 5 Normal Left Flexion 4 Good Extension 4 Good Abduction (C5) 4 Good Adduction 4+ Good+ External Rotation 4- Good- Internal Rotation 4+ Good+ Horizontal Abduction 4- Good- Horizontal Adduction 4+ Good+ PT-OP-Q Treatments Start: 08/27/17 08:09 Freq: Status: Active Protocol: Document 12/11/17 07:31 [facility] (Rec: 12/11/17 08:24 [facility] [id number]) Cardio Equipment Elliptical Duration (Minutes) 5 Resistance 1 Other focus on posture Gym Equipment Cable Column (Body Solid) Rows Details 15 Resistance 1 Lat Pull Down Details 15 Resistance 2 Therapeutic Exercises Standing Exercises 16 Standing Exercise Name bicep & hammer curls Reps/Minutes 10 15 Standing Exercise Name chest press Equipment Used 3# Reps/Minutes 15 14 Standing Exercise Name skull shorthand teacher Equipment Used 3# Reps/Minutes 15 Manual Therapy Treatment Soft Tissue Mobilization 5 Body Location L brachium Mobilization Type Myofascial Release Comments FM with circumfrential & FM with ER & IR 2 Body Location Pec Mobilization Type Myofascial Release Rolling Intensity/Depth Moderate 1 Body Location UT, LS& scalenes, SOR Mobilization Type Rolling Intensity/Depth Moderate Body Position Supine PT-OP-R Modalities Start: 08/27/17 08:09 Freq: Status: Active Protocol: Document 09/28/17 08:16 [facility] (Rec: 09/28/17 09:00 [facility] [id number]) Hot Pack/Cold Pack Treatment cryocuff Location L shoulder Patient Position Hooklying Treatment Duration (minutes) 10 Patient Tolerance Good PT-OP-T Assessment and Plan Start: 08/27/17 08:09 Freq: Status: Active Protocol: Document 12/11/17 07:31 [facility] (Rec: 12/11/17 08:24 [facility] [id number]) Physical Therapy Assessment Goals Four Impairment pain Halfway Goal (LTG) Pt will rate L shoulder pain as no greater than 2/10 without narcotics. LTG Duration 12/24/17-improving worst 4/10 Three Impairment DASH quick Tele Rn Goal (LTG) 20 quick DASH LTG Duration 12/24/17 Two Impairment strength Tele Rn Goal (LTG) 5/5 UE strength (B) to allow return to rec activities LTG Duration 12/24/17- excellent progress One Impairment ROM Short Term Goal (STG) Full PROM STG Duration achieved Halfway Goal (LTG) Full AROM to allow ability to normal activity LTG Duration 12/23/17-improving Assessment Summary Assessment Pt cont to be limited by pain in neck & LB with some activities. She requires cueing for full body posture and cont to have recurrent complaints of LBP & neck pain. Physical Therapy Plan Frequency and Duration Frequency of Treatment 2x/Week Plan of Care Start Date 10/23/17 Plan of Care End Date 12/24/17 Next Visit Focus/Plan Next Note Type Treatment Note Next Visit Plan Cont to work on post humeral mobility
--- NOTE | 2017-12-22 16:48 | PT.OTN ---
Current Diagnoses Pain in left shoulder (12/11/17) Strain of unspecified muscle, fascia and tendon at shoulder and upper arm level, left arm, initial encounter (12/11/17) Physical Therapy Treatment Note PT-OP-A Visit Information Start: 08/27/17 08:09 Freq: Status: Active Protocol: Document 12/22/17 14:30 [facility] (Rec: 12/22/17 16:48 [facility] [id number]) Out-Patient Physical Therapy Visit Information Visit Information Visit Type Treatment Note Visit Start Time 14:30 Visit Stop Time 15:15 Total Visit Minutes 45 Visit Number 37 Number of EDGE BURNISHER UPPERS Visits 0 PT-OP-B Current Condition Start: 08/27/17 08:09 Freq: Status: Active Protocol: Document 08/27/17 16:56 [facility] (Rec: 08/27/17 17:07 [facility] [id number]) Current Condition History of Current Condition Current Complaints L shoulder pain History of Current Condition Pt had insideous onset of L shoulder pain in Apr and has done PT, chiro, massage & injections with relief only with injections, but started to go downhill 2 months after 3rd injection so was scheduled for RAJENDRA which was done 08/26/17. Pt has chronic neck & back pain. Pt reports allergic reaction to one of her pain meds so is getting new prescription tonight. Prior Treatments and Tests Has done PT, chiro & massage in past & had 2 neck injections & 3 shoulder injections & recent RAJENDRA Treatment Goals Patient/Caregiver Goals Dec pain & return to activity Prior Functional Status Baseline Function- ADL's Independent Current Functional Impairments (Reported) Functional Limitations- ADL's Difficulty with UE tasks d/t pain PT-OP-C Subjective Start: 08/27/17 08:09 Freq: Status: Active Protocol: Document 12/22/17 14:30 [facility] (Rec: 12/22/17 16:48 [facility] [id number]) OP-PT Subjective Patient Comments Patient Comments Reports shoulder still catches when lifting to side PT-OP-J Posture/Palpation/Skin Start: 08/27/17 08:09 Freq: Status: Active Protocol: Document 08/27/17 14:31 [facility] (Rec: 08/27/17 15:24 [facility] [id number]) Posture Evaluation Comments Posture Comments moderate fwd head & shoulders Palpation Assessment Location One Palpation Location L shoulder Palpation Findings Soft Tissue Tightness Tenderness Palpation Details UT, Pec, LS, scalenes PT-OP-K Range of Motion Start: 08/27/17 08:09 Freq: Status: Active Protocol: Document 12/22/17 14:30 [facility] (Rec: 12/22/17 16:48 [facility] [id number]) Shoulder Goniometric Range of Motion Shoulder Measured in Degrees Left Active Flexion 160 Extension 50 Abduction 110 External Rotation at 90 degrees 80 Abduction Internal Rotation 30 Internal Rotation Behind Back (text) T9 PT-OP-M Strength Start: 08/27/17 08:09 Freq: Status: Active Protocol: Document 12/22/17 14:30 [facility] (Rec: 12/22/17 16:48 [facility] [id number]) Shoulder Strength Shoulder Manual Muscle Testing Right Flexion 5 Normal Extension 5 Normal Abduction (C5) 5 Normal Adduction 5 Normal External Rotation 5 Normal Internal Rotation 5 Normal Horizontal Abduction 4+ Good+ Horizontal Adduction 5 Normal Left Flexion 4+ Good+ Extension 4+ Good+ Abduction (C5) 4 Good Adduction 4+ Good+ External Rotation 4+ Good+ Internal Rotation 5 Normal Horizontal Abduction 4 Good Horizontal Adduction 4 Good PT-OP-Q Treatments Start: 08/27/17 08:09 Freq: Status: Active Protocol: Document 12/22/17 14:30 [facility] (Rec: 12/22/17 16:48 [facility] [id number]) Therapeutic Exercises Sitting Exercises 1 Sitting Exercise Name lissette flex abd & IR Side left Reps/Minutes 15 Manual Therapy Treatment Soft Tissue Mobilization 5 Body Location L brachium Mobilization Type Myofascial Release Comments FM with circumfrential & FM with ER & IR 3 Body Location ant clavicle/sternal region Mobilization Type Myofascial Release 2 Body Location Pec Mobilization Type Myofascial Release Rolling Intensity/Depth Moderate 1 Body Location UT, LS& scalenes, SOR Mobilization Type Rolling Intensity/Depth Moderate Body Position Supine Joint Mobilizations 5 Joint 1st rib Direction caudal 4 Joint T1-3 L transverse FM PT-OP-R Modalities Start: 08/27/17 08:09 Freq: Status: Active Protocol: Document 09/28/17 08:16 [facility] (Rec: 09/28/17 09:00 [facility] [id number]) Hot Pack/Cold Pack Treatment cryocuff Location L shoulder Patient Position Hooklying Treatment Duration (minutes) 10 Patient Tolerance Good PT-OP-T Assessment and Plan Start: 08/27/17 08:09 Freq: Status: Active Protocol: Document 12/22/17 14:30 [facility] (Rec: 12/22/17 16:48 [facility] [id number]) Physical Therapy Assessment Goals Four Impairment pain Duster Tender Goal (LTG) Pt will rate L shoulder pain as no greater than 2/10 without narcotics. LTG Duration 02/21/18-improving worst 4/10 Three Impairment DASH quick [facility]ci Goal (LTG) 20 quick DASH LTG Duration 02/21/18 Two Impairment strength Fci Goal (LTG) 5/5 UE strength (B) to allow return to rec activities LTG Duration 02/21/18- excellent progress One Impairment ROM Short Term Goal (STG) Full PROM STG Duration achieved Duster Tender Goal (LTG) Full AROM to allow ability to normal activity LTG Duration 02/22/18-improving Assessment Summary Assessment Pt had significant restriction of scalenes & elevation of 1st rib & shoulder girdle complex today, creating improper scapulohumeral mechanics. Improved with soft tissue release & cueing. Cont limit with abd d/t joint & fascial tightness. Physical Therapy Plan Frequency and Duration Frequency of Treatment 2x/Week Plan of Care Start Date 12/22/17 Plan of Care End Date 02/21/18 Therapeutic Interventions Therapeutic Interventions Home Exercise Program Joint Mobilizations Manual Therapy Soft Tissue Mobilization Taping Therapeutic Exercises Modalities Cold Pack/Ice Massage Electric Stimulation Hot Packs Ultrasound Next Visit Focus/Plan Next Note Type Treatment Note Next Visit Plan Cont to work on inf & post humeral mobility
--- NOTE | 2017-12-31 17:27 | PT.OTN ---
Current Diagnoses Pain in left shoulder (12/31/17) Strain of unspecified muscle, fascia and tendon at shoulder and upper arm level, left arm, initial encounter (12/31/17) Physical Therapy Treatment Note PT-OP-A Visit Information Start: 08/27/17 08:09 Freq: Status: Active Protocol: Document 12/31/17 17:23 [facility] (Rec: 12/31/17 17:26 [facility] [id number]) Out-Patient Physical Therapy Visit Information Visit Information Visit Type Treatment Note Visit Start Time 09:00 Visit Stop Time 09:45 Total Visit Minutes 45 Visit Number 38 Number of SOLID STATE TESTER Visits 0 PT-OP-B Current Condition Start: 08/27/17 08:09 Freq: Status: Active Protocol: Document 08/27/17 16:56 [facility] (Rec: 08/27/17 17:07 [facility] [id number]) Current Condition History of Current Condition Current Complaints L shoulder pain History of Current Condition Pt had insideous onset of L shoulder pain in Apr and has done PT, chiro, massage & injections with relief only with injections, but started to go downhill 2 months after 3rd injection so was scheduled for RAJENDRA which was done 08/26/17. Pt has chronic neck & back pain. Pt reports allergic reaction to one of her pain meds so is getting new prescription tonight. Prior Treatments and Tests Has done PT, chiro & massage in past & had 2 neck injections & 3 shoulder injections & recent RAJENDRA Treatment Goals Patient/Caregiver Goals Dec pain & return to activity Prior Functional Status Baseline Function- ADL's Independent Current Functional Impairments (Reported) Functional Limitations- ADL's Difficulty with UE tasks d/t pain PT-OP-C Subjective Start: 08/27/17 08:09 Freq: Status: Active Protocol: Document 12/31/17 17:23 [facility] (Rec: 12/31/17 17:26 [facility] [id number]) OP-PT Subjective Patient Comments Patient Comments Pt reports she went to chiro today and he adjusted her neck and L hip which has helped w/ her pain PT-OP-J Posture/Palpation/Skin Start: 08/27/17 08:09 Freq: Status: Active Protocol: Document 08/27/17 14:31 [facility] (Rec: 08/27/17 15:24 [facility] [id number]) Posture Evaluation Comments Posture Comments moderate fwd head & shoulders Palpation Assessment Location One Palpation Location L shoulder Palpation Findings Soft Tissue Tightness Tenderness Palpation Details UT, Pec, LS, scalenes PT-OP-K Range of Motion Start: 08/27/17 08:09 Freq: Status: Active Protocol: Document 12/22/17 14:30 [facility] (Rec: 12/22/17 16:48 [facility] [id number]) Shoulder Goniometric Range of Motion Shoulder Measured in Degrees Left Active Flexion 160 Extension 50 Abduction 110 External Rotation at 90 degrees 80 Abduction Internal Rotation 30 Internal Rotation Behind Back (text) T9 PT-OP-M Strength Start: 08/27/17 08:09 Freq: Status: Active Protocol: Document 12/22/17 14:30 [facility] (Rec: 12/22/17 16:48 [facility] [id number]) Shoulder Strength Shoulder Manual Muscle Testing Right Flexion 5 Normal Extension 5 Normal Abduction (C5) 5 Normal Adduction 5 Normal External Rotation 5 Normal Internal Rotation 5 Normal Horizontal Abduction 4+ Good+ Horizontal Adduction 5 Normal Left Flexion 4+ Good+ Extension 4+ Good+ Abduction (C5) 4 Good Adduction 4+ Good+ External Rotation 4+ Good+ Internal Rotation 5 Normal Horizontal Abduction 4 Good Horizontal Adduction 4 Good PT-OP-Q Treatments Start: 08/27/17 08:09 Freq: Status: Active Protocol: Document 12/31/17 17:23 [facility] (Rec: 12/31/17 17:26 [facility] [id number]) Therapeutic Exercises Sitting Exercises 1 Sitting Exercise Name lissette flex abd & IR Side left Reps/Minutes 15 Manual Therapy Treatment Soft Tissue Mobilization 5 Body Location L brachium Mobilization Type Myofascial Release Comments FM with circumfrential & FM with ER & IR 4 Body Location teres major Mobilization Type Sustained Pressure Intensity/Depth Moderate 3 Body Location ant clavicle/sternal region Mobilization Type Myofascial Release 2 Body Location Pec Mobilization Type Myofascial Release Rolling Intensity/Depth Moderate 1 Body Location UT, LS& scalenes, SOR Mobilization Type Rolling Intensity/Depth Moderate Body Position Supine Joint Mobilizations 5 Joint 1st rib Direction caudal PT-OP-R Modalities Start: 08/27/17 08:09 Freq: Status: Active Protocol: Document 09/28/17 08:16 [facility] (Rec: 09/28/17 09:00 [facility] [id number]) Hot Pack/Cold Pack Treatment cryocuff Location L shoulder Patient Position Hooklying Treatment Duration (minutes) 10 Patient Tolerance Good PT-OP-T Assessment and Plan Start: 08/27/17 08:09 Freq: Status: Active Protocol: Document 12/31/17 17:23 [facility] (Rec: 12/31/17 17:26 [facility] [id number]) Physical Therapy Assessment Goals Four Impairment pain [facility] Goal (LTG) Pt will rate L shoulder pain as no greater than 2/10 without narcotics. LTG Duration 02/21/18-improving worst 4/10 Three Impairment DASH quick [facility] Goal (LTG) 20 quick DASH LTG Duration 02/21/18 Two Impairment strength [facility] Goal (LTG) 5/5 UE strength (B) to allow return to rec activities LTG Duration 02/21/18- excellent progress One Impairment ROM Short Term Goal (STG) Full PROM STG Duration achieved Stitch Bonding Machine Tender Helper Goal (LTG) Full AROM to allow ability to normal activity LTG Duration 02/22/18-improving Assessment Summary Assessment Pt had improved passive abd today to full range after mobilizations. Improved soft tissue mobility after mobilization, but cont scalene tightness. Physical Therapy Plan Frequency and Duration Frequency of Treatment 2x/Week Plan of Care Start Date 12/22/17 Plan of Care End Date 02/21/18 Next Visit Focus/Plan Next Note Type Treatment Note Next Visit Plan Cont to work on inf & post humeral mobility
--- NOTE | 2018-01-05 14:31 | PT.OTN ---
Current Diagnoses Pain in left shoulder (01/05/18) Strain of unspecified muscle, fascia and tendon at shoulder and upper arm level, left arm, initial encounter (01/05/18) Physical Therapy Treatment Note PT-OP-A Visit Information Start: 08/27/17 08:09 Freq: Status: Active Protocol: Document 01/05/18 13:43 [facility] (Rec: 01/05/18 14:31 [facility] [id number]) Out-Patient Physical Therapy Visit Information Visit Information Visit Type Treatment Note Visit Start Time 13:45 Visit Stop Time 14:30 Total Visit Minutes 45 Visit Number 39 Number of DEFENSE ATTORNEY Visits 0 PT-OP-B Current Condition Start: 08/27/17 08:09 Freq: Status: Active Protocol: Document 08/27/17 16:56 [facility] (Rec: 08/27/17 17:07 [facility] [id number]) Current Condition History of Current Condition Current Complaints L shoulder pain History of Current Condition Pt had insideous onset of L shoulder pain in Apr and has done PT, chiro, massage & injections with relief only with injections, but started to go downhill 2 months after 3rd injection so was scheduled for RAJENDRA which was done 08/26/17. Pt has chronic neck & back pain. Pt reports allergic reaction to one of her pain meds so is getting new prescription tonight. Prior Treatments and Tests Has done PT, chiro & massage in past & had 2 neck injections & 3 shoulder injections & recent RAJENDRA Treatment Goals Patient/Caregiver Goals Dec pain & return to activity Prior Functional Status Baseline Function- ADL's Independent Current Functional Impairments (Reported) Functional Limitations- ADL's Difficulty with UE tasks d/t pain PT-OP-C Subjective Start: 08/27/17 08:09 Freq: Status: Active Protocol: Document 01/05/18 13:43 [facility] (Rec: 01/05/18 14:31 [facility] [id number]) OP-PT Subjective Patient Comments Patient Comments Pt reports pain hasn't been too bad. Some days worse then others. PT-OP-J Posture/Palpation/Skin Start: 08/27/17 08:09 Freq: Status: Active Protocol: Document 08/27/17 14:31 [facility] (Rec: 08/27/17 15:24 [facility] [id number]) Posture Evaluation Comments Posture Comments moderate fwd head & shoulders Palpation Assessment Location One Palpation Location L shoulder Palpation Findings Soft Tissue Tightness Tenderness Palpation Details UT, Pec, LS, scalenes PT-OP-K Range of Motion Start: 08/27/17 08:09 Freq: Status: Active Protocol: Document 12/22/17 14:30 [facility] (Rec: 12/22/17 16:48 [facility] [id number]) Shoulder Goniometric Range of Motion Shoulder Measured in Degrees Left Active Flexion 160 Extension 50 Abduction 110 External Rotation at 90 degrees 80 Abduction Internal Rotation 30 Internal Rotation Behind Back (text) T9 PT-OP-M Strength Start: 08/27/17 08:09 Freq: Status: Active Protocol: Document 12/22/17 14:30 [facility] (Rec: 12/22/17 16:48 [facility] [id number]) Shoulder Strength Shoulder Manual Muscle Testing Right Flexion 5 Normal Extension 5 Normal Abduction (C5) 5 Normal Adduction 5 Normal External Rotation 5 Normal Internal Rotation 5 Normal Horizontal Abduction 4+ Good+ Horizontal Adduction 5 Normal Left Flexion 4+ Good+ Extension 4+ Good+ Abduction (C5) 4 Good Adduction 4+ Good+ External Rotation 4+ Good+ Internal Rotation 5 Normal Horizontal Abduction 4 Good Horizontal Adduction 4 Good PT-OP-Q Treatments Start: 08/27/17 08:09 Freq: Status: Active Protocol: Document 01/05/18 13:43 [facility] (Rec: 01/05/18 14:31 [facility] [id number]) Therapeutic Exercises Supine Exercises 8 Supine Exercise Name axial elongation Sidelying Exercises 2 Sidelying Exercise Name roll & reach 1 Sidelying Exercise Name abd Equipment Used 0# then 2# Reps/Minutes 2x10 Sitting Exercises 1 Sitting Exercise Name lissette flex abd & IR Side left Reps/Minutes 15 PT-OP-R Modalities Start: 08/27/17 08:09 Freq: Status: Active Protocol: Document 09/28/17 08:16 [facility] (Rec: 09/28/17 09:00 [facility] [id number]) Hot Pack/Cold Pack Treatment cryocuff Location L shoulder Patient Position Hooklying Treatment Duration (minutes) 10 Patient Tolerance Good PT-OP-T Assessment and Plan Start: 08/27/17 08:09 Freq: Status: Active Protocol: Document 01/05/18 13:43 [facility] (Rec: 01/05/18 14:31 [facility] [id number]) Physical Therapy Assessment Goals Four Impairment pain Senior Care Goal (LTG) Pt will rate L shoulder pain as no greater than 2/10 without narcotics. LTG Duration 02/21/18-improving worst 4/10 Three Impairment DASH quick Senior Care Goal (LTG) 20 quick DASH LTG Duration 02/21/18 Two Impairment strength Truck Hopper Goal (LTG) 5/5 UE strength (B) to allow return to rec activities LTG Duration 02/21/18- excellent progress One Impairment ROM Short Term Goal (STG) Full PROM STG Duration achieved Truck Hopper Goal (LTG) Full AROM to allow ability to normal activity LTG Duration 02/22/18-improving Assessment Summary Assessment Pt presented with full passive abd and lacking about 10 deg abd actively. She improved with soft tissue mobility with treatment. Physical Therapy Plan Frequency and Duration Frequency of Treatment 2x/Week Plan of Care Start Date 12/22/17 Plan of Care End Date 02/21/18 Next Visit Focus/Plan Next Note Type Treatment Note Next Visit Plan Review recently added exercises
--- NOTE | 2018-01-13 14:12 | PT.OTN ---
Current Diagnoses Pain in left shoulder (01/13/18) Strain of unspecified muscle, fascia and tendon at shoulder and upper arm level, left arm, initial encounter (01/13/18) Physical Therapy Treatment Note PT-OP-A Visit Information Start: 08/27/17 08:09 Freq: Status: Active Protocol: Document 01/13/18 13:50 [facility] (Rec: 01/13/18 14:11 [facility] [id number]) Out-Patient Physical Therapy Visit Information Visit Information Visit Type Treatment Note Visit Start Time 13:00 Visit Stop Time 13:45 Total Visit Minutes 45 Visit Number 40 Number of QUALITY LIAISON Visits 0 PT-OP-B Current Condition Start: 08/27/17 08:09 Freq: Status: Active Protocol: Document 08/27/17 16:56 [facility] (Rec: 08/27/17 17:07 [facility] [id number]) Current Condition History of Current Condition Current Complaints L shoulder pain History of Current Condition Pt had insideous onset of L shoulder pain in Apr and has done PT, chiro, massage & injections with relief only with injections, but started to go downhill 2 months after 3rd injection so was scheduled for RAJENDRA which was done 08/26/17. Pt has chronic neck & back pain. Pt reports allergic reaction to one of her pain meds so is getting new prescription tonight. Prior Treatments and Tests Has done PT, chiro & massage in past & had 2 neck injections & 3 shoulder injections & recent RAJENDRA Treatment Goals Patient/Caregiver Goals Dec pain & return to activity Prior Functional Status Baseline Function- ADL's Independent Current Functional Impairments (Reported) Functional Limitations- ADL's Difficulty with UE tasks d/t pain PT-OP-C Subjective Start: 08/27/17 08:09 Freq: Status: Active Protocol: Document 01/13/18 13:50 [facility] (Rec: 01/13/18 14:12 [facility] [id number]) OP-PT Subjective Patient Comments Patient Comments Pt reports she feels tight today. Chiro helped iwth some pain yesterday, but still painful. PT-OP-J Posture/Palpation/Skin Start: 08/27/17 08:09 Freq: Status: Active Protocol: Document 08/27/17 14:31 [facility] (Rec: 08/27/17 15:24 [facility] [id number]) Posture Evaluation Comments Posture Comments moderate fwd head & shoulders Palpation Assessment Location One Palpation Location L shoulder Palpation Findings Soft Tissue Tightness Tenderness Palpation Details UT, Pec, LS, scalenes PT-OP-K Range of Motion Start: 08/27/17 08:09 Freq: Status: Active Protocol: Document 12/22/17 14:30 [facility] (Rec: 12/22/17 16:48 [facility] [id number]) Shoulder Goniometric Range of Motion Shoulder Measured in Degrees Left Active Flexion 160 Extension 50 Abduction 110 External Rotation at 90 degrees 80 Abduction Internal Rotation 30 Internal Rotation Behind Back (text) T9 PT-OP-M Strength Start: 08/27/17 08:09 Freq: Status: Active Protocol: Document 12/22/17 14:30 [facility] (Rec: 12/22/17 16:48 [facility] [id number]) Shoulder Strength Shoulder Manual Muscle Testing Right Flexion 5 Normal Extension 5 Normal Abduction (C5) 5 Normal Adduction 5 Normal External Rotation 5 Normal Internal Rotation 5 Normal Horizontal Abduction 4+ Good+ Horizontal Adduction 5 Normal Left Flexion 4+ Good+ Extension 4+ Good+ Abduction (C5) 4 Good Adduction 4+ Good+ External Rotation 4+ Good+ Internal Rotation 5 Normal Horizontal Abduction 4 Good Horizontal Adduction 4 Good PT-OP-Q Treatments Start: 08/27/17 08:09 Freq: Status: Active Protocol: Document 01/13/18 13:50 [facility] (Rec: 01/13/18 14:11 [facility] [email or web address]) Therapeutic Exercises Supine Exercises 8 Supine Exercise Name axial elongation Sidelying Exercises 2 Sidelying Exercise Name roll & reach 1 Sidelying Exercise Name abd Equipment Used 0# then 2# Reps/Minutes 2x10 Sitting Exercises 1 Sitting Exercise Name lissette flex abd & IR Side left Reps/Minutes 15 Manual Therapy Treatment Soft Tissue Mobilization 1 Body Location UT, LS& scalenes, SOR, cervical parapsinals Mobilization Type Rolling Intensity/Depth Moderate Body Position Supine Joint Mobilizations 2 Joint L to R thoracic T5-8 Comments FM w/rotation 1 Joint T1-3L to R FM PT-OP-R Modalities Start: 08/27/17 08:09 Freq: Status: Active Protocol: Document 09/28/17 08:16 [facility] (Rec: 09/28/17 09:00 [facility] [id number]) Hot Pack/Cold Pack Treatment cryocuff Location L shoulder Patient Position Hooklying Treatment Duration (minutes) 10 Patient Tolerance Good PT-OP-T Assessment and Plan Start: 08/27/17 08:09 Freq: Status: Active Protocol: Document 01/13/18 13:50 [facility] (Rec: 01/13/18 14:11 [facility] [id number]) Physical Therapy Assessment Goals Four Impairment pain Penitentiary Goal (LTG) Pt will rate L shoulder pain as no greater than 2/10 without narcotics. LTG Duration 02/21/18-improving worst 4/10 Three Impairment DASH quick Pickling Solution Maker Goal (LTG) 20 quick DASH LTG Duration 02/21/18 Two Impairment strength Pickling Solution Maker Goal (LTG) 5/5 UE strength (B) to allow return to rec activities LTG Duration 02/21/18- excellent progress One Impairment ROM Short Term Goal (STG) Full PROM STG Duration achieved Pickling Solution Maker Goal (LTG) Full AROM to allow ability to normal activity LTG Duration 02/22/18-improving Assessment Summary Assessment Pt had improved rotation of neck B with STM & joint mobs. pt had improved form with exercises Physical Therapy Plan Frequency and Duration Frequency of Treatment 2x/Week Plan of Care Start Date 12/22/17 Plan of Care End Date 02/21/18 Next Visit Focus/Plan Next Note Type Treatment Note Next Visit Plan cont to work on neck stability
--- NOTE | 2018-01-20 18:09 | PT.OTN ---
Current Diagnoses Pain in left shoulder (01/20/18) Strain of unspecified muscle, fascia and tendon at shoulder and upper arm level, left arm, initial encounter (01/20/18) Physical Therapy Treatment Note PT-OP-A Visit Information Start: 08/27/17 08:09 Freq: Status: Active Protocol: Document 01/20/18 15:50 [facility] (Rec: 01/20/18 18:06 [facility] [id number]) Out-Patient Physical Therapy Visit Information Visit Information Visit Type Treatment Note Visit Start Time 13:45 Visit Stop Time 14:45 Total Visit Minutes 60 Visit Number 41 PT-OP-B Current Condition Start: 08/27/17 08:09 Freq: Status: Active Protocol: Document 08/27/17 16:56 [facility] (Rec: 08/27/17 17:07 [facility] [id number]) Current Condition History of Current Condition Current Complaints L shoulder pain History of Current Condition Pt had insideous onset of L shoulder pain in Apr and has done PT, chiro, massage & injections with relief only with injections, but started to go downhill 2 months after 3rd injection so was scheduled for RAJENDRA which was done 08/26/17. Pt has chronic neck & back pain. Pt reports allergic reaction to one of her pain meds so is getting new prescription tonight. Prior Treatments and Tests Has done PT, chiro & massage in past & had 2 neck injections & 3 shoulder injections & recent RAJENDRA Treatment Goals Patient/Caregiver Goals Dec pain & return to activity Prior Functional Status Baseline Function- ADL's Independent Current Functional Impairments (Reported) Functional Limitations- ADL's Difficulty with UE tasks d/t pain PT-OP-C Subjective Start: 08/27/17 08:09 Freq: Status: Active Protocol: Document 01/20/18 15:50 [facility] (Rec: 01/20/18 18:06 [facility] [id number]) OP-PT Subjective Patient Comments Patient Comments Pt reports she realized her shoulder was sore because she had her flu shot in it last week. Reports feels much better this week. PT-OP-J Posture/Palpation/Skin Start: 08/27/17 08:09 Freq: Status: Active Protocol: Document 08/27/17 14:31 [facility] (Rec: 08/27/17 15:24 [facility] [id number]) Posture Evaluation Comments Posture Comments moderate fwd head & shoulders Palpation Assessment Location One Palpation Location L shoulder Palpation Findings Soft Tissue Tightness Tenderness Palpation Details UT, Pec, LS, scalenes PT-OP-K Range of Motion Start: 08/27/17 08:09 Freq: Status: Active Protocol: Document 12/22/17 14:30 [facility] (Rec: 12/22/17 16:48 [facility] [id number]) Shoulder Goniometric Range of Motion Shoulder Measured in Degrees Left Active Flexion 160 Extension 50 Abduction 110 External Rotation at 90 degrees 80 Abduction Internal Rotation 30 Internal Rotation Behind Back (text) T9 PT-OP-M Strength Start: 08/27/17 08:09 Freq: Status: Active Protocol: Document 12/22/17 14:30 [facility] (Rec: 12/22/17 16:48 [facility] [id number]) Shoulder Strength Shoulder Manual Muscle Testing Right Flexion 5 Normal Extension 5 Normal Abduction (C5) 5 Normal Adduction 5 Normal External Rotation 5 Normal Internal Rotation 5 Normal Horizontal Abduction 4+ Good+ Horizontal Adduction 5 Normal Left Flexion 4+ Good+ Extension 4+ Good+ Abduction (C5) 4 Good Adduction 4+ Good+ External Rotation 4+ Good+ Internal Rotation 5 Normal Horizontal Abduction 4 Good Horizontal Adduction 4 Good PT-OP-Q Treatments Start: 08/27/17 08:09 Freq: Status: Active Protocol: Document 01/20/18 15:50 [facility] (Rec: 01/20/18 18:06 [facility] [id number]) Therapeutic Exercises Supine Exercises 8 Supine Exercise Name axial elongation Sitting Exercises 1 Sitting Exercise Name lissette flex abd & IR Side left Reps/Minutes 15 Manual Therapy Treatment Soft Tissue Mobilization 4 Body Location SOR 3 Body Location ant clavicle/sternal region Mobilization Type Myofascial Release 1 Body Location UT, LS& scalenes, SOR, cervical parapsinals Mobilization Type Rolling Intensity/Depth Moderate Body Position Supine Joint Mobilizations 2 Joint thoracic T3-8 Direction PA Comments FM w/breathing PT-OP-R Modalities Start: 08/27/17 08:09 Freq: Status: Active Protocol: Document 01/20/18 15:50 [facility] (Rec: 01/20/18 18:06 [facility] [id number]) Hot Pack/Cold Pack Treatment Hot Pack Location Thoracic & R shoulder & neck Patient Position Hooklying Treatment Duration (minutes) 15 PT-OP-T Assessment and Plan Start: 08/27/17 08:09 Freq: Status: Active Protocol: Document 01/20/18 15:50 [facility] (Rec: 01/20/18 18:06 [facility] [id number]) Physical Therapy Assessment Goals Four Impairment pain Mcc Goal (LTG) Pt will rate L shoulder pain as no greater than 2/10 without narcotics. LTG Duration 02/21/18-improving worst 4/10 Three Impairment DASH quick Mcc Goal (LTG) 20 quick DASH LTG Duration 02/21/18 Two Impairment strength Mcc Goal (LTG) 5/5 UE strength (B) to allow return to rec activities LTG Duration 02/21/18- excellent progress One Impairment ROM Short Term Goal (STG) Full PROM STG Duration achieved Automobile Appraiser Goal (LTG) Full AROM to allow ability to normal activity LTG Duration 02/22/18-improving Assessment Summary Assessment Pt improved with soft tissue mobility and scapular & shoulder position with manual rx. Pt had significant restriction in B thoracic & ribcage region. Physical Therapy Plan Frequency and Duration Frequency of Treatment 2x/Week Plan of Care Start Date 12/22/17 Plan of Care End Date 02/21/18 Next Visit Focus/Plan Next Note Type Treatment Note Next Visit Plan cont to work on neck stability
--- NOTE | 2018-01-22 15:14 | PT.OTN ---
Current Diagnoses Pain in left shoulder (01/22/18) Strain of unspecified muscle, fascia and tendon at shoulder and upper arm level, left arm, initial encounter (01/22/18) Physical Therapy Treatment Note PT-OP-A Visit Information Start: 08/27/17 08:09 Freq: Status: Active Protocol: Document 01/22/18 10:56 [facility] (Rec: 01/22/18 15:14 [facility] [id number]) Out-Patient Physical Therapy Visit Information Visit Information Visit Type Treatment Note Visit Start Time 09:45 Visit Stop Time 10:55 Total Visit Minutes 70 Visit Number 42 PT-OP-B Current Condition Start: 08/27/17 08:09 Freq: Status: Active Protocol: Document 08/27/17 16:56 [facility] (Rec: 08/27/17 17:07 [facility] [id number]) Current Condition History of Current Condition Current Complaints L shoulder pain History of Current Condition Pt had insideous onset of L shoulder pain in Apr and has done PT, chiro, massage & injections with relief only with injections, but started to go downhill 2 months after 3rd injection so was scheduled for RAJENDRA which was done 08/26/17. Pt has chronic neck & back pain. Pt reports allergic reaction to one of her pain meds so is getting new prescription tonight. Prior Treatments and Tests Has done PT, chiro & massage in past & had 2 neck injections & 3 shoulder injections & recent RAJENDRA Treatment Goals Patient/Caregiver Goals Dec pain & return to activity Prior Functional Status Baseline Function- ADL's Independent Current Functional Impairments (Reported) Functional Limitations- ADL's Difficulty with UE tasks d/t pain PT-OP-C Subjective Start: 08/27/17 08:09 Freq: Status: Active Protocol: Document 01/22/18 10:56 [facility] (Rec: 01/22/18 15:14 [facility] [id number]) OP-PT Subjective Patient Comments Patient Comments Pt reports PARRY came on really fast yesterday and today. She did feel good after last session. Notes PARRY today and took ibuprofen to help. PT-OP-J Posture/Palpation/Skin Start: 08/27/17 08:09 Freq: Status: Active Protocol: Document 08/27/17 14:31 [facility] (Rec: 08/27/17 15:24 [facility] [id number]) Posture Evaluation Comments Posture Comments moderate fwd head & shoulders Palpation Assessment Location One Palpation Location L shoulder Palpation Findings Soft Tissue Tightness Tenderness Palpation Details UT, Pec, LS, scalenes PT-OP-K Range of Motion Start: 08/27/17 08:09 Freq: Status: Active Protocol: Document 12/22/17 14:30 [facility] (Rec: 12/22/17 16:48 [facility] [id number]) Shoulder Goniometric Range of Motion Shoulder Measured in Degrees Left Active Flexion 160 Extension 50 Abduction 110 External Rotation at 90 degrees 80 Abduction Internal Rotation 30 Internal Rotation Behind Back (text) T9 PT-OP-M Strength Start: 08/27/17 08:09 Freq: Status: Active Protocol: Document 12/22/17 14:30 [facility] (Rec: 12/22/17 16:48 [facility] [id number]) Shoulder Strength Shoulder Manual Muscle Testing Right Flexion 5 Normal Extension 5 Normal Abduction (C5) 5 Normal Adduction 5 Normal External Rotation 5 Normal Internal Rotation 5 Normal Horizontal Abduction 4+ Good+ Horizontal Adduction 5 Normal Left Flexion 4+ Good+ Extension 4+ Good+ Abduction (C5) 4 Good Adduction 4+ Good+ External Rotation 4+ Good+ Internal Rotation 5 Normal Horizontal Abduction 4 Good Horizontal Adduction 4 Good PT-OP-Q Treatments Start: 08/27/17 08:09 Freq: Status: Active Protocol: Document 01/22/18 10:56 [facility] (Rec: 01/22/18 15:14 [facility] [id number]) Manual Therapy Treatment Soft Tissue Mobilization 4 Body Location SOR 1 Body Location UT, LS& scalenes, SOR, cervical parapsinals Mobilization Type Rolling Intensity/Depth Moderate Body Position Supine Joint Mobilizations 5 Joint 1st rib Direction caudal 4 Joint C1 L UPA PT-OP-R Modalities Start: 08/27/17 08:09 Freq: Status: Active Protocol: Document 01/22/18 10:56 [facility] (Rec: 01/22/18 15:14 [facility] [id number]) Hot Pack/Cold Pack Treatment Hot Pack Location Thoracic & R shoulder & neck Patient Position Hooklying Treatment Duration (minutes) 15 Spinal Traction Traction Treatment Cervical Method Static Patient Position Hooklying Force Applied (Pounds) 18 Duration of Treatment (Minutes) 10 Heating Pad Applied No PT-OP-T Assessment and Plan Start: 08/27/17 08:09 Freq: Status: Active Protocol: Document 01/22/18 10:56 [facility] (Rec: 01/22/18 15:14 [facility] [id number]) Physical Therapy Assessment Goals Four Impairment pain [facility] Goal (LTG) Pt will rate L shoulder pain as no greater than 2/10 without narcotics. LTG Duration 02/21/18-improving worst 4/10 Three Impairment DASH quick Senior Budget Analyst Goal (LTG) 20 quick DASH LTG Duration 02/21/18 Two Impairment strength Senior Budget Analyst Goal (LTG) 5/5 UE strength (B) to allow return to rec activities LTG Duration 02/21/18- excellent progress One Impairment ROM Short Term Goal (STG) Full PROM STG Duration achieved Senior Budget Analyst Goal (LTG) Full AROM to allow ability to normal activity LTG Duration 02/22/18-improving Assessment Summary Assessment Pt had improved torso rotation & improved mobility of cervical mm after manual therapy. She had more significant tightness in L UT & scapular region today than Thursday, likely contributing to PARRY. Physical Therapy Plan Frequency and Duration Frequency of Treatment 2x/Week Plan of Care Start Date 12/22/17 Plan of Care End Date 02/21/18 Next Visit Focus/Plan Next Note Type Treatment Note Next Visit Plan cont to work on neck stability
--- NOTE | 2018-01-25 17:22 | PT.OTN ---
Current Diagnoses Pain in left shoulder (01/25/18) Strain of unspecified muscle, fascia and tendon at shoulder and upper arm level, left arm, initial encounter (01/25/18) Physical Therapy Treatment Note PT-OP-A Visit Information Start: 08/27/17 08:09 Freq: Status: Active Protocol: Document 01/25/18 17:17 [facility] (Rec: 01/25/18 17:22 [facility] [id number]) Out-Patient Physical Therapy Visit Information Visit Information Visit Type Treatment Note Visit Start Time 13:45 Visit Stop Time 14:55 Total Visit Minutes 70 Visit Number 43 PT-OP-B Current Condition Start: 08/27/17 08:09 Freq: Status: Active Protocol: Document 08/27/17 16:56 [facility] (Rec: 08/27/17 17:07 [facility] [id number]) Current Condition History of Current Condition Current Complaints L shoulder pain History of Current Condition Pt had insideous onset of L shoulder pain in Apr and has done PT, chiro, massage & injections with relief only with injections, but started to go downhill 2 months after 3rd injection so was scheduled for RAJENDRA which was done 08/26/17. Pt has chronic neck & back pain. Pt reports allergic reaction to one of her pain meds so is getting new prescription tonight. Prior Treatments and Tests Has done PT, chiro & massage in past & had 2 neck injections & 3 shoulder injections & recent RAJENDRA Treatment Goals Patient/Caregiver Goals Dec pain & return to activity Prior Functional Status Baseline Function- ADL's Independent Current Functional Impairments (Reported) Functional Limitations- ADL's Difficulty with UE tasks d/t pain PT-OP-C Subjective Start: 08/27/17 08:09 Freq: Status: Active Protocol: Document 01/25/18 17:17 [facility] (Rec: 01/25/18 17:22 [facility] [id number]) OP-PT Subjective Patient Comments Patient Comments Pt reports PARRY coming on fast again today when she got up from her desk to walk to therapy. PT-OP-J Posture/Palpation/Skin Start: 08/27/17 08:09 Freq: Status: Active Protocol: Document 08/27/17 14:31 [facility] (Rec: 08/27/17 15:24 [facility] [id number]) Posture Evaluation Comments Posture Comments moderate fwd head & shoulders Palpation Assessment Location One Palpation Location L shoulder Palpation Findings Soft Tissue Tightness Tenderness Palpation Details UT, Pec, LS, scalenes PT-OP-K Range of Motion Start: 08/27/17 08:09 Freq: Status: Active Protocol: Document 12/22/17 14:30 [facility] (Rec: 12/22/17 16:48 [facility] [id number]) Shoulder Goniometric Range of Motion Shoulder Measured in Degrees Left Active Flexion 160 Extension 50 Abduction 110 External Rotation at 90 degrees 80 Abduction Internal Rotation 30 Internal Rotation Behind Back (text) T9 PT-OP-M Strength Start: 08/27/17 08:09 Freq: Status: Active Protocol: Document 12/22/17 14:30 [facility] (Rec: 12/22/17 16:48 [facility] [id number]) Shoulder Strength Shoulder Manual Muscle Testing Right Flexion 5 Normal Extension 5 Normal Abduction (C5) 5 Normal Adduction 5 Normal External Rotation 5 Normal Internal Rotation 5 Normal Horizontal Abduction 4+ Good+ Horizontal Adduction 5 Normal Left Flexion 4+ Good+ Extension 4+ Good+ Abduction (C5) 4 Good Adduction 4+ Good+ External Rotation 4+ Good+ Internal Rotation 5 Normal Horizontal Abduction 4 Good Horizontal Adduction 4 Good PT-OP-Q Treatments Start: 08/27/17 08:09 Freq: Status: Active Protocol: Document 01/25/18 17:17 [facility] (Rec: 01/25/18 17:22 [facility] [email or web address]) Manual Therapy Treatment Soft Tissue Mobilization 4 Body Location SOR 3 Body Location ant clavicle/sternal region Mobilization Type Myofascial Release Comments Along 3rd rib 2 Body Location SCM Mobilization Type Rolling Sustained Pressure Joint Mobilizations 5 Joint 1st rib Direction caudal 3 Joint 3rd rib Direction caudal & distraction Comments s/l & supine FM 1 Joint T1-3 FM Direction L transverse PT-OP-R Modalities Start: 08/27/17 08:09 Freq: Status: Active Protocol: Document 01/25/18 17:17 [facility] (Rec: 01/25/18 17:22 [facility] [id number]) Hot Pack/Cold Pack Treatment Hot Pack Location cervical Patient Position Hooklying Treatment Duration (minutes) 15 Spinal Traction Traction Treatment Cervical Method Static Patient Position Hooklying Force Applied (Pounds) 15 Duration of Treatment (Minutes) 10 Heating Pad Applied No PT-OP-T Assessment and Plan Start: 08/27/17 08:09 Freq: Status: Active Protocol: Document 01/25/18 17:17 [facility] (Rec: 01/25/18 17:22 [facility] [id number]) Physical Therapy Assessment Goals Four Impairment pain [facility] Goal (LTG) Pt will rate L shoulder pain as no greater than 2/10 without narcotics. LTG Duration 02/21/18-improving worst 4/10 Three Impairment DASH quick [facility] Goal (LTG) 20 quick DASH LTG Duration 02/21/18 Two Impairment strength Food Analyst Goal (LTG) 5/5 UE strength (B) to allow return to rec activities LTG Duration 02/21/18- excellent progress One Impairment ROM Short Term Goal (STG) Full PROM STG Duration achieved [facility] Goal (LTG) Full AROM to allow ability to normal activity LTG Duration 02/22/18-improving Assessment Summary Assessment Pt reported some improvement with PARRY after manual rx. Pt had significant elevation of 3rd rib which was improved by mobilizations from ant & laterally, which allowed depression of 1st rib. Physical Therapy Plan Frequency and Duration Frequency of Treatment 2x/Week Plan of Care Start Date 12/22/17 Plan of Care End Date 02/21/18 Next Visit Focus/Plan Next Note Type Treatment Note Next Visit Plan cont to work on neck stability & work into prone prop for post depression
--- NOTE | 2018-01-27 14:54 | PT.OTN ---
Current Diagnoses Pain in left shoulder (01/27/18) Strain of unspecified muscle, fascia and tendon at shoulder and upper arm level, left arm, initial encounter (01/27/18) Physical Therapy Treatment Note PT-OP-A Visit Information Start: 08/27/17 08:09 Freq: Status: Active Protocol: Document 01/27/18 14:37 [facility] (Rec: 01/27/18 14:54 [facility] [id number]) Out-Patient Physical Therapy Visit Information Visit Information Visit Type Treatment Note Visit Start Time 13:00 Visit Stop Time 13:55 Total Visit Minutes 55 Visit Number 44 Number of PRACTICE ASSISTANT Visits 0 PT-OP-B Current Condition Start: 08/27/17 08:09 Freq: Status: Active Protocol: Document 08/27/17 16:56 [facility] (Rec: 08/27/17 17:07 [facility] [id number]) Current Condition History of Current Condition Current Complaints L shoulder pain History of Current Condition Pt had insideous onset of L shoulder pain in Apr and has done PT, chiro, massage & injections with relief only with injections, but started to go downhill 2 months after 3rd injection so was scheduled for RAJENDRA which was done 08/26/17. Pt has chronic neck & back pain. Pt reports allergic reaction to one of her pain meds so is getting new prescription tonight. Prior Treatments and Tests Has done PT, chiro & massage in past & had 2 neck injections & 3 shoulder injections & recent RAJENDRA Treatment Goals Patient/Caregiver Goals Dec pain & return to activity Prior Functional Status Baseline Function- ADL's Independent Current Functional Impairments (Reported) Functional Limitations- ADL's Difficulty with UE tasks d/t pain PT-OP-C Subjective Start: 08/27/17 08:09 Freq: Status: Active Protocol: Document 01/27/18 14:37 [facility] (Rec: 01/27/18 14:54 [facility] [id number]) OP-PT Subjective Patient Comments Patient Comments Pt reports PARRY despite taking medication today as she woke up with a PARRY. PT-OP-J Posture/Palpation/Skin Start: 08/27/17 08:09 Freq: Status: Active Protocol: Document 08/27/17 14:31 [facility] (Rec: 08/27/17 15:24 [facility] [id number]) Posture Evaluation Comments Posture Comments moderate fwd head & shoulders Palpation Assessment Location One Palpation Location L shoulder Palpation Findings Soft Tissue Tightness Tenderness Palpation Details UT, Pec, LS, scalenes PT-OP-K Range of Motion Start: 08/27/17 08:09 Freq: Status: Active Protocol: Document 12/22/17 14:30 [facility] (Rec: 12/22/17 16:48 [facility] [id number]) Shoulder Goniometric Range of Motion Shoulder Measured in Degrees Left Active Flexion 160 Extension 50 Abduction 110 External Rotation at 90 degrees 80 Abduction Internal Rotation 30 Internal Rotation Behind Back (text) T9 PT-OP-M Strength Start: 08/27/17 08:09 Freq: Status: Active Protocol: Document 12/22/17 14:30 [facility] (Rec: 12/22/17 16:48 [facility] [id number]) Shoulder Strength Shoulder Manual Muscle Testing Right Flexion 5 Normal Extension 5 Normal Abduction (C5) 5 Normal Adduction 5 Normal External Rotation 5 Normal Internal Rotation 5 Normal Horizontal Abduction 4+ Good+ Horizontal Adduction 5 Normal Left Flexion 4+ Good+ Extension 4+ Good+ Abduction (C5) 4 Good Adduction 4+ Good+ External Rotation 4+ Good+ Internal Rotation 5 Normal Horizontal Abduction 4 Good Horizontal Adduction 4 Good PT-OP-Q Treatments Start: 08/27/17 08:09 Freq: Status: Active Protocol: Document 01/27/18 14:37 [facility] (Rec: 01/27/18 14:54 [facility] [id number]) Manual Therapy Treatment Soft Tissue Mobilization 6 Body Location medial scapular muscles Body Position Sidelying Comments soft tissue release underneath and along the medial scapular boarder; w/deep breathing and CR 4 Body Location SOR Joint Mobilizations 7 Joint scapula Direction medial & downward rotation Body Position Sidelying Comments w/deep breathing, R 6 Joint shoulder Direction posterior Body Position Sidelying Comments using belts, R PT-OP-R Modalities Start: 08/27/17 08:09 Freq: Status: Active Protocol: Document 01/27/18 14:37 [facility] (Rec: 01/27/18 14:54 [facility] [id number]) Spinal Traction Traction Treatment Cervical Method Static Patient Position Hooklying Force Applied (Pounds) 18 Duration of Treatment (Minutes) 10 Heating Pad Applied No PT-OP-T Assessment and Plan Start: 08/27/17 08:09 Freq: Status: Active Protocol: Document 01/27/18 14:37 [facility] (Rec: 01/27/18 14:54 [facility] [id number]) Physical Therapy Assessment Goals Four Impairment pain Web Design Specialist Goal (LTG) Pt will rate L shoulder pain as no greater than 2/10 without narcotics. LTG Duration 02/21/18-improving worst 4/10 Three Impairment DASH quick Group Home Goal (LTG) 20 quick DASH LTG Duration 02/21/18 Two Impairment strength Web Design Specialist Goal (LTG) 5/5 UE strength (B) to allow return to rec activities LTG Duration 02/21/18- excellent progress One Impairment ROM Short Term Goal (STG) Full PROM STG Duration achieved Web Design Specialist Goal (LTG) Full AROM to allow ability to normal activity LTG Duration 02/22/18-improving Assessment Summary Assessment Pt reported that her R shoulder moved better and further into flexion without pain after the mobilizations of her shoulder and scapular regions. The scapular region soft tissues and joint mobilizations improved the ant resting position of her shoudler and allowed the pt to passively posterior glide the R GH joint. Physical Therapy Plan Frequency and Duration Frequency of Treatment 2x/Week Plan of Care Start Date 12/22/17 Plan of Care End Date 02/21/18 Next Visit Focus/Plan Next Note Type Treatment Note Next Visit Plan reassess post depression of shoulder, work on stability and address causal factors of PARRY
--- NOTE | 2018-02-01 11:22 | PT.OTN ---
Current Diagnoses Pain in left shoulder (02/01/18) Strain of unspecified muscle, fascia and tendon at shoulder and upper arm level, left arm, initial encounter (02/01/18) Physical Therapy Treatment Note PT-OP-A Visit Information Start: 08/27/17 08:09 Freq: Status: Active Protocol: Document 02/01/18 10:45 [facility] (Rec: 02/01/18 11:14 [facility] [id number]) Out-Patient Physical Therapy Visit Information Visit Information Visit Type Treatment Note Visit Start Time 08:15 Visit Stop Time 09:00 Total Visit Minutes 45 Visit Number 45 Number of [employer]ER [employer]ES Visits 0 PT-OP-B Current Condition Start: 08/27/17 08:09 Freq: Status: Active Protocol: Document 08/27/17 16:56 [facility] (Rec: 08/27/17 17:07 [facility] [id number]) Current Condition History of Current Condition Current Complaints L shoulder pain History of Current Condition Pt had insideous onset of L shoulder pain in Apr and has done PT, chiro, massage & injections with relief only with injections, but started to go downhill 2 months after 3rd injection so was scheduled for RAJENDRA which was done 08/26/17. Pt has chronic neck & back pain. Pt reports allergic reaction to one of her pain meds so is getting new prescription tonight. Prior Treatments and Tests Has done PT, chiro & massage in past & had 2 neck injections & 3 shoulder injections & recent RAJENDRA Treatment Goals Patient/Caregiver Goals Dec pain & return to activity Prior Functional Status Baseline Function- ADL's Independent Current Functional Impairments (Reported) Functional Limitations- ADL's Difficulty with UE tasks d/t pain PT-OP-C Subjective Start: 08/27/17 08:09 Freq: Status: Active Protocol: Document 02/01/18 10:45 [facility] (Rec: 02/01/18 11:14 [facility] [id number]) OP-PT Subjective Patient Comments Patient Comments Pt reports she was compliance with stretching exercises this weekend. reports she has some neck tightenss in L UT region . PT-OP-J Posture/Palpation/Skin Start: 08/27/17 08:09 Freq: Status: Active Protocol: Document 08/27/17 14:31 [facility] (Rec: 08/27/17 15:24 [facility] [id number]) Posture Evaluation Comments Posture Comments moderate fwd head & shoulders Palpation Assessment Location One Palpation Location L shoulder Palpation Findings Soft Tissue Tightness Tenderness Palpation Details UT, Pec, LS, scalenes PT-OP-K Range of Motion Start: 08/27/17 08:09 Freq: Status: Active Protocol: Document 12/22/17 14:30 [facility] (Rec: 12/22/17 16:48 [facility] [id number]) Shoulder Goniometric Range of Motion Shoulder Measured in Degrees Left Active Flexion 160 Extension 50 Abduction 110 External Rotation at 90 degrees 80 Abduction Internal Rotation 30 Internal Rotation Behind Back (text) T9 PT-OP-M Strength Start: 08/27/17 08:09 Freq: Status: Active Protocol: Document 12/22/17 14:30 [facility] (Rec: 12/22/17 16:48 [facility] [id number]) Shoulder Strength Shoulder Manual Muscle Testing Right Flexion 5 Normal Extension 5 Normal Abduction (C5) 5 Normal Adduction 5 Normal External Rotation 5 Normal Internal Rotation 5 Normal Horizontal Abduction 4+ Good+ Horizontal Adduction 5 Normal Left Flexion 4+ Good+ Extension 4+ Good+ Abduction (C5) 4 Good Adduction 4+ Good+ External Rotation 4+ Good+ Internal Rotation 5 Normal Horizontal Abduction 4 Good Horizontal Adduction 4 Good PT-OP-Q Treatments Start: 08/27/17 08:09 Freq: Status: Active Protocol: Document 02/01/18 10:45 [facility] (Rec: 02/01/18 11:14 [facility] [id number]) Manual Therapy Treatment Soft Tissue Mobilization 4 Body Location SOR 1 Body Location UT, LS& scalenes, SOR, cervical parapsinals Mobilization Type Rolling Intensity/Depth Moderate Body Position Supine Manual Techniques 3 Type ant elevation AA progressed to concentric to COI Body Location R scapula 2 Type post depression AA to concentric COI Body Location R scapula 1 Type mass flex pattern Body Location R scapula PT-OP-R Modalities Start: 08/27/17 08:09 Freq: Status: Active Protocol: Document 01/27/18 14:37 [facility] (Rec: 01/27/18 14:54 ML [id number]) Spinal Traction Traction Treatment Cervical Method Static Patient Position Hooklying Force Applied (Pounds) 18 Duration of Treatment (Minutes) 10 Heating Pad Applied No PT-OP-T Assessment and Plan Start: 08/27/17 08:09 Freq: Status: Active Protocol: Document 02/01/18 10:45 [facility] (Rec: 02/01/18 11:14 [facility] [id number]) Physical Therapy Assessment Goals Four Impairment pain Care Home Goal (LTG) Pt will rate L shoulder pain as no greater than 2/10 without narcotics. LTG Duration 02/21/18-improving worst 4/10 Three Impairment DASH quick Claims Investigator Goal (LTG) 20 quick DASH LTG Duration 02/21/18 Two Impairment strength Claims Investigator Goal (LTG) 5/5 UE strength (B) to allow return to rec activities LTG Duration 02/21/18- excellent progress One Impairment ROM Short Term Goal (STG) Full PROM STG Duration achieved Care Home Goal (LTG) Full AROM to allow ability to normal activity LTG Duration 02/22/18-improving Assessment Summary Assessment Pt had improved breathing with dec use of cervical mm. No further pain sternally in R after COI and improved depression of R shoulder region. Cont tightness in R>L cervical spinal mm. Physical Therapy Plan Frequency and Duration Frequency of Treatment 2x/Week Plan of Care Start Date 12/22/17 Plan of Care End Date 02/21/18 Next Visit Focus/Plan Next Note Type Treatment Note Next Visit Plan post depression COI, cont to work on dec cervical mm activation during breathing. Mass flexion patterns of PNF
--- NOTE | 2018-02-04 09:30 | PT.OTN ---
Current Diagnoses Pain in left shoulder (02/04/18) Strain of unspecified muscle, fascia and tendon at shoulder and upper arm level, left arm, initial encounter (02/04/18) Physical Therapy Treatment Note PT-OP-A Visit Information Start: 08/27/17 08:09 Freq: Status: Active Protocol: Document 02/04/18 08:48 [facility] (Rec: 02/04/18 09:29 [facility] [id number]) Out-Patient Physical Therapy Visit Information Visit Information Visit Type Treatment Note Visit Start Time 07:30 Visit Stop Time 08:15 Total Visit Minutes 45 Visit Number 46 Number of THERMOGRAPH OPERATOR Visits 0 PT-OP-B Current Condition Start: 08/27/17 08:09 Freq: Status: Active Protocol: Document 08/27/17 16:56 [facility] (Rec: 08/27/17 17:07 [facility] [id number]) Current Condition History of Current Condition Current Complaints L shoulder pain History of Current Condition Pt had insideous onset of L shoulder pain in Apr and has done PT, chiro, massage & injections with relief only with injections, but started to go downhill 2 months after 3rd injection so was scheduled for RAJENDRA which was done 08/26/17. Pt has chronic neck & back pain. Pt reports allergic reaction to one of her pain meds so is getting new prescription tonight. Prior Treatments and Tests Has done PT, chiro & massage in past & had 2 neck injections & 3 shoulder injections & recent RAJENDRA Treatment Goals Patient/Caregiver Goals Dec pain & return to activity Prior Functional Status Baseline Function- ADL's Independent Current Functional Impairments (Reported) Functional Limitations- ADL's Difficulty with UE tasks d/t pain PT-OP-C Subjective Start: 08/27/17 08:09 Freq: Status: Active Protocol: Document 02/04/18 08:48 [facility] (Rec: 02/04/18 09:29 [facility] [id number]) OP-PT Subjective Patient Comments Patient Comments Pt reports she has tightness in L UT region today. Reports went to chiropractor on Thursday and it took a lot of work to get her to mobilize. Reports she has a little blurred vision this AM which is normal for her when she gets PARRY and is stressed. PT-OP-J Posture/Palpation/Skin Start: 08/27/17 08:09 Freq: Status: Active Protocol: Document 08/27/17 14:31 [facility] (Rec: 08/27/17 15:24 [facility] [id number]) Posture Evaluation Comments Posture Comments moderate fwd head & shoulders Palpation Assessment Location One Palpation Location L shoulder Palpation Findings Soft Tissue Tightness Tenderness Palpation Details UT, Pec, LS, scalenes PT-OP-K Range of Motion Start: 08/27/17 08:09 Freq: Status: Active Protocol: Document 12/22/17 14:30 [facility] (Rec: 12/22/17 16:48 [facility] [id number]) Shoulder Goniometric Range of Motion Shoulder Measured in Degrees Left Active Flexion 160 Extension 50 Abduction 110 External Rotation at 90 degrees 80 Abduction Internal Rotation 30 Internal Rotation Behind Back (text) T9 PT-OP-M Strength Start: 08/27/17 08:09 Freq: Status: Active Protocol: Document 12/22/17 14:30 [facility] (Rec: 12/22/17 16:48 [facility] [id number]) Shoulder Strength Shoulder Manual Muscle Testing Right Flexion 5 Normal Extension 5 Normal Abduction (C5) 5 Normal Adduction 5 Normal External Rotation 5 Normal Internal Rotation 5 Normal Horizontal Abduction 4+ Good+ Horizontal Adduction 5 Normal Left Flexion 4+ Good+ Extension 4+ Good+ Abduction (C5) 4 Good Adduction 4+ Good+ External Rotation 4+ Good+ Internal Rotation 5 Normal Horizontal Abduction 4 Good Horizontal Adduction 4 Good PT-OP-Q Treatments Start: 08/27/17 08:09 Freq: Status: Active Protocol: Document 02/04/18 08:48 [facility] (Rec: 02/04/18 09:29 [facility] [id number]) Manual Therapy Treatment Soft Tissue Mobilization 1 Body Location UT, LS& scalenes, SOR, cervical parapsinals Mobilization Type Rolling Intensity/Depth Moderate Body Position Supine Neuro Re-Education Treatment Other Activities mass trunk flexion Details L side 1 Details ant elevation/post depression COI then reversals Comments L side Self-Care/Home Management Treatment Activities Self-Care/Home Management Activities BP 118/78 and HR 68 PT-OP-R Modalities Start: 08/27/17 08:09 Freq: Status: Active Protocol: Document 01/27/18 14:37 ML (Rec: 01/27/18 14:54 ML [id number]) Spinal Traction Traction Treatment Cervical Method Static Patient Position Hooklying Force Applied (Pounds) 18 Duration of Treatment (Minutes) 10 Heating Pad Applied No PT-OP-T Assessment and Plan Start: 08/27/17 08:09 Freq: Status: Active Protocol: Document 02/04/18 08:48 [facility] (Rec: 02/04/18 09:29 [facility] [id number]) Physical Therapy Assessment Assessment Summary Assessment Pt encouraged to monitor change in vision and report to MD if it does not improve as it typically does. Vitals are within normal limits. Cont tightness in cervical paraspinals. Pt was able to get good scapular engagement thoughout work through PNF patterns. Physical Therapy Plan Frequency and Duration Frequency of Treatment 2x/Week Plan of Care Start Date 12/22/17 Plan of Care End Date 02/21/18 Next Visit Focus/Plan Next Note Type Treatment Note Next Visit Plan quadruped for scapular stability
--- NOTE | 2018-02-16 08:31 | PT.OTN ---
Current Diagnoses Pain in left shoulder (02/16/18) Strain of unspecified muscle, fascia and tendon at shoulder and upper arm level, left arm, initial encounter (02/16/18) Physical Therapy Treatment Note PT-OP-A Visit Information Start: 08/27/17 08:09 Freq: Status: Active Protocol: Document 02/16/18 07:30 AMB (Rec: 02/16/18 08:27 AMB [email or web address]) Out-Patient Physical Therapy Visit Information Visit Information Visit Start Time 07:30 Visit Stop Time 08:20 Total Visit Minutes 55 Visit Number 47 PT-OP-B Current Condition Start: 08/27/17 08:09 Freq: Status: Active Protocol: Document 08/27/17 16:56 [facility] (Rec: 08/27/17 17:07 [facility] [id number]) Current Condition History of Current Condition Current Complaints L shoulder pain History of Current Condition Pt had insideous onset of L shoulder pain in Apr and has done PT, chiro, massage & injections with relief only with injections, but started to go downhill 2 months after 3rd injection so was scheduled for RAJENDRA which was done 08/26/17. Pt has chronic neck & back pain. Pt reports allergic reaction to one of her pain meds so is getting new prescription tonight. Prior Treatments and Tests Has done PT, chiro & massage in past & had 2 neck injections & 3 shoulder injections & recent RAJENDRA Treatment Goals Patient/Caregiver Goals Dec pain & return to activity Prior Functional Status Baseline Function- ADL's Independent Current Functional Impairments (Reported) Functional Limitations- ADL's Difficulty with UE tasks d/t pain PT-OP-C Subjective Start: 08/27/17 08:09 Freq: Status: Active Protocol: Document 02/16/18 07:30 AMB (Rec: 02/16/18 08:27 AMB [id number]) OP-PT Subjective Patient Comments Patient Comments Pt returns from vacation. Went to the chiropractor yesterday, feeling tightness in L UT and parascapular region today. PT-OP-J Posture/Palpation/Skin Start: 08/27/17 08:09 Freq: Status: Active Protocol: Document 08/27/17 14:31 [facility] (Rec: 08/27/17 15:24 [facility] [id number]) Posture Evaluation Comments Posture Comments moderate fwd head & shoulders Palpation Assessment Location One Palpation Location L shoulder Palpation Findings Soft Tissue Tightness Tenderness Palpation Details UT, Pec, LS, scalenes PT-OP-K Range of Motion Start: 08/27/17 08:09 Freq: Status: Active Protocol: Document 12/22/17 14:30 [facility] (Rec: 12/22/17 16:48 [facility] [id number]) Shoulder Goniometric Range of Motion Shoulder Measured in Degrees Left Active Flexion 160 Extension 50 Abduction 110 External Rotation at 90 degrees 80 Abduction Internal Rotation 30 Internal Rotation Behind Back (text) T9 PT-OP-M Strength Start: 08/27/17 08:09 Freq: Status: Active Protocol: Document 12/22/17 14:30 [facility] (Rec: 12/22/17 16:48 [facility] [id number]) Shoulder Strength Shoulder Manual Muscle Testing Right Flexion 5 Normal Extension 5 Normal Abduction (C5) 5 Normal Adduction 5 Normal External Rotation 5 Normal Internal Rotation 5 Normal Horizontal Abduction 4+ Good+ Horizontal Adduction 5 Normal Left Flexion 4+ Good+ Extension 4+ Good+ Abduction (C5) 4 Good Adduction 4+ Good+ External Rotation 4+ Good+ Internal Rotation 5 Normal Horizontal Abduction 4 Good Horizontal Adduction 4 Good PT-OP-Q Treatments Start: 08/27/17 08:09 Freq: Status: Active Protocol: Document 02/16/18 07:30 AMB (Rec: 02/16/18 08:27 AMB [email or web address]) Manual Therapy Treatment Soft Tissue Mobilization 6 Body Location medial scapular muscles Body Position Sidelying Comments soft tissue release underneath and along the medial scapular boarder; w/deep breathing and CR 3 Body Location ant clavicle/sternal region Mobilization Type Myofascial Release Comments Along 1st rib 1 Body Location UT, LS& scalenes, SOR, cervical parapsinals Mobilization Type Rolling Intensity/Depth Moderate Body Position Supine PT-OP-R Modalities Start: 08/27/17 08:09 Freq: Status: Active Protocol: Document 01/27/18 14:37 ML (Rec: 01/27/18 14:54 ML [id number]) Spinal Traction Traction Treatment Cervical Method Static Patient Position Hooklying Force Applied (Pounds) 18 Duration of Treatment (Minutes) 10 Heating Pad Applied No PT-OP-T Assessment and Plan Start: 08/27/17 08:09 Freq: Status: Active Protocol: Document 02/16/18 07:30 AMB (Rec: 02/16/18 08:27 AMB [id number]) Physical Therapy Assessment Assessment Summary Assessment Pt will need progress note next visit, stiffness continues, shoulder pain can radiate into deltoid but not past elbow. Physical Therapy Plan Next Visit Focus/Plan Next Note Type Progress Note Next Visit Plan quadruped for scapular stability
--- NOTE | 2018-02-18 13:50 | PT.OTN ---
Current Diagnoses Pain in left shoulder (02/18/18) Strain of unspecified muscle, fascia and tendon at shoulder and upper arm level, left arm, initial encounter (02/18/18) Physical Therapy Treatment Note PT-OP-A Visit Information Start: 08/27/17 08:09 Freq: Status: Active Protocol: Document 02/18/18 13:35 [facility] (Rec: 02/18/18 13:50 [facility] [id number]) Out-Patient Physical Therapy Visit Information Visit Information Visit Type Treatment Note Visit Start Time 11:20 Visit Stop Time 12:20 Total Visit Minutes 60 Visit Number 48 Number of STEM LEAD FORMER Visits 0 PT-OP-B Current Condition Start: 08/27/17 08:09 Freq: Status: Active Protocol: Document 08/27/17 16:56 [facility] (Rec: 08/27/17 17:07 [facility] [id number]) Current Condition History of Current Condition Current Complaints L shoulder pain History of Current Condition Pt had insideous onset of L shoulder pain in Apr and has done PT, chiro, massage & injections with relief only with injections, but started to go downhill 2 months after 3rd injection so was scheduled for RAJENDRA which was done 08/26/17. Pt has chronic neck & back pain. Pt reports allergic reaction to one of her pain meds so is getting new prescription tonight. Prior Treatments and Tests Has done PT, chiro & massage in past & had 2 neck injections & 3 shoulder injections & recent RAJENDRA Treatment Goals Patient/Caregiver Goals Dec pain & return to activity Prior Functional Status Baseline Function- ADL's Independent Current Functional Impairments (Reported) Functional Limitations- ADL's Difficulty with UE tasks d/t pain PT-OP-C Subjective Start: 08/27/17 08:09 Freq: Status: Active Protocol: Document 02/18/18 13:35 [facility] (Rec: 02/18/18 13:50 [facility] [id number]) OP-PT Subjective Patient Comments Patient Comments Pt reports tension in 1st rib region & shoulder has been achey. PARRY today. Daily HAs. Patient Questionnaires Quick Dash- Upper Extremity Quick Dash UE Score 34.09 Quick Dash UE Impairment 20 to 39% Impaired (Score 20- 39) PT-OP-J Posture/Palpation/Skin Start: 08/27/17 08:09 Freq: Status: Active Protocol: Document 08/27/17 14:31 [facility] (Rec: 08/27/17 15:24 [facility] [id number]) Posture Evaluation Comments Posture Comments moderate fwd head & shoulders Palpation Assessment Location One Palpation Location L shoulder Palpation Findings Soft Tissue Tightness Tenderness Palpation Details UT, Pec, LS, scalenes PT-OP-K Range of Motion Start: 08/27/17 08:09 Freq: Status: Active Protocol: Document 02/18/18 13:35 [facility] (Rec: 02/18/18 13:50 [facility] [id number]) Cervical Spine Range of Motion Cervical Spine Active Degrees Testing Position Sitting Flexion 23 Extension 21 Rotation Left 39 Rotation Right 32 Lateral Flexion Left 22 Lateral Flexion Right 25 Shoulder Goniometric Range of Motion Shoulder ROM Limitations Comments AROM cont to be mildly limited at end ranges PT-OP-M Strength Start: 08/27/17 08:09 Freq: Status: Active Protocol: Document 02/18/18 13:35 [facility] (Rec: 02/18/18 13:50 [facility] [id number]) Shoulder Strength Shoulder Manual Muscle Testing Right Flexion 5 Normal Extension 5 Normal Abduction (C5) 5 Normal External Rotation 5 Normal Internal Rotation 5 Normal Left Flexion 4 Good Extension 4+ Good+ Abduction (C5) 4 Good External Rotation 4 Good Internal Rotation 5 Normal PT-OP-Q Treatments Start: 08/27/17 08:09 Freq: Status: Active Protocol: Document 02/18/18 13:35 [facility] (Rec: 02/18/18 13:50 [facility] [id number]) Therapeutic Exercises Sidelying Exercises 2 Sidelying Exercise Name abd Side left Comments w/ focus on joint distraction Standing Exercises 16 Standing Exercise Name shoulder ext Side bilateral Reps/Minutes 20 Comments focus on scap position 15 Standing Exercise Name B ER Side bilateral Reps/Minutes 10 Comments focus on scap position 14 Standing Exercise Name B flex with retraction Side bilateral Reps/Minutes 10 Comments in mirror Therapeutic Activity Therapeutic Activity standing posture Name work on standing position Manual Therapy Treatment Soft Tissue Mobilization 4 Body Location SOR 3 Body Location ant clavicle/sternal region Mobilization Type Myofascial Release Comments Along 1st rib 1 Body Location UT, LS& scalenes, SOR, cervical parapsinals Mobilization Type Rolling Intensity/Depth Moderate Body Position Supine Joint Mobilizations 7 Joint 1st rib Direction caudal Comments FM w/ SB PT-OP-R Modalities Start: 08/27/17 08:09 Freq: Status: Active Protocol: Document 02/18/18 13:35 [facility] (Rec: 02/18/18 13:50 [facility] [id number]) Hot Pack/Cold Pack Treatment Hot Pack Location cervical, L shoulder & thoracolumbar Patient Position Hooklying Treatment Duration (minutes) 15 PT-OP-T Assessment and Plan Start: 08/27/17 08:09 Freq: Status: Active Protocol: Document 02/18/18 13:35 [facility] (Rec: 02/18/18 13:50 [facility] [id number]) Physical Therapy Assessment Impairments Impairments Activity Tolerance Functional Activities Pain Posture ROM Soft Tissue Mobility Strength Goals PARRY Impairment Daily PARRY 5/10 average & up to 9/10 Short Term Goal (STG) PARRY to no more than 3/10 STG Duration 03/20/18 Greenskeeper Goal (LTG) PARRY to no more than 1x/week. LTG Duration 04/20/18 Four Impairment pain Skilled Nursing Goal (LTG) Pt will rate L shoulder pain as no greater than 2/10 without narcotics. LTG Duration achieved Three Impairment DASH quick Greenskeeper Goal (LTG) 20 quick DASH LTG Duration 03/23/18-excellent Two Impairment strength Skilled Nursing Goal (LTG) 5/5 UE strength (B) to allow return to rec activities LTG Duration 04/23/18- excellent progress One Impairment ROM Short Term Goal (STG) Full PROM STG Duration achieved Greenskeeper Goal (LTG) Full AROM to allow ability to normal activity LTG Duration 04/24/18-improving Assessment Summary Assessment Pt cont to progress with her strength & ROM, but has been limited d/t neck & UT region pain creating daily PARRY. Pt is progressing with functional ability and overall shoulder pain level. Focused exercises on motions with tested weakness during MMT. Physical Therapy Plan Frequency and Duration Frequency of Treatment 1-2x/Week Plan of Care Start Date 02/18/18 Plan of Care End Date 04/20/18 Therapeutic Interventions Therapeutic Interventions Home Exercise Program Joint Mobilizations Manual Therapy Patient/Caregiver Education Soft Tissue Mobilization Taping Therapeutic Activities Therapeutic Exercises Modalities Cold Pack/Ice Massage Electric Stimulation Hot Packs Infrared Therapy Iontophoresis Traction- Mechanical Ultrasound
--- NOTE | 2018-02-18 13:50 | PT.OPPOC ---
Current Diagnoses Pain in left shoulder (02/18/18) Strain of unspecified muscle, fascia and tendon at shoulder and upper arm level, left arm, initial encounter (02/18/18) Provider Visit Care Team Role Provider Type Kirt Feliz MD Family Provider Physician Primary Care Provider Specialty: Family Practice Address: [address] [place] [address], [id number] Email: Pawel Shannon MD Attending Provider Non-Staff Specialty: Orthopedic Surgery Address: [address] [place] [address], [id number] Email: Plan Of Care PT-OP-T Assessment and Plan Start: 08/27/17 08:09 Freq: Status: Active Protocol: Document 02/18/18 13:35 [facility] (Rec: 02/18/18 13:50 [facility] [id number]) Physical Therapy Assessment Impairments Impairments Activity Tolerance Functional Activities Pain Posture ROM Soft Tissue Mobility Strength Goals PARRY Impairment Daily PARRY 5/10 average & up to 9/10 Short Term Goal (STG) PARRY to no more than 3/10 STG Duration 03/20/18 Care Home Goal (LTG) PARRY to no more than 1x/week. LTG Duration 04/20/18 Four Impairment pain Care Home Goal (LTG) Pt will rate L shoulder pain as no greater than 2/10 without narcotics. LTG Duration achieved Three Impairment DASH quick Systems Integrator Goal (LTG) 20 quick DASH LTG Duration 03/23/18-excellent Two Impairment strength Systems Integrator Goal (LTG) 5/5 UE strength (B) to allow return to rec activities LTG Duration 04/23/18- excellent progress One Impairment ROM Short Term Goal (STG) Full PROM STG Duration achieved Systems Integrator Goal (LTG) Full AROM to allow ability to normal activity LTG Duration 04/24/18-improving Assessment Summary Assessment Pt cont to progress with her strength & ROM, but has been limited d/t neck & UT region pain creating daily PARRY. Pt is progressing with functional ability and overall shoulder pain level. Focused exercises on motions with tested weakness during MMT. Physical Therapy Plan Frequency and Duration Frequency of Treatment 1-2x/Week Plan of Care Start Date 02/18/18 Plan of Care End Date 04/20/18 Therapeutic Interventions Therapeutic Interventions Home Exercise Program Joint Mobilizations Manual Therapy Patient/Caregiver Education Soft Tissue Mobilization Taping Therapeutic Activities Therapeutic Exercises Modalities Cold Pack/Ice Massage Electric Stimulation Hot Packs Infrared Therapy Iontophoresis Traction- Mechanical Ultrasound Plan of Care Dates Plan of Care Start Date 02/18/18 Plan of Care End Date 04/20/18 Please Sign and Return: I have reviewed this Plan of Care and certify that the skilled therapy services above are required to meet the patient?s needs. Physician Signature Date Printed Name and Credentials Clinical Instructor Signature Printed Name and Credentials
--- NOTE | 2018-02-23 16:24 | PT.OTN ---
Current Diagnoses Pain in left shoulder (02/23/18) Strain of unspecified muscle, fascia and tendon at shoulder and upper arm level, left arm, initial encounter (02/23/18) Physical Therapy Treatment Note PT-OP-A Visit Information Start: 08/27/17 08:09 Freq: Status: Active Protocol: Document 02/23/18 12:17 ML (Rec: 02/23/18 12:24 ML [email or web address]) Out-Patient Physical Therapy Visit Information Visit Information Visit Type Treatment Note Visit Start Time 07:45 Visit Stop Time 08:30 Total Visit Minutes 45 Visit Number 49 Number of INSURANCE RISK SURVEYOR Visits 0 PT-OP-B Current Condition Start: 08/27/17 08:09 Freq: Status: Active Protocol: Document 08/27/17 16:56 [facility] (Rec: 08/27/17 17:07 LR [email or web address]) Current Condition History of Current Condition Current Complaints L shoulder pain History of Current Condition Pt had insideous onset of L shoulder pain in Apr and has done PT, chiro, massage & injections with relief only with injections, but started to go downhill 2 months after 3rd injection so was scheduled for RAJENDRA which was done 08/26/17. Pt has chronic neck & back pain. Pt reports allergic reaction to one of her pain meds so is getting new prescription tonight. Prior Treatments and Tests Has done PT, chiro & massage in past & had 2 neck injections & 3 shoulder injections & recent RAJENDRA Treatment Goals Patient/Caregiver Goals Dec pain & return to activity Prior Functional Status Baseline Function- ADL's Independent Current Functional Impairments (Reported) Functional Limitations- ADL's Difficulty with UE tasks d/t pain PT-OP-C Subjective Start: 08/27/17 08:09 Freq: Status: Active Protocol: Document 02/23/18 12:17 ML (Rec: 02/23/18 12:24 ML [email or web address]) OP-PT Subjective Patient Comments Patient Comments Pt reports having a massage on her vacation and resting that allowed her to play 18 holes of golf. PT-OP-J Posture/Palpation/Skin Start: 08/27/17 08:09 Freq: Status: Active Protocol: Document 08/27/17 14:31 [facility] (Rec: 08/27/17 15:24 LR [id number]) Posture Evaluation Comments Posture Comments moderate fwd head & shoulders Palpation Assessment Location One Palpation Location L shoulder Palpation Findings Soft Tissue Tightness Tenderness Palpation Details UT, Pec, LS, scalenes PT-OP-K Range of Motion Start: 08/27/17 08:09 Freq: Status: Active Protocol: Document 02/18/18 13:35 [facility] (Rec: 02/18/18 13:50 [facility] [email or web address]) Cervical Spine Range of Motion Cervical Spine Active Degrees Testing Position Sitting Flexion 23 Extension 21 Rotation Left 39 Rotation Right 32 Lateral Flexion Left 22 Lateral Flexion Right 25 Shoulder Goniometric Range of Motion Shoulder ROM Limitations Comments AROM cont to be mildly limited at end ranges PT-OP-M Strength Start: 08/27/17 08:09 Freq: Status: Active Protocol: Document 02/18/18 13:35 [facility] (Rec: 02/18/18 13:50 [facility] [email or web address]) Shoulder Strength Shoulder Manual Muscle Testing Right Flexion 5 Normal Extension 5 Normal Abduction (C5) 5 Normal External Rotation 5 Normal Internal Rotation 5 Normal Left Flexion 4 Good Extension 4+ Good+ Abduction (C5) 4 Good External Rotation 4 Good Internal Rotation 5 Normal PT-OP-Q Treatments Start: 08/27/17 08:09 Freq: Status: Active Protocol: Document 02/23/18 12:17 ML (Rec: 02/23/18 12:24 ML [email or web address]) Therapeutic Exercises Standing Exercises 16 Standing Exercise Name shoulder ext Side bilateral Reps/Minutes 20 Comments focus on scap position 15 Standing Exercise Name B ER Side bilateral Reps/Minutes 10 Comments focus on scap position Manual Therapy Treatment Soft Tissue Mobilization 5 Body Location coracobrachialis Mobilization Type Rolling Sustained Pressure 2 Body Location pectoralis region Mobilization Type Rolling Sustained Pressure Comments near coracoid process 1 Body Location UT, LS& scalenes, SOR, cervical parapsinals Mobilization Type Rolling Intensity/Depth Moderate Body Position Supine Joint Mobilizations 1 Joint T3-8 Direction PA PT-OP-R Modalities Start: 08/27/17 08:09 Freq: Status: Active Protocol: Document 02/18/18 13:35 [facility] (Rec: 02/18/18 13:50 [facility] [email or web address]) Hot Pack/Cold Pack Treatment Hot Pack Location cervical, L shoulder & thoracolumbar Patient Position Hooklying Treatment Duration (minutes) 15 PT-OP-T Assessment and Plan Start: 08/27/17 08:09 Freq: Status: Active Protocol: Document 02/23/18 12:17 ML (Rec: 02/23/18 12:24 ML [email or web address]) Physical Therapy Assessment Goals PARRY Impairment Daily PARRY 5/10 average & up to 9/10 Short Term Goal (STG) PARRY to no more than 3/10 STG Duration 03/20/18 Half-Way Goal (LTG) PARRY to no more than 1x/week. LTG Duration 04/20/18 Four Impairment pain Half-Way Goal (LTG) Pt will rate L shoulder pain as no greater than 2/10 without narcotics. LTG Duration achieved Three Impairment DASH quick Business Continuity Manager Goal (LTG) 20 quick DASH LTG Duration 03/23/18-excellent Two Impairment strength Business Continuity Manager Goal (LTG) 5/5 UE strength (B) to allow return to rec activities LTG Duration 04/23/18- excellent progress One Impairment ROM Short Term Goal (STG) Full PROM STG Duration achieved Business Continuity Manager Goal (LTG) Full AROM to allow ability to normal activity LTG Duration 04/24/18-improving Assessment Summary Assessment Pt reported to PT with questions on her HEP which were reviewed. Restrictions into motion were addressed with manual treatment and had decreased by the end of treatment. Physical Therapy Plan Frequency and Duration Frequency of Treatment 1-2x/Week Plan of Care Start Date 02/18/18 Plan of Care End Date 04/20/18 Next Visit Focus/Plan Next Note Type Treatment Note Next Visit Plan soft tissue prn, exercise review prn, quadruped for scapular stability
--- NOTE | 2018-02-26 15:59 | PT.OTN ---
Current Diagnoses Pain in left shoulder (02/26/18) Strain of unspecified muscle, fascia and tendon at shoulder and upper arm level, left arm, initial encounter (02/26/18) Physical Therapy Treatment Note PT-OP-A Visit Information Start: 08/27/17 08:09 Freq: Status: Active Protocol: Document 02/26/18 15:30 ML (Rec: 02/26/18 15:44 ML [id number]) Out-Patient Physical Therapy Visit Information Visit Information Visit Type Treatment Note Visit Start Time 14:35 Visit Stop Time 15:25 Total Visit Minutes 50 Visit Number 50 Number of RODENT EXTERMINATOR Visits 0 PT-OP-B Current Condition Start: 08/27/17 08:09 Freq: Status: Active Protocol: Document 08/27/17 16:56 [facility] (Rec: 08/27/17 17:07 LR [email or web address]) Current Condition History of Current Condition Current Complaints L shoulder pain History of Current Condition Pt had insideous onset of L shoulder pain in Apr and has done PT, chiro, massage & injections with relief only with injections, but started to go downhill 2 months after 3rd injection so was scheduled for RAJENDRA which was done 08/26/17. Pt has chronic neck & back pain. Pt reports allergic reaction to one of her pain meds so is getting new prescription tonight. Prior Treatments and Tests Has done PT, chiro & massage in past & had 2 neck injections & 3 shoulder injections & recent RAJENDRA Treatment Goals Patient/Caregiver Goals Dec pain & return to activity Prior Functional Status Baseline Function- ADL's Independent Current Functional Impairments (Reported) Functional Limitations- ADL's Difficulty with UE tasks d/t pain PT-OP-C Subjective Start: 08/27/17 08:09 Freq: Status: Active Protocol: Document 02/26/18 15:30 ML (Rec: 02/26/18 15:44 ML [id number]) OP-PT Subjective Patient Comments Patient Comments Pt reports noticing that she doesn't breathe through her diaphragm throughout the day and had a question on one of her HEP exercises. PT-OP-J Posture/Palpation/Skin Start: 08/27/17 08:09 Freq: Status: Active Protocol: Document 08/27/17 14:31 [facility] (Rec: 08/27/17 15:24 LR [id number]) Posture Evaluation Comments Posture Comments moderate fwd head & shoulders Palpation Assessment Location One Palpation Location L shoulder Palpation Findings Soft Tissue Tightness Tenderness Palpation Details UT, Pec, LS, scalenes PT-OP-K Range of Motion Start: 08/27/17 08:09 Freq: Status: Active Protocol: Document 02/18/18 13:35 [facility] (Rec: 02/18/18 13:50 [facility] [email or web address]) Cervical Spine Range of Motion Cervical Spine Active Degrees Testing Position Sitting Flexion 23 Extension 21 Rotation Left 39 Rotation Right 32 Lateral Flexion Left 22 Lateral Flexion Right 25 Shoulder Goniometric Range of Motion Shoulder ROM Limitations Comments AROM cont to be mildly limited at end ranges PT-OP-M Strength Start: 08/27/17 08:09 Freq: Status: Active Protocol: Document 02/18/18 13:35 [facility] (Rec: 02/18/18 13:50 [facility] [email or web address]) Shoulder Strength Shoulder Manual Muscle Testing Right Flexion 5 Normal Extension 5 Normal Abduction (C5) 5 Normal External Rotation 5 Normal Internal Rotation 5 Normal Left Flexion 4 Good Extension 4+ Good+ Abduction (C5) 4 Good External Rotation 4 Good Internal Rotation 5 Normal PT-OP-Q Treatments Start: 08/27/17 08:09 Freq: Status: Active Protocol: Document 02/26/18 15:30 ML (Rec: 02/26/18 15:44 ML [id number]) Therapeutic Exercises Supine Exercises 9 Supine Exercise Name diaphragmatic breathing Resistance gravity or wt Comments trendelenberg position instructed at home on couch w/ feet up& trunk cushion Standing Exercises 14 Standing Exercise Name B flex with retraction Side bilateral Reps/Minutes 10 Comments in mirror; just focused on postureand retraction through exercise Manual Therapy Treatment Soft Tissue Mobilization 7 Body Location diaphragm Mobilization Type Myofascial Release Sustained Pressure Intensity/Depth Moderate Body Position Supine Comments assisted with deep breathing, L side only Neuro Re-Education Treatment Other Activities 3 Details quick release Comments sternum with deep breathing 2 Details quick stretch of diaphragm Comments deep breathing; done in supine , sitting, and standing PT-OP-R Modalities Start: 08/27/17 08:09 Freq: Status: Active Protocol: Document 02/18/18 13:35 [facility] (Rec: 02/18/18 13:50 [facility] [email or web address]) Hot Pack/Cold Pack Treatment Hot Pack Location cervical, L shoulder & thoracolumbar Patient Position Hooklying Treatment Duration (minutes) 15 PT-OP-T Assessment and Plan Start: 08/27/17 08:09 Freq: Status: Active Protocol: Document 02/26/18 15:30 ML (Rec: 02/26/18 15:44 ML [id number]) Physical Therapy Assessment Goals PARRY Impairment Daily PARRY 5/10 average & up to 9/10 Short Term Goal (STG) PARRY to no more than 3/10 STG Duration 03/20/18 Penitentiary Goal (LTG) PARRY to no more than 1x/week. LTG Duration 04/20/18 Four Impairment pain Penitentiary Goal (LTG) Pt will rate L shoulder pain as no greater than 2/10 without narcotics. LTG Duration achieved Three Impairment DASH quick Penitentiary Goal (LTG) 20 quick DASH LTG Duration 03/23/18-excellent Two Impairment strength Penitentiary Goal (LTG) 5/5 UE strength (B) to allow return to rec activities LTG Duration 04/23/18- excellent progress One Impairment ROM Short Term Goal (STG) Full PROM STG Duration achieved Slat Pickler Goal (LTG) Full AROM to allow ability to normal activity LTG Duration 04/24/18-improving Assessment Summary Assessment Pt continued to require lots of cueing for the flexion exercise with scapular retraction. Cues for appropriate posture to not engage UT, and only focusing on the retraction isolation without back extension. Pt was more tight than her last visit in her diaphragm on the L side and required more re- training to breathe through her diaphragm. The pt improved both components with manual and neuro re-ed. Physical Therapy Plan Frequency and Duration Frequency of Treatment 1-2x/Week Plan of Care Start Date 02/18/18 Plan of Care End Date 04/20/18 Next Visit Focus/Plan Next Note Type Treatment Note Next Visit Plan soft tissue prn, review needed exercises, work on breathing and use of pelvic floor through breathing, check diaphragm tightness, scap stability in quadruped
--- NOTE | 2018-03-02 17:24 | PT.OTN ---
Current Diagnoses Pain in left shoulder (03/02/18) Strain of unspecified muscle, fascia and tendon at shoulder and upper arm level, left arm, initial encounter (03/02/18) Physical Therapy Treatment Note PT-OP-A Visit Information Start: 08/27/17 08:09 Freq: Status: Active Protocol: Document 03/02/18 11:06 ML (Rec: 03/02/18 11:12 ML [id number]) Out-Patient Physical Therapy Visit Information Visit Information Visit Type Treatment Note Visit Start Time 09:47 Visit Stop Time 10:32 Total Visit Minutes 45 Visit Number 51 Number of ATTENDANT COIN OPERATED LAUNDRY Visits 0 PT-OP-B Current Condition Start: 08/27/17 08:09 Freq: Status: Active Protocol: Document 08/27/17 16:56 [facility] (Rec: 08/27/17 17:07 [facility] [email or web address]) Current Condition History of Current Condition Current Complaints L shoulder pain History of Current Condition Pt had insideous onset of L shoulder pain in Apr and has done PT, chiro, massage & injections with relief only with injections, but started to go downhill 2 months after 3rd injection so was scheduled for RAJENDRA which was done 08/26/17. Pt has chronic neck & back pain. Pt reports allergic reaction to one of her pain meds so is getting new prescription tonight. Prior Treatments and Tests Has done PT, chiro & massage in past & had 2 neck injections & 3 shoulder injections & recent RAJENDRA Treatment Goals Patient/Caregiver Goals Dec pain & return to activity Prior Functional Status Baseline Function- ADL's Independent Current Functional Impairments (Reported) Functional Limitations- ADL's Difficulty with UE tasks d/t pain PT-OP-C Subjective Start: 08/27/17 08:09 Freq: Status: Active Protocol: Document 03/02/18 11:06 ML (Rec: 03/02/18 11:12 ML [id number]) OP-PT Subjective Patient Comments Patient Comments Pt reports her HEP adjustments have been going well and that her L shoulder to her neck have been bothering her. PT-OP-J Posture/Palpation/Skin Start: 08/27/17 08:09 Freq: Status: Active Protocol: Document 08/27/17 14:31 [facility] (Rec: 08/27/17 15:24 [facility] [id number]) Posture Evaluation Comments Posture Comments moderate fwd head & shoulders Palpation Assessment Location One Palpation Location L shoulder Palpation Findings Soft Tissue Tightness Tenderness Palpation Details UT, Pec, LS, scalenes PT-OP-K Range of Motion Start: 08/27/17 08:09 Freq: Status: Active Protocol: Document 02/18/18 13:35 [facility] (Rec: 02/18/18 13:50 [facility] [email or web address]) Cervical Spine Range of Motion Cervical Spine Active Degrees Testing Position Sitting Flexion 23 Extension 21 Rotation Left 39 Rotation Right 32 Lateral Flexion Left 22 Lateral Flexion Right 25 Shoulder Goniometric Range of Motion Shoulder ROM Limitations Comments AROM cont to be mildly limited at end ranges PT-OP-M Strength Start: 08/27/17 08:09 Freq: Status: Active Protocol: Document 02/18/18 13:35 [facility] (Rec: 02/18/18 13:50 [facility] [email or web address]) Shoulder Strength Shoulder Manual Muscle Testing Right Flexion 5 Normal Extension 5 Normal Abduction (C5) 5 Normal External Rotation 5 Normal Internal Rotation 5 Normal Left Flexion 4 Good Extension 4+ Good+ Abduction (C5) 4 Good External Rotation 4 Good Internal Rotation 5 Normal PT-OP-Q Treatments Start: 08/27/17 08:09 Freq: Status: Active Protocol: Document 03/02/18 11:06 ML (Rec: 03/02/18 11:12 ML [id number]) Manual Therapy Treatment Soft Tissue Mobilization 8 Body Location ant and med deltoid Comments L only 4 Body Location SOR 1 Body Location UT, LS& scalenes, SOR, cervical parapsinals Mobilization Type Rolling Intensity/Depth Moderate Body Position Supine Comments L only Joint Mobilizations 7 Joint 1st rib Direction caudal Comments L only; FM w/ SB PT-OP-R Modalities Start: 08/27/17 08:09 Freq: Status: Active Protocol: Document 02/18/18 13:35 [facility] (Rec: 02/18/18 13:50 [facility] [email or web address]) Hot Pack/Cold Pack Treatment Hot Pack Location cervical, L shoulder & thoracolumbar Patient Position Hooklying Treatment Duration (minutes) 15 PT-OP-T Assessment and Plan Start: 08/27/17 08:09 Freq: Status: Active Protocol: Document 03/02/18 11:06 ML (Rec: 03/02/18 11:12 ML [id number]) Physical Therapy Assessment Goals PARRY Impairment Daily PARRY 5/10 average & up to 9/10 Short Term Goal (STG) PARRY to no more than 3/10 STG Duration 03/20/18 Shelter Goal (LTG) PARRY to no more than 1x/week. LTG Duration 04/20/18 Four Impairment pain Associate Manager Affiliate Marketing Goal (LTG) Pt will rate L shoulder pain as no greater than 2/10 without narcotics. LTG Duration achieved Three Impairment DASH quick Associate Manager Affiliate Marketing Goal (LTG) 20 quick DASH LTG Duration 03/23/18-excellent Two Impairment strength Shelter Goal (LTG) 5/5 UE strength (B) to allow return to rec activities LTG Duration 04/23/18- excellent progress One Impairment ROM Short Term Goal (STG) Full PROM STG Duration achieved Associate Manager Affiliate Marketing Goal (LTG) Full AROM to allow ability to normal activity LTG Duration 04/24/18-improving Assessment Summary Assessment Pt was able to perform her HEP exercise with modifications from last visit with only minor adjustments. Pt is still unable to perform appropriately with adding in a resistance band. Pt was very tight on her L side where indicated, but improved with manual therapy. Pt noted that the deltoid tightness was causing pain with change of positions at night, but improved the soft tissue tightness with soft tissue mobilizations. Physical Therapy Plan Frequency and Duration Frequency of Treatment 1-2x/Week Plan of Care Start Date 02/18/18 Plan of Care End Date 04/20/18 Next Visit Focus/Plan Next Note Type Treatment Note Next Visit Plan soft tissue prn, review needed exercises, work on breathing and use of pelvic floor through breathing, check diaphragm tightness, scap stability in quadruped
--- NOTE | 2018-03-09 08:23 | PT.OTN ---
Current Diagnoses Pain in left shoulder (03/04/18) Strain of unspecified muscle, fascia and tendon at shoulder and upper arm level, left arm, initial encounter (03/04/18) Physical Therapy Treatment Note PT-OP-A Visit Information Start: 08/27/17 08:09 Freq: Status: Active Protocol: Document 03/04/18 12:40 ML (Rec: 03/04/18 12:47 ML [email or web address]) Out-Patient Physical Therapy Visit Information Visit Information Visit Type Treatment Note Visit Start Time 08:15 Visit Stop Time 09:15 Total Visit Minutes 60 Visit Number 52 Number of SYSTEM SOFTWARE PROGRAMMER Visits 0 PT-OP-B Current Condition Start: 08/27/17 08:09 Freq: Status: Active Protocol: Document 08/27/17 16:56 [facility] (Rec: 08/27/17 17:07 [facility] [email or web address]) Current Condition History of Current Condition Current Complaints L shoulder pain History of Current Condition Pt had insideous onset of L shoulder pain in Apr and has done PT, chiro, massage & injections with relief only with injections, but started to go downhill 2 months after 3rd injection so was scheduled for RAJENDRA which was done 08/26/17. Pt has chronic neck & back pain. Pt reports allergic reaction to one of her pain meds so is getting new prescription tonight. Prior Treatments and Tests Has done PT, chiro & massage in past & had 2 neck injections & 3 shoulder injections & recent RAJENDRA Treatment Goals Patient/Caregiver Goals Dec pain & return to activity Prior Functional Status Baseline Function- ADL's Independent Current Functional Impairments (Reported) Functional Limitations- ADL's Difficulty with UE tasks d/t pain PT-OP-C Subjective Start: 08/27/17 08:09 Freq: Status: Active Protocol: Document 03/04/18 12:40 ML (Rec: 03/04/18 12:47 ML [email or web address]) OP-PT Subjective Patient Comments Patient Comments Pt reported that she went to the chiropractor yesterday and is feeling pretty well today other than some muscular tightness. PT-OP-J Posture/Palpation/Skin Start: 08/27/17 08:09 Freq: Status: Active Protocol: Document 08/27/17 14:31 [facility] (Rec: 08/27/17 15:24 LR [id number]) Posture Evaluation Comments Posture Comments moderate fwd head & shoulders Palpation Assessment Location One Palpation Location L shoulder Palpation Findings Soft Tissue Tightness Tenderness Palpation Details UT, Pec, LS, scalenes PT-OP-K Range of Motion Start: 08/27/17 08:09 Freq: Status: Active Protocol: Document 02/18/18 13:35 LR (Rec: 02/18/18 13:50 LR [email or web address]) Cervical Spine Range of Motion Cervical Spine Active Degrees Testing Position Sitting Flexion 23 Extension 21 Rotation Left 39 Rotation Right 32 Lateral Flexion Left 22 Lateral Flexion Right 25 Shoulder Goniometric Range of Motion Shoulder ROM Limitations Comments AROM cont to be mildly limited at end ranges PT-OP-M Strength Start: 08/27/17 08:09 Freq: Status: Active Protocol: Document 02/18/18 13:35 [facility] (Rec: 02/18/18 13:50 [facility] [email or web address]) Shoulder Strength Shoulder Manual Muscle Testing Right Flexion 5 Normal Extension 5 Normal Abduction (C5) 5 Normal External Rotation 5 Normal Internal Rotation 5 Normal Left Flexion 4 Good Extension 4+ Good+ Abduction (C5) 4 Good External Rotation 4 Good Internal Rotation 5 Normal PT-OP-Q Treatments Start: 08/27/17 08:09 Freq: Status: Active Protocol: Document 03/04/18 12:40 ML (Rec: 03/04/18 12:47 ML [email or web address]) Therapeutic Exercises Supine Exercises 12 Supine Exercise Name scap retraction Resistance none and band Comments tactile feedback of mat table; terminated band due to inability to perform 11 Supine Exercise Name pelvic floor contraction Comments instructed to hold for 10 seconds; with diaphragmatic breathing; HEP 10 Supine Exercise Name TrA contraction Comments w/diaphragmatic breathing; instructed to do at home Manual Therapy Treatment Soft Tissue Mobilization 1 Body Location UT, LS& scalenes, SOR, cervical parapsinals Mobilization Type Rolling Intensity/Depth Moderate Body Position Supine Comments L only PT-OP-R Modalities Start: 08/27/17 08:09 Freq: Status: Active Protocol: Document 03/04/18 12:40 ML (Rec: 03/04/18 12:47 ML [email or web address]) Hot Pack/Cold Pack Treatment Hot Pack Location cervical, L shoulder & thoracolumbar Patient Position Hooklying Treatment Duration (minutes) 15 PT-OP-T Assessment and Plan Start: 08/27/17 08:09 Freq: Status: Active Protocol: Document 03/04/18 12:40 ML (Rec: 03/04/18 12:47 ML [email or web address]) Physical Therapy Assessment Goals PARRY Impairment Daily PARRY 5/10 average & up to 9/10 Short Term Goal (STG) PARRY to no more than 3/10 STG Duration 03/20/18 Halfway Goal (LTG) PARRY to no more than 1x/week. LTG Duration 04/20/18 Four Impairment pain Halfway Goal (LTG) Pt will rate L shoulder pain as no greater than 2/10 without narcotics. LTG Duration achieved Three Impairment DASH quick Halfway Goal (LTG) 20 quick DASH LTG Duration 03/23/18-excellent Two Impairment strength Halfway Goal (LTG) 5/5 UE strength (B) to allow return to rec activities LTG Duration 04/23/18- excellent progress One Impairment ROM Short Term Goal (STG) Full PROM STG Duration achieved Halfway Goal (LTG) Full AROM to allow ability to normal activity LTG Duration 04/24/18-improving Assessment Summary Assessment Pt reported to PT more mobile than most days after going to the chiropractor, although still presented with muscle tightness. Pt still lacks ability to perform scapular retraction with any resistance , but has improved her control without a band. Pt indicates that she lack core control and ability to breath through her diaphragm which was addressed with pelvic floor and TrA activation while continuing to breathe through diaphragm. This training and exercise instructions were involved in treatment in order to improve patient's ability to improve her diaphragmatic breathing in order to dec the use of her accessory breathing muscles to dec the tension of her cervical spine. Physical Therapy Plan Frequency and Duration Frequency of Treatment 1-2x/Week Plan of Care Start Date 02/18/18 Plan of Care End Date 04/20/18 Next Visit Focus/Plan Next Note Type Treatment Note Next Visit Plan soft tissue prn, review needed exercises, review breathing and use of pelvic floor through breathing, check diaphragm tightness, scap stability in quadruped
--- NOTE | 2018-03-17 18:27 | PT.OTN ---
Current Diagnoses Pain in left shoulder (03/17/18) Strain of unspecified muscle, fascia and tendon at shoulder and upper arm level, left arm, initial encounter (03/17/18) Physical Therapy Treatment Note PT-OP-A Visit Information Start: 08/27/17 08:09 Freq: Status: Active Protocol: Document 03/17/18 18:19 ML (Rec: 03/17/18 18:25 ML [id number]) Out-Patient Physical Therapy Visit Information Visit Information Visit Type Treatment Note Visit Start Time 16:00 Visit Stop Time 16:47 Total Visit Minutes 47 Visit Number 53 Number of STRESS ANALYST Visits 0 PT-OP-B Current Condition Start: 08/27/17 08:09 Freq: Status: Active Protocol: Document 08/27/17 16:56 LR (Rec: 08/27/17 17:07 [facility] [email or web address]) Current Condition History of Current Condition Current Complaints L shoulder pain History of Current Condition Pt had insideous onset of L shoulder pain in Apr and has done PT, chiro, massage & injections with relief only with injections, but started to go downhill 2 months after 3rd injection so was scheduled for RAJENDRA which was done 08/26/17. Pt has chronic neck & back pain. Pt reports allergic reaction to one of her pain meds so is getting new prescription tonight. Prior Treatments and Tests Has done PT, chiro & massage in past & had 2 neck injections & 3 shoulder injections & recent RAJENDRA Treatment Goals Patient/Caregiver Goals Dec pain & return to activity Prior Functional Status Baseline Function- ADL's Independent Current Functional Impairments (Reported) Functional Limitations- ADL's Difficulty with UE tasks d/t pain PT-OP-C Subjective Start: 08/27/17 08:09 Freq: Status: Active Protocol: Document 03/17/18 18:19 ML (Rec: 03/17/18 18:25 ML [id number]) OP-PT Subjective Patient Comments Patient Comments Pt reports that she did not have many headaches while on vacation, except when she had a fever, but did not get to many of her exercises during her vacation either due to be being sick. She said she was able to do supine exercises. PT-OP-J Posture/Palpation/Skin Start: 08/27/17 08:09 Freq: Status: Active Protocol: Document 08/27/17 14:31 [facility] (Rec: 08/27/17 15:24 [facility] [id number]) Posture Evaluation Comments Posture Comments moderate fwd head & shoulders Palpation Assessment Location One Palpation Location L shoulder Palpation Findings Soft Tissue Tightness Tenderness Palpation Details UT, Pec, LS, scalenes PT-OP-K Range of Motion Start: 08/27/17 08:09 Freq: Status: Active Protocol: Document 02/18/18 13:35 [facility] (Rec: 02/18/18 13:50 [facility] [email or web address]) Cervical Spine Range of Motion Cervical Spine Active Degrees Testing Position Sitting Flexion 23 Extension 21 Rotation Left 39 Rotation Right 32 Lateral Flexion Left 22 Lateral Flexion Right 25 Shoulder Goniometric Range of Motion Shoulder ROM Limitations Comments AROM cont to be mildly limited at end ranges PT-OP-M Strength Start: 08/27/17 08:09 Freq: Status: Active Protocol: Document 02/18/18 13:35 [facility] (Rec: 02/18/18 13:50 [facility] [email or web address]) Shoulder Strength Shoulder Manual Muscle Testing Right Flexion 5 Normal Extension 5 Normal Abduction (C5) 5 Normal External Rotation 5 Normal Internal Rotation 5 Normal Left Flexion 4 Good Extension 4+ Good+ Abduction (C5) 4 Good External Rotation 4 Good Internal Rotation 5 Normal PT-OP-Q Treatments Start: 08/27/17 08:09 Freq: Status: Active Protocol: Document 03/17/18 18:19 ML (Rec: 03/17/18 18:25 ML [id number]) Manual Therapy Treatment Soft Tissue Mobilization 3 Body Location post deltoid Mobilization Type Myofascial Release Rolling Intensity/Depth Moderate Body Position Sitting Comments bilat 2 Body Location pectoralis region Mobilization Type Rolling Sustained Pressure Comments L only; near coracoid process 1 Body Location UT, LS& scalenes, SOR, cervical parapsinals Mobilization Type Rolling Intensity/Depth Moderate Body Position Sitting Comments bilat Joint Mobilizations 3 Joint AC Body Position Sidelying Comments with CR of UE to assist 2 Joint L shoulder Direction inf and post Body Position Supine Comments CR to assist of UE PT-OP-R Modalities Start: 08/27/17 08:09 Freq: Status: Active Protocol: Document 03/04/18 12:40 ML (Rec: 03/04/18 12:47 ML [email or web address]) Hot Pack/Cold Pack Treatment Hot Pack Location cervical, L shoulder & thoracolumbar Patient Position Hooklying Treatment Duration (minutes) 15 PT-OP-T Assessment and Plan Start: 08/27/17 08:09 Freq: Status: Active Protocol: Document 03/17/18 18:19 ML (Rec: 03/17/18 18:25 ML [id number]) Physical Therapy Assessment Goals PARRY Impairment Daily PARRY 5/10 average & up to 9/10 Short Term Goal (STG) PARRY to no more than 3/10 STG Duration 03/20/18 Correction Goal (LTG) PARRY to no more than 1x/week. LTG Duration 04/20/18 Four Impairment pain Grain Spouter Goal (LTG) Pt will rate L shoulder pain as no greater than 2/10 without narcotics. LTG Duration achieved Three Impairment DASH quick Grain Spouter Goal (LTG) 20 quick DASH LTG Duration 03/23/18-excellent Two Impairment strength Correction Goal (LTG) 5/5 UE strength (B) to allow return to rec activities LTG Duration 04/23/18- excellent progress One Impairment ROM Short Term Goal (STG) Full PROM STG Duration achieved Grain Spouter Goal (LTG) Full AROM to allow ability to normal activity LTG Duration 04/24/18-improving Assessment Summary Assessment Pt reports to PT after going to the chiropractor in which he adjsuted her back and neck. Pt had significant tightness R>L which was addressed manually. Pt's UE motion on L was also limited more than usual, which was also addressed manually. Pt's headaches dec with no work indicate a component of work stress contributing to head aches. Physical Therapy Plan Frequency and Duration Frequency of Treatment 1-2x/Week Plan of Care Start Date 02/18/18 Plan of Care End Date 04/20/18 Next Visit Focus/Plan Next Note Type Treatment Note Next Visit Plan check desk, soft tissue prn, review needed exercises, review breathing and use of pelvic floor through breathing , check diaphragm tightness, scap stability in quadruped
--- NOTE | 2018-03-19 15:55 | PT.OTN ---
Current Diagnoses Pain in left shoulder (03/19/18) Strain of unspecified muscle, fascia and tendon at shoulder and upper arm level, left arm, initial encounter (03/19/18) Physical Therapy Treatment Note PT-OP-A Visit Information Start: 08/27/17 08:09 Freq: Status: Active Protocol: Document 03/19/18 07:24 ML (Rec: 03/19/18 08:17 ML [id number]) Out-Patient Physical Therapy Visit Information Visit Information Visit Type Treatment Note Visit Start Time 07:30 Visit Stop Time 08:40 Total Visit Minutes 70 Visit Number 54 Number of B2B APPOINTMENT SETTER Visits 0 PT-OP-B Current Condition Start: 08/27/17 08:09 Freq: Status: Active Protocol: Document 08/27/17 16:56 [facility] (Rec: 08/27/17 17:07 LR [email or web address]) Current Condition History of Current Condition Current Complaints L shoulder pain History of Current Condition Pt had insideous onset of L shoulder pain in Apr and has done PT, chiro, massage & injections with relief only with injections, but started to go downhill 2 months after 3rd injection so was scheduled for RAJENDRA which was done 08/26/17. Pt has chronic neck & back pain. Pt reports allergic reaction to one of her pain meds so is getting new prescription tonight. Prior Treatments and Tests Has done PT, chiro & massage in past & had 2 neck injections & 3 shoulder injections & recent RAJENDRA Treatment Goals Patient/Caregiver Goals Dec pain & return to activity Prior Functional Status Baseline Function- ADL's Independent Current Functional Impairments (Reported) Functional Limitations- ADL's Difficulty with UE tasks d/t pain PT-OP-C Subjective Start: 08/27/17 08:09 Freq: Status: Active Protocol: Document 03/19/18 07:24 ML (Rec: 03/19/18 10:06 ML [id number]) OP-PT Subjective Patient Comments Patient Comments Pt reports that she woke with a headache today. PT-OP-J Posture/Palpation/Skin Start: 08/27/17 08:09 Freq: Status: Active Protocol: Document 08/27/17 14:31 [facility] (Rec: 08/27/17 15:24 LR [id number]) Posture Evaluation Comments Posture Comments moderate fwd head & shoulders Palpation Assessment Location One Palpation Location L shoulder Palpation Findings Soft Tissue Tightness Tenderness Palpation Details UT, Pec, LS, scalenes PT-OP-K Range of Motion Start: 08/27/17 08:09 Freq: Status: Active Protocol: Document 02/18/18 13:35 [facility] (Rec: 02/18/18 13:50 LR [email or web address]) Cervical Spine Range of Motion Cervical Spine Active Degrees Testing Position Sitting Flexion 23 Extension 21 Rotation Left 39 Rotation Right 32 Lateral Flexion Left 22 Lateral Flexion Right 25 Shoulder Goniometric Range of Motion Shoulder ROM Limitations Comments AROM cont to be mildly limited at end ranges PT-OP-M Strength Start: 08/27/17 08:09 Freq: Status: Active Protocol: Document 02/18/18 13:35 LR (Rec: 02/18/18 13:50 [facility] [email or web address]) Shoulder Strength Shoulder Manual Muscle Testing Right Flexion 5 Normal Extension 5 Normal Abduction (C5) 5 Normal External Rotation 5 Normal Internal Rotation 5 Normal Left Flexion 4 Good Extension 4+ Good+ Abduction (C5) 4 Good External Rotation 4 Good Internal Rotation 5 Normal PT-OP-Q Treatments Start: 08/27/17 08:09 Freq: Status: Active Protocol: Document 03/19/18 07:24 ML (Rec: 03/19/18 08:17 ML [id number]) Manual Therapy Treatment Soft Tissue Mobilization 5 Body Location cervical paraspinals Mobilization Type Myofascial Release Rolling Sustained Pressure Intensity/Depth Moderate Body Position Hooklying Comments assisted with chin tuck 4 Body Location SOR Joint Mobilizations 6 Joint C1 TP R Direction R->L Body Position Sidelying Comments assisted with chin tuck 5 Joint C2 TP R Direction PA Body Position Hooklying Comments assisted with chin tuck PT-OP-R Modalities Start: 08/27/17 08:09 Freq: Status: Active Protocol: Document 03/19/18 07:24 ML (Rec: 03/19/18 08:17 ML [id number]) Hot Pack/Cold Pack Treatment Hot Pack Location cervical, L shoulder & thoracolumbar Patient Position Hooklying Treatment Duration (minutes) 15 Spinal Traction Traction Treatment Cervical Method Mechanical Patient Position Hooklying Force Applied (Pounds) 18 Duration of Treatment (Minutes) 10 PT-OP-T Assessment and Plan Start: 08/27/17 08:09 Freq: Status: Active Protocol: Document 03/19/18 07:24 ML (Rec: 03/19/18 08:17 ML [id number]) Physical Therapy Assessment Goals PARRY Impairment Daily PARRY 5/10 average & up to 9/10 Short Term Goal (STG) PARRY to no more than 3/10 STG Duration 03/20/18 [facility] Goal (LTG) PARRY to no more than 1x/week. LTG Duration 04/20/18 Four Impairment pain Energy And Conservation Technician Goal (LTG) Pt will rate L shoulder pain as no greater than 2/10 without narcotics. LTG Duration achieved Three Impairment DASH quick [facility] Goal (LTG) 20 quick DASH LTG Duration 03/23/18-excellent Two Impairment strength [facility] Goal (LTG) 5/5 UE strength (B) to allow return to rec activities LTG Duration 04/23/18- excellent progress One Impairment ROM Short Term Goal (STG) Full PROM STG Duration achieved Energy And Conservation Technician Goal (LTG) Full AROM to allow ability to normal activity LTG Duration 04/24/18-improving Assessment Summary Assessment Pt's headache was addressed manually today. Pt was rotated and sheared mostly to her R through her upper cervical spine, and was rotated L through her lower cervical spine. Joint mobilizations and soft tissue release were done as tolerated by pt. Pt did improve her cervical alignment , and reported that her headache was a bit less than when she came in. Physical Therapy Plan Frequency and Duration Frequency of Treatment 1-2x/Week Plan of Care Start Date 02/18/18 Plan of Care End Date 04/20/18 Next Visit Focus/Plan Next Note Type Treatment Note Next Visit Plan soft tissue prn, review needed exercises, scap stability in quadruped
--- NOTE | 2018-03-23 11:10 | PT.OTN ---
Current Diagnoses Pain in left shoulder (03/23/18) Strain of unspecified muscle, fascia and tendon at shoulder and upper arm level, left arm, initial encounter (03/23/18) Physical Therapy Treatment Note PT-OP-A Visit Information Start: 08/27/17 08:09 Freq: Status: Active Protocol: Document 03/23/18 12:00 [facility] (Rec: 03/24/18 08:10 [facility] [id number]) Out-Patient Physical Therapy Visit Information Visit Information Visit Type Treatment Note Visit Start Time 09:50 Visit Stop Time 10:30 Total Visit Minutes 40 Visit Number 55 Number of PAWN SHOP KEEPER Visits 0 PT-OP-B Current Condition Start: 08/27/17 08:09 Freq: Status: Active Protocol: Document 08/27/17 16:56 [facility] (Rec: 08/27/17 17:07 [facility] [id number]) Current Condition History of Current Condition Current Complaints L shoulder pain History of Current Condition Pt had insideous onset of L shoulder pain in Apr and has done PT, chiro, massage & injections with relief only with injections, but started to go downhill 2 months after 3rd injection so was scheduled for RAJENDRA which was done 08/26/17. Pt has chronic neck & back pain. Pt reports allergic reaction to one of her pain meds so is getting new prescription tonight. Prior Treatments and Tests Has done PT, chiro & massage in past & had 2 neck injections & 3 shoulder injections & recent RAJENDRA Treatment Goals Patient/Caregiver Goals Dec pain & return to activity Prior Functional Status Baseline Function- ADL's Independent Current Functional Impairments (Reported) Functional Limitations- ADL's Difficulty with UE tasks d/t pain PT-OP-C Subjective Start: 08/27/17 08:09 Freq: Status: Active Protocol: Document 03/23/18 12:00 [facility] (Rec: 03/24/18 08:10 [facility] [email or web address]) OP-PT Subjective Patient Comments Patient Comments Reports she woke with a PARRY this AM and was able to relieve it with stretching. PT-OP-J Posture/Palpation/Skin Start: 08/27/17 08:09 Freq: Status: Active Protocol: Document 08/27/17 14:31 [facility] (Rec: 08/27/17 15:24 [facility] [id number]) Posture Evaluation Comments Posture Comments moderate fwd head & shoulders Palpation Assessment Location One Palpation Location L shoulder Palpation Findings Soft Tissue Tightness Tenderness Palpation Details UT, Pec, LS, scalenes PT-OP-K Range of Motion Start: 08/27/17 08:09 Freq: Status: Active Protocol: Document 02/18/18 13:35 [facility] (Rec: 02/18/18 13:50 [facility] [id number]) Cervical Spine Range of Motion Cervical Spine Active Degrees Testing Position Sitting Flexion 23 Extension 21 Rotation Left 39 Rotation Right 32 Lateral Flexion Left 22 Lateral Flexion Right 25 Shoulder Goniometric Range of Motion Shoulder ROM Limitations Comments AROM cont to be mildly limited at end ranges PT-OP-M Strength Start: 08/27/17 08:09 Freq: Status: Active Protocol: Document 02/18/18 13:35 [facility] (Rec: 02/18/18 13:50 [facility] [email or web address]) Shoulder Strength Shoulder Manual Muscle Testing Right Flexion 5 Normal Extension 5 Normal Abduction (C5) 5 Normal External Rotation 5 Normal Internal Rotation 5 Normal Left Flexion 4 Good Extension 4+ Good+ Abduction (C5) 4 Good External Rotation 4 Good Internal Rotation 5 Normal PT-OP-Q Treatments Start: 08/27/17 08:09 Freq: Status: Active Protocol: Document 03/23/18 12:00 [facility] (Rec: 03/24/18 08:10 [facility] [email or web address]) Therapeutic Exercises Standing Exercises 16 Standing Exercise Name scapular retraction progressed to Habd Equipment Used Lvl 1 band Therapeutic Activity Therapeutic Activity standing posture Comments edu on positioning for desk Manual Therapy Treatment Soft Tissue Mobilization 2 Body Location pectoralis region Mobilization Type Rolling Sustained Pressure Comments L only; near coracoid process & inf to clavicle Joint Mobilizations 1 Joint thoracic Comments general PA in sitting and prone FM T3-7; T1-3 in sitting FM YOLY PT-OP-R Modalities Start: 08/27/17 08:09 Freq: Status: Active Protocol: Document 03/19/18 07:24 [facility] (Rec: 03/19/18 08:17 ML [id number]) Hot Pack/Cold Pack Treatment Hot Pack Location cervical, L shoulder & thoracolumbar Patient Position Hooklying Treatment Duration (minutes) 15 Spinal Traction Traction Treatment Cervical Method Mechanical Patient Position Hooklying Force Applied (Pounds) 18 Duration of Treatment (Minutes) 10 PT-OP-T Assessment and Plan Start: 08/27/17 08:09 Freq: Status: Active Protocol: Document 03/23/18 12:00 [facility] (Rec: 03/24/18 08:10 [facility] [email or web address]) Physical Therapy Assessment Goals PARRY Impairment Daily PARRY 5/10 average & up to 9/10 Short Term Goal (STG) PARRY to no more than 3/10 STG Duration 03/20/18 [facility] Goal (LTG) PARRY to no more than 1x/week. LTG Duration 04/20/18 Four Impairment pain Building Trades Instructor Goal (LTG) Pt will rate L shoulder pain as no greater than 2/10 without narcotics. LTG Duration achieved Three Impairment DASH quick [facility] Goal (LTG) 20 quick DASH LTG Duration 03/23/18-excellent Two Impairment strength [facility] Goal (LTG) 5/5 UE strength (B) to allow return to rec activities LTG Duration 04/23/18- excellent progress One Impairment ROM Short Term Goal (STG) Full PROM STG Duration achieved Building Trades Instructor Goal (LTG) Full AROM to allow ability to normal activity LTG Duration 04/24/18-improving Assessment Summary Assessment Pt was unable to get into good shoulder & neck posture today d/t restrictions in thoracic girdle which improved with manual treatment. Pt then educated on standing posture. Physical Therapy Plan Frequency and Duration Frequency of Treatment 1-2x/Week Plan of Care Start Date 02/18/18 Plan of Care End Date 04/20/18 Next Visit Focus/Plan Next Note Type Treatment Note Next Visit Plan scapular & cervical quadruped stability & work on ability to maintain postural stability
--- NOTE | 2018-03-26 09:38 | PT.OTN ---
Current Diagnoses Pain in left shoulder (03/26/18) Strain of unspecified muscle, fascia and tendon at shoulder and upper arm level, left arm, initial encounter (03/26/18) Physical Therapy Treatment Note PT-OP-A Visit Information Start: 08/27/17 08:09 Freq: Status: Active Protocol: Document 03/26/18 09:32 [facility] (Rec: 03/26/18 09:38 [facility] [email or web address]) Out-Patient Physical Therapy Visit Information Visit Information Visit Type Treatment Note Visit Start Time 09:00 Visit Stop Time 09:45 Total Visit Minutes 45 Visit Number 56 Number of TRAILER RENTAL CLERK Visits 0 PT-OP-B Current Condition Start: 08/27/17 08:09 Freq: Status: Active Protocol: Document 08/27/17 16:56 [facility] (Rec: 08/27/17 17:07 [facility] [email or web address]) Current Condition History of Current Condition Current Complaints L shoulder pain History of Current Condition Pt had insideous onset of L shoulder pain in Apr and has done PT, chiro, massage & injections with relief only with injections, but started to go downhill 2 months after 3rd injection so was scheduled for RAJENDRA which was done 08/26/17. Pt has chronic neck & back pain. Pt reports allergic reaction to one of her pain meds so is getting new prescription tonight. Prior Treatments and Tests Has done PT, chiro & massage in past & had 2 neck injections & 3 shoulder injections & recent RAJENDRA Treatment Goals Patient/Caregiver Goals Dec pain & return to activity Prior Functional Status Baseline Function- ADL's Independent Current Functional Impairments (Reported) Functional Limitations- ADL's Difficulty with UE tasks d/t pain PT-OP-C Subjective Start: 08/27/17 08:09 Freq: Status: Active Protocol: Document 03/26/18 09:32 [facility] (Rec: 03/26/18 09:38 [facility] [email or web address]) OP-PT Subjective Patient Comments Patient Comments Pt reports no PARRY this AM. Reports shoulder is sore PT-OP-J Posture/Palpation/Skin Start: 08/27/17 08:09 Freq: Status: Active Protocol: Document 08/27/17 14:31 [facility] (Rec: 08/27/17 15:24 [facility] [id number]) Posture Evaluation Comments Posture Comments moderate fwd head & shoulders Palpation Assessment Location One Palpation Location L shoulder Palpation Findings Soft Tissue Tightness Tenderness Palpation Details UT, Pec, LS, scalenes PT-OP-K Range of Motion Start: 08/27/17 08:09 Freq: Status: Active Protocol: Document 02/18/18 13:35 [facility] (Rec: 02/18/18 13:50 [facility] [email or web address]) Cervical Spine Range of Motion Cervical Spine Active Degrees Testing Position Sitting Flexion 23 Extension 21 Rotation Left 39 Rotation Right 32 Lateral Flexion Left 22 Lateral Flexion Right 25 Shoulder Goniometric Range of Motion Shoulder ROM Limitations Comments AROM cont to be mildly limited at end ranges PT-OP-M Strength Start: 08/27/17 08:09 Freq: Status: Active Protocol: Document 02/18/18 13:35 [facility] (Rec: 02/18/18 13:50 [facility] [email or web address]) Shoulder Strength Shoulder Manual Muscle Testing Right Flexion 5 Normal Extension 5 Normal Abduction (C5) 5 Normal External Rotation 5 Normal Internal Rotation 5 Normal Left Flexion 4 Good Extension 4+ Good+ Abduction (C5) 4 Good External Rotation 4 Good Internal Rotation 5 Normal PT-OP-Q Treatments Start: 08/27/17 08:09 Freq: Status: Active Protocol: Document 03/26/18 09:32 [facility] (Rec: 03/26/18 09:38 [facility] [email or web address]) Therapeutic Exercises Other Exercises 5 Other Exercise Name quadruped Comments stabilizing in neutral spine position 4 Other Exercise Name quadruped with shoulder scaption alt Reps/Minutes 10 Manual Therapy Treatment Soft Tissue Mobilization 7 Body Location ant brachium Mobilization Type Myofascial Release Rolling Body Position Hooklying 3 Body Location deltoid Mobilization Type Myofascial Release Rolling Intensity/Depth Moderate Body Position Sitting Comments L Joint Mobilizations 2 Joint L shoulder Direction inf and post glide & translations; distractions Body Position Supine Comments CR to assist of UE FM PT-OP-R Modalities Start: 08/27/17 08:09 Freq: Status: Active Protocol: Document 03/19/18 07:24 [facility] (Rec: 03/19/18 08:17 ML [id number]) Hot Pack/Cold Pack Treatment Hot Pack Location cervical, L shoulder & thoracolumbar Patient Position Hooklying Treatment Duration (minutes) 15 Spinal Traction Traction Treatment Cervical Method Mechanical Patient Position Hooklying Force Applied (Pounds) 18 Duration of Treatment (Minutes) 10 PT-OP-T Assessment and Plan Start: 08/27/17 08:09 Freq: Status: Active Protocol: Document 03/26/18 09:32 [facility] (Rec: 03/26/18 09:38 [facility] [email or web address]) Physical Therapy Assessment Goals PARRY Impairment Daily PRARY 5/10 average & up to 9/10 Short Term Goal (STG) PARRY to no more than 3/10 STG Duration 03/20/18 Project Engineering Director Goal (LTG) PARRY to no more than 1x/week. LTG Duration 04/20/18 Four Impairment pain Project Engineering Director Goal (LTG) Pt will rate L shoulder pain as no greater than 2/10 without narcotics. LTG Duration achieved Three Impairment DASH quick [facility] Goal (LTG) 20 quick DASH LTG Duration 03/23/18-excellent Two Impairment strength [facility] Goal (LTG) 5/5 UE strength (B) to allow return to rec activities LTG Duration 04/23/18- excellent progress One Impairment ROM Short Term Goal (STG) Full PROM STG Duration achieved Project Engineering Director Goal (LTG) Full AROM to allow ability to normal activity LTG Duration 04/24/18-improving Assessment Summary Assessment Pt has a lot of clicking with rotational movement indicating possible labral pathology. She improves range with mobilizations, but has impaired gliding of humerus with rotational movement. Physical Therapy Plan Frequency and Duration Frequency of Treatment 1-2x/Week Plan of Care Start Date 02/18/18 Plan of Care End Date 04/20/18 Next Visit Focus/Plan Next Note Type Treatment Note Next Visit Plan labral testing d/t clicking in her shoulder
--- NOTE | 2018-04-02 15:59 | PT.OTN ---
Current Diagnoses Pain in left shoulder (04/02/18) Strain of unspecified muscle, fascia and tendon at shoulder and upper arm level, left arm, initial encounter (04/02/18) Physical Therapy Treatment Note PT-OP-A Visit Information Start: 08/27/17 08:09 Freq: Status: Active Protocol: Document 04/02/18 15:50 [facility] (Rec: 04/02/18 15:59 [facility] [email or web address]) Out-Patient Physical Therapy Visit Information Visit Information Visit Type Treatment Note Visit Start Time 08:15 Visit Stop Time 08:57 Total Visit Minutes 42 Visit Number 57 Number of HOMEMAKER COMPANION Visits 0 PT-OP-B Current Condition Start: 08/27/17 08:09 Freq: Status: Active Protocol: Document 08/27/17 16:56 [facility] (Rec: 08/27/17 17:07 [facility] [email or web address]) Current Condition History of Current Condition Current Complaints L shoulder pain History of Current Condition Pt had insideous onset of L shoulder pain in Apr and has done PT, chiro, massage & injections with relief only with injections, but started to go downhill 2 months after 3rd injection so was scheduled for RAJENDRA which was done 08/26/17. Pt has chronic neck & back pain. Pt reports allergic reaction to one of her pain meds so is getting new prescription tonight. Prior Treatments and Tests Has done PT, chiro & massage in past & had 2 neck injections & 3 shoulder injections & recent RAJENDRA Treatment Goals Patient/Caregiver Goals Dec pain & return to activity Prior Functional Status Baseline Function- ADL's Independent Current Functional Impairments (Reported) Functional Limitations- ADL's Difficulty with UE tasks d/t pain PT-OP-C Subjective Start: 08/27/17 08:09 Freq: Status: Active Protocol: Document 04/02/18 15:50 [facility] (Rec: 04/02/18 15:59 [facility] [email or web address]) OP-PT Subjective Patient Comments Patient Comments Pt reports she has a small PARRY this AM. PT-OP-J Posture/Palpation/Skin Start: 08/27/17 08:09 Freq: Status: Active Protocol: Document 08/27/17 14:31 [facility] (Rec: 08/27/17 15:24 [facility] [id number]) Posture Evaluation Comments Posture Comments moderate fwd head & shoulders Palpation Assessment Location One Palpation Location L shoulder Palpation Findings Soft Tissue Tightness Tenderness Palpation Details UT, Pec, LS, scalenes PT-OP-K Range of Motion Start: 08/27/17 08:09 Freq: Status: Active Protocol: Document 02/18/18 13:35 [facility] (Rec: 02/18/18 13:50 [facility] [email or web address]) Cervical Spine Range of Motion Cervical Spine Active Degrees Testing Position Sitting Flexion 23 Extension 21 Rotation Left 39 Rotation Right 32 Lateral Flexion Left 22 Lateral Flexion Right 25 Shoulder Goniometric Range of Motion Shoulder ROM Limitations Comments AROM cont to be mildly limited at end ranges PT-OP-M Strength Start: 08/27/17 08:09 Freq: Status: Active Protocol: Document 02/18/18 13:35 [facility] (Rec: 02/18/18 13:50 [facility] [email or web address]) Shoulder Strength Shoulder Manual Muscle Testing Right Flexion 5 Normal Extension 5 Normal Abduction (C5) 5 Normal External Rotation 5 Normal Internal Rotation 5 Normal Left Flexion 4 Good Extension 4+ Good+ Abduction (C5) 4 Good External Rotation 4 Good Internal Rotation 5 Normal PT-OP-Q Treatments Start: 08/27/17 08:09 Freq: Status: Active Protocol: Document 04/02/18 15:50 [facility] (Rec: 04/02/18 15:59 [facility] [email or web address]) Therapeutic Exercises Other Exercises 1 Other Exercise Name Anterior Slie test, O'katey, christina, bicept tension, biceps load tests perform Reps/Minutes only Christina test and Biceps load test positive and positive Speeds Comments Slap prehension, pain provocation, compression rotation & resisted sup ER Manual Therapy Treatment Soft Tissue Mobilization 5 Body Location cervical paraspinals Mobilization Type Myofascial Release Rolling Sustained Pressure Intensity/Depth Moderate Body Position Hooklying Comments assisted with chin tuck 4 Body Location SOR 1 Body Location UT, LS& scalenes, SOR, cervical parapsinals Mobilization Type Rolling Intensity/Depth Moderate Body Position Sitting Comments bilat Joint Mobilizations 7 Joint 1st rib Direction caudal 1 Joint thoracic Comments T1-3 in sitting FM LUPA & Transverse R PT-OP-R Modalities Start: 08/27/17 08:09 Freq: Status: Active Protocol: Document 03/19/18 07:24 [facility] (Rec: 03/19/18 08:17 ML [id number]) Hot Pack/Cold Pack Treatment Hot Pack Location cervical, L shoulder & thoracolumbar Patient Position Hooklying Treatment Duration (minutes) 15 Spinal Traction Traction Treatment Cervical Method Mechanical Patient Position Hooklying Force Applied (Pounds) 18 Duration of Treatment (Minutes) 10 PT-OP-T Assessment and Plan Start: 08/27/17 08:09 Freq: Status: Active Protocol: Document 04/02/18 15:50 [facility] (Rec: 04/02/18 15:59 [facility] [email or web address]) Physical Therapy Assessment Goals PARRY Impairment Daily PARRY 5/10 average & up to 9/10 Short Term Goal (STG) PARRY to no more than 3/10 STG Duration 03/20/18 Detention Goal (LTG) PARRY to no more than 1x/week. LTG Duration 04/20/18 Four Impairment pain Detention Goal (LTG) Pt will rate L shoulder pain as no greater than 2/10 without narcotics. 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 Pt had ant tightness around clavicle and 1st rib that improved with STM and thoracic mobs. 2/9 labral tests positive, but testing likely positive d/t more likely biceps tendonopathy d/t christina test and Bicep load test being the only positive tests. Physical Therapy Plan Frequency and Duration Frequency of Treatment 1-2x/Week Plan of Care Start Date 02/18/18 Plan of Care End Date 04/20/18 Next Visit Focus/Plan Next Note Type Treatment Note Next Visit Plan ROM and strength testing
--- NOTE | 2018-04-05 10:32 | PT.OTN ---
Current Diagnoses Pain in left shoulder (04/05/18) Strain of unspecified muscle, fascia and tendon at shoulder and upper arm level, left arm, initial encounter (04/05/18) Physical Therapy Treatment Note PT-OP-A Visit Information Start: 08/27/17 08:09 Freq: Status: Active Protocol: Document 04/05/18 09:47 [facility] (Rec: 04/05/18 10:32 [facility] [id number]) Out-Patient Physical Therapy Visit Information Visit Information Visit Type Treatment Note Visit Start Time 09:45 Visit Stop Time 10:40 Total Visit Minutes 55 Visit Number 58 Number of SUTURE POLISHER Visits 0 PT-OP-B Current Condition Start: 08/27/17 08:09 Freq: Status: Active Protocol: Document 08/27/17 16:56 [facility] (Rec: 08/27/17 17:07 [facility] [id number]) Current Condition History of Current Condition Current Complaints L shoulder pain History of Current Condition Pt had insideous onset of L shoulder pain in Apr and has done PT, chiro, massage & injections with relief only with injections, but started to go downhill 2 months after 3rd injection so was scheduled for RAJENDRA which was done 08/26/17. Pt has chronic neck & back pain. Pt reports allergic reaction to one of her pain meds so is getting new prescription tonight. Prior Treatments and Tests Has done PT, chiro & massage in past & had 2 neck injections & 3 shoulder injections & recent RAJENDRA Treatment Goals Patient/Caregiver Goals Dec pain & return to activity Prior Functional Status Baseline Function- ADL's Independent Current Functional Impairments (Reported) Functional Limitations- ADL's Difficulty with UE tasks d/t pain PT-OP-C Subjective Start: 08/27/17 08:09 Freq: Status: Active Protocol: Document 04/05/18 09:47 [facility] (Rec: 04/05/18 10:32 [facility] [id number]) OP-PT Subjective Patient Comments Patient Comments Pt reports L shoulder, neck & scapular region is very painful after doing aobut 15 min of sweeping. Reports she stood 1.5 hours for and had pain in R LB & feels like she is bruised between shoulder blades. PT-OP-J Posture/Palpation/Skin Start: 08/27/17 08:09 Freq: Status: Active Protocol: Document 08/27/17 14:31 [facility] (Rec: 08/27/17 15:24 [facility] [id number]) Posture Evaluation Comments Posture Comments moderate fwd head & shoulders Palpation Assessment Location One Palpation Location L shoulder Palpation Findings Soft Tissue Tightness Tenderness Palpation Details UT, Pec, LS, scalenes PT-OP-K Range of Motion Start: 08/27/17 08:09 Freq: Status: Active Protocol: Document 04/05/18 09:47 [facility] (Rec: 04/05/18 10:32 [facility] [id number]) Shoulder Goniometric Range of Motion Shoulder Measured in Degrees Left Active Testing Position Standing Flexion 137 Extension 50 Abduction 95 External Rotation at 90 degrees 75 Abduction Internal Rotation 12 Internal Rotation Behind Back (text) T12 Left Passive Testing Position Supine Flexion 164 Abduction 115 External Rotation at 90 degrees 80 Abduction Internal Rotation 65 Shoulder ROM Limitations Comments empty end feel for abd, tightness stops for all other motions PT-OP-M Strength Start: 08/27/17 08:09 Freq: Status: Active Protocol: Document 04/05/18 09:47 [facility] (Rec: 04/05/18 10:32 [facility] [id number]) Shoulder Strength Shoulder Manual Muscle Testing Right Flexion 5 Normal Extension 5 Normal Abduction (C5) 5 Normal Adduction 5 Normal External Rotation 4+ Good+ Internal Rotation 5 Normal Horizontal Abduction 5 Normal Horizontal Adduction 5 Normal Left Flexion 5 Normal Extension 4+ Good+ Abduction (C5) 3- Fair- Adduction 5 Normal External Rotation 4- Good- Internal Rotation 5 Normal Horizontal Abduction 4 Good Horizontal Adduction 4 Good Comments abduction fair d/t pt only able to go through 95 deg ROM; pain with all strength testing LUE PT-OP-Q Treatments Start: 08/27/17 08:09 Freq: Status: Active Protocol: Document 04/05/18 09:47 [facility] (Rec: 04/05/18 10:32 [facility] [id number]) Therapeutic Activity Therapeutic Activity sweeping Name sweeping Comments hip hinge, pivoting vs rotating back; scapular retraction & cervical retraction Manual Therapy Treatment Soft Tissue Mobilization 6 Body Location teres major/minor Mobilization Type Rolling 3 Body Location deltoid Mobilization Type Myofascial Release Rolling Intensity/Depth Moderate Body Position Sitting Comments L 2 Body Location pectoralis region Mobilization Type Rolling Sustained Pressure Comments L only; near coracoid process & inf to clavicle 1 Body Location UT, LS& scalenes, SOR, cervical parapsinals Mobilization Type Rolling Intensity/Depth Moderate Body Position Sitting Comments bilat Joint Mobilizations 7 Joint 1st rib mob Direction caudal FM L Body Position Supine 6 Joint GH Direction distraction & post glide FM Body Position Supine 5 Joint scapulothoracic Direction inf & med Body Position Sidelying PT-OP-R Modalities Start: 08/27/17 08:09 Freq: Status: Active Protocol: Document 04/05/18 09:47 [facility] (Rec: 04/05/18 10:32 [facility] [id number]) Hot Pack/Cold Pack Treatment Hot Pack Location cervical, L shoulder & thoracolumbar Patient Position Hooklying Treatment Duration (minutes) 15 PT-OP-T Assessment and Plan Start: 08/27/17 08:09 Freq: Status: Active Protocol: Document 04/05/18 09:47 [facility] (Rec: 04/05/18 10:32 [facility] [id number]) Physical Therapy Assessment Goals PARRY Impairment Daily PARRY 5/10 average & up to 9/10 Short Term Goal (STG) PARRY to no more than 3/10 STG Duration 03/20/18 Fulfillment Representative Goal (LTG) PARRY to no more than 1x/week. LTG Duration 04/20/18 Four Impairment pain Fulfillment Representative Goal (LTG) Pt will rate L shoulder pain as no greater than 2/10 without narcotics. LTG Duration achieved Three Impairment DASH quick Halfway Goal (LTG) 20 quick DASH LTG Duration 03/23/18-excellent- limit with functional activities Two Impairment strength Halfway Goal (LTG) 5/5 UE strength (B) to allow return to rec activities LTG Duration 04/23/18- excellent progress- good RUE; some LUE limits One Impairment ROM Short Term Goal (STG) Full PROM STG Duration achieved Halfway Goal (LTG) Full AROM to allow ability to normal activity LTG Duration 04/24/18-improving Progress Towards Goals Progress Comments Pt is overall typically progressing with UE strength & ROM, but was significantly limited today after being painful from sweeping & standing extended. She is requiring cont edu for postural position & proper mechanics with activities. Assessment Summary Assessment Pt cont to have clicking and catching sensation with transition between IR & ER, but labral testing last session did not indicate likely labral tear. Pt had overall dec abd today with empty end feel passively. Physical Therapy Plan Frequency and Duration Frequency of Treatment 1-2x/Week Plan of Care Start Date 02/18/18 Plan of Care End Date 04/20/18 Next Visit Focus/Plan Next Note Type Treatment Note Next Visit Plan work on scapular retraction & supine abd and flex strength & IR mobility
--- NOTE | 2018-04-05 15:50 | PT.OPPN ---
Current Diagnoses Pain in left shoulder (04/07/18) Strain of unspecified muscle, fascia and tendon at shoulder and upper arm level, left arm, initial encounter (04/07/18) Physical Therapy Progress Note PT-OP-A Visit Information Start: 08/27/17 08:09 Freq: Status: Active Protocol: Document 04/05/18 09:47 [facility] (Rec: 04/05/18 10:32 [facility] [id number]) Out-Patient Physical Therapy Visit Information Visit Information Visit Type Treatment Note Visit Start Time 09:45 Visit Stop Time 10:40 Total Visit Minutes 55 Visit Number 58 Number of SCREW MACHINE SET UP OPERATOR Visits 0 PT-OP-B Current Condition Start: 08/27/17 08:09 Freq: Status: Active Protocol: Document 08/27/17 16:56 [facility] (Rec: 08/27/17 17:07 [facility] [id number]) Current Condition History of Current Condition Current Complaints L shoulder pain History of Current Condition Pt had insideous onset of L shoulder pain in Apr and has done PT, chiro, massage & injections with relief only with injections, but started to go downhill 2 months after 3rd injection so was scheduled for RAJENDRA which was done 08/26/17. Pt has chronic neck & back pain. Pt reports allergic reaction to one of her pain meds so is getting new prescription tonight. Prior Treatments and Tests Has done PT, chiro & massage in past & had 2 neck injections & 3 shoulder injections & recent RAJENDRA Treatment Goals Patient/Caregiver Goals Dec pain & return to activity Prior Functional Status Baseline Function- ADL's Independent Current Functional Impairments (Reported) Functional Limitations- ADL's Difficulty with UE tasks d/t pain PT-OP-C Subjective Start: 08/27/17 08:09 Freq: Status: Active Protocol: Document 04/05/18 09:47 [facility] (Rec: 04/05/18 10:32 [facility] [id number]) OP-PT Subjective Patient Comments Patient Comments Pt reports L shoulder, neck & scapular region is very painful after doing aobut 15 min of sweeping. Reports she stood 1.5 hours for and had pain in R LB & feels like she is bruised between shoulder blades. PT-OP-J Posture/Palpation/Skin Start: 08/27/17 08:09 Freq: Status: Active Protocol: Document 08/27/17 14:31 [facility] (Rec: 08/27/17 15:24 [facility] [id number]) Posture Evaluation Comments Posture Comments moderate fwd head & shoulders Palpation Assessment Location One Palpation Location L shoulder Palpation Findings Soft Tissue Tightness Tenderness Palpation Details UT, Pec, LS, scalenes PT-OP-K Range of Motion Start: 08/27/17 08:09 Freq: Status: Active Protocol: Document 04/05/18 09:47 [facility] (Rec: 04/05/18 10:32 [facility] [id number]) Shoulder Goniometric Range of Motion Shoulder Measured in Degrees Left Active Testing Position Standing Flexion 137 Extension 50 Abduction 95 External Rotation at 90 degrees 75 Abduction Internal Rotation 12 Internal Rotation Behind Back (text) T12 Left Passive Testing Position Supine Flexion 164 Abduction 115 External Rotation at 90 degrees 80 Abduction Internal Rotation 65 Shoulder ROM Limitations Comments empty end feel for abd, tightness stops for all other motions PT-OP-M Strength Start: 08/27/17 08:09 Freq: Status: Active Protocol: Document 04/05/18 09:47 [facility] (Rec: 04/05/18 10:32 [facility] [id number]) Shoulder Strength Shoulder Manual Muscle Testing Right Flexion 5 Normal Extension 5 Normal Abduction (C5) 5 Normal Adduction 5 Normal External Rotation 4+ Good+ Internal Rotation 5 Normal Horizontal Abduction 5 Normal Horizontal Adduction 5 Normal Left Flexion 5 Normal Extension 4+ Good+ Abduction (C5) 3- Fair- Adduction 5 Normal External Rotation 4- Good- Internal Rotation 5 Normal Horizontal Abduction 4 Good Horizontal Adduction 4 Good Comments abduction fair d/t pt only able to go through 95 deg ROM; pain with all strength testing LUE PT-OP-T Assessment and Plan Start: 08/27/17 08:09 Freq: Status: Active Protocol: Document 04/05/18 09:47 [facility] (Rec: 04/05/18 10:32 [facility] [id number]) Physical Therapy Assessment Goals PARRY Impairment Daily PARRY 5/10 average & up to 9/10 Short Term Goal (STG) PARRY to no more than 3/10 STG Duration 03/20/18 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 LTG Duration 04/20/18 Four Impairment pain Detention Goal (LTG) Pt will rate L shoulder pain as no greater than 2/10 without narcotics. LTG Duration achieved Three Impairment DASH quick Detention Goal (LTG) 20 quick DASH LTG Duration 03/23/18-excellent- limit with functional activities Two Impairment strength Truck Railroad [employer] Bus Motor Mechanic Goal (LTG) 5/5 UE strength (B) to allow return to rec activities LTG Duration 04/23/18- excellent progress- good RUE; some LUE limits One Impairment ROM Short Term Goal (STG) Full PROM STG Duration achieved Detention Goal (LTG) Full AROM to allow ability to normal activity LTG Duration 04/24/18-improving Progress Towards Goals Progress Comments Pt is overall typically progressing with UE strength & ROM, but was significantly limited today after being painful from sweeping & standing extended. She is requiring cont edu for postural position & proper mechanics with activities. Assessment Summary Assessment Pt cont to have clicking and catching sensation with transition between IR & ER, but labral testing last session did not indicate likely labral tear. Pt had overall dec abd today with empty end feel passively. Pt continues to have PARRY daily that is made worse with working. Pt neck pain and PARRY is likely d/t overuse of UT and postural stability. She has difficulty maintaining relaxed UT and neutral cervical positioning, but is compliant with HEP. Physical Therapy Plan Frequency and Duration Frequency of Treatment 1-2x/Week Plan of Care Start Date 02/18/18 Plan of Care End Date 04/20/18 Next Visit Focus/Plan Next Note Type Treatment Note Next Visit Plan work on scapular retraction & supine abd and flex strength & IR mobility
--- NOTE | 2018-04-07 15:58 | PT.OTN ---
Current Diagnoses Pain in left shoulder (04/07/18) Strain of unspecified muscle, fascia and tendon at shoulder and upper arm level, left arm, initial encounter (04/07/18) Physical Therapy Treatment Note PT-OP-A Visit Information Start: 08/27/17 08:09 Freq: Status: Active Protocol: Document 04/07/18 15:53 [facility] (Rec: 04/07/18 15:58 [facility] [id number]) Out-Patient Physical Therapy Visit Information Visit Information Visit Type Treatment Note Visit Start Time 07:30 Visit Stop Time 08:10 Total Visit Minutes 40 Visit Number 59 Number of COMMUNICATIONS ASSISTANT Visits 0 PT-OP-B Current Condition Start: 08/27/17 08:09 Freq: Status: Active Protocol: Document 08/27/17 16:56 [facility] (Rec: 08/27/17 17:07 [facility] [id number]) Current Condition History of Current Condition Current Complaints L shoulder pain History of Current Condition Pt had insideous onset of L shoulder pain in Apr and has done PT, chiro, massage & injections with relief only with injections, but started to go downhill 2 months after 3rd injection so was scheduled for RAJENDRA which was done 08/26/17. Pt has chronic neck & back pain. Pt reports allergic reaction to one of her pain meds so is getting new prescription tonight. Prior Treatments and Tests Has done PT, chiro & massage in past & had 2 neck injections & 3 shoulder injections & recent RAJENDRA Treatment Goals Patient/Caregiver Goals Dec pain & return to activity Prior Functional Status Baseline Function- ADL's Independent Current Functional Impairments (Reported) Functional Limitations- ADL's Difficulty with UE tasks d/t pain PT-OP-C Subjective Start: 08/27/17 08:09 Freq: Status: Active Protocol: Document 04/07/18 15:53 [facility] (Rec: 04/07/18 15:58 [facility] [id number]) OP-PT Subjective Patient Comments Patient Comments Pt reports she feels like she has been slugged. PT-OP-J Posture/Palpation/Skin Start: 08/27/17 08:09 Freq: Status: Active Protocol: Document 08/27/17 14:31 [facility] (Rec: 08/27/17 15:24 [facility] [id number]) Posture Evaluation Comments Posture Comments moderate fwd head & shoulders Palpation Assessment Location One Palpation Location L shoulder Palpation Findings Soft Tissue Tightness Tenderness Palpation Details UT, Pec, LS, scalenes PT-OP-K Range of Motion Start: 08/27/17 08:09 Freq: Status: Active Protocol: Document 04/05/18 09:47 [facility] (Rec: 04/05/18 10:32 [facility] [id number]) Shoulder Goniometric Range of Motion Shoulder Measured in Degrees Left Active Testing Position Standing Flexion 137 Extension 50 Abduction 95 External Rotation at 90 degrees 75 Abduction Internal Rotation 12 Internal Rotation Behind Back (text) T12 Left Passive Testing Position Supine Flexion 164 Abduction 115 External Rotation at 90 degrees 80 Abduction Internal Rotation 65 Shoulder ROM Limitations Comments empty end feel for abd, tightness stops for all other motions PT-OP-M Strength Start: 08/27/17 08:09 Freq: Status: Active Protocol: Document 04/05/18 09:47 [facility] (Rec: 04/05/18 10:32 [facility] [id number]) Shoulder Strength Shoulder Manual Muscle Testing Right Flexion 5 Normal Extension 5 Normal Abduction (C5) 5 Normal Adduction 5 Normal External Rotation 4+ Good+ Internal Rotation 5 Normal Horizontal Abduction 5 Normal Horizontal Adduction 5 Normal Left Flexion 5 Normal Extension 4+ Good+ Abduction (C5) 3- Fair- Adduction 5 Normal External Rotation 4- Good- Internal Rotation 5 Normal Horizontal Abduction 4 Good Horizontal Adduction 4 Good Comments abduction fair d/t pt only able to go through 95 deg ROM; pain with all strength testing LUE PT-OP-Q Treatments Start: 08/27/17 08:09 Freq: Status: Active Protocol: Document 04/07/18 15:53 [facility] (Rec: 04/07/18 15:58 [facility] [id number]) Therapeutic Exercises Supine Exercises 12 Supine Exercise Name abd Sidelying Exercises 2 Sidelying Exercise Name abd Standing Exercises 16 Standing Exercise Name flex with focus on scapular position Manual Therapy Treatment Soft Tissue Mobilization 8 Body Location teres major & minor Mobilization Type Rolling 6 Body Location SOR 5 Body Location cervical paraspinals Mobilization Type Myofascial Release Rolling Sustained Pressure Intensity/Depth Moderate Body Position Hooklying Comments assisted with chin tuck Joint Mobilizations 6 Joint AC Direction ant clavicle & post acromion 2 Joint L shoulder Direction post glide & translation, inf glide & translation & lat gapping FM Body Position Supine Comments CR to assist of UE FM PT-OP-R Modalities Start: 08/27/17 08:09 Freq: Status: Active Protocol: Document 04/05/18 09:47 [facility] (Rec: 04/05/18 10:32 [facility] [id number]) Hot Pack/Cold Pack Treatment Hot Pack Location cervical, L shoulder & thoracolumbar Patient Position Hooklying Treatment Duration (minutes) 15 PT-OP-T Assessment and Plan Start: 08/27/17 08:09 Freq: Status: Active Protocol: Document 04/07/18 15:53 [facility] (Rec: 04/07/18 15:58 [facility] [id number]) Physical Therapy Assessment Goals PARRY Impairment Daily PARRY 5/10 average & up to 9/10 Short Term Goal (STG) PARRY to no more than 3/10 STG Duration 03/20/18 Mcfp Goal (LTG) PARRY to no more than 1x/week. LTG Duration 04/20/18 Three Impairment DASH quick Painter Interior Finish Goal (LTG) 20 quick DASH LTG Duration 03/23/18-excellent- limit with functional activities Two Impairment strength Painter Interior Finish Goal (LTG) 5/5 UE strength (B) to allow return to rec activities LTG Duration 04/23/18- excellent progress- good RUE; some LUE limits One Impairment ROM Short Term Goal (STG) Full PROM STG Duration achieved Mcfp Goal (LTG) Full AROM to allow ability to normal activity LTG Duration 04/24/18-improving Assessment Summary Assessment Pt improved from about 130 deg AROM flex to 160 deg with treatment and cueing. Improved abd from 110 to about 120deg after mobilizations. PROM abd improved from about 120 to 170deg. Pt instructed to cont to work on maintaining flexibility and strength in end ranges. Physical Therapy Plan Frequency and Duration Frequency of Treatment 1-2x/Week Plan of Care Start Date 02/18/18 Plan of Care End Date 04/20/18 Next Visit Focus/Plan Next Note Type Progress Note Next Visit Plan new POC; cont to work on abd
--- NOTE | 2018-04-15 11:27 | PT.OTN ---
Current Diagnoses Pain in left shoulder (04/15/18) Strain of unspecified muscle, fascia and tendon at shoulder and upper arm level, left arm, initial encounter (04/15/18) Physical Therapy Treatment Note PT-OP-A Visit Information Start: 08/27/17 08:09 Freq: Status: Active Protocol: Document 04/15/18 11:09 [facility] (Rec: 04/15/18 11:27 [facility] [id number]) Out-Patient Physical Therapy Visit Information Visit Information Visit Type Treatment Note Visit Start Time 08:10 Visit Stop Time 09:05 Total Visit Minutes 55 Visit Number 60 Number of REMOTE MEDICAL CODER Visits 0 PT-OP-B Current Condition Start: 08/27/17 08:09 Freq: Status: Active Protocol: Document 08/27/17 16:56 [facility] (Rec: 08/27/17 17:07 [facility] [id number]) Current Condition History of Current Condition Current Complaints L shoulder pain History of Current Condition Pt had insideous onset of L shoulder pain in Apr and has done PT, chiro, massage & injections with relief only with injections, but started to go downhill 2 months after 3rd injection so was scheduled for RAJENDRA which was done 08/26/17. Pt has chronic neck & back pain. Pt reports allergic reaction to one of her pain meds so is getting new prescription tonight. Prior Treatments and Tests Has done PT, chiro & massage in past & had 2 neck injections & 3 shoulder injections & recent RAJENDRA Treatment Goals Patient/Caregiver Goals Dec pain & return to activity Prior Functional Status Baseline Function- ADL's Independent Current Functional Impairments (Reported) Functional Limitations- ADL's Difficulty with UE tasks d/t pain PT-OP-C Subjective Start: 08/27/17 08:09 Freq: Status: Active Protocol: Document 04/15/18 11:09 [facility] (Rec: 04/15/18 11:27 [facility] [id number]) OP-PT Subjective Patient Comments Patient Comments Pt reports she had a PARRY for 4 days last week.S he was lifting books to move them yesterday and was quite sore. She went to the chiropractor and felt better after that session. PT-OP-J Posture/Palpation/Skin Start: 08/27/17 08:09 Freq: Status: Active Protocol: Document 08/27/17 14:31 [facility] (Rec: 08/27/17 15:24 [facility] [id number]) Posture Evaluation Comments Posture Comments moderate fwd head & shoulders Palpation Assessment Location One Palpation Location L shoulder Palpation Findings Soft Tissue Tightness Tenderness Palpation Details UT, Pec, LS, scalenes PT-OP-K Range of Motion Start: 08/27/17 08:09 Freq: Status: Active Protocol: Document 04/05/18 09:47 [facility] (Rec: 04/05/18 10:32 [facility] [id number]) Shoulder Goniometric Range of Motion Shoulder Measured in Degrees Left Active Testing Position Standing Flexion 137 Extension 50 Abduction 95 External Rotation at 90 degrees 75 Abduction Internal Rotation 12 Internal Rotation Behind Back (text) T12 Left Passive Testing Position Supine Flexion 164 Abduction 115 External Rotation at 90 degrees 80 Abduction Internal Rotation 65 Shoulder ROM Limitations Comments empty end feel for abd, tightness stops for all other motions PT-OP-M Strength Start: 08/27/17 08:09 Freq: Status: Active Protocol: Document 04/05/18 09:47 [facility] (Rec: 04/05/18 10:32 [facility] [id number]) Shoulder Strength Shoulder Manual Muscle Testing Right Flexion 5 Normal Extension 5 Normal Abduction (C5) 5 Normal Adduction 5 Normal External Rotation 4+ Good+ Internal Rotation 5 Normal Horizontal Abduction 5 Normal Horizontal Adduction 5 Normal Left Flexion 5 Normal Extension 4+ Good+ Abduction (C5) 3- Fair- Adduction 5 Normal External Rotation 4- Good- Internal Rotation 5 Normal Horizontal Abduction 4 Good Horizontal Adduction 4 Good Comments abduction fair d/t pt only able to go through 95 deg ROM; pain with all strength testing LUE PT-OP-Q Treatments Start: 08/27/17 08:09 Freq: Status: Active Protocol: Document 04/15/18 11:09 [facility] (Rec: 04/15/18 11:27 [facility] [id number]) Therapeutic Exercises Supine Exercises 11 Supine Exercise Name flex with focus on proper GH mechanics Prone Exercises 4 Prone Exercise Name habd Comments focus on scapular positon 3 Prone Exercise Name scaption Comments about 40% of normal range for pain free range Standing Exercises 16 Standing Exercise Name flex with focus on scapular position 15 Standing Exercise Name eccentric abd in mirror Other Exercises 5 Other Exercise Name quadruped Reps/Minutes stopped d/t neck pain Comments stabilizing in neutral spine position Manual Therapy Treatment Soft Tissue Mobilization 6 Body Location SOR 5 Body Location cervical paraspinals Mobilization Type Myofascial Release Rolling Sustained Pressure Intensity/Depth Moderate Body Position Hooklying Comments assisted with chin tuck Joint Mobilizations 7 Joint 1st rib mob Direction caudal FM L Body Position Supine 4 Joint SC B Direction caudal FM 2 Joint L shoulder Direction distraction FM Body Position Supine PT-OP-R Modalities Start: 08/27/17 08:09 Freq: Status: Active Protocol: Document 04/15/18 11:09 [facility] (Rec: 04/15/18 11:27 [facility] [id number]) Hot Pack/Cold Pack Treatment Hot Pack Location cervical, L shoulder & thoracolumbar Patient Position Hooklying Treatment Duration (minutes) 15 PT-OP-T Assessment and Plan Start: 08/27/17 08:09 Freq: Status: Active Protocol: Document 04/15/18 11:09 [facility] (Rec: 04/15/18 11:27 [facility] [id number]) Physical Therapy Assessment Impairments Impairments Activity Tolerance Functional Activities Functional Mobility Pain Posture Soft Tissue Mobility Strength Goals PARRY Impairment Daily PARRY 5/10 average & up to 9/10 Short Term Goal (STG) PARRY to no more than 3/10 STG Duration 05/16/18-some improvement Emergency Dispatcher Goal (LTG) PARRY to no more than 1x/week. 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 She has had to do lifting to rearrage set up of office with change of personel. She is still requiring cueing for GH mechanics. Assessment Summary Assessment Pt able to control eccentrically with abd through range with cueing of scapular position at top of motion. Pt required cueing with Physical Therapy Plan Frequency and Duration Frequency of Treatment 1-2x/Week Plan of Care Start Date 04/15/18 Plan of Care End Date 06/16/18 Therapeutic Interventions Therapeutic Interventions Home Exercise Program Joint Mobilizations Manual Therapy Neuromuscular Re-education Patient/Caregiver Education Self-Care/Home Management Soft Tissue Mobilization Taping Therapeutic Activities Therapeutic Exercises Modalities Cold Pack/Ice Massage Electric Stimulation Hot Packs Infrared Therapy Iontophoresis Traction- Mechanical Ultrasound Next Visit Focus/Plan Next Note Type Treatment Note Next Visit Plan work on abd strength and proper GH motion
--- NOTE | 2018-04-15 11:27 | PT.OPPOC ---
Current Diagnoses Pain in left shoulder (04/15/18) Strain of unspecified muscle, fascia and tendon at shoulder and upper arm level, left arm, initial encounter (04/15/18) Provider Visit Care Team Role Provider Type Kirt Feliz MD Family Provider Physician Primary Care Provider Specialty: Family Practice Address: [address] [place] [address], [id number] Email: Pawel Shannon MD Attending Provider Non-Staff Specialty: Orthopedic Surgery Address: [address] [place] [address], [phone] Email: Plan Of Care PT-OP-T Assessment and Plan Start: 08/27/17 08:09 Freq: Status: Active Protocol: Document 04/15/18 11:09 [facility] (Rec: 04/15/18 11:27 [facility] [id number]) Physical Therapy Assessment Impairments Impairments Activity Tolerance Functional Activities Functional Mobility Pain Posture Soft Tissue Mobility Strength Goals PARRY Impairment Daily PARRY 5/10 average & up to 9/10 Short Term Goal (STG) PARRY to no more than 3/10 STG Duration 05/16/18-some improvement Risk Control Officer Goal (LTG) PARRY to no more than 1x/week. LTG Duration 05/21/18 Three Impairment DASH quick Risk Control Officer Goal (LTG) 20 quick DASH LTG Duration 03/23/18-limited in community coordinator Two Impairment strength Risk Control Officer Goal (LTG) 5/5 UE strength (B) to allow return to rec activities LTG Duration 05/24/18- excellent progress- good RUE; some LUE limits One Impairment ROM Short Term Goal (STG) Full PROM STG Duration achieved Risk Control Officer Goal (LTG) Full AROM to allow ability to normal activity LTG Duration 05/25/18-improving Progress Towards Goals Progress Comments Pt has inc pain recently with increased stress at work. She has had to do lifting to rearrage set up of office with change of personel. She is still requiring cueing for GH mechanics. Assessment Summary Assessment Pt able to control eccentrically with abd through range with cueing of scapular position at top of motion. Pt required cueing with Physical Therapy Plan Frequency and Duration Frequency of Treatment 1-2x/Week Plan of Care Start Date 04/15/18 Plan of Care End Date 06/16/18 Therapeutic Interventions Therapeutic Interventions Home Exercise Program Joint Mobilizations Manual Therapy Neuromuscular Re-education Patient/Caregiver Education Self-Care/Home Management Soft Tissue Mobilization Taping Therapeutic Activities Therapeutic Exercises Modalities Cold Pack/Ice Massage Electric Stimulation Hot Packs Infrared Therapy Iontophoresis Traction- Mechanical Ultrasound Next Visit Focus/Plan Next Note Type Treatment Note Next Visit Plan work on abd strength and proper GH motion Plan of Care Dates Plan of Care Start Date 04/15/18 Plan of Care End Date 06/16/18 Please Sign and Return: I have reviewed this Plan of Care and certify that the skilled therapy services above are required to meet the patient?s needs. Physician Signature Date Printed Name and Credentials Clinical Instructor Signature Printed Name and Credentials
--- NOTE | 2018-04-21 08:36 | PT.OTN ---
Current Diagnoses Pain in left shoulder (04/21/18) Strain of unspecified muscle, fascia and tendon at shoulder and upper arm level, left arm, initial encounter (04/21/18) Physical Therapy Treatment Note PT-OP-A Visit Information Start: 08/27/17 08:09 Freq: Status: Active Protocol: Document 04/21/18 07:30 [facility] (Rec: 04/21/18 08:36 [facility] [id number]) Out-Patient Physical Therapy Visit Information Visit Information Visit Type Treatment Note Visit Start Time 07:30 Visit Stop Time 08:10 Total Visit Minutes 40 Visit Number 61 Number of MILL RECORDER Visits 0 PT-OP-B Current Condition Start: 08/27/17 08:09 Freq: Status: Active Protocol: Document 08/27/17 16:56 [facility] (Rec: 08/27/17 17:07 [facility] [id number]) Current Condition History of Current Condition Current Complaints L shoulder pain History of Current Condition Pt had insideous onset of L shoulder pain in Apr and has done PT, chiro, massage & injections with relief only with injections, but started to go downhill 2 months after 3rd injection so was scheduled for RAJENDRA which was done 08/26/17. Pt has chronic neck & back pain. Pt reports allergic reaction to one of her pain meds so is getting new prescription tonight. Prior Treatments and Tests Has done PT, chiro & massage in past & had 2 neck injections & 3 shoulder injections & recent RAJENDRA Treatment Goals Patient/Caregiver Goals Dec pain & return to activity Prior Functional Status Baseline Function- ADL's Independent Current Functional Impairments (Reported) Functional Limitations- ADL's Difficulty with UE tasks d/t pain PT-OP-C Subjective Start: 08/27/17 08:09 Freq: Status: Active Protocol: Document 04/21/18 07:30 [facility] (Rec: 04/21/18 08:36 [facility] [id number]) OP-PT Subjective Patient Comments Patient Comments Pt reports she was able to do some things around the house the weekend and is a little achey. She has a masssage wand that she uses between tasks and helps a lot. PT-OP-J Posture/Palpation/Skin Start: 08/27/17 08:09 Freq: Status: Active Protocol: Document 08/27/17 14:31 [facility] (Rec: 08/27/17 15:24 [facility] [id number]) Posture Evaluation Comments Posture Comments moderate fwd head & shoulders Palpation Assessment Location One Palpation Location L shoulder Palpation Findings Soft Tissue Tightness Tenderness Palpation Details UT, Pec, LS, scalenes PT-OP-K Range of Motion Start: 08/27/17 08:09 Freq: Status: Active Protocol: Document 04/05/18 09:47 [facility] (Rec: 04/05/18 10:32 [facility] [id number]) Shoulder Goniometric Range of Motion Shoulder Measured in Degrees Left Active Testing Position Standing Flexion 137 Extension 50 Abduction 95 External Rotation at 90 degrees 75 Abduction Internal Rotation 12 Internal Rotation Behind Back (text) T12 Left Passive Testing Position Supine Flexion 164 Abduction 115 External Rotation at 90 degrees 80 Abduction Internal Rotation 65 Shoulder ROM Limitations Comments empty end feel for abd, tightness stops for all other motions PT-OP-M Strength Start: 08/27/17 08:09 Freq: Status: Active Protocol: Document 04/05/18 09:47 [facility] (Rec: 04/05/18 10:32 [facility] [id number]) Shoulder Strength Shoulder Manual Muscle Testing Right Flexion 5 Normal Extension 5 Normal Abduction (C5) 5 Normal Adduction 5 Normal External Rotation 4+ Good+ Internal Rotation 5 Normal Horizontal Abduction 5 Normal Horizontal Adduction 5 Normal Left Flexion 5 Normal Extension 4+ Good+ Abduction (C5) 3- Fair- Adduction 5 Normal External Rotation 4- Good- Internal Rotation 5 Normal Horizontal Abduction 4 Good Horizontal Adduction 4 Good Comments abduction fair d/t pt only able to go through 95 deg ROM; pain with all strength testing LUE PT-OP-Q Treatments Start: 08/27/17 08:09 Freq: Status: Active Protocol: Document 04/21/18 07:30 [facility] (Rec: 04/21/18 08:36 [facility] [id number]) Therapeutic Exercises Prone Exercises 4 Prone Exercise Name habd Comments focus on scapular positon 3 Prone Exercise Name scaption Comments about 40% of normal range for pain free range Standing Exercises 16 Standing Exercise Name flex with focus on scapular position 15 Standing Exercise Name eccentric abd in mirror 14 Standing Exercise Name abd with focus on scapular motion Manual Therapy Treatment Soft Tissue Mobilization 7 Body Location Along median n path w/median n glides Mobilization Type Rolling Sustained Pressure Intensity/Depth Moderate Body Position Supine 4 Body Location triceps L Mobilization Type Rolling Intensity/Depth Moderate Body Position Supine PT-OP-R Modalities Start: 08/27/17 08:09 Freq: Status: Active Protocol: Document 04/15/18 11:09 [facility] (Rec: 04/15/18 11:27 [facility] [id number]) Hot Pack/Cold Pack Treatment Hot Pack Location cervical, L shoulder & thoracolumbar Patient Position Hooklying Treatment Duration (minutes) 15 PT-OP-T Assessment and Plan Start: 08/27/17 08:09 Freq: Status: Active Protocol: Document 04/21/18 07:30 [facility] (Rec: 04/21/18 08:15 [facility] [id number]) Physical Therapy Assessment Goals PARRY Impairment Daily PARRY 5/10 average & up to 9/10 Short Term Goal (STG) PARRY to no more than 3/10 STG Duration 05/16/18-some improvement Hide Buffer Goal (LTG) PARRY to no more than 1x/week. 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 No shoulder pain through passive abd with scapular depression after triceps STM. Pt improving with exercise form. Physical Therapy Plan Next Visit Focus/Plan Next Note Type Treatment Note Next Visit Plan Proper GH motion & cervical stability
--- NOTE | 2018-04-28 17:25 | PT.OTN ---
Current Diagnoses Pain in left shoulder (04/28/18) Strain of unspecified muscle, fascia and tendon at shoulder and upper arm level, left arm, initial encounter (04/28/18) Physical Therapy Treatment Note PT-OP-A Visit Information Start: 08/27/17 08:09 Freq: Status: Active Protocol: Document 04/28/18 17:20 [facility] (Rec: 04/28/18 17:25 [facility] [id number]) Out-Patient Physical Therapy Visit Information Visit Information Visit Type Treatment Note Visit Start Time 07:30 Visit Stop Time 08:20 Total Visit Minutes 50 Visit Number 62 Number of DICTAPHONE TECHNICIAN Visits 0 PT-OP-B Current Condition Start: 08/27/17 08:09 Freq: Status: Active Protocol: Document 08/27/17 16:56 [facility] (Rec: 08/27/17 17:07 [facility] [id number]) Current Condition History of Current Condition Current Complaints L shoulder pain History of Current Condition Pt had insideous onset of L shoulder pain in Apr and has done PT, chiro, massage & injections with relief only with injections, but started to go downhill 2 months after 3rd injection so was scheduled for RAJENDRA which was done 08/26/17. Pt has chronic neck & back pain. Pt reports allergic reaction to one of her pain meds so is getting new prescription tonight. Prior Treatments and Tests Has done PT, chiro & massage in past & had 2 neck injections & 3 shoulder injections & recent RAJENDRA Treatment Goals Patient/Caregiver Goals Dec pain & return to activity Prior Functional Status Baseline Function- ADL's Independent Current Functional Impairments (Reported) Functional Limitations- ADL's Difficulty with UE tasks d/t pain PT-OP-C Subjective Start: 08/27/17 08:09 Freq: Status: Active Protocol: Document 04/28/18 17:20 [facility] (Rec: 04/28/18 17:25 [facility] [id number]) OP-PT Subjective Patient Comments Patient Comments Pt reports PARRY are almost every day but not every day. Reports only 1 really bad one and the other she can manage with meds and stretches. PT-OP-J Posture/Palpation/Skin Start: 08/27/17 08:09 Freq: Status: Active Protocol: Document 08/27/17 14:31 [facility] (Rec: 08/27/17 15:24 [facility] [id number]) Posture Evaluation Comments Posture Comments moderate fwd head & shoulders Palpation Assessment Location One Palpation Location L shoulder Palpation Findings Soft Tissue Tightness Tenderness Palpation Details UT, Pec, LS, scalenes PT-OP-K Range of Motion Start: 08/27/17 08:09 Freq: Status: Active Protocol: Document 04/05/18 09:47 [facility] (Rec: 04/05/18 10:32 [facility] [id number]) Shoulder Goniometric Range of Motion Shoulder Measured in Degrees Left Active Testing Position Standing Flexion 137 Extension 50 Abduction 95 External Rotation at 90 degrees 75 Abduction Internal Rotation 12 Internal Rotation Behind Back (text) T12 Left Passive Testing Position Supine Flexion 164 Abduction 115 External Rotation at 90 degrees 80 Abduction Internal Rotation 65 Shoulder ROM Limitations Comments empty end feel for abd, tightness stops for all other motions PT-OP-M Strength Start: 08/27/17 08:09 Freq: Status: Active Protocol: Document 04/05/18 09:47 [facility] (Rec: 04/05/18 10:32 [facility] [id number]) Shoulder Strength Shoulder Manual Muscle Testing Right Flexion 5 Normal Extension 5 Normal Abduction (C5) 5 Normal Adduction 5 Normal External Rotation 4+ Good+ Internal Rotation 5 Normal Horizontal Abduction 5 Normal Horizontal Adduction 5 Normal Left Flexion 5 Normal Extension 4+ Good+ Abduction (C5) 3- Fair- Adduction 5 Normal External Rotation 4- Good- Internal Rotation 5 Normal Horizontal Abduction 4 Good Horizontal Adduction 4 Good Comments abduction fair d/t pt only able to go through 95 deg ROM; pain with all strength testing LUE PT-OP-Q Treatments Start: 08/27/17 08:09 Freq: Status: Active Protocol: Document 04/28/18 17:20 [facility] (Rec: 04/28/18 17:25 [facility] [id number]) Manual Therapy Treatment Soft Tissue Mobilization 6 Body Location SOR 5 Body Location cervical paraspinals Mobilization Type Myofascial Release Rolling Sustained Pressure Intensity/Depth Moderate Body Position Hooklying Comments assisted with chin tuck 3 Body Location SCM Mobilization Type Rolling Sustained Pressure Intensity/Depth Moderate Body Position Supine 2 Body Location pectoralis region Mobilization Type Rolling Sustained Pressure Comments L only; near coracoid process & inf to clavicle 1 Body Location UT, LS& scalenes, SOR, cervical parapsinals Mobilization Type Rolling Intensity/Depth Moderate Body Position Sitting Comments bilat Joint Mobilizations 7 Joint 1st rib mob Direction caudal FM L Body Position Supine 4 Joint SC B Direction caudal FM PT-OP-R Modalities Start: 08/27/17 08:09 Freq: Status: Active Protocol: Document 04/28/18 17:20 [facility] (Rec: 04/28/18 17:25 [facility] [id number]) Hot Pack/Cold Pack Treatment Hot Pack Location cervical, L shoulder & thoracolumbar Patient Position Hooklying Treatment Duration (minutes) 15 PT-OP-T Assessment and Plan Start: 08/27/17 08:09 Freq: Status: Active Protocol: Document 04/28/18 17:20 [facility] (Rec: 04/28/18 17:25 [facility] [id number]) Physical Therapy Assessment Goals PARRY Impairment Daily PARRY 5/10 average & up to 9/10 Short Term Goal (STG) PARRY to no more than 3/10 STG Duration 05/16/18-some improvement Shelter Goal (LTG) PARRY to no more than 1x/week. LTG Duration 05/21/18-decreasing Three Impairment DASH quick Shelter Goal (LTG) 20 quick DASH LTG Duration 03/23/18-limited in roller hand Two Impairment strength Shelter Goal (LTG) 5 UE strength (B) to allow return to rec activities LTG Duration 05/24/18- excellent progress- good RUE; some LUE limits One Impairment ROM Short Term Goal (STG) Full PROM STG Duration achieved Nca Certified Concierge Goal (LTG) Full AROM to allow ability to normal activity LTG Duration 05/25/18-improving- abd only limited Assessment Summary Assessment Abd cont to improve but pt still has difficulty past about 145 deg. She is very tight today in SCM and suboccipital mm. Improved with treatment. Pt was tested in seated on swivel chair and turned head each direction and reported dizziness. when body was turned under head (still neck rot without head movement ), pt did not have dizziness, indicating possible vestibular issue. Pt instructed to discuss with MD. Physical Therapy Plan Frequency and Duration Frequency of Treatment 1-2x/Week Plan of Care Start Date 04/15/18 Plan of Care End Date 06/16/18 Next Visit Focus/Plan Next Note Type Treatment Note Next Visit Plan Cont to work end range abd & cervical rotations
--- NOTE | 2018-04-30 14:01 | PT.OTN ---
Current Diagnoses Pain in left shoulder (04/30/18) Strain of unspecified muscle, fascia and tendon at shoulder and upper arm level, left arm, initial encounter (04/30/18) Physical Therapy Treatment Note PT-OP-A Visit Information Start: 08/27/17 08:09 Freq: Status: Active Protocol: Document 04/30/18 07:30 [facility] (Rec: 04/30/18 14:00 [facility] [id number]) Out-Patient Physical Therapy Visit Information Visit Information Visit Type Treatment Note Visit Start Time 07:30 Visit Stop Time 08:20 Total Visit Minutes 50 Visit Number 63 Number of MEAT PASSER Visits 0 PT-OP-B Current Condition Start: 08/27/17 08:09 Freq: Status: Active Protocol: Document 08/27/17 16:56 [facility] (Rec: 08/27/17 17:07 [facility] [id number]) Current Condition History of Current Condition Current Complaints L shoulder pain History of Current Condition Pt had insideous onset of L shoulder pain in Apr and has done PT, chiro, massage & injections with relief only with injections, but started to go downhill 2 months after 3rd injection so was scheduled for RAJENDRA which was done 08/26/17. Pt has chronic neck & back pain. Pt reports allergic reaction to one of her pain meds so is getting new prescription tonight. Prior Treatments and Tests Has done PT, chiro & massage in past & had 2 neck injections & 3 shoulder injections & recent RAJENDRA Treatment Goals Patient/Caregiver Goals Dec pain & return to activity Prior Functional Status Baseline Function- ADL's Independent Current Functional Impairments (Reported) Functional Limitations- ADL's Difficulty with UE tasks d/t pain PT-OP-C Subjective Start: 08/27/17 08:09 Freq: Status: Active Protocol: Document 04/30/18 07:30 [facility] (Rec: 04/30/18 14:00 [facility] [id number]) OP-PT Subjective Patient Comments Patient Comments Pt reports only 1 major PARRY this week. PT-OP-J Posture/Palpation/Skin Start: 08/27/17 08:09 Freq: Status: Active Protocol: Document 08/27/17 14:31 [facility] (Rec: 08/27/17 15:24 [facility] [id number]) Posture Evaluation Comments Posture Comments moderate fwd head & shoulders Palpation Assessment Location One Palpation Location L shoulder Palpation Findings Soft Tissue Tightness Tenderness Palpation Details UT, Pec, LS, scalenes PT-OP-K Range of Motion Start: 08/27/17 08:09 Freq: Status: Active Protocol: Document 04/05/18 09:47 [facility] (Rec: 04/05/18 10:32 [facility] [id number]) Shoulder Goniometric Range of Motion Shoulder Measured in Degrees Left Active Testing Position Standing Flexion 137 Extension 50 Abduction 95 External Rotation at 90 degrees 75 Abduction Internal Rotation 12 Internal Rotation Behind Back (text) T12 Left Passive Testing Position Supine Flexion 164 Abduction 115 External Rotation at 90 degrees 80 Abduction Internal Rotation 65 Shoulder ROM Limitations Comments empty end feel for abd, tightness stops for all other motions PT-OP-M Strength Start: 08/27/17 08:09 Freq: Status: Active Protocol: Document 04/05/18 09:47 [facility] (Rec: 04/05/18 10:32 [facility] [id number]) Shoulder Strength Shoulder Manual Muscle Testing Right Flexion 5 Normal Extension 5 Normal Abduction (C5) 5 Normal Adduction 5 Normal External Rotation 4+ Good+ Internal Rotation 5 Normal Horizontal Abduction 5 Normal Horizontal Adduction 5 Normal Left Flexion 5 Normal Extension 4+ Good+ Abduction (C5) 3- Fair- Adduction 5 Normal External Rotation 4- Good- Internal Rotation 5 Normal Horizontal Abduction 4 Good Horizontal Adduction 4 Good Comments abduction fair d/t pt only able to go through 95 deg ROM; pain with all strength testing LUE PT-OP-Q Treatments Start: 08/27/17 08:09 Freq: Status: Active Protocol: Document 04/30/18 07:30 [facility] (Rec: 04/30/18 14:00 [facility] [id number]) Manual Therapy Treatment Soft Tissue Mobilization 8 Body Location teres major & minor Mobilization Type Rolling 6 Body Location SOR 5 Body Location cervical paraspinals Mobilization Type Myofascial Release Rolling Sustained Pressure Intensity/Depth Moderate Body Position Hooklying Comments assisted with chin tuck 3 Body Location SCM Mobilization Type Rolling Sustained Pressure Intensity/Depth Moderate Body Position Supine 1 Body Location UT, LS& scalenes, SOR, cervical parapsinals Mobilization Type Rolling Intensity/Depth Moderate Body Position Sitting Comments bilat Joint Mobilizations 7 Joint 1st rib mob Direction caudal FM R Body Position Supine 2 Joint L shoulder Direction distraction FM Body Position Supine PT-OP-R Modalities Start: 08/27/17 08:09 Freq: Status: Active Protocol: Document 04/30/18 07:30 [facility] (Rec: 04/30/18 14:00 [facility] [id number]) Hot Pack/Cold Pack Treatment Hot Pack Location cervical, L shoulder & thoracolumbar Patient Position Hooklying Treatment Duration (minutes) 10 PT-OP-T Assessment and Plan Start: 08/27/17 08:09 Freq: Status: Active Protocol: Document 04/30/18 07:30 [facility] (Rec: 04/30/18 14:00 [facility] [id number]) Physical Therapy Assessment Goals PARRY Impairment Daily PARRY 5/10 average & up to 9/10 Short Term Goal (STG) PARRY to no more than 3/10 STG Duration 05/16/18-some improvement Prison Goal (LTG) PARRY to no more than 1x/week. LTG Duration 05/21/18-decreasing Three Impairment DASH quick Manufacturing Engineering Director Goal (LTG) 20 quick DASH LTG Duration 03/23/18-limited in infectious disease physician Two Impairment strength Manufacturing Engineering Director Goal (LTG) 5/5 UE strength (B) to allow return to rec activities LTG Duration 05/24/18- excellent progress- good RUE; some LUE limits One Impairment ROM Short Term Goal (STG) Full PROM STG Duration achieved Manufacturing Engineering Director Goal (LTG) Full AROM to allow ability to normal activity LTG Duration 05/25/18-improving- abd only limited Assessment Summary Assessment Pt cont to improve with dec of PARRY and she is reporting only 1 major PARRY this week despite working long hours. She cont to have cervical tightness that improves with massage. Physical Therapy Plan Frequency and Duration Frequency of Treatment 1-2x/Week Plan of Care Start Date 04/15/18 Plan of Care End Date 06/16/18 Next Visit Focus/Plan Next Note Type Treatment Note Next Visit Plan Cont to work end range abd & cervical rotations
--- NOTE | 2018-05-05 15:06 | PT.OTN ---
Current Diagnoses Pain in left shoulder (05/05/18) Strain of unspecified muscle, fascia and tendon at shoulder and upper arm level, left arm, initial encounter (05/05/18) Physical Therapy Treatment Note PT-OP-A Visit Information Start: 08/27/17 08:09 Freq: Status: Active Protocol: Document 05/05/18 07:30 [facility] (Rec: 05/05/18 12:01 [facility] [id number]) Out-Patient Physical Therapy Visit Information Visit Information Visit Type Treatment Note Visit Start Time 07:30 Visit Stop Time 08:18 Total Visit Minutes 48 Visit Number 64 Number of STOCK DIGGER Visits 0 PT-OP-B Current Condition Start: 08/27/17 08:09 Freq: Status: Active Protocol: Document 08/27/17 16:56 [facility] (Rec: 08/27/17 17:07 [facility] [id number]) Current Condition History of Current Condition Current Complaints L shoulder pain History of Current Condition Pt had insideous onset of L shoulder pain in Apr and has done PT, chiro, massage & injections with relief only with injections, but started to go downhill 2 months after 3rd injection so was scheduled for RAJENDRA which was done 08/26/17. Pt has chronic neck & back pain. Pt reports allergic reaction to one of her pain meds so is getting new prescription tonight. Prior Treatments and Tests Has done PT, chiro & massage in past & had 2 neck injections & 3 shoulder injections & recent RAJENDRA Treatment Goals Patient/Caregiver Goals Dec pain & return to activity Prior Functional Status Baseline Function- ADL's Independent Current Functional Impairments (Reported) Functional Limitations- ADL's Difficulty with UE tasks d/t pain PT-OP-C Subjective Start: 08/27/17 08:09 Freq: Status: Active Protocol: Document 05/05/18 07:30 [facility] (Rec: 05/05/18 12:01 [facility] [id number]) OP-PT Subjective Patient Comments Patient Comments Pt reports massage last night which helped thoracic pain. Reports PARRY this AM PT-OP-J Posture/Palpation/Skin Start: 08/27/17 08:09 Freq: Status: Active Protocol: Document 08/27/17 14:31 [facility] (Rec: 08/27/17 15:24 [facility] [id number]) Posture Evaluation Comments Posture Comments moderate fwd head & shoulders Palpation Assessment Location One Palpation Location L shoulder Palpation Findings Soft Tissue Tightness Tenderness Palpation Details UT, Pec, LS, scalenes PT-OP-K Range of Motion Start: 08/27/17 08:09 Freq: Status: Active Protocol: Document 04/05/18 09:47 [facility] (Rec: 04/05/18 10:32 [facility] [id number]) Shoulder Goniometric Range of Motion Shoulder Measured in Degrees Left Active Testing Position Standing Flexion 137 Extension 50 Abduction 95 External Rotation at 90 degrees 75 Abduction Internal Rotation 12 Internal Rotation Behind Back (text) T12 Left Passive Testing Position Supine Flexion 164 Abduction 115 External Rotation at 90 degrees 80 Abduction Internal Rotation 65 Shoulder ROM Limitations Comments empty end feel for abd, tightness stops for all other motions PT-OP-M Strength Start: 08/27/17 08:09 Freq: Status: Active Protocol: Document 04/05/18 09:47 [facility] (Rec: 04/05/18 10:32 [facility] [id number]) Shoulder Strength Shoulder Manual Muscle Testing Right Flexion 5 Normal Extension 5 Normal Abduction (C5) 5 Normal Adduction 5 Normal External Rotation 4+ Good+ Internal Rotation 5 Normal Horizontal Abduction 5 Normal Horizontal Adduction 5 Normal Left Flexion 5 Normal Extension 4+ Good+ Abduction (C5) 3- Fair- Adduction 5 Normal External Rotation 4- Good- Internal Rotation 5 Normal Horizontal Abduction 4 Good Horizontal Adduction 4 Good Comments abduction fair d/t pt only able to go through 95 deg ROM; pain with all strength testing LUE PT-OP-Q Treatments Start: 08/27/17 08:09 Freq: Status: Active Protocol: Document 05/05/18 07:30 [facility] (Rec: 05/05/18 15:06 [facility] [id number]) Therapeutic Exercises Supine Exercises 12 Supine Exercise Name upper cervical flex Sitting Exercises 1 Sitting Exercise Name upper cervical flex Standing Exercises 15 Standing Exercise Name eccentric abd in mirror Manual Therapy Treatment Soft Tissue Mobilization 6 Body Location SOR 5 Body Location cervical paraspinals Mobilization Type Myofascial Release Rolling Sustained Pressure Intensity/Depth Moderate Body Position Hooklying Comments assisted with chin tuck 3 Body Location SCM Mobilization Type Rolling Sustained Pressure Intensity/Depth Moderate Body Position Supine 1 Body Location UT, LS& scalenes, SOR, cervical parapsinals Mobilization Type Rolling Intensity/Depth Moderate Body Position Sitting Comments bilat Joint Mobilizations 7 Joint 1st rib mob Direction caudal FM R Body Position Supine 4 Joint SC B Direction caudal FM 2 Joint L shoulder Direction distraction FM Body Position Supine PT-OP-R Modalities Start: 08/27/17 08:09 Freq: Status: Active Protocol: Document 05/05/18 07:30 [facility] (Rec: 05/05/18 12:01 [facility] [id number]) Hot Pack/Cold Pack Treatment Hot Pack Location cervical, L shoulder & thoracolumbar Patient Position Hooklying Treatment Duration (minutes) 10 PT-OP-T Assessment and Plan Start: 08/27/17 08:09 Freq: Status: Active Protocol: Document 05/05/18 07:30 [facility] (Rec: 05/05/18 12:01 [facility] [id number]) Physical Therapy Assessment Goals PARRY Impairment Daily PARRY 5/10 average & up to 9/10 Short Term Goal (STG) PARRY to no more than 3/10 STG Duration 05/16/18-some improvement Skilled Nursing Goal (LTG) PARRY to no more than 1x/week. LTG Duration 05/21/18-decreasing Three Impairment DASH quick Skilled Nursing Goal (LTG) 20 quick DASH LTG Duration 03/23/18-limited in industrial spraypainter Two Impairment strength Skilled Nursing Goal (LTG) 5/5 UE strength (B) to allow return to rec activities LTG Duration 05/24/18- excellent progress- good RUE; some LUE limits One Impairment ROM Short Term Goal (STG) Full PROM STG Duration achieved Clay Artisan Goal (LTG) Full AROM to allow ability to normal activity LTG Duration 05/25/18-improving- abd only limited Assessment Summary Assessment Pt cued for chin tucks in seated and supine to get upper cervical motion only. She cont to require cueing for neutral positioning. Physical Therapy Plan Frequency and Duration Frequency of Treatment 1-2x/Week Plan of Care Start Date 04/15/18 Plan of Care End Date 06/16/18 Next Visit Focus/Plan Next Note Type Treatment Note Next Visit Plan cont to advance cervical stability
--- NOTE | 2018-05-07 12:26 | PT.OTN ---
Current Diagnoses Pain in left shoulder (05/07/18) Strain of unspecified muscle, fascia and tendon at shoulder and upper arm level, left arm, initial encounter (05/07/18) Physical Therapy Treatment Note PT-OP-A Visit Information Start: 08/27/17 08:09 Freq: Status: Active Protocol: Document 05/07/18 12:22 [facility] (Rec: 05/07/18 12:26 [facility] [id number]) Out-Patient Physical Therapy Visit Information Visit Information Visit Type Treatment Note Visit Start Time 07:30 Visit Stop Time 08:20 Total Visit Minutes 50 Visit Number 65 Number of BEET FLUMER Visits 0 PT-OP-B Current Condition Start: 08/27/17 08:09 Freq: Status: Active Protocol: Document 08/27/17 16:56 [facility] (Rec: 08/27/17 17:07 [facility] [id number]) Current Condition History of Current Condition Current Complaints L shoulder pain History of Current Condition Pt had insideous onset of L shoulder pain in Apr and has done PT, chiro, massage & injections with relief only with injections, but started to go downhill 2 months after 3rd injection so was scheduled for RAJENDRA which was done 08/26/17. Pt has chronic neck & back pain. Pt reports allergic reaction to one of her pain meds so is getting new prescription tonight. Prior Treatments and Tests Has done PT, chiro & massage in past & had 2 neck injections & 3 shoulder injections & recent RAJENDRA Treatment Goals Patient/Caregiver Goals Dec pain & return to activity Prior Functional Status Baseline Function- ADL's Independent Current Functional Impairments (Reported) Functional Limitations- ADL's Difficulty with UE tasks d/t pain PT-OP-C Subjective Start: 08/27/17 08:09 Freq: Status: Active Protocol: Document 05/07/18 12:22 [facility] (Rec: 05/07/18 12:26 [facility] [id number]) OP-PT Subjective Patient Comments Patient Comments Pt reports overall doing okay, but did notice one time already this AM where she had pain from shoulder blade to base of neck PT-OP-J Posture/Palpation/Skin Start: 08/27/17 08:09 Freq: Status: Active Protocol: Document 08/27/17 14:31 [facility] (Rec: 08/27/17 15:24 [facility] [id number]) Posture Evaluation Comments Posture Comments moderate fwd head & shoulders Palpation Assessment Location One Palpation Location L shoulder Palpation Findings Soft Tissue Tightness Tenderness Palpation Details UT, Pec, LS, scalenes PT-OP-K Range of Motion Start: 08/27/17 08:09 Freq: Status: Active Protocol: Document 04/05/18 09:47 [facility] (Rec: 04/05/18 10:32 [facility] [id number]) Shoulder Goniometric Range of Motion Shoulder Measured in Degrees Left Active Testing Position Standing Flexion 137 Extension 50 Abduction 95 External Rotation at 90 degrees 75 Abduction Internal Rotation 12 Internal Rotation Behind Back (text) T12 Left Passive Testing Position Supine Flexion 164 Abduction 115 External Rotation at 90 degrees 80 Abduction Internal Rotation 65 Shoulder ROM Limitations Comments empty end feel for abd, tightness stops for all other motions PT-OP-M Strength Start: 08/27/17 08:09 Freq: Status: Active Protocol: Document 04/05/18 09:47 [facility] (Rec: 04/05/18 10:32 [facility] [id number]) Shoulder Strength Shoulder Manual Muscle Testing Right Flexion 5 Normal Extension 5 Normal Abduction (C5) 5 Normal Adduction 5 Normal External Rotation 4+ Good+ Internal Rotation 5 Normal Horizontal Abduction 5 Normal Horizontal Adduction 5 Normal Left Flexion 5 Normal Extension 4+ Good+ Abduction (C5) 3- Fair- Adduction 5 Normal External Rotation 4- Good- Internal Rotation 5 Normal Horizontal Abduction 4 Good Horizontal Adduction 4 Good Comments abduction fair d/t pt only able to go through 95 deg ROM; pain with all strength testing LUE PT-OP-Q Treatments Start: 08/27/17 08:09 Freq: Status: Active Protocol: Document 05/07/18 12:22 [facility] (Rec: 05/07/18 12:26 [facility] [id number]) Manual Therapy Treatment Soft Tissue Mobilization 6 Body Location SOR 5 Body Location cervical paraspinals Mobilization Type Myofascial Release Rolling Sustained Pressure Intensity/Depth Moderate Body Position Hooklying Comments assisted with chin tuck 3 Body Location SCM Mobilization Type Rolling Sustained Pressure Intensity/Depth Moderate Body Position Supine 1 Body Location UT, LS& scalenes, SOR, cervical parapsinals Mobilization Type Rolling Intensity/Depth Moderate Body Position Sitting Comments bilat Joint Mobilizations 7 Joint 1st rib mob Direction caudal FM R Body Position Supine 3 Joint C7 Direction AP R 2 Joint L shoulder Direction distraction FM Body Position Supine PT-OP-R Modalities Start: 08/27/17 08:09 Freq: Status: Active Protocol: Document 05/07/18 12:22 [facility] (Rec: 05/07/18 12:26 [facility] [id number]) Hot Pack/Cold Pack Treatment Hot Pack Location cervical, L shoulder & thoracolumbar Patient Position Hooklying Treatment Duration (minutes) 10 PT-OP-T Assessment and Plan Start: 08/27/17 08:09 Freq: Status: Active Protocol: Document 05/07/18 12:22 [facility] (Rec: 05/07/18 12:26 [facility] [id number]) Physical Therapy Assessment Goals PARRY Impairment Daily PARRY 5/10 average & up to 9/10 Short Term Goal (STG) PARRY to no more than 3/10 STG Duration 05/16/18-some improvement Print Buyer Goal (LTG) PARRY to no more than 1x/week. 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 Two Impairment strength Shelter Goal (LTG) 5/5 UE strength (B) to allow return to rec activities LTG Duration 05/24/18- excellent progress- good RUE; some LUE limits One Impairment ROM Short Term Goal (STG) Full PROM STG Duration achieved Shelter Goal (LTG) Full AROM to allow ability to normal activity LTG Duration 05/25/18-improving- abd only limited Assessment Summary Assessment Improved L sided tightness today but significant tightness around upper cervical vertebrae on R which improved with soft tissue release and cervical positioning Physical Therapy Plan Frequency and Duration Frequency of Treatment 1-2x/Week Plan of Care Start Date 04/15/18 Plan of Care End Date 06/16/18 Next Visit Focus/Plan Next Note Type Treatment Note Next Visit Plan cervical stability & abd
--- NOTE | 2018-05-21 16:37 | PT.OTN ---
Current Diagnoses Pain in left shoulder (05/21/18) Strain of unspecified muscle, fascia and tendon at shoulder and upper arm level, left arm, initial encounter (05/21/18) Physical Therapy Treatment Note PT-OP-A Visit Information Start: 08/27/17 08:09 Freq: Status: Active Protocol: Document 05/21/18 16:09 [facility] (Rec: 05/21/18 16:37 [facility] [id number]) Out-Patient Physical Therapy Visit Information Visit Information Visit Type Treatment Note Visit Start Time 07:30 Visit Stop Time 08:20 Total Visit Minutes 50 Visit Number 66 Number of SILK SCREENER Visits 0 PT-OP-B Current Condition Start: 08/27/17 08:09 Freq: Status: Active Protocol: Document 08/27/17 16:56 [facility] (Rec: 08/27/17 17:07 [facility] [id number]) Current Condition History of Current Condition Current Complaints L shoulder pain History of Current Condition Pt had insideous onset of L shoulder pain in Apr and has done PT, chiro, massage & injections with relief only with injections, but started to go downhill 2 months after 3rd injection so was scheduled for RAJENDRA which was done 08/26/17. Pt has chronic neck & back pain. Pt reports allergic reaction to one of her pain meds so is getting new prescription tonight. Prior Treatments and Tests Has done PT, chiro & massage in past & had 2 neck injections & 3 shoulder injections & recent RAJENDRA Treatment Goals Patient/Caregiver Goals Dec pain & return to activity Prior Functional Status Baseline Function- ADL's Independent Current Functional Impairments (Reported) Functional Limitations- ADL's Difficulty with UE tasks d/t pain PT-OP-C Subjective Start: 08/27/17 08:09 Freq: Status: Active Protocol: Document 05/21/18 16:09 [facility] (Rec: 05/21/18 16:37 [facility] [id number]) OP-PT Subjective Patient Comments Patient Comments Pt wants to review HEP. Reports a lot of PARRY between now and last treatment and 1 really bad migraine. Overall achy PT-OP-J Posture/Palpation/Skin Start: 08/27/17 08:09 Freq: Status: Active Protocol: Document 08/27/17 14:31 [facility] (Rec: 08/27/17 15:24 [facility] [id number]) Posture Evaluation Comments Posture Comments moderate fwd head & shoulders Palpation Assessment Location One Palpation Location L shoulder Palpation Findings Soft Tissue Tightness Tenderness Palpation Details UT, Pec, LS, scalenes PT-OP-K Range of Motion Start: 08/27/17 08:09 Freq: Status: Active Protocol: Document 05/21/18 16:09 [facility] (Rec: 05/21/18 16:37 [facility] [id number]) Cervical Spine Range of Motion Cervical Spine Active Degrees Flexion 44 Extension 35 Rotation Left 44 Rotation Right 56 Lateral Flexion Left 28 Lateral Flexion Right 35 Shoulder Goniometric Range of Motion Shoulder Measured in Degrees Left Active Flexion 158 Abduction 120 External Rotation at 90 degrees 76 Abduction Internal Rotation 49 Internal Rotation Behind Back (text) T7 PT-OP-M Strength Start: 08/27/17 08:09 Freq: Status: Active Protocol: Document 04/05/18 09:47 [facility] (Rec: 04/05/18 10:32 [facility] [id number]) Shoulder Strength Shoulder Manual Muscle Testing Right Flexion 5 Normal Extension 5 Normal Abduction (C5) 5 Normal Adduction 5 Normal External Rotation 4+ Good+ Internal Rotation 5 Normal Horizontal Abduction 5 Normal Horizontal Adduction 5 Normal Left Flexion 5 Normal Extension 4+ Good+ Abduction (C5) 3- Fair- Adduction 5 Normal External Rotation 4- Good- Internal Rotation 5 Normal Horizontal Abduction 4 Good Horizontal Adduction 4 Good Comments abduction fair d/t pt only able to go through 95 deg ROM; pain with all strength testing LUE PT-OP-Q Treatments Start: 08/27/17 08:09 Freq: Status: Active Protocol: Document 05/21/18 16:09 [facility] (Rec: 05/21/18 16:37 [facility] [id number]) Therapeutic Exercises Sitting Exercises 1 Sitting Exercise Name reviewing of LS, scalen & UT stretches Standing Exercises 16 Standing Exercise Name pec stretch 15 Standing Exercise Name B ER Equipment Used L1 14 Standing Exercise Name B row Equipment Used L1 13 Standing Exercise Name B tricep ext Equipment Used L1 12 Standing Exercise Name B flex w/retract Equipment Used L1 11 Standing Exercise Name wall posture w/90/90 ER 10 Standing Exercise Name eccentric abd lowering Other Exercises 5 Other Exercise Name quadruped HAbd Side bilateral Reps/Minutes 5 4 Other Exercise Name quad scaption Side bilateral Reps/Minutes 5 Manual Therapy Treatment Soft Tissue Mobilization 6 Body Location SOR 5 Body Location cervical paraspinals Mobilization Type Myofascial Release Rolling Sustained Pressure Intensity/Depth Moderate Body Position Hooklying Comments assisted with chin tuck 3 Body Location SCM Mobilization Type Rolling Sustained Pressure Intensity/Depth Moderate Body Position Supine 2 Body Location pectoralis region Mobilization Type Rolling Sustained Pressure Comments L only; near coracoid process & inf to clavicle PT-OP-R Modalities Start: 08/27/17 08:09 Freq: Status: Active Protocol: Document 05/21/18 16:09 [facility] (Rec: 05/21/18 16:37 [facility] [id number]) Hot Pack/Cold Pack Treatment Hot Pack Location cervical, L shoulder & thoracolumbar Patient Position Hooklying Treatment Duration (minutes) 10 PT-OP-T Assessment and Plan Start: 08/27/17 08:09 Freq: Status: Active Protocol: Document 05/21/18 16:09 [facility] (Rec: 05/21/18 16:37 [facility] [id number]) Physical Therapy Assessment Goals PARRY Impairment Daily PARRY 5/10 average & up to 9/10 Short Term Goal (STG) APRRY to no more than 3/10 STG Duration 05/16/18-some improvement Jail Goal (LTG) PARRY to no more than 1x/week. 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 She is making progress with ability to move UEs with good scapulohumeric pattern, but does require occasional cueing . Physical Therapy Plan Frequency and Duration Frequency of Treatment 1-2x/Week Plan of Care Start Date 04/15/18 Plan of Care End Date 06/16/18 Next Visit Focus/Plan Next Note Type Treatment Note Next Visit Plan cervical stability
--- NOTE | 2018-12-30 16:26 | PT.OPDS ---
Current Diagnoses Pain in left shoulder (05/21/18) Strain of unspecified muscle, fascia and tendon at shoulder and upper arm level, left arm, initial encounter (05/21/18) Visit Care Team Role Provider Type Kirt Feliz MD Family Provider Non-Staff Primary Care Provider Specialty: Family Practice Address: [address] [place] [address], [id number] Email: Pawel Shannon MD Attending Provider Non-Staff Specialty: Orthopedic Surgery Address: [address] [place] [address], [phone] Email: Visit Number Visit Number 66 Discharge Summary PT-OP-B Current Condition Start: 08/27/17 08:09 Freq: Status: Active Protocol: Document 08/27/17 16:56 [facility] (Rec: 08/27/17 17:07 [facility] [id number]) Current Condition History of Current Condition Current Complaints L shoulder pain History of Current Condition Pt had insideous onset of L shoulder pain in Apr and has done PT, chiro, massage & injections with relief only with injections, but started to go downhill 2 months after 3rd injection so was scheduled for RAJENDRA which was done 08/26/17. Pt has chronic neck & back pain. Pt reports allergic reaction to one of her pain meds so is getting new prescription tonight. Prior Treatments and Tests Has done PT, chiro & massage in past & had 2 neck injections & 3 shoulder injections & recent RAJENDRA Treatment Goals Patient/Caregiver Goals Dec pain & return to activity Prior Functional Status Baseline Function- ADL's Independent Current Functional Impairments (Reported) Functional Limitations- ADL's Difficulty with UE tasks d/t pain PT-OP-C Subjective Start: 08/27/17 08:09 Freq: Status: Active Protocol: Document 05/21/18 16:09 [facility] (Rec: 05/21/18 16:37 [facility] [id number]) OP-PT Subjective Patient Comments Patient Comments Pt wants to review HEP. Reports a lot of PARRY between now and last treatment and 1 really bad migraine. Overall achy PT-OP-J Posture/Palpation/Skin Start: 08/27/17 08:09 Freq: Status: Active Protocol: Document 08/27/17 14:31 [facility] (Rec: 08/27/17 15:24 [facility] [id number]) Posture Evaluation Comments Posture Comments moderate fwd head & shoulders Palpation Assessment Location One Palpation Location L shoulder Palpation Findings Soft Tissue Tightness, Tenderness Palpation Details UT, Pec, LS, scalenes PT-OP-K Range of Motion Start: 08/27/17 08:09 Freq: Status: Active Protocol: Document 05/21/18 16:09 [facility] (Rec: 05/21/18 16:37 [facility] [id number]) Cervical Spine Range of Motion Cervical Spine Active Degrees Flexion 44 Extension 35 Rotation Left 44 Rotation Right 56 Lateral Flexion Left 28 Lateral Flexion Right 35 Shoulder Goniometric Range of Motion Shoulder Left Active Flexion 158 Abduction 120 External Rotation at 90 degrees 76 Abduction Internal Rotation 49 Internal Rotation Behind Back (text) T7 PT-OP-M Strength Start: 08/27/17 08:09 Freq: Status: Active Protocol: Document 04/05/18 09:47 [facility] (Rec: 04/05/18 10:32 [facility] [id number]) Shoulder Strength Shoulder Manual Muscle Testing Right Flexion 5 Normal Extension 5 Normal Abduction (C5) 5 Normal Adduction 5 Normal External Rotation 4+ Good+ Internal Rotation 5 Normal Horizontal Abduction 5 Normal Horizontal Adduction 5 Normal Left Flexion 5 Normal Extension 4+ Good+ Abduction (C5) 3- Fair- Adduction 5 Normal External Rotation 4- Good- Internal Rotation 5 Normal Horizontal Abduction 4 Good Horizontal Adduction 4 Good Comments abduction fair d/t pt only able to go through 95 deg ROM; pain with all strength testing LUE PT-OP-T Assessment and Plan Start: 08/27/17 08:09 Freq: Status: Active Protocol: Document 12/30/18 16:25 [facility] (Rec: 12/30/18 16:26 [facility] [id number]) Physical Therapy Plan Discharge Physical Therapy Discharge Reasons No Longer Attending PT Discharge Comments Pt is d/c from PT d/t no further insurance authorization. Pt is working on HEP independently to cont to work on deficits of ROM & strength d/t pain.
== END 2018-12-31 08:47 | disposition home or self-care (01) ==
LOC: PHYS 07:30
PROVIDERS: Family Provider Family Medicine; PCP Family Medicine; Visit Provider Orthopaedic Surgery Sports Medicine
DX: S46.912A Strain of unspecified muscle, fascia and tendon at shoulder and upper arm level, left arm, initial encounter (principal); M25.512 Pain in left shoulder
CPT/HCPCS: 97010; 97012; 97110; 97112; 97140; 97162; 97530

== ENCOUNTER → 2018-12-21 16:28 | Outpatient (CLI) | payer OTHER, SELFPAY ==
--- NOTE | 2018-12-21 | DI.MG.S_ITS ---
BILATERAL DIGITAL SCREENING MAMMOGRAM 3D/2D WITH CAD: 12/21/2018 CLINICAL: Routine screening. Comparison is made to exams dated: 12/18/2016 mammogram, 10/30/2014 mammogram, and 11/11/2013 mammogram - [facility]. The tissue of both breasts is heterogeneously dense. This may lower the sensitivity of mammography. Current study was also evaluated with a Computer Aided Detection (CAD) system. No significant masses, calcifications, or other findings are seen in either breast. There has been no significant interval change. IMPRESSION: NEGATIVE There is no mammographic evidence of malignancy. A 1 year screening mammogram is recommended. This exam was interpreted at Station ID: [id number]. NOTE: For mammograms, a report in lay terms will be sent to the patient. Approximately 15% of breast malignancies will not be visualized mammographically. In the management of a palpable breast mass, a negative mammogram must not discourage biopsy of a clinically suspicious lesion. Electronically Signed By: Luna george/korin:12/21/2018 16:53:46 letter sent: Normal Exam ACR BI-RADS Category 1: Negative [id number]
== END ==
PROVIDERS: Visit Provider Obstetrics & Gynecology
DX: Z12.31 Encounter for screening mammogram for malignant neoplasm of breast (principal)
CPT/HCPCS: 77063; 77067

== ENCOUNTER → 2018-12-31 08:37 | Outpatient (CLI) | payer OTHER, SELFPAY ==
[2018-12-31 10:01] LABS: Add Manual Diff / Slide Review NO; Basophils Absolute Auto 100 /uL (0-100); Basophils Percent Auto 1.2 % (0-2); Eosinophils Absolute Auto 400 /uL (0-450); Eosinophils Percent Auto 6.7 % (2-4); Hematocrit 41.9 % (36-46); Hemoglobin 14.7 g/dL (12.0-16.0); Lymphocytes Absolute Auto 1700 /uL (1100-4500); Lymphocytes Percent Auto 31.7 % (25-40); Mean Corpuscular Hemoglobin 32.5 PG (26-34); Mean Corpuscular Volume 92.8 fL (80-100); Monocytes Absolute Auto 400 /uL (0-900); Monocytes Percent Auto 7.7 % (3-14); Neutrophils Absolute Auto 2800 /uL (1500-7000); Neutrophils Percent Auto 52.7 % (50-75); Platelet Count 235 X10^3/uL (150-400); Red Blood Cell Count 4.51 X10^6/uL (4.0-5.2); Red Cell Distribution Width 12.6 % (11.6-14.8); White Blood Cell Count 5.4 X10^3/uL (4.5-11.0)
[2018-12-31 10:25] LABS: Alanine Aminotransferase 23 IU/L (9-52); Albumin 4.4 g/dL (3.5-5.0); Albumin Globulin Ratio 1.2 (1.0-2.8); Alkaline Phosphatase 86 U/L (38-126); Aspartate Aminotransferase 38 IU/L (14-36); BUN Creatinine Ratio 22.5 (6-22); Bilirubin Total 0.6 mg/dL (0.2-1.3); Blood Urea Nitrogen 18 mg/dL (7-17); Calcium 9.7 mg/dL (8.4-10.2); Carbon Dioxide 25 mmol/L (22-32); Chloride 104 mmol/L (98-107); Cholesterol 232 mg/dL (140-199); Estimated Glomerular Filt Rate > 60.0 mL/min (>60); Globulin 3.6 g/dL (1.7-4.1); Glucose 92 mg/dL (70-100); HDL Cholesterol 52 mg/dL (40-60); HEMOLYSIS < 15 (0-50); LDL Cholesterol Calculated 153 mg/dL (<100); Potassium 4.1 mmol/L (3.4-5.1); Sodium 140 mmol/L (137-145); Triglycerides 134 mg/dL (35-150)
[2018-12-31 10:52] LABS: Hemoglobin A1C% w Est Avg Glu 5.1 % (4.0-6.0)
[2018-12-31 11:28] LABS: Thyroid Stimulating Hormone 0.91 uIU/mL (0.47-4.68)
== END ==
PROVIDERS: Visit Provider Obstetrics & Gynecology
DX: Z00.00 Encounter for general adult medical examination without abnormal findings (principal)
CPT/HCPCS: 36415; 80053; 80061; 83036; 84443; 85025

== ENCOUNTER → 2019-01-25 16:06 | Outpatient (CLI) | payer OTHER, SELFPAY | DX: Z23 Encounter for immunization (principal) | CPT/HCPCS: 90471; 90686 ==

== ENCOUNTER 2019-07-15 11:04 | Emergency (ER) | payer OTHER, SELFPAY ==
[2019-07-15 11:05] VITALS: BP 164/97; PULSE 74; RESP 18; TEMP 36.7; O2SAT 100
--- NOTE | 2019-07-15 11:20 | DI.RAD.S_ITS ---
PROCEDURE: XR CHEST 1V INDICATIONS: chest pain TECHNIQUE: One view of the chest was acquired. COMPARISON: [facility], CT, ANGIO CHEST ABDOMEN PELVIS, 05/02/2017, 16:19. [facility], CR, RIBS UNILATERAL WITH PA CXR, 06/04/2017, 16:41. [facility], CR, CHEST 1 VIEW, 10/24/2014, 9:23. FINDINGS: Surgical changes and devices: None. Lungs and pleura: Lungs are clear. No pleural effusions or pneumothorax. Mediastinum: Mediastinal contours appear normal. Heart size is normal. Bones and chest wall: No suspicious bony lesions. Overlying soft tissues appear unremarkable. IMPRESSION: Normal portable chest. Dictated by: Lucas Roque M.D. on 07/15/2019 at 10:34 Approved by: Lucas Roque M.D. on 07/15/2019 at 10:35
[2019-07-15] MEDS: MAG HYDROX/ALUMINUM/SIMETH SUS 20 ML, LIDOCAINE VISCOUS 2% 15 ML PO (11:32)
[2019-07-15 11:33] LABS: Add Manual Diff / Slide Review NO; Basophils Absolute Auto 100 /uL (0-100); Basophils Percent Auto 1.3 % (0-2); Eosinophils Absolute Auto 300 /uL (0-450); Eosinophils Percent Auto 4.1 % (2-4); Hemoglobin 14.4 g/dL (12.0-16.0); Lymphocytes Absolute Auto 2000 /uL (1100-4500); Lymphocytes Percent Auto 30.6 % (25-40); Mean Corpuscular HGB Conc 34.3 % (30-36); Mean Corpuscular Volume 93.3 fL (80-100); Monocytes Absolute Auto 600 /uL (0-900); Monocytes Percent Auto 9.2 % (3-14); Neutrophils Absolute Auto 3600 /uL (1500-7000); Neutrophils Percent Auto 54.8 % (50-75); Platelet Count 247 X10^3/uL (150-400); Red Blood Cell Count 4.51 X10^6/uL (4.0-5.2); Red Cell Distribution Width 12.5 % (11.6-14.8); White Blood Cell Count 6.5 X10^3/uL (4.5-11.0)
[2019-07-15 11:34] LABS: Prothrombin Time 11.6 SECONDS (10.1-12.7)
[2019-07-15 11:36] LABS: PTT Partial Thromboplastin Tim 38 SECONDS (26.4-36.2)
[2019-07-15 11:38] LABS: Alanine Aminotransferase 29 IU/L (<35); Albumin 4.6 g/dL (3.5-5.0); Albumin Globulin Ratio 1.2 (1.0-2.8); Alkaline Phosphatase 88 U/L (38-126); Aspartate Aminotransferase 40 IU/L (14-36); BUN Creatinine Ratio 21.1 (6-22); Bilirubin Total 0.5 mg/dL (0.2-1.3); Blood Urea Nitrogen 16 mg/dL (7-17); Calcium 9.6 mg/dL (8.4-10.2); Carbon Dioxide 26 mmol/L (22-32); Chloride 105 mmol/L (98-107); Creatine Kinase 121 U/L (30-135); Estimated Glomerular Filt Rate > 60.0 mL/min (>60); Glucose 90 mg/dL (70-100); HEMOLYSIS < 15 (0-50); Lipase 77 U/L (23-300); Potassium 3.8 mmol/L (3.4-5.1); Sodium 139 mmol/L (137-145); Total Protein 8.6 g/dL (6.3-8.2)
[2019-07-15 11:39] LABS: D Dimer < 200 ng/mL (<230)
[2019-07-15 11:50] LABS: Troponin I < 0.012 ng/mL (0.01-0.034)
[2019-07-15 11:53] LABS: CKMB % Relative Index 2.1 % (1.5-5.0); Creatine Kinase MB 2.54 ng/mL (<2.37)
[2019-07-15 11:56] VITALS: BP 133/73; PULSE 74; RESP 18; O2SAT 100
--- NOTE | 2019-07-15 12:12 | ED.CHESTPAIN ---
HPI - Chest Pain General Chief Complaint: Chest Pain Stated Complaint: chest pressure, tightness in throat Time Seen by Provider: 07/15/19 11:45 Source: patient Mode of arrival: Ambulatory Limitations: no limitations History of Present Illness HPI narrative: HPI: The patient is a 58-year-old female who presents to the emergency department with chest tightness and pressure in the chest. It all started last night approximately 7:00 p.m.. She felt very belchy. She has had episodes of GERD before but never where it seemed to rise. She states that her discomfort rolled up her chest and her esophagus into the back of her throat. She felt as though she had a large lump in her throat. She had no other jaw pain neck pain back pain. She had a little bit a left arm an axillary discomfort. No arm pain. She did feel mildly short of breath with this such that she could not take a deep breath. She has had no cough. The patient currently feels much better after the cocktail was administered on arrival. She denies being dizzy but did have some lightheadedness last night. She also felt like her tongue was tingling. The patient states that she had a lump in the back of her throat and that she had sour taste with reflux and water brash last night with belching. Last night her pain and discomfort was 8/10 in intensity. On arrival her discomfort was 4/10 an after the cocktail it was 2/10 in intensity. She is feeling much better at this time. She denies a history of pancreatitis diabetes mellitus hypertension myocardial infarction asthma. She had a peptic ulcer when she was younger. She admits to a history of indigestion and GERD but nothing as intense as this. She denies a history of hepatitis, TB, HIV. 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 That has not grown in size. She does not know cell type were removed what type of tumor it is. They did a needle biopsy but it was unsuccessful. She denies any known exposure to sol virus. She has had no new for of fever cough. At the end of May she returned from a trip to [place]. And then traveled to [place]. She does not smoke cigarettes vapor drink alcohol or use any drugs. She has had chronic headaches but denies any numbness tingling anesthesia is paresis or paralysis more than usual. She denies any fever chills or sweats palpitations nausea vomiting diarrhea melena hematochezia or urinary symptoms. Related Data Home Medications Medication Instructions Recorded Confirmed meloxicam [Mobic] 25 mg OR Q DAY #0 05/02/17 Previous Rx's Medication Instructions Recorded promethazine-codeine 5 - 10 ml PO Q4HP PRN #90 ml 04/06/17 hydrocodone-acetaminophen 0 tab PO Q6HP PRN #15 tab 05/02/17 hydrocodone-acetaminophen [[place]] 1 tab PO Q4HP PRN #30 tab 06/04/17 pantoprazole [Protonix] 40 mg PO DAILY #10 tab 07/15/19 Allergies Allergy/AdvReac Type Severity Reaction Status Date / Time Sulfa (Sulfonamide Allergy Mild Verified 07/15/19 11:28 Antibiotics) [SULFA (SULFONAMIDE ANTIBIOTICS)] paper tape AdvReac Mild local rash Uncoded 07/29/17 12:05 Review of Systems Review of Systems Narrative: Her review of systems were all negative except for those mentioned in the history of present illness. Patient History Surgical History Status post colonoscopy Status post LASIK surgery Status post tubal ligation Family History Brother Age: 55 Heart disease Father Cancer Grandfather Heart disease Mother Age: 80 Peripheral neuropathy Diabetes mellitus Hypertension Grandfather Heart disease Social History Smoking Status: Never smoker Smoking Status: Never smoker alcohol intake frequency: 0-2 drinks per day Substance Use Type: does not use Exam Narrative Exam Narrative: PHYSICAL EXAM: CONSTITUTIONAL: Awake, Alert, Oriented, Coherent, Cooperative in NAD. Does not appear toxic or ill. HEAD: AT/NC EENT: PERRL, FROM of eyes, no discharge. No epistaxis or nasal drainage Oral mucosa is moist and pink, posterior pharynx is without erythema or exudate. NECK: Supple, no obvious JVD, Trachea is midline without stridor, no palpable LN or masses. SPINE: No gross deformity, no palpable tenderness of the cervical, thoracic, lumbar or sacral spine. No CVA tenderness. THORAX: No deformity, retractions, chest wall tenderness. LUNGS: Clear with symmetrical breath sounds without respiratory distress HEART: Normal heart tones, regular rhythm and rate without murmur. ABDOMEN: Soft, tender in the epigastrium without guarding rebound or rigidity. There is no palpable organomegaly. EXTREMITIES: No edema, cyanosis, deformity or tenderness. SKIN: No rash, bruising, petechiae or purpura. NEURO: Awake, alert, oriented, conversive, cranial nerves II-XII are symmetrical moves all 4 extremities and is ambulatory Initial Vital Signs Initial Vital Signs: Vital Signs Temperature 98.1 F 07/15/19 11:05 Pulse Rate 74 07/15/19 11:05 Respiratory Rate 18 07/15/19 11:05 Blood Pressure 164/97 H 07/15/19 11:05 Pulse Oximetry 100 07/15/19 11:05 Course Course Course Narrative: 12:13 the patient's chest x-ray was negative for any acute pathology. Her WBC is 6.5 hemoglobin is 14.4 hematocrit 42.0 D-dimer is less than 200. EGFR is greater than 60 CPK is 121 troponin is less than 0.012 lipase is 77. Clinically the patient has arm GERD arm with acute arm esophageal spasm. Orders Ordered: Discontinued Medications Al Hydrox/Mg Hydrox/Simethicone (Maalox Plus) 30 ml PO NOW ONE Stop: 07/15/19 12:07 Last Admin: 07/15/19 12:21 Dose: 30 ml Documented by: RUDY Al Hydrox/Mg Hydrox/Simethicone 20 ml/ Lidocaine HCl 15 ml 0 ml PO NOW ONE Stop: 07/15/19 11:30 Last Admin: 07/15/19 11:32 Dose: 35 ml Documented by: BOBBY Pantoprazole Sodium (Protonix) 40 mg IV NOW ONE Stop: 07/15/19 12:07 Last Admin: 07/15/19 12:20 Dose: 40 mg Documented by: RUDY Vital Signs Vital signs: Vital Signs - 8 hr 07/15/19 11:05 07/15/19 11:56 Temperature 98.1 F Pulse Rate 74 74 Respiratory Rate 18 18 Blood Pressure 164/97 H Blood Pressure [Left Arm] 133/73 Pulse Oximetry 100 100 MDM - Chest Pain Medical Records Data Attestation: I reviewed the patient's medical records. Lab Data Attestation: I reviewed the patient's lab results. Result diagrams: 07/15/19 11:16 07/15/19 11:16 Labs: Lab Results 07/15/19 07/15/19 07/15/19 Range/Units 11:16 11:16 11:16 WBC 6.5 (4.5-11.0) X10^3/uL RBC 4.51 (4.0-5.2) X10^6/uL Hgb 14.4 (12.0-16.0) g/dL Hct 42.0 (36-46) % MCV 93.3 (80-100) fL MCH 32.0 (26-34) PG MCHC 34.3 (30-36) % RDW 12.5 (11.6-14.8) % Plt Count 247 (150-400) X10^3/uL Neut % (Auto) 54.8 (50-75) % Lymph % (Auto) 30.6 (25-40) % Craven % (Auto) 9.2 (3-14) % Eos % (Auto) 4.1 H (2-4) % Baso % (Auto) 1.3 (0-2) % Neut # (Auto) 3600 (4723-1549) /uL Lymph # (Auto) 2000 (9258-6050) /uL Craven # (Auto) 600 (0-900) /uL Eos # (Auto) 300 (0-450) /uL Baso # (Auto) 100 (0-100) /uL PT 11.6 (10.1-12.7) SECONDS INR 1.0 (0.9-1.3) APTT 38 H (26.4-36.2) SECONDS D-Dimer (<230) ng/mL Sodium 139 (137-145) mmol/L Potassium 3.8 (3.4-5.1) mmol/L Chloride 105 (98-107) mmol/L Carbon Dioxide 26 (22-32) mmol/L BUN 16 (7-17) mg/dL Creatinine 0.76 (0.52-1.04) mg/dL Estimated GFR > 60.0 (>60) mL/min BUN/Creatinine Ratio 21.1 (6-22) Glucose 90 (70-100) mg/dL Calcium 9.6 (8.4-10.2) mg/dL Total Bilirubin 0.5 (0.2-1.3) mg/dL AST 40 H (14-36) IU/L ALT 29 (<35) IU/L Alkaline Phosphatase 88 (38-126) U/L Total Creatine Kinase 121 (30-135) U/L CK-MB (CK-2) 2.54 H (<2.37) ng/mL CK-MB (CK-2) Rel Index 2.1 (1.5-5.0) % Troponin I < 0.012 (0.01-0.034) ng/mL Total Protein 8.6 H (6.3-8.2) g/dL Albumin 4.6 (3.5-5.0) g/dL Globulin 4.0 (1.7-4.1) g/dL Albumin/Globulin Ratio 1.2 (1.0-2.8) Lipase 77 (23-300) U/L 07/15/19 Range/Units 11:16 WBC (4.5-11.0) X10^3/uL RBC (4.0-5.2) X10^6/uL Hgb (12.0-16.0) g/dL Hct (36-46) % MCV (80-100) fL MCH (26-34) PG MCHC (30-36) % RDW (11.6-14.8) % Plt Count (150-400) X10^3/uL Neut % (Auto) (50-75) % Lymph % (Auto) (25-40) % Craven % (Auto) (3-14) % Eos % (Auto) (2-4) % Baso % (Auto) (0-2) % Neut # (Auto) (7340-7505) /uL Lymph # (Auto) (7039-2474) /uL Craven # (Auto) (0-900) /uL Eos # (Auto) (0-450) /uL Baso # (Auto) (0-100) /uL PT (10.1-12.7) SECONDS INR (0.9-1.3) APTT (26.4-36.2) SECONDS D-Dimer < 200 (<230) ng/mL Sodium (137-145) mmol/L Potassium (3.4-5.1) mmol/L Chloride (98-107) mmol/L Carbon Dioxide (22-32) mmol/L BUN (7-17) mg/dL Creatinine (0.52-1.04) mg/dL Estimated GFR (>60) mL/min BUN/Creatinine Ratio (6-22) Glucose (70-100) mg/dL Calcium (8.4-10.2) mg/dL Total Bilirubin (0.2-1.3) mg/dL AST (14-36) IU/L ALT (<35) IU/L Alkaline Phosphatase (38-126) U/L Total Creatine Kinase (30-135) U/L CK-MB (CK-2) (<2.37) ng/mL CK-MB (CK-2) Rel Index (1.5-5.0) % Troponin I (0.01-0.034) ng/mL Total Protein (6.3-8.2) g/dL Albumin (3.5-5.0) g/dL Globulin (1.7-4.1) g/dL Albumin/Globulin Ratio (1.0-2.8) Lipase (23-300) U/L ECG Data Attestation: I personally reviewed and interpreted this ECG as follows: Interpretation: The patient's EKG obtained on July 14 at 11:2 1:14 a.m. reveals a normal sinus rhythm with normal intervals normal axis inverted T-waves in lead V1 no other acute diagnostic ST segment changes or T-wave abnormalities or inversions. The EKG otherwise appears normal. The ventricular rate is 80. Discharge Plan Departure Patient Disposition: Home Clinical Impression: Chest pain due to GERD, Esophageal spasm, Pulmonary mass Discharge Date/Time: 07/15/19 12:56 Instructions: Heartburn -- Overview, DI for Gastroesophageal Reflux Disease (GERD), GERD Diet Activity Restrictions/Additional Instructions: 1. Keep a log or diarrhea of your indigestion heartburn what makes it better what makes it worse how long it occurs and what relieves it. 2. When you have a bad case like you did last night take a bathroom Garibaldi cup full of Gaviscon liquid antacid or Maalox or Mylanta to relieve and neutralize all the acid in your stomach. 3. Take the Protonix 40 mg per day as prescribed. 4. Call your doctor's office and make an appointment to be re-evaluated in 48-72 hours for continued persistent symptoms. You may need to be scheduled with a consulting nurse for an EGD. 5. If you develop intolerable chest pain, shortness of breath, difficulty in breathing, passing out you need to return to the emergency department or proceed to the nearest emergency department where you are. Prescriptions: New pantoprazole [Protonix] 40 mg tablet,delayed release (DR/EC) 40 mg PO DAILY Qty: 10 RF: 0 No Action promethazine-codeine 6.25 MG/10 MG syrup 5 - 10 ml PO Q4HP PRNQty: 90 RF: 1 meloxicam [Mobic] 7.5 MG tablet 25 mg OR Q DAY Qty: 0 RF: 0 hydrocodone-acetaminophen 5 MG/325 MG tablet 0 tab PO Q6HP PRNQty: 15 RF: 0 hydrocodone-acetaminophen [[place]] 5 MG/325 MG tablet 1 tab PO Q4HP PRNQty: 30 RF: 0
[2019-07-15] MEDS: PANTOPRAZOLE 40 MG VIAL IV (12:20)
[2019-07-15] MEDS: MAG HYDROX/ALUM/SIMETH 30 ML UDC PO (12:21)
[2019-07-15 12:55] VITALS: BP 132/70; PULSE 80; RESP 15; O2SAT 99
== END 2019-07-15 12:56 | disposition home or self-care (01) ==
PROVIDERS: Nurse Practitioner Family; Emergency Provider Emergency Medicine
DX: R07.9 Chest pain, unspecified (principal); K22.4 Dyskinesia of esophagus; J98.4 Other disorders of lung; K21.9 Gastro-esophageal reflux disease without esophagitis
CPT/HCPCS: 36415; 71045; 80053; 82550; 82553; 83690; 84484; 85025; 85379; 85610; 85730; 93005; 96374; 99285; C9113

== ENCOUNTER → 2020-01-07 12:16 | Outpatient (CLI) | payer OTHER, SELFPAY ==
[2020-01-07 12:35] LABS: Add Manual Diff / Slide Review NO; Basophils Absolute Auto 100 /uL (0-100); Basophils Percent Auto 1.1 % (0-2); Eosinophils Absolute Auto 100 /uL (0-450); Eosinophils Percent Auto 1.9 % (2-4); Hematocrit 42.7 % (36-46); Hemoglobin 14.7 g/dL (12.0-16.0); Lymphocytes Absolute Auto 1400 /uL (1100-4500); Lymphocytes Percent Auto 23.5 % (25-40); Mean Corpuscular HGB Conc 34.4 % (30-36); Mean Corpuscular Hemoglobin 32.6 PG (26-34); Mean Corpuscular Volume 94.7 fL (80-100); Monocytes Absolute Auto 500 /uL (0-900); Monocytes Percent Auto 8.8 % (3-14); Neutrophils Absolute Auto 3700 /uL (1500-7000); Neutrophils Percent Auto 64.7 % (50-75); Platelet Count 224 X10^3/uL (150-400); Red Blood Cell Count 4.51 X10^6/uL (4.0-5.2); Red Cell Distribution Width 12.7 % (11.6-14.8); White Blood Cell Count 5.8 X10^3/uL (4.5-11.0)
[2020-01-07 12:48] LABS: Alanine Aminotransferase 41 IU/L (<35); Albumin 4.4 g/dL (3.5-5.0); Albumin Globulin Ratio 1.3 (1.0-2.8); Alkaline Phosphatase 86 U/L (38-126); Aspartate Aminotransferase 54 IU/L (14-36); BUN Creatinine Ratio 16.9 (6-22); Bilirubin Total 0.5 mg/dL (0.2-1.3); Blood Urea Nitrogen 14 mg/dL (7-17); Calcium 9.4 mg/dL (8.4-10.2); Carbon Dioxide 30 mmol/L (22-32); Chloride 103 mmol/L (98-107); Estimated Glomerular Filt Rate > 60.0 mL/min (>60); Globulin 3.4 g/dL (1.7-4.1); Glucose 78 mg/dL (70-100); HEMOLYSIS < 15 (0-50); Lipase 90 U/L (23-300); Sodium 140 mmol/L (137-145); Total Protein 7.8 g/dL (6.3-8.2)
[2020-01-07 13:39] LABS: TSH w/ Reflex to FT4 1.12 uIU/mL (0.47-4.68)
== END ==
PROVIDERS: PCP Family Medicine; Referring Provider Physician Assistant; Visit Provider Physician Assistant
DX: L29.9 Pruritus, unspecified (principal)
CPT/HCPCS: 36415; 80053; 83690; 84443; 85025

== ENCOUNTER → 2020-01-24 15:47 | Outpatient (CLI) | payer OTHER, SELFPAY ==
--- NOTE | 2020-01-24 | DI.MG.S_ITS ---
BILATERAL DIGITAL SCREENING MAMMOGRAM 3D/2D WITH CAD: 01/24/2020 CLINICAL: Routine screening. Comparison is made to exams dated: 12/21/2018 mammogram, 12/18/2016 mammogram, and 10/30/2014 mammogram - [facility]. The tissue of both breasts is heterogeneously dense. This may lower the sensitivity of mammography. Current study was also evaluated with a Computer Aided Detection (CAD) system. No significant masses, calcifications, or other findings are seen in either breast. There has been no significant interval change. IMPRESSION: NEGATIVE There is no mammographic evidence of malignancy. A 1 year screening mammogram is recommended. This exam was interpreted at Station ID: [id number]. NOTE: For mammograms, a report in lay terms will be sent to the patient. Approximately 15% of breast malignancies will not be visualized mammographically. In the management of a palpable breast mass, a negative mammogram must not discourage biopsy of a clinically suspicious lesion. Electronically Signed By: Alberto gross/korin:01/24/2020 16:23:06 letter sent: Normal Exam ACR BI-RADS Category 1: Negative [id number]
== END ==
PROVIDERS: PCP Family Medicine; Referring Provider Family Medicine; Visit Provider Family Medicine
DX: Z12.31 Encounter for screening mammogram for malignant neoplasm of breast (principal)
CPT/HCPCS: 77063; 77067

== ENCOUNTER → 2020-04-19 12:34 | Outpatient (CLI) | payer OTHER, SELFPAY ==
[2020-04-19] MEDS: COVID-19 VACC(MODERNA-1)/PF 100 MCG/0.5 ML VIAL IM (12:37)
== END ==
PROVIDERS: PCP Family Medicine; Visit Provider Internal Medicine
DX: Z23 Encounter for immunization (principal)
CPT/HCPCS: 0011A; 91301

== ENCOUNTER → 2020-05-17 08:16 | Outpatient (CLI) | payer OTHER, SELFPAY ==
[2020-05-17] MEDS: COVID-19 VACC #2, MRNA(MOD) 100 MCG/0.5 ML VIAL IM (08:20)
== END ==
PROVIDERS: PCP Family Medicine; Visit Provider Internal Medicine
DX: Z23 Encounter for immunization (principal)
CPT/HCPCS: 0012A; 91301

== ENCOUNTER 2020-08-06 07:09 | Emergency (ER) | payer OTHER, SELFPAY ==
[2020-08-06 07:12] VITALS: BP 118/55; PULSE 100; RESP 16; TEMP 36.8; O2SAT 99; BMI 25.7
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
[2020-08-06] MEDS: SODIUM CHLORIDE 0.9% 1,000 ML 1000 ML IV (07:48)
[2020-08-06 07:55] LABS: Add Manual Diff / Slide Review NO; Basophils Absolute Auto 0 /uL (0-100); Basophils Percent Auto 0.4 % (0-2); Eosinophils Absolute Auto 300 /uL (0-450); Eosinophils Percent Auto 5.9 % (2-4); Hematocrit 39.8 % (36-46); Lymphocytes Absolute Auto 1300 /uL (1100-4500); Lymphocytes Percent Auto 29.5 % (25-40); Mean Corpuscular HGB Conc 35.1 % (30-36); Mean Corpuscular Hemoglobin 32.1 PG (26-34); Mean Corpuscular Volume 91.3 fL (80-100); Monocytes Absolute Auto 500 /uL (0-900); Monocytes Percent Auto 11.2 % (3-14); Neutrophils Absolute Auto 2400 /uL (1500-7000); Platelet Count 201 X10^3/uL (150-400); Red Blood Cell Count 4.36 X10^6/uL (4.0-5.2); Red Cell Distribution Width 12.4 % (11.6-14.8); White Blood Cell Count 4.6 X10^3/uL (4.5-11.0)
[2020-08-06 08:06] LABS: Alanine Aminotransferase 30 IU/L (<35); Albumin 4.3 g/dL (3.5-5.0); Albumin Globulin Ratio 1.3 (1.0-2.8); Alkaline Phosphatase 93 U/L (38-126); Aspartate Aminotransferase 44 IU/L (14-36); BUN Creatinine Ratio 22.7 (6-22); Bilirubin Total 0.5 mg/dL (0.2-1.3); Blood Urea Nitrogen 17 mg/dL (7-17); Calcium 9.3 mg/dL (8.4-10.2); Carbon Dioxide 28 mmol/L (22-32); Chloride 104 mmol/L (98-107); Estimated Glomerular Filt Rate > 60.0 mL/min (>60); Globulin 3.2 g/dL (1.7-4.1); Glucose 91 mg/dL (70-100); HEMOLYSIS < 15 (0-50); Lipase 57 U/L (23-300); Magnesium 2.3 mg/dL (1.6-2.3); Potassium 3.6 mmol/L (3.4-5.1); Sodium 138 mmol/L (137-145); Total Protein 7.5 g/dL (6.3-8.2)
[2020-08-06 08:29] LABS: Bacteria Urine None Seen; RBC Urine None Seen (0-5/HPF)
[2020-08-06 08:37] LABS: WBC Urine 5-10/HPF (0-5/HPF)
[2020-08-06 08:38] LABS: Culture Indicated Urine Specimen Cultured; Renal Epithelial Cells Urine 1-5/HPF (0-1/HPF)
[2020-08-06 09:00] VITALS: BP 128/77; PULSE 81; RESP 16; O2SAT 100
[2020-08-06] MEDS: LOPERAMIDE 2 MG CAPSULE 4 MG PO (09:07)
[2020-08-06 10:18] LABS: Adenovirus F 40/41 Not Detected (Not Detect); Campylobacter Not Detected (Not Detect); Clostridium difficile toxin AB Not Detected (Not Detect); Cryptosporidium Not Detected (Not Detect); Cyclospora cayetanensis Not Detected (Not Detect); Entamoeba histolytica Not Detected (Not Detect); Enteroaggregative E.coli Not Detected (Not Detect); Enteropathogenic E.coli Not Detected (Not Detect); Enterotoxigenic E.coli It/st Not Detected (Not Detect); Giardia lamblia Not Detected (Not Detect); Plesiomonsa shigelloides Not Detected (Not Detect); Salmonella Not Detected (Not Detect); Shiga-like toxin-prod E.coli Not Detected (Not Detect); Shigella/Enteroinvasive E.coli Not Detected (Not Detect); Vibrio Not Detected (Not Detect); Vibrio cholerae Not Detected (Not Detect); Yersinia enterocolitica Not Detected (Not Detect)
[2020-08-06 10:19] LABS: Astrovirus Not Detected (Not Detect); Norovirus GI/GII Not Detected (Not Detect); Rotavirus A Not Detected (Not Detect); Sapovirus Not Detected (Not Detect)
== END 2020-08-06 09:16 | disposition home or self-care (01) ==
PROVIDERS: Emergency Provider Emergency Medicine; PCP Family Medicine
DX: R19.7 Diarrhea, unspecified (principal)
CPT/HCPCS: 36415; 80053; 81003; 81015; 83690; 83735; 85025; 87077; 87086; 87507; 96360; 99284

== ENCOUNTER → 2020-12-16 12:19 | Outpatient (CLI) | payer OTHER, SELFPAY ==
[2020-12-16 12:46] LABS: COVID19 -Nasal RAPID POSITIVE (Negative)
== END ==
PROVIDERS: PCP Family Medicine; Referring Provider Nurse Practitioner; Visit Provider Nurse Practitioner
DX: U07.1 COVID-19 (principal)
CPT/HCPCS: 87635

== ENCOUNTER → 2020-12-31 08:27 | Outpatient (CLI) | payer OTHER, SELFPAY ==
[2020-12-31 14:07] LABS: COVID19 -Nasal RAPID Negative (Negative)
== END ==
PROVIDERS: PCP Family Medicine; Visit Provider Family Medicine
DX: Z20.822 Contact with and (suspected) exposure to COVID-19 (principal)
CPT/HCPCS: 87635

== ENCOUNTER → 2020-12-31 08:42 | Outpatient (CLI) | payer OTHER, SELFPAY ==
--- NOTE | 2020-12-31 08:43 | DI.RAD.S_ITS ---
PROCEDURE: XR CHEST 2V INDICATIONS: cough, shortness of breath TECHNIQUE: 2 views of the chest were acquired. COMPARISON: [facility], CT, ANGIO CHEST ABDOMEN PELVIS, 05/02/2017, 16:19. [facility], CR, XR CHEST 1V, 07/15/2019, 11:23. [facility], CR, CHEST 1 VIEW, 10/24/2014, 9:23. FINDINGS: Surgical changes and devices: None. Lungs and pleura: Lungs are clear. No pleural effusions or pneumothorax. Mediastinum: Mediastinal contours are normal. Heart size is normal. Bones and chest wall: No suspicious bony abnormalities. Soft tissues appear unremarkable. IMPRESSION: No acute cardiopulmonary abnormality. Dictated by: Luis Metz M.D. on 12/31/2020 at 8:33 Approved by: Luis Metz M.D. on 12/31/2020 at 8:35
== END ==
PROVIDERS: PCP Family Medicine; Referring Provider Family Medicine; Visit Provider Family Medicine
DX: U07.1 COVID-19 (principal); R06.02 Shortness of breath; R05 Cough
CPT/HCPCS: 71046; 87635

== ENCOUNTER → 2021-01-31 | Outpatient (CLI) | payer OTHER, SELFPAY | PROVIDERS: PCP Family Medicine; Referring Provider Internal Medicine; Visit Provider Internal Medicine | DX: Z23 Encounter for immunization (principal) | CPT/HCPCS: 90471; 90686 ==

== ENCOUNTER → 2021-02-22 08:31 | Outpatient (CLI) | payer OTHER, SELFPAY ==
[2021-02-22] MEDS: COVID-19 VACC #3, MRNA(MOD) 50 MCG/0.25 ML VIAL IM (09:37)
== END ==
PROVIDERS: PCP Family Medicine; Visit Provider Internal Medicine
DX: Z23 Encounter for immunization (principal)
CPT/HCPCS: 0013A; 91301

== ENCOUNTER → 2021-04-26 13:45 | Outpatient (CLI) | payer OTHER, SELFPAY ==
--- NOTE | 2021-04-26 13:46 | DI.CT.S_ITS ---
PROCEDURE: CT CHEST WO CON INDICATIONS: hx of abnormal chest CT, cough TECHNIQUE: Noncontrast 5 mm thick sections acquired from the pulmonary apices to the posterior costophrenic angles. 1 mm lung window, 5 mm thick coronal and sagittal and 7 mm axial MIP reformats were then acquired. For radiation dose reduction, the following was used: automated exposure control, adjustment of mA and/or kV according to patient size. COMPARISON: [facility], CT, ANGIO CHEST ABDOMEN PELVIS, 05/02/2017, 16:19. [facility], CR, XR CHEST 2V, 12/31/2020, 8:42. FINDINGS: Image quality: Excellent. Lungs and pleura: 9 x 5 mm masslike consolidation in posterior aspect of left lower lobe is seen with adjacent atelectasis/scarring. Series 3, image 126. Bilateral lung motley are otherwise clear. No pleural effusions or pneumothorax. Central and peripheral airways are patent and normal in caliber. Mediastinum: Heart size is normal. No pericardial effusion. Mildly enlarged mediastinal lymph nodes are seen and measures up to 1 cm in short axis diameter in precarinal space series 2, image 22. No hilar lymphadenopathy. Thoracic aorta and central pulmonary arteries are normal in size. Esophagus is normal in caliber. No hiatal hernia. Bones and chest wall: No suspicious bony lesions. No vertebral body compression fractures. No axillary or supraclavicular adenopathy by size criteria. Thyroid gland is within normal limits. Abdomen: Visualized upper abdominal solid organs and bowel loops appear normal in the absence of contrast. IMPRESSION: 1. Ill-defined 9 x 5 mm masslike consolidation in posterior aspect of left lower lobe with adjacent atelectasis/scarring not definitely seen in 2018 study and may represent resolving left lower lobe infiltrate. Underlying malignant process cannot be excluded. Follow-up study in 3-6 months is recommended. 2. Bilateral lungs otherwise clear. No pleural effusion or pneumothorax. Airway is patent. 3. Borderline enlarged mediastinal lymph nodes as above which is a nonspecific finding. Dictated by: Samuel Malagon M.D. on 04/26/2021 at 15:07 Approved by: Samuel Malagon M.D. on 04/26/2021 at 16:23
== END ==
PROVIDERS: PCP Family Medicine; Referring Provider Family Medicine; Visit Provider Family Medicine
DX: R93.89 Abnormal findings on diagnostic imaging of other specified body structures (principal); R91.8 Other nonspecific abnormal finding of lung field; R59.0 Localized enlarged lymph nodes
CPT/HCPCS: 71250

== ENCOUNTER → 2021-07-23 07:05 | Outpatient (CLI) | payer OTHER, SELFPAY ==
[2021-07-23 08:16] LABS: Add Manual Diff / Slide Review NO; Basophils Absolute Auto 100 /uL (0-100); Basophils Percent Auto 1.1 % (0-2); Eosinophils Absolute Auto 300 /uL (0-450); Hematocrit 42.2 % (36-46); Hemoglobin 14.5 g/dL (12.0-16.0); Lymphocytes Absolute Auto 1700 /uL (1100-4500); Lymphocytes Percent Auto 33.3 % (25-40); Mean Corpuscular HGB Conc 34.4 % (30-36); Mean Corpuscular Hemoglobin 31.5 PG (26-34); Mean Corpuscular Volume 91.7 fL (80-100); Monocytes Absolute Auto 500 /uL (0-900); Monocytes Percent Auto 9.7 % (3-14); Neutrophils Absolute Auto 2600 /uL (1500-7000); Neutrophils Percent Auto 49.9 % (50-75); Platelet Count 197 X10^3/uL (150-400); Red Cell Distribution Width 12.8 % (11.6-14.8); White Blood Cell Count 5.2 X10^3/uL (4.5-11.0)
[2021-07-23 08:58] LABS: Alanine Aminotransferase 26 IU/L (<35); Albumin 4.5 g/dL (3.5-5.0); Albumin Globulin Ratio 1.3 (1.0-2.8); Alkaline Phosphatase 85 U/L (38-126); Aspartate Aminotransferase 34 IU/L (14-36); BUN Creatinine Ratio 22.1 (6-22); Bilirubin Total 0.5 mg/dL (0.2-1.3); Blood Urea Nitrogen 17 mg/dL (7-17); Calcium 9.3 mg/dL (8.4-10.2); Carbon Dioxide 23 mmol/L (22-32); Chloride 106 mmol/L (98-107); Cholesterol 251 mg/dL (140-199); Estimated Glomerular Filt Rate > 60.0 mL/min (>60); Globulin 3.5 g/dL (1.7-4.1); Glucose 96 mg/dL (80-110); HDL Cholesterol 59 mg/dL (40-60); HEMOLYSIS < 15 (0-50); LDL Cholesterol Calculated 159 mg/dL (<100); Sodium 140 mmol/L (137-145); Triglycerides 165 mg/dL (35-150)
--- NOTE | 2021-07-23 11:34 | DI.CT.S_ITS ---
PROCEDURE: CT CHEST W CON INDICATIONS: post covid sympotms, lung nodule TECHNIQUE: After the administration of intravenous contrast, 5 mm thick sections acquired from the pulmonary apices to the posterior costophrenic angles. 1 mm axial lung, 5 mm thick coronal and sagittal reformats and 7 mm axial MIP were acquired. For radiation dose reduction, the following was used: automated exposure control, adjustment of mA and/or kV according to patient size. COMPARISON: [facility], CT, ANGIO CHEST ABDOMEN PELVIS, 05/02/2017, 16:19. [facility], CT, CT CHEST WO CON, 04/26/2021, 13:53. FINDINGS: Image quality: Excellent. Lungs and pleura: No consolidation, pleural effusions or pneumothorax. 8.2 mm spiculated nodule in the superior aspect of the left lower lobe, unchanged. Central and peripheral airways are patent and normal in caliber. Mediastinum: Heart size is normal. No pericardial effusion. No hilar adenopathy by size criteria. Mediastinal lymphadenopathy, possibly reactive. Thoracic aorta and central pulmonary arteries are normal in size. Esophagus is normal in caliber. No hiatal hernia. Bones and chest wall: No suspicious bony lesions. No vertebral body compression fractures. No axillary or supraclavicular adenopathy by size criteria. Thyroid gland appears homogeneous. Abdomen: Visualized upper abdominal solid organs appear normal. Upper abdominal bowel loops are normal in caliber. IMPRESSION: 1. 8.2 mm spiculated nodule in the superior aspect of the left lower lobe which may reflect scarring given chronicity. Consider PET-CT or CT follow-up in 18-24 months to ensure stability. Dictated by: Carlos Rucker M.D. on 07/23/2021 at 12:45 Approved by: Carlos Rucker M.D. on 07/23/2021 at 12:57
== END ==
PROVIDERS: PCP Family Medicine; Referring Provider Family Medicine; Visit Provider Family Medicine
DX: U09.9 Post COVID-19 condition, unspecified (principal); R91.1 Solitary pulmonary nodule; E78.5 Hyperlipidemia, unspecified
CPT/HCPCS: 36415; 71260; 80053; 80061; 85025

== ENCOUNTER → 2021-09-19 12:18 | Outpatient (CLI) | payer OTHER, SELFPAY ==
[2021-09-19 14:02] LABS: COVID19 -Nasal RAPID Negative (Negative)
== END ==
PROVIDERS: PCP Family Medicine; Referring Provider Internal Medicine; Visit Provider Internal Medicine
DX: Z20.822 Contact with and (suspected) exposure to COVID-19 (principal)
CPT/HCPCS: 87635; C9803

== ENCOUNTER → 2021-09-19 12:19 | Outpatient (CLI) | payer OTHER, SELFPAY ==
--- NOTE | 2021-09-23 14:09 | PM.PFT.1 ---
Pulmonary Function Test Referral & Results Date Patient Seen: 09/19/21 Requesting provider: Santos Kirk Results: The spirometry demonstrates an FVC of 3.10 L which is 91% of predicted. The FEV1 was measured at 2.55 L which is 97% of predicted. The FEV1/FVC ratio was 82 which is 105% of predicted. Following the administration of bronchodilator there was no notable change to above normal numbers Lung volumes show an SVC of 3.07 L which is 97% of predicted. The diffusing capacity was measured at 21.08 which is 82% of predicted. The maximum voluntary ventilation was normal Interpretation: This study demonstrates normal spirometry Diffusing capacity maybe minimally reduced although could be considered normal as well Compared to PFTs performed in November 2014, current study is essentially unchanged, including diffusing capacity Clinical correlation suggested
== END ==
PROVIDERS: PCP Family Medicine; Referring Provider Family Medicine; Visit Provider Family Medicine
DX: R06.02 Shortness of breath (principal); U09.9 Post COVID-19 condition, unspecified; Z20.822 Contact with and (suspected) exposure to COVID-19
CPT/HCPCS: 87635; 94060; 94726; 94729; C9803

== ENCOUNTER → 2022-07-01 10:51 | Outpatient (CLI) | payer OTHER, SELFPAY ==
[2022-07-01 11:23] LABS: Add Manual Diff / Slide Review NO; Basophils Absolute Auto 100 /uL (0-100); Basophils Percent Auto 0.7 % (0-2); Eosinophils Absolute Auto 300 /uL (0-450); Hematocrit 42.1 % (36-46); Hemoglobin 14.2 g/dL (12.0-16.0); Lymphocytes Absolute Auto 1500 /uL (1100-4500); Lymphocytes Percent Auto 17.4 % (25-40); Mean Corpuscular HGB Conc 33.8 % (30-36); Mean Corpuscular Volume 91.7 fL (80-100); Monocytes Absolute Auto 800 /uL (0-900); Monocytes Percent Auto 9.7 % (3-14); Neutrophils Absolute Auto 5800 /uL (1500-7000); Neutrophils Percent Auto 68.2 % (50-75); Platelet Count 290 X10^3/uL (150-400); Red Blood Cell Count 4.59 X10^6/uL (4.0-5.2); Red Cell Distribution Width 12.9 % (11.6-14.8); White Blood Cell Count 8.5 X10^3/uL (4.5-11.0)
[2022-07-01 11:42] LABS: HEMOLYSIS < 15 (0-50); Iron 69 ug/dL (37-170)
[2022-07-01 11:52] LABS: Alanine Aminotransferase 40 IU/L (<35); Albumin 4.5 g/dL (3.5-5.0); Albumin Globulin Ratio 1.1 (1.0-2.8); Alkaline Phosphatase 104 U/L (38-126); Aspartate Aminotransferase 36 IU/L (14-36); BUN Creatinine Ratio 18.2 (6-22); Bilirubin Total 0.5 mg/dL (0.2-1.3); Blood Urea Nitrogen 12 mg/dL (7-17); Calcium 8.8 mg/dL (8.4-10.2); Carbon Dioxide 29 mmol/L (22-32); Chloride 102 mmol/L (98-107); Cholesterol 235 mg/dL (140-199); Estimated Glomerular Filt Rate > 60 mL/min (>60); Glucose 88 mg/dL (80-110); HDL Cholesterol 48 mg/dL (40-60); HEMOLYSIS < 15 (0-50); LDL Cholesterol Calculated 154 mg/dL (<100); Percent Iron Saturation 22 % (15-50); Potassium 4.3 mmol/L (3.4-5.1); Sodium 137 mmol/L (137-145); Total Iron Binding Capacity 317 ug/dL (265-497); Total Protein 8.5 g/dL (6.3-8.2); Transferrin 244 mg/dL (206-381); Triglycerides 167 mg/dL (35-150)
[2022-07-01 12:12] LABS: TSH w/ Reflex to FT4 1.42 uIU/mL (0.47-4.68)
[2022-07-01 12:30] LABS: Vitamin B12 634 pg/mL (239-931)
== END ==
PROVIDERS: PCP Family Medicine; Referring Provider Family Medicine; Visit Provider Family Medicine
DX: B99.9 Unspecified infectious disease (principal); E78.5 Hyperlipidemia, unspecified; U09.9 Post COVID-19 condition, unspecified; Z82.49 Family history of ischemic heart disease and other diseases of the circulatory system
CPT/HCPCS: 36415; 80053; 80061; 82607; 83540; 83550; 84443; 85025

== ENCOUNTER → 2022-07-03 10:50 | Outpatient (CLI) | payer OTHER, SELFPAY ==
[2022-07-03 11:34] LABS: Influenza A - CEPHEID Flu A NEGATIVE (NEGATIVE); Influenza B - CEPHEID Flu B NEGATIVE (NEGATIVE); Respiratory Syncytial Virus Negative (Negative)
[2022-07-03 11:35] LABS: COVID-19 CEPHEID 4-PLEX PCR POSITIVE (Negative)
== END ==
PROVIDERS: PCP Family Medicine; Visit Provider Nurse Practitioner Family
DX: U07.1 COVID-19 (principal); R05.1 Acute cough
CPT/HCPCS: 0241U

== ENCOUNTER → 2022-07-03 10:51 | Outpatient (CLI) | payer OTHER, SELFPAY ==
--- NOTE | 2022-07-03 10:52 | DI.RAD.S_ITS ---
PROCEDURE: XR CHEST 2V INDICATIONS: Cough TECHNIQUE: 2 views of the chest were acquired. COMPARISON: [facility], CR, XR CHEST 2V, 12/31/2020, 8:42. [facility], CR, XR CHEST 1V, 07/15/2019, 11:23. FINDINGS: Surgical changes and devices: None. Lungs and pleura: Lungs are clear. No pleural effusions or pneumothorax. Mediastinum: Mediastinal contours are normal. Heart size is normal. Bones and chest wall: No suspicious bony abnormalities. Soft tissues appear unremarkable. IMPRESSION: No acute cardiopulmonary process. Dictated by: Jason Graham M.D. on 07/03/2022 at 12:55 Approved by: Jason Graham M.D. on 07/03/2022 at 12:56
== END ==
PROVIDERS: PCP Family Medicine; Referring Provider Nurse Practitioner Family; Visit Provider Nurse Practitioner Family
DX: R05.1 Acute cough (principal); U07.1 COVID-19
CPT/HCPCS: 0241U; 71046

== ENCOUNTER 2022-11-18 17:00 | Emergency (ER) | payer OTHER, SELFPAY ==
[2022-11-18] VITALS (9 sets, daily range): BP systolic 128–141; BP diastolic 73–98; PULSE 79–94; RESP 20; TEMP 36.6; O2SAT 95–100; BMI 27.9
--- NOTE | 2022-11-18 17:41 | DI.CT.S_ITS ---
PROCEDURE: CT CERVICAL SPINE WO CON INDICATIONS: headache w/ neck pain TECHNIQUE: Noncontrast 3 mm thick sections acquired from the skull base to the T4 level. Sagittal and coronal reformats were then constructed. For radiation dose reduction, the following was used: automated exposure control, adjustment of mA and/or kV according to patient size. COMPARISON: None. FINDINGS: Image quality: Excellent. Bones: No fractures or dislocations. Visualized superior ribs are intact. Mild to moderate multilevel degenerative changes. Soft tissues: Prevertebral soft tissues are normal in thickness. No paravertebral hematomas. No apical pneumothoraces. IMPRESSION: Multilevel degenerative changes without visualized fracture Dictated by: Lillian Hughes M.D. on 11/18/2022 at 18:01 Approved by: Lillian Hughes M.D. on 11/18/2022 at 18:02
--- NOTE | 2022-11-18 17:44 | DI.CT.S_ITS ---
PROCEDURE: CT HEAD/BRAIN WO CON INDICATIONS: headache w/ visual changes neck pain TECHNIQUE: Noncontrast 4.5 mm thick angled axial sections acquired from the foramen magnum to the vertex, with coronal and sagittal reformats. For radiation dose reduction, the following was used: automated exposure control, adjustment of mA and/or kV according to patient size. COMPARISON: None. FINDINGS: Image quality: Excellent. CSF spaces: Basal cisterns are patent. No extra-axial fluid collections. Ventricles are normal in size and shape. Brain: No midline shift. No intracranial masses or hemorrhage. Valentine-white matter interface is normal. Skull and face: Calvarium and visualized facial bones are intact, without suspicious lesions. Sinuses: Visualized sinuses and mastoids are clear. IMPRESSION: 1. No acute intracranial process. Dictated by: Lillian Hughes M.D. on 11/18/2022 at 18:01 Approved by: Lillian Hughes M.D. on 11/18/2022 at 18:01
[2022-11-18 19:55] LABS: Add Manual Diff / Slide Review NO; Basophils Absolute Auto 100 /uL (0-100); Basophils Percent Auto 1.1 % (0-2); Eosinophils Absolute Auto 400 /uL (0-450); Eosinophils Percent Auto 6.5 % (2-4); Hematocrit 40.9 % (36-46); Hemoglobin 14.3 g/dL (12.0-16.0); Lymphocytes Absolute Auto 2200 /uL (1100-4500); Lymphocytes Percent Auto 34.9 % (25-40); Mean Corpuscular Hemoglobin 31.9 PG (26-34); Mean Corpuscular Volume 91.1 fL (80-100); Monocytes Absolute Auto 400 /uL (0-900); Monocytes Percent Auto 6.9 % (3-14); Neutrophils Absolute Auto 3200 /uL (1500-7000); Neutrophils Percent Auto 50.6 % (50-75); Platelet Count 231 X10^3/uL (150-400); Red Blood Cell Count 4.49 X10^6/uL (4.0-5.2); Red Cell Distribution Width 12.5 % (11.6-14.8); White Blood Cell Count 6.3 X10^3/uL (4.5-11.0)
[2022-11-18] MEDS: DEXAMETHASONE 10 MG/ML VIAL IV (19:55)
[2022-11-18] MEDS: SODIUM CHLORIDE 0.9% 1,000 ML 1000 ML IV (19:55)
[2022-11-18] MEDS: PROCHLORPERAZINE 10 MG/2 ML VIAL IV (19:55)
[2022-11-18] MEDS: diphenhydrAMINE 50 MG/ML VIAL 25 MG IV (19:56)
[2022-11-18] MEDS: KETOROLAC 30 MG/ML VIAL IV (19:57)
[2022-11-18 20:09] LABS: Alanine Aminotransferase 31 IU/L (<35); Albumin 4.6 g/dL (3.5-5.0); Albumin Globulin Ratio 1.2 (1.0-2.8); Alkaline Phosphatase 95 U/L (38-126); Aspartate Aminotransferase 41 IU/L (14-36); Bilirubin Total 0.4 mg/dL (0.2-1.3); Blood Urea Nitrogen 17 mg/dL (7-17); Calcium 9.2 mg/dL (8.4-10.2); Carbon Dioxide 28 mmol/L (22-32); Chloride 104 mmol/L (98-107); Estimated Glomerular Filt Rate > 60 mL/min (>60); Globulin 3.9 g/dL (1.7-4.1); Glucose 88 mg/dL (80-110); HEMOLYSIS 36 (0-50); Potassium 4.1 mmol/L (3.4-5.1); Sodium 137 mmol/L (137-145); Total Protein 8.5 g/dL (6.3-8.2)
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
== END 2022-11-18 22:07 | disposition home or self-care (01) ==
PROVIDERS: Emergency Provider Emergency Medicine; PCP Family Medicine
DX: R51.9 Headache, unspecified (principal)
CPT/HCPCS: 36415; 70450; 72125; 80053; 81003; 85025; 96361; 96374; 96375; 99284; J0780; J1100; J1200; J1885

== ENCOUNTER → 2023-02-03 08:08 | Outpatient (CLI) | payer OTHER, SELFPAY ==
--- NOTE | 2023-02-03 08:09 | DI.CT.S_ITS ---
PROCEDURE: CT CHEST WO CON INDICATIONS: left lung nodule TECHNIQUE: Noncontrast 5 mm thick sections acquired from the pulmonary apices to the posterior costophrenic angles. 1 mm lung window, 5 mm thick coronal and sagittal and 7 mm axial MIP reformats were then acquired. For radiation dose reduction, the following was used: automated exposure control, adjustment of mA and/or kV according to patient size. COMPARISON: [facility], CT, CT CHEST WO CON, 04/26/2021, 13:53. FINDINGS: Image quality: Excellent. Lungs and pleura: Similar region of architectural distortion in the superior left lower lobe compared with CT dated 04/26/2021. There is a central nodularity measuring 7 x 5 mm, unchanged from prior. Platelike appearance on the sagittal view. Mediastinum: Heart size is normal. No pericardial effusion. No mediastinal adenopathy by size criteria. Thoracic aorta and central pulmonary arteries are normal in size. Esophagus is normal in caliber. No hiatal hernia. Bones and chest wall: No suspicious bony lesions. No vertebral body compression fractures. No axillary or supraclavicular adenopathy by size criteria. Thyroid gland is unremarkable . Abdomen: Visualized upper abdominal solid organs and bowel loops appear normal in the absence of contrast. IMPRESSION: Similar appearance of the lenticular, architectural distortion of the superior left lower lobe. Central nodularity with irregular margins measures 7 x 5 mm, unchanged since 04/26/2021 using similar measuring techniques. Findings favor a scar over malignancy. Additional 6-12 month follow-up should be considered to document 2 year stability. Dictated by: Jason Graham M.D. on 02/03/2023 at 10:52 Approved by: Jason Graham M.D. on 02/03/2023 at 10:58
== END ==
PROVIDERS: PCP Family Medicine; Referring Provider Family Medicine; Visit Provider Family Medicine
DX: R93.89 Abnormal findings on diagnostic imaging of other specified body structures (principal); R91.1 Solitary pulmonary nodule
CPT/HCPCS: 71250

== ENCOUNTER → 2023-08-04 14:57 | Outpatient (CLI) | payer OTHER, SELFPAY ==
--- NOTE | 2023-08-04 14:58 | DI.RAD.S_ITS ---
PROCEDURE: XR SACRUM COCCYX MIN 2V INDICATIONS: sacrum pain x 5 mos, chronic diarrhea TECHNIQUE: 3 views of the sacrum and coccyx acquired. COMPARISON: [facility], CT, KIDNEY/ URETER/BLADDER, 05/02/2017, 11:00. FINDINGS: Bones: No fractures or dislocations. No suspicious bony lesions. Mild degenerative changes at the SI joints. Soft tissues: Visualized bowel gas pattern is normal. No suspicious soft tissue densities. IMPRESSION: No fracture identified. Dictated by: Luis Metz M.D. on 08/04/2023 at 22:04 Approved by: Luis Metz M.D. on 08/04/2023 at 22:05
[2023-08-04 16:00] LABS: Add Manual Diff / Slide Review NO; Basophils Absolute Auto 100 /uL (0-100); Basophils Percent Auto 1.3 % (0-2); Eosinophils Absolute Auto 400 /uL (0-450); Eosinophils Percent Auto 6.5 % (2-4); Hematocrit 42.6 % (36-46); Hemoglobin 14.7 g/dL (12.0-16.0); Lymphocytes Absolute Auto 1800 /uL (1100-4500); Lymphocytes Percent Auto 28.2 % (25-40); Mean Corpuscular HGB Conc 34.6 % (30-36); Mean Corpuscular Hemoglobin 32.1 PG (26-34); Mean Corpuscular Volume 92.7 fL (80-100); Monocytes Absolute Auto 500 /uL (0-900); Monocytes Percent Auto 7.8 % (3-14); Neutrophils Absolute Auto 3600 /uL (1500-7000); Neutrophils Percent Auto 56.2 % (50-75); Platelet Count 258 X10^3/uL (150-400); Red Blood Cell Count 4.59 X10^6/uL (4.0-5.2); Red Cell Distribution Width 12.7 % (11.6-14.8); White Blood Cell Count 6.4 X10^3/uL (4.5-11.0)
[2023-08-04 16:11] LABS: Alanine Aminotransferase 33 IU/L (<35); Albumin 5.1 g/dL (3.5-5.0); Albumin Globulin Ratio 1.3 (1.0-2.8); Alkaline Phosphatase 103 U/L (38-126); Aspartate Aminotransferase 40 IU/L (14-36); BUN Creatinine Ratio 22.5 (6-22); Bilirubin Total 0.5 mg/dL (0.2-1.3); Blood Urea Nitrogen 16 mg/dL (7-17); Calcium 9.7 mg/dL (8.4-10.2); Carbon Dioxide 31 mmol/L (22-32); Chloride 102 mmol/L (98-107); Estimated Glomerular Filt Rate > 60 mL/min (>60); Globulin 3.9 g/dL (1.7-4.1); Glucose 85 mg/dL (80-110); HEMOLYSIS 19 (0-50); Potassium 4.2 mmol/L (3.4-5.1); Sodium 138 mmol/L (137-145)
[2023-08-04 16:52] LABS: TSH w/ Reflex to FT4 1.16 uIU/mL (0.47-4.68)
[2023-08-06 17:00] LABS: Hep C Virus Ab w/Reflex Quant NEGATIVE s/c (NEGATIVE)
== END ==
PROVIDERS: PCP Family Medicine; Referring Provider Physician Assistant; Visit Provider Physician Assistant
DX: S33.8XXA Sprain of other parts of lumbar spine and pelvis, initial encounter (principal); K52.9 Noninfective gastroenteritis and colitis, unspecified; X58.XXXA Exposure to other specified factors, initial encounter
CPT/HCPCS: 36415; 72220; 80053; 84443; 85025; 86803

== ENCOUNTER → 2023-08-06 11:25 | Outpatient (CLI) | payer OTHER, SELFPAY ==
[2023-08-07 15:08] LABS: Fecal Immunochemical Test Negative (Negative)
[2023-08-08 17:31] LABS: C difficie Toxins A and B, EIA Negative (Negative)
== END ==
PROVIDERS: PCP Family Medicine; Referring Provider Physician Assistant; Visit Provider Physician Assistant
DX: K52.9 Noninfective gastroenteritis and colitis, unspecified (principal); S33.8XXA Sprain of other parts of lumbar spine and pelvis, initial encounter
CPT/HCPCS: 82274; 87177; 87324

== ENCOUNTER 2023-09-04 12:13 | Day surgery (SDC) | payer OTHER, SELFPAY ==
[2023-09-04 12:28] VITALS: BP 131/85; PULSE 81; RESP 18; TEMP 37.1; O2SAT 100
[2023-09-04] MEDS: LACTATED RINGERS 1,000 ML 42 ML IV (12:47)
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
[2023-09-04 13:28] VITALS: BP 101/67; PULSE 86; RESP 17; TEMP 36.2; O2SAT 99
--- NOTE | 2023-09-04 13:32 | P.OP.COLON_ITS ---
Operative Date/Time/Diagnoses Date of procedure: 09/04/23 Time of procedure: 13:32 Pre-op diagnosis: Colorectal screening Procedure & Clinicians Study performed: Screening colonoscopy Same procedure as scheduled: Yes Indications: Colorectal screening Surgeon: Fredrick Zhou Procedure Notes Procedure in detail: The history and physical was performed/updated and the patient is ASA class is 2. The procedure was discussed in detail with the patient. Potential risks co mplications including infection, bleeding, missed diagnosis, perforation, need for surgery, and were explained. Their questions were answered and informed consent was obtained. Patient was brought to the procedure room and placed standard monitoring equipment. The patient's vital signs were monitored continuously throughout the entire procedure. Prior to starting time-out was performed. The patient was placed in the left lateral recumbent position. Procedural sedation was administered by anesthesia. Examination began with a thorough inspection of the perianal area there was no evidence of fissures, fistulae, external hemorrhoids or cutaneous malignancy. The colonoscopy scope was then placed into the anal canal and was advanced to the cecum, which was identified by the ileocecal valve, the appendiceal orifice and the confluence of the taenia. The scope was then slowly withdrawn examining colon thoroughly in all directions, irrigating it of any residual stool. The scope was retroflexed within the rectum The patient tolerated the procedure well. They will be discharged once criteria are met. The prep was of good/excellent quality. The withdrawl time was 7 minutes. FINDINGS * No masses or polyps * Internal hemorrhoids Specimen(s): none sent Impression: Normal colonoscopy Post-procedure Recommendations: Colonoscopy in 10 years Disposition: same day surgery
[2023-09-04 13:33] VITALS: BP 92/59; PULSE 93; RESP 16; O2SAT 98
[2023-09-04 13:38] VITALS: BP 92/62; PULSE 87; RESP 14; O2SAT 98
== END 2023-09-04 13:49 | disposition home or self-care (01) ==
PROVIDERS: PCP Family Medicine; Referring Provider Surgery; Visit Provider Surgery
PROC: 0DJD8ZZ Inspection of Lower Intestinal Tract, Via Natural or Artificial Opening Endoscopic (ICD-10-PCS; CPT 45378; principal; 2023-09-04 13:30)
DX: Z12.11 Encounter for screening for malignant neoplasm of colon (principal); K64.8 Other hemorrhoids
CPT/HCPCS: 45378; J2704

== ENCOUNTER → 2023-10-03 14:17 | Outpatient (CLI) | payer OTHER, SELFPAY ==
[2023-10-03 15:39] LABS: Influenza A - CEPHEID Flu A NEGATIVE (NEGATIVE); Influenza B - CEPHEID Flu B NEGATIVE (NEGATIVE); Respiratory Syncytial Virus Negative (Negative)
[2023-10-03 15:46] LABS: COVID-19 CEPHEID 4-PLEX PCR Negative (Negative)
== END ==
PROVIDERS: PCP Family Medicine; Visit Provider Physician Assistant Surgical
DX: R05.1 Acute cough (principal)
CPT/HCPCS: 0241U

== ENCOUNTER → 2024-07-13 10:14 | Outpatient (CLI) | payer OTHER, SELFPAY ==
--- NOTE | 2024-07-13 10:15 | DI.RAD.S_ITS ---
PROCEDURE: XR CHEST 2V INDICATIONS: Cough and SOB TECHNIQUE: 2 views of the chest were acquired. COMPARISON: Merged With [facility], CR, XR CHEST 2V, 07/03/2022, 11:32. FINDINGS: Surgical changes and devices: None. Lungs and pleura: Lungs are clear. No pleural effusions or pneumothorax. Mediastinum: Mediastinal contours are normal. Heart size is normal. Bones and chest wall: No suspicious bony abnormalities. Soft tissues appear unremarkable. IMPRESSION: No acute pulmonary process. Dictated by: Lillian Hughes M.D. on 07/13/2024 at 12:36 Approved by: Lillian Hughes M.D. on 07/13/2024 at 12:36
== END ==
PROVIDERS: PCP Family Medicine; Referring Provider Family Medicine; Visit Provider Family Medicine
DX: R05.9 Cough, unspecified (principal); R06.02 Shortness of breath
CPT/HCPCS: 71046